=== PATIENT | female | born 1945 | race Caucasian/White ===

== ENCOUNTER 2019-04-01 10:59 | Observation (INO) ==
[~2019-04-01 10:59] MED LIST: CEFAZOLIN 1000MG 1,000 MG/7.5 ML SYR IV SCH; CEFAZOLIN 2000MG 2,000 MG/15 ML SYR IV SCH; LR 15ML/HR IV SCH
[2019-04-01 12:15] LABS: INR 1.7 (0.9-1.1); Prothrombin Time 16.4 Seconds (9.0-12.0)
--- NOTE | 2019-04-01 12:38 | Pre Anesthesia Assessment ---
Date of Service April 01, 2019 Pre Sedation Assessment Vital Signs Temp Pulse Resp BP Pulse Ox 04/01/19 11:45 36.5 C 91 H 20 94/60 L 94 Cardiovascular + irregularly irregular Respiratory normal respiratory effort, lungs clear to auscultation Pre-Sedation Airway Assessment Smoking Status: Former smoker Hx Sleep Apnea: No Hx Difficult Intubation: No Short, Thick Neck: No Thyromental Distance: < 3.5 Finger Breadths Oral Cavity: + Dentures Mallampati Class: III ASA: ASA3 NPO Status Date of Last Intake of Fluids: 03/31/19 Date of Last Intake of Solid Food: 03/31/19 Procedure Planning Contraindications for Sedation: none Current Medications Reviewed: Yes Notes The planned sedation has been discussed with the patient. Informed Consent was obtained. I have identified the patient, determined the appropriateness of sedation and have assessed the patient immediately prior to the procedure. All medicine(s) and interventions are by my order.
[2019-04-01] MEDS ORDERED: BUPIVACAINE 0.25% 30 ML VIAL ONE (12:48)
[2019-04-01] MEDS ORDERED: LIDOCAINE HCL 1% 20 ML VIAL ONE (12:48)
--- NOTE | 2019-04-01 12:48 | History & Physical Report ---
Date of Service April 01, 2019 History of Present Illness Chief Complaint: +lightheadeness dizziness, fatigue and SOB Pt with persistent AF with RVR and hypotension unable to tolerate much diaslysis due to the hypotension Primary Care Provider: Jose Elias Ascencio MD +lightheadeness dizziness, fatigue and SOB Pt with persistent AF with RVR and hypotension unable to tolerate much diaslysis due to the hypotension Allergies Allergy/AdvReac Type Severity Reaction Status Date / Time No Known Allergies Allergy Unverified 12/16/18 13:55 Home Medications Home Medications Medication Instructions Recorded Confirmed Type Flovent HFA 2 puff INHALATION BID 12/16/18 04/01/19 History Renal Caps 1 mg PO DAILY 12/16/18 04/01/19 History calcitriol 0.25 mg PO DAILY 12/16/18 04/01/19 History cholecalciferol (vitamin D3) 5,000 unit PO DAILY 12/16/18 04/01/19 History cilostazol 100 mg PO BID 12/16/18 04/01/19 History clopidogrel 75 mg PO DAILY 12/16/18 04/01/19 History desvenlafaxine succinate 100 mg PO DAILY 12/16/18 04/01/19 History ferrous sulfate [Iron (ferrous 325 mg PO DAILY 12/16/18 04/01/19 History sulfate)] glipizide 5 mg PO DAILY 12/16/18 04/01/19 History metoprolol tartrate 100 mg PO BID 12/16/18 04/01/19 History nitroglycerin 0.4 mg SUBLINGUAL Q5M PRN 12/16/18 04/01/19 History nystatin [Nyamyc] 1 applic TOPICAL TID 12/16/18 04/01/19 History oxycodone-acetaminophen 1 tab PO Q6H PRN 12/16/18 04/01/19 History calcium acetate 667 mg PO TIDM 30 Days #90 cap 01/07/19 04/01/19 Rx albuterol sulfate 3 puff INHALATION BID 04/01/19 04/01/19 History warfarin [Coumadin] 5 mg PO UD 04/01/19 04/01/19 History Past Med/Surg History Social History Preferred Language: Albanian Communication Ability: Effective Gun Number Required: No Beliefs That Will Affect Care: None marital status: / Current Living Situation: Family Current Living Situation Comment: Grandson lives with patient; he is 26 Other Information That Helps Us Care for You: No Feels Safe at Home: No Is there a partner from a previous relationship who is making you feel unsafe now?: No Any Concerns about Your Family Situation: No Would You Like to Speak to Someone About Your Situation: No Safety Concerns: Feels Safe At This Time Smoking Status: Former smoker Smoking End Date: quit 5 yrs ago Second Hand Exposure: Yes Tobacco Cessation Education Requested by Patient: No Hx Alcohol Use: No Hx Substance Use: No Review of Systems All systems reviewed & are unremarkable except as noted in HPI & below Physical Exam Physical Exam: aaox3, NAD NC/AT, EOMI Supple No JVD irregular irregular S1/S2, + murmur CTA b/l no w/r/r soft nt/nd no LE edema b/l skin intact, left AVF and left sided ppm no focal deficits Results & Data Vital Signs (Past 12 Hours) Vital Signs right sided peripheral venogram from 03/17 shows right sided subclavian is patent Temp Pulse Resp BP Pulse Ox 04/01/19 11:45 36.5 C 91 H 20 94/60 L 94
[2019-04-01] MEDS ORDERED: BACITRACIN INJ 50,000 UNIT VIAL ONE (12:49)
[2019-04-01] MEDS ORDERED: MIDAZOLAM HCL 5 MG/ML 1 ML VIAL ONE ×3 (12:51→14:55)
[2019-04-01] MEDS ORDERED: fentaNYL citrate 100 MCG/2 ML VIAL ONE ×3 (12:51→14:55)
[2019-04-01] MEDS ORDERED: OXYCODONE/ACETAMINOPHEN 5mg/325mg TAB PO PRN (16:39)
[2019-04-01] MEDS ORDERED: NITROGLYCERIN SL 0.4 MG/TAB TAB SL PRN (16:39)
--- NOTE | 2019-04-01 16:49 | Discharge Summary ---
Date of Service April 01, 2019 Admission HPI Per Admitting Provider +lightheadeness dizziness, fatigue and SOB Pt with persistent AF with RVR and hypotension unable to tolerate much diaslysis due to the hypotension Admission Exam Per Admitting Provider aaox3, NAD NC/AT, EOMI Supple No JVD irregular irregular S1/S2, + murmur CTA b/l no w/r/r soft nt/nd no LE edema b/l skin intact no focal deficits Principal Diagnosis Persistent AF with RVR s/p biv ppm and AVN ablation Discharge Exam aaox3, NAD NC/AT, EOMI Supple No JVD Nrl S1/S2, + murmur CTA b/l no w/r/r soft nt/nd no LE edema b/l skin intact no focal deficits right pectoral incision intact, no hematoma mild ecchymosis ENMT Mallampati Class: III Respiratory normal respiratory effort, lungs clear to auscultation Cardiovascular Rate/Rhythm: + irregularly irregular Discharge Data Allergies Allergy/AdvReac Type Severity Reaction Status Date / Time No Known Allergies Allergy Unverified 12/16/18 13:55 Procedures Performed Operation Date: 04/01/19 13:00 Actual Procedures p Pacer with Ventricular Lead - Poly Goldstein DO s Lead LV (No Priopr Implant) - Poly Goldstein DO s AV Node Ablation - Poly Goldstein DO Ordered Studies CXR: No PTX leads in position ECG: BiV Paced 80bpm with underlying AF BiV PPM interrogation: Normal function and stable lead testing 04/01/19 12:15 EP Lab Images for PACS ONCE Total Time Total Time Spent Total Time Spent (In Minutes): 30 Total Time Includes: Examination of the Patient, Discharge Planning, Medication Reconciliation and Other Discharge Plan Discharge Items Patient Disposition: Home - Home Health Services Reason For Visit: Permanent Afib RVR Discharge Diagnosis: Permanent AF with RVR s/p BiV ppm and AVN ablation Discharge Goals: Increase independence Activity: As commented below Activity Comment: do not raise the right elbow over the right shoulder for 1 month Lifting: No more than 10 pounds Lifting Comment: do not lift more than 10 pounds with the right arm for 2 weeks Bathing: Keep incision dry Bathing Comment: can shower tuesday 04/03 just let water run over the incision do not scrub it Non-emergency contact: Control Officer Call non-emergency contact if: you have any medication questions Follow-up/Referrals: Jose Elias Ascecnio MD [Primary Care Provider] - Diet: Dialysis Renal and Heart Healthy Addtl Provider Instructions: device and wound check Tuesday 04/10 at [facility] cardiology F/u with Dr. Goldstein in 1 month Prescriptions: Continued cilostazol 100 mg tablet 100 mg PO BID RF: 0 glipizide 5 mg Tablet Extended Release 24hr 5 mg PO DAILY RF: 0 clopidogrel 75 mg tablet 75 mg PO DAILY RF: 0 oxycodone-acetaminophen 5-325 mg tablet 1 tab PO Q6H PRN (Reason: Pain (Scale Score 7-10)) RF: 0 ferrous sulfate [Iron (ferrous sulfate)] 325 mg (65 mg iron) Tablet 325 mg PO DAILY RF: 0 nitroglycerin 0.4 mg tablet, sublingual 0.4 mg Sublingual Q5M PRN (Reason: Chest Pain) RF: 0 nystatin [Nyamyc] 100,000 unit/gram powder 1 applic topical TID RF: 0 Renal Caps 1 mg capsule 1 mg PO DAILY RF: 0 calcitriol 0.25 mcg capsule 0.25 mg PO DAILY RF: 0 Flovent HFA 110 mcg/actuation HFA aerosol inhaler 2 puff Inhalation BID RF: 0 desvenlafaxine succinate 100 mg tablet extended release 24 hr 100 mg PO DAILY RF: 0 cholecalciferol (vitamin D3) 5,000 unit Capsule 5,000 unit PO DAILY RF: 0 warfarin [Coumadin] 2.5 mg tablet 5 mg PO UD RF: 0 albuterol sulfate inhaler 3 puff inhalation BID RF: 0 Discontinued metoprolol tartrate 100 mg tablet 100 mg PO BID RF: 0 Stand-Alone Forms: [facility] Discharge Orders: Discharge Order (Routine); Ordered 04/02/19 Ordered By: Poly Goldstein Admission Data Admit Date/Time: 04/01/19 14:36 Attending Provider: Poly Goldstein Admit Provider: Poly Goldstein Primary Care Provider: Jose Elias Ascencio Service: Telemetry Other Interventions: Discharge Summary Assessment (RN) Last Done: 04/02/19 11:17 DC Date/Time DO NOT enter until pt leaves facility: 04/02/19 14:15
[2019-04-01] MEDS: CALCIUM ACETATE 667 MG CAP PO SCH ×2 (18:27→19:40)
[2019-04-01] MEDS ORDERED: WARFARIN SOD 5 MG TAB PO SCH (19:30)
[2019-04-01 19:31] LABS: Hematocrit (blood only) 34.7 % (37-47); Hemoglobin 10.4 g/dL (12.0-16.0); Mean Corpuscular Volume 108.1 fL (80-100); Mean Platelet Volume 9.5 fL (7.4-10.4); Platelet Count 162 K/uL (130-400); RDW Coefficient of Variation 18.3 % (11.5-14.5); RDW Standard Deviation 72.6 fL (36.4-46.3); Red Blood Count 3.21 M/uL (4.2-5.4); White Blood Count 7.31 K/uL (4.8-10.8)
[2019-04-01] MEDS: CILOSTAZOL 100 MG TAB PO SCH (19:42)
[2019-04-01] MEDS: NYSTATIN POWDER 15GM BTL EXT SCH (19:42)
[2019-04-01] MEDS: FLUTICASONE HFA 110MCG INHALER INH SCH (19:43)
[2019-04-01] MEDS: ALBUTEROL HFA 8 GM INHALER INH SCH (19:43)
[2019-04-02] MEDS: FLUTICASONE HFA 110MCG INHALER INH SCH (07:43)
[2019-04-02] MEDS: ALBUTEROL HFA 8 GM INHALER INH SCH (07:43)
[2019-04-02] MEDS: CALCIUM ACETATE 667 MG CAP PO SCH (07:44)
[2019-04-02] MEDS: CILOSTAZOL 100 MG TAB PO SCH (07:44)
[2019-04-02] MEDS: NYSTATIN POWDER 15GM BTL EXT SCH (07:45)
[2019-04-02 08:11] LABS: INR 1.3 (0.9-1.1); Prothrombin Time 12.7 Seconds (9.0-12.0)
[2019-04-02] MEDS ORDERED: glipiZIDE 5 MG TAB PO SCH (09:00)
[2019-04-02] MEDS ORDERED: NEPHROCAPS PO SCH (09:00)
[2019-04-02] MEDS ORDERED: CHOLECALCIFEROL 1,000 UNITS TAB PO SCH (09:00)
[2019-04-02] MEDS ORDERED: FERROUS SULFATE 325 MG TAB PO SCH (09:00)
[2019-04-02] MEDS ORDERED: CALCITRIOL 0.25 MCG CAPSULE PO SCH (09:00)
[2019-04-02] MEDS ORDERED: CLOPIDOGREL BISULFATE 75 MG TAB PO SCH (09:00)
--- NOTE | 2019-04-02 09:25 | XRay Report ---
XR chest 2V routine CLINICAL HISTORY: s/p pacer placement line position COMPARISON STUDY: No previous studies for comparison. FINDINGS: Permanent bipolar cardiac pacemaker with leads in good position. No evidence for pneumothor ax. Minimal bibasilar atelectasis. Mild stable cardiomegaly. IMPRESSION: Permanent bipolar cardiac pacemaker in good position. No evidence for pneumothorax. The above report was generated using voice recognition software. It may contain grammatical, syntax or spelling errors. Electronically signed by: Davi Osuna M.D. 04/02/2019 9:24 AM
[2019-04-02] MEDS ORDERED: CALCIUM ACETATE 667 MG CAP PO SCH (12:00)
--- NOTE | 2019-04-09 01:22 | Operative Report ---
DATE OF OPERATION: 04/01/2019 PREOPERATIVE DIAGNOSES: Permanent atrial fibrillation with rapid ventricular response refractory to high-dose AV linda blockers plus tachybrady syndrome/sick sinus syndrome. POSTOPERATIVE DIAGNOSES: Permanent atrial fibrillation with rapid ventricular response refractory to high-dose AV linda blockers plus tachybrady syndrome/sick sinus syndrome in addition to complete heart block. PROCEDURE: Biventricular rate responsive permanent pacemaker under fluoroscopic guidance along with a coronary sinus venogram followed then by an AV linda ablation. SURGEON: Poly Goldstein DO. INDEPENDENT BEAUTY CONSULTANT: None. ANESTHESIA: Monitored conscious sedation administered under my supervision by Paresh العلي. Start time 1319, end time 1633. A total of 12 mg of Versed, 225 mcg of fentanyl. INTRAVENOUS FLUIDS: 60 mL. URINE OUTPUT: Not applicable. SPECIMENS: None. FINDINGS: See below. DRAINS: None. INTRAVENOUS CONTRAST: 10 mL. INDICATIONS: This is a 73-year-old female with a past medical history for tachybrady/sick sinus syndrome, where she underwent a pacemaker in August of 2007 on the left side, a [employer] Romel, and a generator change in 2014. At some point, it is known that the right ventricular lead has failed and no longer works. Other past medical history is coronary artery disease, history of PCI to the RCA and circumflex in [place] by a catheterization in October 2014, there was some in-stent restenosis. Hypertension, hyperlipidemia, carotid artery stenosis, renal artery stenosis, hyperlipidemia, diabetes. She was recently started on dialysis, has a left-sided AV fistula as well as she most recently has been found to be in persistent probably permanent atrial fibrillation in January of 2019 with rapid ventricular response refractory to high-dose AV linda blockers and she is on Coumadin with a CHADS2-VASc score of 6. Due to the inability to control her atrial fibrillation with AV linda blockers and this becoming a problem with effective dialysis, she was recommended a right-sided biventricular pacemaker followed then by an AV linda ablation. CONSENT: Consent was obtained prior to the patient going into the electrophysiology lab. The patient was informed of the risks, benefits, and alternatives to the procedure. Risks include, but not limited to, sudden cardiac , cardiac arrhythmias, cerebrovascular accident, myocardial infarction, injury to the blood vessels, chamber of the heart, lungs, bleeding, and infection. The patient understood these risks and agreed to go ahead with the procedure as planned. Informed consent was obtained. DESCRIPTION OF THE PROCEDURE: The patient was brought into the electrophysiology lab in a fasting state. She was connected to continuous cardiac monitoring. A timeout was performed to ensure patient's identity and procedure correctly. The patient was prepped and draped over the right infraclavicular space in a normal surgical standard fashion. Monitored conscious sedation was given throughout the procedure for patient's comfort level. Tyner precautions were maintained throughout the procedure. A 10 mL of 1% lidocaine and bupivacaine mixture were given in the right deltopectoral groove. Blunt dissection was performed down to the cephalic vein. Cephalic vein was isolated using 0 silk ties and the vein was nicked with an 11-blade. A guidewire was inserted without any resistance. An 8-Serbian sheath was inserted over the guidewire without any resistance. Dilator was removed and a second guidewire was inserted through the 8-Serbian sheath to allow for retained venous access. The 8-Serbian sheath was flushed, dilator reinserted over it, and then it was reinserted along the guidewire. The guidewire and dilator were removed. The right ventricular pacing lead was then advanced into right ventricle and positioned into right ventricular apex under fluoroscopic guidance. There was adequate pacing and sensing thresholds and no diaphragmatic stimulation with high output pacing. The 8-Serbian sheath was peeled away and the lead was fixated to pectoralis muscle using 0 silk suture. A 9.5-Serbian sheath was inserted over the retained guidewire without any resistance. The guidewire and dilator were removed. Then the right-sided MPX Medtronic outer sheath catheter was advanced over a Glidewire into the right atrium under fluoroscopic guidance. The guidewire and dilator were removed. Then a diagnostic coronary sinus catheter was advanced through the sheath and the coronary sinus was cannulated. The MPX right-sided sheath was then advanced over the EP diagnostic catheter out into the coronary sinus. Then the EP diagnostic catheter was removed and a balloon was inserted through the MPX sheath and a venogram of the coronary sinus was performed. There was a nice branch in the posterolateral region, so I was able to wire this with a Whisper wire and then run the lead directly over it without any problems. There was adequate pacing and sensing thresholds and no diaphragmatic stimulation with high output pacing. The Whisper wire was then replaced with a stylet through the lead for more support and then the right-sided MPX coronary sinus outer sheath was slid under fluoroscopic guidance followed then by the 9.5-Serbian short sheath. The LV lead was then fixated to pectoralis muscle using 0 silk suture. A pacemaker pocket was created using the blunt dissection over the pectoralis muscle within the pectoral fascia. The pacemaker was then attached to the leads, making sure that the pins were in appropriate position, passed set screws, and set screws were tightened. The right atrial port was plugged. Then the pacemaker was placed in antibiotic pouch followed then by being placed in the pocket, making sure that the leads were lying flat beneath the device and a stay stitch using 0 silk suture was used to secure the device to the pectoralis muscle. The incision was then closed in a 3-layer fashion with 2-0 Vicryl interrupted suture followed by 3-0 Vicryl suture followed by a 4-0 Monocryl running stitch and Dermabond was applied. We then reprepped the patient for the AV linda ablation by surgically prepping the bilateral groins. Then I gave 10 mL of 1% lidocaine in the right groin area. Then using the modified Seldinger technique, the right femoral vein was accessed and a guidewire was inserted without any resistance. An 8-Serbian sheath was inserted over the guidewire without any resistance. Then the Biosense 8-mm DF curved ablation catheter was advanced up into the heart under fluoroscopic guidance and positioned into the His bundle region. Then with 70 argueta we gave adequate radiofrequency burn where then we developed complete heart block. I gave a series of total of 3 robertson a minute each in this area. Then we watched for 30 minutes and after 30 minutes we rechecked and we still had complete heart block. The ablation catheter was removed from the body under fluoroscopic guidance and then the sheath was pulled and manual compression was used to establish hemostasis. EQUIPMENT: 1. The chronic generator pacemaker on the left which was a St. Romel, we opted to keep in since there was a higher risk of infection if we removed it. It is a [employer] Romel Assurity [id number], serial #[id number] implanted 09/23/2015. 2. The new pacemaker on the right is a Medtronic Ciara QUAD CRTP MRI SureScan [id number], serial #[id number]. 3. The Tyrx pouch is reference number [id number], lot #[id number] and the expiration date is 05/13/2019. 4. [place] [id number], lot #[id number]. 5. The new right ventricular lead is a Medtronic 5076-58 cm, serial #[id number]. 6. The new left ventricular lead is a Medtronic 4398-78 cm, serial #[id number]. 7. The old [employer] Romel leads connected to the left-sided pacemaker are as follows: The right atrial lead is [employer]. Romel IsoFlex 1642T-46, serial #[id number], implanted 08/27/2007. The right ventricular lead is a [employer] Romel IsoFlex 1646T-52 cm, serial #[id number] implanted 08/27/2007. INTRAOPERATIVE TESTIN. Right ventricular lead: R-waves 13.1 millivolts, impedance 833 ohms, threshold 0.3 volts at 0.3 milliamps. 2. Left ventricular lead programmed LV2 to LV3, impedance 441 ohms, threshold 3.6 volts at 9.1 milliamps. FINAL MEASUREMENTS THROUGH THE DEVICE: 1. Right ventricular lead: No R-waves as the patient has a complete heart block, impedance 800 ohms, threshold 0.3 volts at 0.4 milliseconds. 2. The LV lead programmed LV2 to can, impedance 399 ohms, threshold 2 volts at 1 millisecond. FINAL PARAMETERS: VVIR 80/130. Right ventricle amplitude is 3.5 volts, pulse width 0.4 milliseconds, sensitivity 1.2 millivolts. Left ventricular amplitude, 4 volts, pulse width 1 millisecond. IMPRESSION: Successful implantation of a right-sided biventricular rate responsive permanent pacemaker under fluoroscopic guidance along with a venogram of the coronary sinus, followed then by an AV linda ablation secondary to refractory permanent atrial fibrillation. PLAN: Monitor patient overnight, 12-lead ECG, chest x-ray. She is not allowed to lift the right elbow over the right shoulder for 1 month. She cannot lift more than 10 pounds with the right arm for 2 weeks. She can shower in 2 days, let water run over the incision, do not scrub it. We can stop her AV linda blockers and we can restart her anticoagulation. I attest to the content of the Intraoperative Record and any orders documented therein. Any exceptions are noted below. ALEXANDERD
== END 2019-04-02 14:15 | disposition home health service (06) ==
LOC: ASU 10:59 → 2S 10:59

== ENCOUNTER 2019-04-29 12:06 | Observation (INO) ==
[2019-04-29 14:41] LABS: Alanine Aminotransferase 32 U/L (12-78); Albumin Globulin Ratio 0.7 (0.9-2); Alkaline Phosphatase 119 U/L (45-117); Aspartate Aminotransferase 31 U/L (15-37); BUN Creatinine Ratio 5.9 (10-20); Bilirubin,Total 0.4 mg/dl (0.2-1); Blood Urea Nitrogen 15 mg/dl (7-18); Calcium 9.6 mg/dl (8.5-10.1); Carbon Dioxide 34 mmol/L (21-32); Chloride 99 mmol/L (98-107); Est GFR (African American) 20.9; Est GFR (Non-African American) 18.1; Glucose 133 mg/dl (70-99); Potassium 4.9 mmol/L (3.5-5.1); Sodium 139 mmol/L (136-145)
--- NOTE | 2019-04-29 15:44 | XRay Report ---
XR chest 2V routine CLINICAL HISTORY: 73 years-old Female presenting with pacer placement, infection, drainage from incis ion, recent pacer placement. TECHNIQUE: PA and lateral views of the chest were obtained. COMPARISON: 04/02/2019. FINDINGS: Right subclavian pacer with lead to the coronary sinus and right ventricular apex. The left subclavia n pacer with leads to the right atrium and right ventricular apex. Appropriately positioned leads. No retained surgical material is evident. Atherosclerosis of the aortic arch. Cardiac silhouette mildly enlarged. No focal lung opacity. No large effusion or pneumothorax. Degenerative changes of the thor acic spine. Upper abdomen normal. IMPRESSION: 1. Bilateral subclavian pacer is in place. No retained surgical material. No abnormal lead positioni ng. 2. Mild cardiomegaly. No evidence of volume overload or congestive change. Electronically signed by: Javier Kwok M.D. 04/29/2019 3:42 PM
[2019-04-29 16:21] LABS: Hematocrit (blood only) 36.6 % (37-47); Hemoglobin 10.7 g/dL (12.0-16.0); Mean Corpuscular Hgb Conc 29.2 g/dL (32-36); Mean Corpuscular Volume 107.6 fL (80-100); Platelet Count 138 K/uL (130-400); White Blood Count 6.15 K/uL (4.8-10.8)
[2019-04-29 16:22] LABS: Anisocytosis Present; Eosinophils # (auto) 0.08 K/uL (0-0.5); Eosinophils % (auto) 1.3 %; Lymphocytes # (auto) 0.82 K/uL (1.2-3.4); Lymphocytes % (auto) 13.3 %; Monocytes # (auto) 0.61 K/uL (0.11-0.59); Monocytes % (auto) 9.9 %; Neutrophils # (auto) 4.64 K/uL (1.4-6.5); Neutrophils % (auto) 75.5 %
[2019-04-29] MEDS ORDERED: CONSULT PHARMACY STA (16:28)
[2019-04-29] MEDS ORDERED: PATIENT'S HEIGHT AND/OR WEIGHT NEEDED SCH (16:45)
[2019-04-29] MEDS ORDERED: PIPERACILL/TAZOBAC CONSULT ACTIVE PRN (16:59)
[2019-04-29] MEDS ORDERED: PIPERACILLIN/TAZOBACTAM 3.375 GM in DEXTROSE 5% 100 ML IV ONE (17:00)
[2019-04-29] MEDS ORDERED: VANCOMYCIN CONSULT ACTIVE PRN ×2 (17:00→21:55)
--- NOTE | 2019-04-29 17:07 | Cardiology Consultation ---
Date of Consultation April 29, 2019 Assessment & Plan (1) Infection of pacemaker pocket: (2) Chronic ischemic heart disease: (3) ESRD on hemodialysis: Patient seen and examined in the emergency department along with Dr. Goldstein of EP who examined the incision with use of sterile gloves. Additional yellow- tinged serosanguineous fluid was expressed. The hope was that this is a superficial infection and does not reach the deep fascial layer into the pocket. Blood cultures have been ordered to be obtained prior to the initiation of antibiotics. We will initially start IV antibiotics. Need to treat for hospital-acquired organisms because of her history of hemodialysis. I have asked for a pharmacy consultation to help with dosing of vancomycin and Zosyn for now. Hopefully her cultures remain negative, and she will respond to treatment for superficial infection. If her blood cultures reveal evidence of bacteremia, she will likely need to be transferred to tertiary care center for complex device extraction with need for bridging temporary pacemaker due to her history of AV j unction ablation. Patient is to be admitted to the [facility] service. Nephrology will need to be consulted for dialysis management. An INR has been ordered, and coumadin will be dosed accordingly. History of Present Illness History of Present Illness Romina Strong is a 73 year old female seen in cardiology consultation in the ED per the request of Dr Brewer for the evaluation of drainage from her pacemaker incision. The patient was attending her typical Saturday dialysis session in [place] today and nursing there noted significant serosanguineous yellow drainage from her right infraclavicular pacemaker pocket incision. After discussing things with our office, she was referred to the emergency room for further assessment. Upon my assessment, the patient was noted to have expressible yellow-tinged serosanguineous drainage without jayce blood. The incision had with scabbing and mild erythema with a central area of 0.5 cm that was open when palpated with the use of sterile gloves. The patient denies any subjective fevers or chills. She states the drainage has began within the last 24 hours. She had been seen by home health on Saturday, and scabbing over the incision was noted without drainage and without an open component. The patient has a complex heart history including underlying ischemic heart disease and atrial fibrillation with tachycardia-bradycardia syndrome. She had a remote left-sided [employer] pacemaker placed. She had been admitted earlier this year in December with atrial fibrillation with rapid ventricular response. She was symptomatic with this and it was refractory to treatment with AV linda blockers with ongoing elevated ventricular rates. She therefore returned as an outpatient on 04/01/2019. Device interrogation revealed that the left infraclavicular pacemaker device lead was not functioning suitable to allow ongoing use. This device was therefore abandoned, and she underwent implantation of a new right infraclavicular biventricular pacemaker receiving a new right ventricular lead as well as a coronary sinus lead. The prior left-sided device was left in place however deactivated. She then underwent an AV junction ablation in the same setting. The patient has felt remarkably improved since the procedure. Past Medical and Surgical History: 1. Multivessel coronary artery disease status post PCI and stenting of the LAD, circumflex, and right coronary artery in 2003 and 2006 2. History of paroxysmal, now permanent atrial fibrillation 3. History of tachycardia-bradycardia syndrome status post remote dual-chamber [employer] pacemaker, with recent addition of right infraclavicular [employer] biventricular pacemaker in March, as outlined above 4. AV junction ablation, performed 04/01/2019 5. End-stage renal disease on hemodialysis, followed by Dr. Guajardo, receives hemodialysis every Saturday, [facility], through a left upper extremity AV fistula 6. History of repair of left AV fistula performed by vascular surgery in December, 7. Peripheral arterial disease status post bilateral lower extremity revascularization March, after which time she suffered acute on chronic renal insufficiency and has been on hemodialysis since 8. Type 2 diabetes mellitus 9. Hypertension 10. Dyslipidemia Allergies Allergy/AdvReac Type Severity Reaction Status Date / Time No Known Allergies Allergy Unverified 04/29/19 14:14 Home Medications Home Medications Medication Instructions Recorded Confirmed Type Flovent HFA 2 puff INHALATION BID 12/16/18 04/29/19 History Renal Caps 1 mg PO QAM 12/16/18 04/29/19 History cholecalciferol (vitamin D3) 5,000 unit PO QAM 12/16/18 04/29/19 History cilostazol 100 mg PO BID 12/16/18 04/29/19 History clopidogrel 75 mg PO QAM 12/16/18 04/29/19 History glipizide 5 mg PO QAM 12/16/18 04/29/19 History nitroglycerin 0.4 mg SUBLINGUAL Q5M PRN 12/16/18 04/29/19 History nystatin [Nyamyc] 1 applic TOPICAL TID 12/16/18 04/29/19 History oxycodone-acetaminophen 1 tab PO Q6H PRN 12/16/18 04/29/19 History warfarin [Coumadin] 2.5 mg PO 5XWK 04/01/19 04/29/19 History albuterol sulfate 2 puff INHALATION Q6H PRN 04/29/19 04/29/19 History atorvastatin 40 mg PO HS 04/29/19 04/29/19 History desvenlafaxine succinate [Pristiq] 25 mg PO QAM 04/29/19 04/29/19 History warfarin 5 mg PO 2XWK 04/29/19 04/29/19 History Patient History Medical History T2DM (type 2 diabetes mellitus) (Chronic) AV fistula Left upper ext. History of cardiac pacemaker HTN (hypertension) (Chronic) HLD (hyperlipidemia) (Chronic) PAF (paroxysmal atrial fibrillation) (Chronic) CAD (coronary artery disease) (Chronic) hx of PCI to LAD, Circumflex, RCA in PAD (peripheral artery disease) (Chronic) Renal artery stenosis (Chronic) s/p stent Tachy-mary syndrome (Resolved) s/p PPM Dr. Goldstein CKD (chronic kidney disease) stage 4, GFR 15-29 ml/min (Chronic) Anemia of chronic disease (Chronic) Depression (Chronic) Vitamin D deficiency (Chronic) Surgical History History of angioplasty of peripheral vessel fem/pop bypass 10/21 history of Renal stent History of percutaneous coronary intervention History of x 3 History of lumbar laminectomy History of total right hip arthroplasty Family History Father , age 61 Stroke Hypertension Mother , age 51 Myocardial infarction Sister , age 50 Cervical ca Sister Breast cancer Social History Preferred Language: Citizen Of [place] Communication Ability: Effective Beliefs That Will Affect Care: None marital status: / Current Living Situation: Family Current Living Situation Comment: Grandson lives with patient; he is 26 Feels Safe at Home: Yes Smoking Status: Current every day smoker Second Hand Exposure: Yes Hx Alcohol Use: No Hx Substance Use: No Review of Systems Review of Systems: All systems reviewed & are unremarkable except as noted in HPI & below Physical Exam Physical Exam: Temp Pulse Resp BP Pulse Ox 36.6 C 81 20 154/63 H 100 04/29/19 12:09 04/29/19 15:26 04/29/19 15:26 04/29/19 15:26 04/29/19 15:26 Constitutional: no acute distress Respiratory: normal respiratory effort, lungs clear to auscultation Cardiovascular: RRR, no murmur, no edema Vessels: no JVD Extremities: no edema Chest (Breasts): Chest: + pacemaker (Right infraclavicular pacemaker incision reveals areas of cephalad and caudal granulation tissue, with a central area where the incision has opened draining expressible yellow serosanguineous drainage) Gastrointestinal (Abdomen): normal bowel sounds, soft, nontender, no hepatosplenomegaly Neurologic: PERRL, EOMI, accommodation nl, no face palsy, no dysarthria Results & Data Laboratory Results Cardiac Enzymes 04/29/19 Range/Units 13:56 AST 31 (15-37) U/L CBC 04/29/19 04/29/19 Range/Units 13:56 15:10 WBC Cancelled 6.15 RBC Cancelled 3.40 L Hgb Cancelled 10.7 L Hct Cancelled 36.6 L Plt Count Cancelled 138 Neut # (Auto) Cancelled 4.64 Lymph # (Auto) Cancelled 0.82 L Crook # (Auto) Cancelled 0.61 H Eos # (Auto) Cancelled 0.08 Baso # (Auto) Cancelled 0.00 Comprehensive Metabolic Panel 04/29/19 Range/Units 13:56 Sodium 139 (136-145) mmol/L Potassium 4.9 (3.5-5.1) mmol/L Chloride 99 (98-107) mmol/L Carbon Dioxide 34 H (21-32) mmol/L BUN 15 (7-18) mg/dl Creatinine 2.53 H (0.6-1.2) mg/dl Glucose 133 H (70-99) mg/dl Calcium 9.6 (8.5-10.1) mg/dl AST 31 (15-37) U/L ALT 32 (12-78) U/L Alkaline Phosphatase 119 H (45-117) U/L Total Protein 7.0 (6.4-8.2) gm/dl Albumin 3.0 L (3.4-5.0) gm/dl Diagnostic Findings Chest x-ray reviewed. The left infraclavicular pacemaker is noted with leads to terminate in the right atrium and the right ventricle. The right infraclavicular pacemaker includes a leads that terminates in the right ventricle, and a coronary sinus left lateral lead is noted. (1) Infection of pacemaker pocket Encounter type: initial encounter Qualified Code(s): T82.7XXA - Infection and inflammatory reaction due to other cardiac and vascular devices, implants and grafts, initial encounter
[2019-04-29] MEDS ORDERED: VANCOMYCIN HCL 2,000 MG in SODIUM CHLORIDE 0.9% 500 ML IV STA (17:27)
--- NOTE | 2019-04-29 17:30 | History & Physical Report ---
Date of Service April 29, 2019 Assessment & Plan (1) Infection of pacemaker pocket: Superficial pacemaker insertion site infection versus deep pocket infection Spoke with cardiology in regards to above They recommend broad-spectrum IV antibiotics given patient on HD The hope is that is a superficial infection patient will respond to IV antibiotics. Blood cultures returned positive indicative of bacteremia patient will likely need transfer to tertiary center for complex device extraction with need for bridging temporary pacemaker due to her history of AV junction ablation. She is afebrile and WBC WNL Admit to Telemetry Consult cardiology - appreciate their input Blood cultures pending follow cbc, bmp (2) ESRD on hemodialysis: HD MWF Follows Dr. Guajardo Nephro consulted Renal Diet, 1200ml FR Pt takes Auryxia for phos binder - pt will bring in home supply will use phos lo for now (3) Tachycardia-bradycardia syndrome: s/p AV linda ablation and PPM RACW insertion 04/01/19 - Dr. Goldstein (4) Chronic ischemic heart disease: No CP/SOB continue Statin, plavix, warfarin HD for volume control (5) Atrial fibrillation: rate and rhythm controlled pacemaker in place warfarin for anticoagulation s/p AV linda ablation and PPM RACW insertion 04/01/19 - Dr. Goldstein (6) T2DM (type 2 diabetes mellitus): Last A1C 7.1 hold outpt glipizide novolog sliding scale per protocol obtain A1C in a.m. (7) PAD (peripheral artery disease): continue warfarin, plavix, statin (8) HTN (hypertension): Blood pressure elevated in ED previously had been on amlodipine and metoprolol - currently off monitor (9) HLD (hyperlipidemia): continue statin (10) Anemia of chronic disease: H/H stable at 10.7 and 36.6 follow cbc (11) Depression: continue pristiq (12) Vitamin D deficiency: replete with Vit D supplementation (13) DVT prophylaxis: continue warfarin, INR pending Disposition: to be determined Follow up: PCP Dr. Ascencio upon discharge Patient was seen and examined in collaboration with Dr. Vásquez, please see addendum Starting 04/30/19 patient will be followed by Dr. Baumann History of Present Illness Chief Complaint: Drainage from from RACW pacemaker incision site x 24 hours. Primary Care Provider: Jose Elias Ascencio MD This is a 73 year old F who has a significant PMH of CAD hx of PCI to LAD, circumflex, rca in 2003, ; PAD hx of angioplasty renal artery and fem/pop bypass, ESRD on HD Saturday since 12/2018, permanent atrial fib status post AV junction ablation on 04/01/2019, TBS S/P PPM with recent addition of right infraclavicular biventricular pacemaker March 2019, T2DM, HTN, HLD, anemia of chronic disease , vit d def, depression who presents to [facility] secondary to purulent drainage from pacemaker incision site x24 hours. Patient was at hemodialysis when she had noticed yellow-tinged serosanguineous drainage without jayce blood. Per family patient had been seen by home health on Saturday and there was scabbing over the incision but no blood o r drainage. She has been overall feeling well. She denies any fever, chills, sweats, lightheadedness, dizziness, chest pain, shortness breath at rest, nausea, vomiting, diarrhea, constipation. She still urinates but minimally secondary to dialysis and denies dysuria, hematuria. She is been compliant with her medications. She follows a strict renal diet and 1200 cc fluid restriction. Patient has a significant and complex cardiac history with underlying ischemic heart disease, atrial fibrillation and tachybradycardia syndrome. She was hospitalized 12/16 to 01/07/2019 secondary to increasing shortness of breath, atrial fibrillation with RVR and volume overload. Patient was found to have progression of her CKD to end-stage renal disease requiring initiation of hemodialysis. In regards to her atrial fibrillation she was refractory to treatment with AV linda blockers with continued elevated ventricular rates. On 04/01/2019 she presented as outpatient and underwent device interrogation which revealed left sided pacemaker lead was not functioning and therefore this device was abandoned. She underwent implantation of new right infraclavicular biventricular pacemaker and the prior left-sided device remained in place but deactivated. She further underwent AV junctional ablation for her rapid atrial fib. In ED patient was assessed by cardiology Dr. Barroso and EP Dr. Goldstein. C oncern is for superficial infection versus deep pocket infection. It was recommended she be initiated on broad-spectrum IV antibiotics with vancomycin and Zosyn. Blood cultures have been obtained. Per cardiology if evidence of bacteremia she will likely need to be transferred to tertiary care center for complex device extraction with need for bridging temporary pacemaker due to her history of AV junction ablation. Allergies Allergy/AdvReac Type Severity Reaction Status Date / Time No Known Allergies Allergy Unverified 04/29/19 14:14 Home Medications Home Medications Medication Instructions Recorded Confirmed Type Flovent HFA 2 puff INHALATION BID 12/16/18 04/29/19 History Renal Caps 1 mg PO QAM 12/16/18 04/29/19 History cholecalciferol (vitamin D3) 5,000 unit PO QAM 12/16/18 04/29/19 History cilostazol 100 mg PO BID 12/16/18 04/29/19 History clopidogrel 75 mg PO QAM 12/16/18 04/29/19 History glipizide 5 mg PO QAM 12/16/18 04/29/19 History nitroglycerin 0.4 mg SUBLINGUAL Q5M PRN 12/16/18 04/29/19 History nystatin [Nyamyc] 1 applic TOPICAL TID 12/16/18 04/29/19 History oxycodone-acetaminophen 1 tab PO Q6H PRN 12/16/18 04/29/19 History warfarin [Coumadin] 2.5 mg PO 5XWK 04/01/19 04/29/19 History albuterol sulfate 2 puff INHALATION Q6H PRN 04/29/19 04/29/19 History atorvastatin 40 mg PO HS 04/29/19 04/29/19 History desvenlafaxine succinate [Pristiq] 25 mg PO QAM 04/29/19 04/29/19 History ferric citrate [Auryxia] 210 mg PO TIDM 04/29/19 04/29/19 History warfarin 5 mg PO 2XWK 04/29/19 04/29/19 History Past Med/Surg History Medical History ESRD (end stage renal disease) on dialysis (Chronic) Follows Dr. Hinton with hemodialysis Saturday T2DM (type 2 diabetes mellitus) (Chronic) AV fistula (Chronic) Left upper ext. 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 pacemaker, with recent addition of right infraclavicular [employer]tr[employer] biventricular pacemaker in March, as outlined above HTN (hypertension) (Chronic) HLD (hyperlipidemia) (Chronic) PAF (paroxysmal atrial fibrillation) (Chronic) CAD (coronary artery disease) (Chronic) hx of PCI to LAD, Circumflex, RCA in PAD (peripheral artery disease) (Chronic) Renal artery stenosis (Chronic) s/p stent Tachy-mary syndrome (Resolved) s/p PPM Dr. Goldstein CKD (chronic kidney disease) stage 4, GFR 15-29 ml/min (Chronic) Depression (Chronic) Vitamin D deficiency (Chronic) Surgical History History of atrioventricular linda ablation (Chronic) 04/01/[address] Goldstein History of angioplasty of peripheral vessel (Chronic) fem/pop bypass 10/21 history of Renal stent History of percutaneous coronary intervention (Chronic) History of (Chronic) x 3 History of lumbar laminectomy (Chronic) History of total right hip arthroplasty (Chronic) Family History Father , age 61 Stroke Hypertension Mother , age 51 Myocardial infarction Sister , age 50 Cervical ca Sister Breast cancer Social History Preferred Language: [place] Communication Ability: Effective Beliefs That Will Affect Care: None marital status: / Current Living Situation: Family Current Living Situation Comment: Grandson lives with patient; he is 26 Feels Safe at Home: Yes Smoking Status: Current every day smoker Second Hand Exposure: Yes Hx Alcohol Use: No Hx Substance Use: No Review of Systems Review of Systems: As noted per HPI, 10 systems reviewed and negative unless noted above. Physical Exam Physical Exam: Gen: WD/WN, F, NAD, sitting up in bed, pleasant, conversing easily Head: Normocephalic, Atraumatic Eyes: Sclera normal, no conjunctival injection, PERRLA, EOMI ENT: Gross hearing intact, normal pharynx, mucous membranes moist Neck: supple, no adenopathy, No JVD, no bruit, Resp: Clear to auscultation b/l, no wheeze, rales, rhonchi. Normal insp/exp effort, no accessory muscle use CV: +RACW Pacer with dressing CDI, Regular rate, regular rhythm, no murmur, rub, gallop, or ectopy Abd: +BS x 4, soft, nontender, nondistended Musculoskeletal: moves extremities active rom x 4, strength intact, good mosaic layer strength Extremities: LUE AV Fistula B/L LE lympedema with venous stasis erythematous changes, pedal pulse +1, Skin: warm, moist, no rash, negative turgor, cap refill < 2sec Neuro: Alert and oriented x 3, speech normal, good mood/affect, cran nerve 2-12 intact grossly : deferred Results & Data Vital Signs (Past 12 Hours) Vital Signs Temp Pulse Pulse Resp BP BP Pulse Ox 04/29/19 17:00 80 20 155/75 H 100 04/29/19 15:26 81 20 154/63 H 100 04/29/19 14:07 80 20 142/52 H 100 04/29/19 12:09 36.6 C 80 20 141/66 H 97 Laboratory Results Short CBC 04/29/19 04/29/19 Range/Units 13:56 15:10 WBC Cancelled 6.15 Hgb Cancelled 10.7 L Hct Cancelled 36.6 L Plt Count Cancelled 138 BMP 04/29/19 13:56 Sodium 139 Potassium 4.9 Chloride 99 Carbon Dioxide 34 H BUN 15 Creatinine 2.53 H Glucose 133 H Calcium 9.6 Liver Function 04/29/19 Range/Units 13:56 Total Bilirubin 0.4 (0.2-1) mg/dl AST 31 (15-37) U/L ALT 32 (12-78) U/L Alkaline Phosphatase 119 H (45-117) U/L Albumin 3.0 L (3.4-5.0) gm/dl Diagnostic Findings CXR IMPRESSION: 1. Bilateral subclavian pacer is in place. No retained surgical material. No a bnormal lead positioning. 2. Mild cardiomegaly. No evidence of volume overload or congestive change. Medications Administered Discontinued Medications Piperacillin Sod/Tazobactam (Sod 3.375 gm/ Dextrose) 115 mls @ 230 mls/hr IV NOW ONE; Protocol Stop: 04/29/19 17:29 Last Admin: 04/29/19 17:40 Dose: 230 mls/hr Documented by: [id number] Code Status & VTE Plan Code Status Full Code VTE Prophylaxis Plan VTE Prophylaxis will be ordered: Yes Supervising Physician Co-Signing Physician Notes I, Dr. Tyrel Vásquez, have seen and examined the patient with physician asset protection assistant and agree with the assessment and plan as above and would like to comment that this is a 73 year old female with ESRD on dialysis and recently with pacemaker insertion and on day of presentation she was at dialysis when dialysis staff noted that her clothes were wet and fluid presumed to be leaked from pacemaker site. The concern at this point is whether or not this is a benign fluid versus a superficial infection if deep infection. When seen in the ED, patient's pacemaker site already assessed by cardiology service and pacemaker site in dressing. Patient is on exam comfortable and on exam the the heart rate is controlled and in atrial fibrillation which is chronic. Patient is anticoagulated on coumadin therapy.. a As per cardiology service, coumadin should be continued for now. Of course, a concern should patient need to have pacemaker removal would mean that patient may need INR reversal. As we are waiting for culture results while on broad spectrum antibiotics we will continue system anticoagulation for now. Lung exam is clear as patient completed full dialysis session prior to hospital presentation Patient's daughter ([phone]) at bedside and present for these discussions My colleague Dr. Baumann will be following the patient as hospitalist starting on 04/30/19 (1) Infection of pacemaker pocket Encounter type: initial encounter Qualified Code(s): T82.7XXA - Infection and inflammatory reaction due to other cardiac and vascular devices, implants and grafts, initial encounter (2) T2DM (type 2 diabetes mellitus) Chronic kidney disease stage: stage 4 (severe) Diabetes mellitus complication detail: with chronic kidney disease Diabetes mellitus complication status: with kidney complications Diabetes mellitus chcf insulin use: without chcf use Qualified Code(s): E11.22 - Type 2 diabetes mellitus with diabetic chronic kidney disease; N18.4 - Chronic kidney disease, stage 4 (severe) (3) Depression Depression Type: unspecified Qualified Code(s): F32.9 - Major depressive disorder, single episode, unspecified (4) HLD (hyperlipidemia) Hyperlipidemia type: unspecified Qualified Code(s): E78.5 - Hyperlipidemia, unspecified (5) HTN (hypertension) Hypertension type: essential hypertension Qualified Code(s): I10 - Essential (primary) hypertension
--- NOTE | 2019-04-29 17:32 | Emergency Department Note ---
Entered by Kamilla Gallo acting as a scribe for Sheila Brewer MD History of Present Illness General Chief complaint: Infection Stated complaint: PACEMAKER PUT IN, POSSIBLE INFECTION REF BY Source: patient History of Present Illness Provider complaint: infection to pacemaker site Onset (ago): hour(s) (today) Location: chest Quality: + other (drainage) Associated symptoms: + denies other symptoms (pain to the infected site); no fever/chills The patient is a 73 year old female who presents to the Emergency Department with complaints of an infection to her pacemaker site today. The patient states that she had her pacemaker placed on 04/01 and states that she was referred from dialysis for a possible infection to her pacemaker site due to drainage. She denies having a hematoma to the area after her pacemaker was placed. The patient states that she had the pacemaker placed by Dr. Goldstein. She denies having pain in the area and denies being febrile. Home Medications Home Medications Medication Instructions Recorded Confirmed Type Flovent HFA 2 puff INHALATION BID 12/16/18 04/29/19 History Renal Caps 1 mg PO QAM 12/16/18 04/29/19 History cholecalciferol (vitamin D3) 5,000 unit PO QAM 12/16/18 04/29/19 History cilostazol 100 mg PO BID 12/16/18 04/29/19 History clopidogrel 75 mg PO QAM 12/16/18 04/29/19 History glipizide 5 mg PO QAM 12/16/18 04/29/19 History nitroglycerin 0.4 mg SUBLINGUAL Q5M PRN 12/16/18 04/29/19 History nystatin [Nyamyc] 1 applic TOPICAL TID 12/16/18 04/29/19 History oxycodone-acetaminophen 1 tab PO Q6H PRN 12/16/18 04/29/19 History warfarin [Coumadin] 2.5 mg PO [id number] 04/01/19 04/29/19 History albuterol sulfate 2 puff INHALATION Q6H PRN 04/29/19 04/29/19 History atorvastatin 40 mg PO HS 04/29/19 04/29/19 History desvenlafaxine succinate [Pristiq] 25 mg PO QAM 04/29/19 04/29/19 History ferric citrate [Auryxia] 210 mg PO TIDM 04/29/19 04/29/19 History warfarin 5 mg PO 2XWK 04/29/19 04/29/19 History Allergies Allergy/AdvReac Type Severity Reaction Status Date / Time No Known Allergies Allergy Unverified 04/29/19 14:14 Past Med/Surg History Medical History ESRD (end stage renal disease) on dialysis (Chronic) Follows Dr. Guajardo with hemodialysis Saturday T2DM (type 2 diabetes mellitus) (Chronic) AV fistula (Chronic) Left upper ext. 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 pacemaker, with recent addition of right infraclavicular [employer] biventricular pacemaker in March, as outlined above HTN (hypertension) (Chronic) HLD (hyperlipidemia) (Chronic) PAF (paroxysmal atrial fibrillation) (Chronic) CAD (coronary artery disease) (Chronic) hx of PCI to LAD, Circumflex, RCA in PAD (peripheral artery disease) (Chronic) Renal artery stenosis (Chronic) s/p stent Tachy-mary syndrome (Resolved) s/p PPM Dr. Goldstein CKD (chronic kidney disease) stage 4, GFR 15-29 ml/min (Chronic) Depression (Chronic) Vitamin D deficiency (Chronic) Surgical History History of atrioventricular linda ablation (Chronic) 04/01/[address] Goldstein History of angioplasty of peripheral vessel (Chronic) fem/pop bypass 10/21 history of Renal stent History of percutaneous coronary intervention (Chronic) History of (Chronic) x 3 History of lumbar laminectomy (Chronic) History of total right hip arthroplasty (Chronic) Family History Father , age 61 Stroke Hypertension Mother , age 51 Myocardial infarction Sister , age 50 Cervical ca Sister Breast cancer Social History Preferred Language: Turkish Communication Ability: Effective Beliefs That Will Affect Care: None marital status: / Current Living Situation: Family Current Living Situation Comment: Grandson lives with patient; he is 26 Other Information That Helps Us Care for You: No Feels Safe at Home: Yes Safety Concerns: Feels Safe At This Time Smoking Status: Never smoker Second Hand Exposure: Yes Hx Alcohol Use: No Hx Substance Use: No Review of Systems See HPI for pertinent positives & negatives. and A total of 10 systems reviewed and were otherwise negative Physical Exam Vital Signs Vital Signs - 24 hr 04/29/19 12:09 04/29/19 14:07 04/29/19 15:26 Temperature 36.6 C Temperature Source Oral Sepsis Recent Fever Within 48 Hours No Sepsis Action Taken by Nursing No Action Required Pulse Rate 80 Pulse Rate [Left Finger] 80 81 Pulse Rhythm Regular Pulse Rhythm [Left Finger] Regular Regular Pulse Strength Normal Pulse Strength [Left Finger] Normal Normal Respiratory Rate 20 20 20 Respiratory Effort / Characteristics Non-Labored Non-Labored Spontaneous Non-Labored Spontaneous Respiratory Depth Normal Normal Normal Respiratory Pattern Regular Regular Blood Pressure 141/66 H Blood Pressure [Right Arm] 142/52 H 154/63 H Blood Pressure Mean 91 Blood Pressure Mean [Right Arm] 82 93 Blood Pressure Position Sitting Blood Pressure Position [Right Arm] Sitting Sitting Pulse Oximetry 97 100 100 Oxygen Delivery Method Room Air Room Air Vital signs reviewed. General: Chronically ill-appearing female, in no significant distress. HEENT: No scleral icterus, PERRLA, neck supple. Atraumatic. Cardiovascular: Regular rate and rhythm, no extra sounds. Pulmonary: Clear to auscultation bilaterally, normal work of breathing. Abdomen: Obese. Soft, nontender, nondistended, positive bowel sounds. Chest: 4 cm surgical site in the right axilla that appears to be healing with some serous drainage from the most distal aspect. No pain, redness, or swelling. Musculoskeletal: Tense bilateral lower extremity edema. Neurologic: Patient awake alert and oriented x 3. Skin: Warm, dry, no rash Course 1241: The patient was evaluated in room B6. A history and physical were performed. 1546: I discussed the patient's case with Dr. Barroso-Cardiology who will come see the patient. 1611: I spoke with Dr. Barroso. 1633: I spoke with Dr. Barroso who said that he would like the patient admitted for IV antibiotics. He stated that he will page the hospitalist. 1646: I discussed the patient's case with Salma Odell who will evaluate the patient for further management. Consultations Consultation #1: Dr. Barroso-Cardiology Time: 15:46 Consultation #2: Salma Odell Time: 16:46 Administered Medications Albuterol (Ventolin Hfa) 2 puffs INH Q6H PRN PRN Reason: Shortness Of Breath Or Wheezing Stop: 05/29/19 19:50 Last Admin: 04/30/19 10:15 Dose: 2 puffs Documented by: [id number] Admin: 04/29/19 20:28 Dose: 2 puffs Documented by: [id number] Atorvastatin Calcium (Lipitor) 40 mg PO HS [facility] Stop: 05/29/19 20:59 Last Admin: 04/29/19 20:26 Dose: 40 mg Documented by: [id number] Cilostazol (Pletal) 100 mg PO BID [facility] Stop: 05/29/19 20:59 Last Admin: 04/30/19 10:04 Dose: 100 mg Documented by: [id number] Admin: 04/29/19 20:26 Dose: 100 mg Documented by: [id number] Clopidogrel Bisulfate (Plavix) 75 mg PO QAM [facility] Stop: 05/30/19 08:59 Last Admin: 04/30/19 10:06 Dose: 75 mg Documented by: [id number] Fluticasone Propionate (Flovent Hfa 110mch) 2 puffs INH BID [facility] Stop: 05/29/19 20:59 Last Admin: 04/30/19 10:05 Dose: 2 puffs Documented by: [id number] Admin: 04/29/19 20:26 Dose: 2 puffs Documented by: [id number] Piperacillin Sod/Tazobactam (Sod 4.5 gm/ Dextrose) 120 mls @ 30 mls/hr IV Q12H [facility]; Protocol Stop: 05/10/19 00:00 Last Infusion: 04/30/19 05:07 Dose: 0 mls/hr Documented by: [id number] Admin: 04/30/19 00:42 Dose: 30 mls/hr Documented by: [id number] Insulin Aspart (Novolog Flexpen) 0 units SC ACHS [facility] Stop: 05/29/19 20:59 Last Admin: 04/30/19 10:07 Dose: 2 units Documented by: [id number] Cosigned by: [id number] Admin: 04/29/19 20:16 Dose: Not Given Documented by: [id number] Cosigned by: [id number] Nystatin (Mycostatin) 1 appln EXT TID [facility] Stop: 05/29/19 20:59 Last Admin: 04/30/19 10:25 Dose: Not Given Documented by: [id number] Admin: 04/29/19 20:26 Dose: Not Given Documented by: [id number] Oxycodone/Acetaminophen (Percocet 5mg/325mg) 1 tab PO Q6H PRN PRN Reason: Pain (Scale Score 7-10) Stop: 05/13/19 19:50 Last Admin: 04/30/19 02:31 Dose: 1 tab Documented by: [id number] Vitamin B Complex/Folic Acid (Nephrocaps) 1 cap PO QAM [facility] Stop: 05/30/19 08:59 Last Admin: 04/30/19 10:04 Dose: 1 cap Documented by: [id number] Vitamin D (Vitamin D3) 5,000 units PO QAM [facility] Stop: 05/30/19 08:59 Last Admin: 04/30/19 10:06 Dose: 5,000 units Documented by: [id number] Discontinued Medications Calcium Acetate (Phoslo) 667 mg PO TIDM [facility] Stop: 05/30/19 07:59 Last Admin: 04/29/19 18:50 Dose: 667 mg Documented by: [id number] Admin: 04/29/19 18:49 Dose: 667 mg Documented by: [id number] Piperacillin Sod/Tazobactam (Sod 3.375 gm/ Dextrose) 115 mls @ 230 mls/hr IV NOW ONE; Protocol Stop: 04/29/19 17:29 Last Infusion: 04/29/19 18:50 Dose: 0 mls/hr Documented by: [id number] Admin: 04/29/19 17:40 Dose: 230 mls/hr Documented by: [id number] Vancomycin HCl 2,000 mg/ (Sodium Chloride) 540 mls @ 200 mls/hr IV NOW STA Stop: 04/29/19 20:08 Last Infusion: 04/29/19 21:11 Dose: 0 mls/hr Documented by: [id number] Admin: 04/29/19 18:49 Dose: 200 mls/hr Documented by: [id number] Miscellaneous (Order Awaiting Action) 1 ea N/A QS [facility] Stop: 05/30/19 00:00 Last Admin: 04/30/19 10:20 Dose: Not Given Documented by: [id number] Admin: 04/30/19 00:53 Dose: Not Given Documented by: [id number] Medical Decision Making Differential Diagnosis Differentials include infected pacemaker pocket, serous drainage, post-operation hematoma, traumatic injury, and cellulitis. Medical Records Attestation: I reviewed the patient's medical records. Home Medications Current Medication List: was personally reviewed by me Laboratory Data Attestation: I reviewed the patient's lab results. Result diagrams: 04/30/19 04:48 04/30/19 04:48 Lab Results 04/29/19 04/29/19 04/29/19 Range/Units 13:56 13:56 15:10 WBC Cancelled 6.15 RBC Cancelled 3.40 L Hgb Cancelled 10.7 L Hct Cancelled 36.6 L MCV Cancelled 107.6 H MCH Cancelled 31.5 MCHC Cancelled 29.2 L RDW Std Deviation Cancelled RDW Coeff of Oleksandr Cancelled Plt Count Cancelled 138 MPV Cancelled Immature Gran % (Auto) Cancelled 0.0 Neut % (Auto) Cancelled 75.5 Lymph % (Auto) Cancelled 13.3 [place] % (Auto) Cancelled 9.9 Eos % (Auto) Cancelled 1.3 Baso % (Auto) Cancelled 0.0 Immature Gran # (Auto) Cancelled 0.00 Neut # (Auto) Cancelled 4.64 Lymph # (Auto) Cancelled 0.82 L [place] # (Auto) Cancelled 0.61 H Eos # (Auto) Cancelled 0.08 Baso # (Auto) Cancelled 0.00 Absolute Nucleated RBC Cancelled Nucleated RBC % (auto) Cancelled Neutrophils % (Manual) Cancelled Band Neutrophils % Cancelled Lymphocytes % (Manual) Cancelled Prolymphocyte % Cancelled Reactive Lymphs % (Man) Cancelled Monocytes % (Manual) Cancelled Eosinophils % (Manual) Cancelled Basophils % (Manual) Cancelled Metamyelocytes % (Man) Cancelled Myelocytes % (Man) Cancelled Promyelocytes % (Man) Cancelled Blast Cells % (Manual) Cancelled Plasma Cell % (Manual) Cancelled Other Cells % Cancelled Nucleated RBC % Cancelled Neutrophils # (Manual) Cancelled Band Neutrophils # Cancelled Total Absolute Neuts Cancelled Lymphocytes # (Manual) Cancelled Prolymphocyte # Cancelled Reactive Lymphs # Cancelled Total Abs Lymphocytes Cancelled Monocytes # (Manual) Cancelled Eosinophils # (Manual) Cancelled Basophils # (Manual) Cancelled Metamyelocytes # (Man) Cancelled Myelocytes # (Manual) Cancelled Promyelocytes # (Man) Cancelled Blast Cells # (Man) Cancelled Plasma Cell # (Manual) Cancelled Other Cells # Cancelled Nucleated RBCs # (Man) Cancelled Hypersegmented Neuts Cancelled Hyposegmented Neuts Cancelled Hypogranular Neuts Cancelled Large Granular Lymphs Cancelled # Lrg Granular Lymphs Cancelled Hairy Cells Cancelled Smudge Cells Cancelled Toxic Granulation Cancelled Toxic Vacuolation Cancelled Dohle Bodies Cancelled Carmen Rods Cancelled Platelet Estimate Cancelled Hypogranular Platelets Cancelled Clumped Platelets Cancelled Giant Platelets Cancelled Platelet Satelliting Cancelled RBC Morphology Cancelled Polychromasia Cancelled Hypochromasia Cancelled Poikilocytosis Cancelled Basophilic Stippling Cancelled Anisocytosis Cancelled Present Microcytosis Cancelled Macrocytosis Cancelled Spherocytes Cancelled Pappenheimer Bodies Cancelled Sickle Cells Cancelled Target Cells Cancelled Tear Drop Cells Cancelled Ovalocytes Cancelled Stomatocytes Cancelled Vera-Beckley Bodies Cancelled Echinocytes Cancelled Acanthocytes (Spur) Cancelled Rouleaux Cancelled RBC Agglutinates Cancelled Schistocytes Cancelled RBC Morph Comment Cancelled Sezary Cell Cancelled Sodium 139 (136-145) mmol/L Potassium 4.9 (3.5-5.1) mmol/L Chloride 99 (98-107) mmol/L Carbon Dioxide 34 H (21-32) mmol/L Anion Gap 5.0 (3-11) BUN 15 (7-18) mg/dl Creatinine 2.53 H (0.6-1.2) mg/dl Est Cr Clr Drug Dosing Not Reportable Est GFR ( Amer) 20.9 Est GFR (Non-Af Amer) 18.1 BUN/Creatinine Ratio 5.9 L (10-20) Glucose 133 H (70-99) mg/dl Calcium 9.6 (8.5-10.1) mg/dl Phosphorus (2.5-4.9) mg/dl Magnesium (1.8-2.4) mg/dl Total Bilirubin 0.4 (0.2-1) mg/dl AST 31 (15-37) U/L ALT 32 (12-78) U/L Alkaline Phosphatase 119 H (45-117) U/L Total Protein 7.0 (6.4-8.2) gm/dl Albumin 3.0 L (3.4-5.0) gm/dl Globulin 4.0 (2.5-4.0) gm/dl Albumin/Globulin Ratio 0.7 L (0.9-2) Specimen Hemolysis 04/29/19 Range/Units 15:12 WBC RBC Hgb Hct MCV MCH MCHC RDW Std Deviation RDW Coeff of Oleksandr Plt Count MPV Immature Gran % (Auto) Neut % (Auto) Lymph % (Auto) [place] % (Auto) Eos % (Auto) Baso % (Auto) Immature Gran # (Auto) Neut # (Auto) Lymph # (Auto) [place] # (Auto) Eos # (Auto) Baso # (Auto) Absolute Nucleated RBC Nucleated RBC % (auto) Neutrophils % (Manual) Band Neutrophils % Lymphocytes % (Manual) Prolymphocyte % Reactive Lymphs % (Man) Monocytes % (Manual) Eosinophils % (Manual) Basophils % (Manual) Metamyelocytes % (Man) Myelocytes % (Man) Promyelocytes % (Man) Blast Cells % (Manual) Plasma Cell % (Manual) Other Cells % Nucleated RBC % Neutrophils # (Manual) Band Neutrophils # Total Absolute Neuts Lymphocytes # (Manual) Prolymphocyte # Reactive Lymphs # Total Abs Lymphocytes Monocytes # (Manual) Eosinophils # (Manual) Basophils # (Manual) Metamyelocytes # (Man) Myelocytes # (Manual) Promyelocytes # (Man) Blast Cells # (Man) Plasma Cell # (Manual) Other Cells # Nucleated RBCs # (Man) Hypersegmented Neuts Hyposegmented Neuts Hypogranular Neuts Large Granular Lymphs # Lrg Granular Lymphs Hairy Cells Smudge Cells Toxic Granulation Toxic Vacuolation Dohle Bodies Carmen Rods Platelet Estimate Hypogranular Platelets Clumped Platelets Giant Platelets Platelet Satelliting RBC Morphology Polychromasia Hypochromasia Poikilocytosis Basophilic Stippling Anisocytosis Microcytosis Macrocytosis Spherocytes Pappenheimer Bodies Sickle Cells Target Cells Tear Drop Cells Ovalocytes Stomatocytes Vera-Beckley Bodies Echinocytes Acanthocytes (Spur) Rouleaux RBC Agglutinates Schistocytes RBC Morph Comment Sezary Cell Sodium (136-145) mmol/L Potassium (3.5-5.1) mmol/L Chloride (98-107) mmol/L Carbon Dioxide (21-32) mmol/L Anion Gap (3-11) BUN (7-18) mg/dl Creatinine (0.6-1.2) mg/dl Est Cr Clr Drug Dosing Est GFR ( Amer) Est GFR (Non-Af Amer) BUN/Creatinine Ratio (10-20) Glucose (70-99) mg/dl Calcium (8.5-10.1) mg/dl Phosphorus 1.7 L (2.5-4.9) mg/dl Magnesium 2.2 (1.8-2.4) mg/dl Total Bilirubin (0.2-1) mg/dl AST (15-37) U/L ALT (12-78) U/L Alkaline Phosphatase (45-117) U/L Total Protein (6.4-8.2) gm/dl Albumin (3.4-5.0) gm/dl Globulin (2.5-4.0) gm/dl Albumin/Globulin Ratio (0.9-2) Specimen Hemolysis Imaging Data Radiologist's Impression: Radiology results as stated below per my review and the radiologist's interpretation: XR chest 2V routine CLINICAL HISTORY: 73 years-old Female presenting with pacer placement, infection, drainage from incision, recent pacer placement. TECHNIQUE: PA and lateral views of the chest were obtained. COMPARISON: 04/02/2019. FINDINGS: Right subclavian pacer with lead to the coronary sinus and right ventricular ape x. The left subclavian pacer with leads to the right atrium and right ventricular apex. Appropriately positioned leads. No retained surgical material is evident. Atherosclerosis of the aortic arch. Cardiac silhouette mildly enlarged. No focal lung opacity. No large effusion or pneumothorax. Degenerative changes of the thoracic spine. Upper abdomen normal. IMPRESSION: 1. Bilateral subclavian pacer is in place. No retained surgical material. No abnormal lead positioning. 2. Mild cardiomegaly. No evidence of volume overload or congestive change. Electronically signed by: Javier Kwok M.D. 04/29/2019 3:42 PM Blood Pressure Blood Pressure Findings: Elevated blood pressure Blood Pressure Disposition: further management by hospitalist MDM Narrative Sinus tachycardia.This patient was evaluated and appeared to be in no significant distress. IV access was obtained and laboratory work was drawn. Patient was placed on the cardiac exercise specialist. Wound culture was obtained of the serous drainage from the pacer pocket site. Patient's WBC is within normal limits. Chest x-ray reveals pacer in good position as well as the leads. Cardiology was consulted, Dr. Barroso. He evaluated the patient in the emergency department and spoke with Dr. Goldstein as well. He has placed orders for antibiotic coverage and further management in-house. Patient is aware of the plan and agrees. Impression & Plan Infection of pacemaker pocket, ESRD on hemodialysis Discharge Plan Visit Data *Final* Discharge Date/Time: 04/29/19 19:35 Chief Complaint: Infection Stated Complaint: PACEMAKER PUT IN, POSSIBLE INFECTION REF BY ED Provider: Sheila Brewer Discharge Problem: Infection of pacemaker pocket, ESRD on hemodialysis Patient Disposition: Admitted As Inpatient Discharge Instructions Interventions: ED Discharge Assessment Last Done: 04/29/19 19:35 The scribe's documentation has been prepared under my direction and personally reviewed by me in its entirety. I confirm that the note above accurately reflects all work, treatment, procedures, and medical decision making performed by me.
[2019-04-29 17:34] LABS: Magnesium 2.2 mg/dl (1.8-2.4); Phosphorus 1.7 mg/dl (2.5-4.9)
[2019-04-29 18:09] LABS: Prothrombin Time 48.7 Seconds (9.0-12.0)
[2019-04-29] MEDS: CALCIUM ACETATE 667 MG CAP PO SCH ×2 (18:49→18:50)
--- NOTE | 2019-04-29 19:01 | Pharmacy Report ---
Pharmacy Abx Dose Short Note - Date of Service April 29, 2019 - Assessment & Plan A/p Pt p/w infected pacemaker incision. Will provide Vanco 2000mg IV x1 and check a random lvl in the AM. Goal lvl: 15-20mcg/mL until c/s result. Zosyn 4.5g IV q12 appropriate Pharmacy will continue to follow and will adjust dose/frequency as necessary. Thank you.
[2019-04-29 19:02] LABS: INR 5.4 (0.9-1.1)
[2019-04-29] MEDS ORDERED: GLUCOSE 40% GEL 15 GM TUBE PO PRN (19:51)
[2019-04-29] MEDS ORDERED: ONDANSETRON INJ 2 MG/ML 2 ML VIAL IV PRN (19:51)
[2019-04-29] MEDS ORDERED: ACETAMINOPHEN 325 MG TAB PO PRN (19:51)
[2019-04-29] MEDS ORDERED: GLUCAGON FOR INJ 1 MG VIAL SQ PRN (19:51)
[2019-04-29] MEDS ORDERED: CARBOHYDRATES FOR HYPOGLYCEMIA PO PRN (19:51)
[2019-04-29] MEDS ORDERED: GLUCOSE 10 TABS/TUBE PO PRN (19:51)
[2019-04-29] MEDS ORDERED: DEXTROSE 50% 50 ML SYRINGE IV PRN (19:51)
[2019-04-29] MEDS: INSULIN ASPART 100 UNITS/ML 3 ML PEN SC SCH (20:16)
[2019-04-29] MEDS: ATORVASTATIN 40 MG TAB PO SCH (20:26)
[2019-04-29] MEDS: FLUTICASONE HFA 110MCG INHALER INH SCH (20:26)
[2019-04-29] MEDS: NYSTATIN POWDER 15GM BTL EXT SCH (20:26)
[2019-04-29] MEDS: CILOSTAZOL 100 MG TAB PO SCH (20:26)
[2019-04-29] MEDS: ALBUTEROL HFA 8 GM INHALER INH PRN (20:28)
[2019-04-29] MEDS ORDERED: VANCOMYCIN HCL 1,000 MG in SODIUM CHLORIDE 0.9% 250 ML IV SCH (22:00)
[2019-04-30] MEDS: PIPERACILLIN/TAZOBACTAM 4.5 GM in DEXTROSE 5% 100 ML IV SCH ×2 (00:42→13:03)
[2019-04-30] MEDS: OXYCODONE/ACETAMINOPHEN 5mg/325mg TAB PO PRN ×3 (02:31→23:43)
[2019-04-30 05:24] LABS: Prothrombin Time 48.7 Seconds (9.0-12.0)
[2019-04-30 05:28] LABS: INR 5.4 (0.9-1.1)
[2019-04-30 05:33] LABS: BUN Creatinine Ratio 7.3 (10-20); Calcium 8.7 mg/dl (8.5-10.1); Creatinine Clr Calc Pharmacy 13.3 ml/min; Est GFR (African American) 14.3; Est GFR (Non-African American) 12.3
[2019-04-30 05:49] LABS: Hematocrit (blood only) 37.2 % (37-47); Mean Corpuscular Hgb Conc 29.6 g/dL (32-36); Mean Corpuscular Volume 106.6 fL (80-100); Mean Platelet Volume 10.3 fL (7.4-10.4); Platelet Count 142 K/uL (130-400); RDW Coefficient of Variation 18.1 % (11.5-14.5); Red Blood Count 3.49 M/uL (4.2-5.4); White Blood Count 7.09 K/uL (4.8-10.8)
[2019-04-30 06:08] LABS: Estimated Average Glucose 143 mg/dl; Hemoglobin A1C 6.6 % (4.5-5.6)
[2019-04-30] MEDS ORDERED: NON-FORMULARY MEDICATION (Ferric Citrate [Auryxia] 210 MG) PO SCH (08:00)
--- NOTE | 2019-04-30 08:34 | Nephrology Consultation ---
Date of Consultation April 30, 2019 Assessment & Plan (1) ESRD (end stage renal disease) on dialysis: -no indication for urgent HD today - she has mild volume overload but it is stable/acceptable; chemistries at goal though K on high end of normal -plan routine HD tomorrow bedside using AVF -cont 1.2L FR, <2 gm daily Na diet, dialysis diet -cont binders Present on Admission?: Yes (2) Anemia of chronic disease: continue anemia meds w/ hd as indicated; above threshold for epo today -daily hgb; no indication for transfusion Present on Admission?: Yes (3) Infection of pacemaker pocket: on vanco, zosyn; follow up cultures and cardiology recs >> w/ positive blood cxs [place] [facility] [place] Present on Admission?: Yes History of Present Illness Reason for Consultation: ESRD on HD Requesting Physician: Dr Vásquez Attending Physician: Emil Baumann MD History of Present Illness 73 y/o F w/ ESRD on HD MWF who was noted yesterday at end of HD treatment to have exudate draining from pacer insertion site and admitted for superficial versus deep pocket infection; I'm asked to see her for dialysis care. She had a full and uneventful tx yesterday. Other PMH includes CAD s/p 2003 and 2006 stents, PAD s/p fem pop bipap and renal artery ballooning, permanent a fib and tachybrady syndrome s/p AV junction ablation 04/01/19 w/ pacer placed same time, DM2, HTN, HL, anemia of ESRD. Pt has had no f/c, no pain; first noted serosa nguinous drainage yesterday at dialysis. She is admitted for IV abtx: on zosyn; has had vanco dose as well. Blood cultures are pending as is wound culture. She was seen and evaluated on rounds this am at 0900. As of 1699 today, her blood cultures were + for GPC clusters and wound cx + for staph Allergies Allergy/AdvReac Type Severity Reaction Status Date / Time No Known Allergies Allergy Unverified 04/29/19 14:14 Home Medications Home Medications Medication Instructions Recorded Confirmed Type Flovent HFA 2 puff INHALATION BID 12/16/18 04/29/19 History Renal Caps 1 mg PO QAM 12/16/18 04/29/19 History cholecalciferol (vitamin D3) 5,000 unit PO QAM 12/16/18 04/29/19 History cilostazol 100 mg PO BID 12/16/18 04/29/19 History clopidogrel 75 mg PO QAM 12/16/18 04/29/19 History glipizide 5 mg PO QAM 12/16/18 04/29/19 History nitroglycerin 0.4 mg SUBLINGUAL Q5M PRN 12/16/18 04/29/19 History nystatin [Nyamyc] 1 applic TOPICAL TID 12/16/18 04/29/19 History oxycodone-acetaminophen 1 tab PO Q6H PRN 12/16/18 04/29/19 History warfarin [Coumadin] 2.5 mg PO 5XWK 04/01/19 04/29/19 History albuterol sulfate 2 puff INHALATION Q6H PRN 04/29/19 04/29/19 History atorvastatin 40 mg PO HS 04/29/19 04/29/19 History desvenlafaxine succinate [Pristiq] 25 mg PO QAM 04/29/19 04/29/19 History ferric citrate [Auryxia] 210 mg PO TIDM 04/29/19 04/29/19 History warfarin 5 mg PO 2XWK 04/29/19 04/29/19 History Patient History Medical History ESRD (end stage renal disease) on dialysis (Chronic) Follows Dr. Guajardo with hemodialysis Saturday T2DM (type 2 diabetes mellitus) (Chronic) AV fistula (Chronic) Left upper ext. 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 pacemaker, with recent addition of right infraclavicular [employer] biventricular pacemaker in March, as outlined above HTN (hypertension) (Chronic) HLD (hyperlipidemia) (Chronic) PAF (paroxysmal atrial fibrillation) (Chronic) CAD (coronary artery disease) (Chronic) hx of PCI to LAD, Circumflex, RCA in PAD (peripheral artery disease) (Chronic) Renal artery stenosis (Chronic) s/p stent Tachy-mary syndrome (Resolved) s/p PPM Dr. Goldstein CKD (chronic kidney disease) stage 4, GFR 15-29 ml/min (Chronic) Depression (Chronic) Vitamin D deficiency (Chronic) Surgical History History of atrioventricular linda ablation (Chronic) 04/01/[address] Goldstein History of angioplasty of peripheral vessel (Chronic) fem/pop bypass 10/21 history of Renal stent History of percutaneous coronary intervention (Chronic) History of (Chronic) x 3 History of lumbar laminectomy (Chronic) History of total right hip arthroplasty (Chronic) Family History Father , age 61 Stroke Hypertension Mother , age 51 Myocardial infarction Sister , age 50 Cervical ca Sister Breast cancer Social History Preferred Language: Azerbaijani Communication Ability: Effective Beliefs That Will Affect Care: None marital status: / Current Living Situation: Family Current Living Situation Comment: Grandson lives with patient; he is 26 Other Information That Helps Us Care for You: No Feels Safe at Home: Yes Safety Concerns: Feels Safe At This Time Smoking Status: Never smoker Second Hand Exposure: Yes Hx Alcohol Use: No Hx Substance Use: No Review of Systems Review of Systems: All systems reviewed & are unremarkable except as noted in HPI & below Constitutional: + fatigue; no fever, no body aches and no weakness Eyes: no worsening vision Ear, Nose, Mouth, Throat: no dry mouth Respiratory: + dyspnea on exertion (stable chronic w/ some improvement since ablation); no cough and no dyspnea Cardiovascular: + edema; no chest pain, no radiating jaw, neck or arm pain and no palpitations Gastrointestinal: no abdominal pain, no nausea and no vomiting Genitourinary: no change to chronic voiding habits Musculoskeletal: + swelling; no back pain and no myalgia Integumentary: as per Subjective / HPI Neurologic: no localized weakness, no generalized weakness and no confusion Psychiatric: no behavioral changes Endocrine: + fatigue Hematologic / Lymphatic: no easy bleeding Physical Exam Constitutional: well developed and well nourished on RA Eyes: EOM intact bilaterally ENMT: Ears: no external ear abnormality Nose: no external nose abnormality Mouth: + dry oral mucous membranes Neck: no nuchal rigidity Respiratory: normal respiratory effort Auscultation: lungs clear to auscultation bilaterally and + diminished lung sounds Cardiovascular: Rate/Rhythm: regular rate and regular rhythm Extremities: + edema (trace- 1+ BLE indurated) and + AV fistula (LUE + t/b) Gastrointestinal (Abdomen): Inspection/Auscultation: normal bowel sounds Percussion/Palpation: abdomen soft; abdomen nontender Musculoskeletal: Extremities: strength 5/5 throughout moody, maneuvers independently for exam Skin: no rashes, warm and dry pacer site covered w/ dry pad which I did d not remove Neurologic: moody, fluent speech, no tremor Psychiatric: A+Ox3, euthymic affect Speech: normal rate/rhythm/volume of speech Results & Data Vital Signs (Past 12 Hours) Vital Signs Temp Pulse Pulse Resp BP BP Pulse Ox 04/30/19 07:50 37.2 C 80 20 125/72 100 04/30/19 00:00 37.2 C 80 122/53 L 99 04/29/19 23:01 80 137/68 89 L Laboratory Results Abnormal lab results 04/29/19 04/29/19 04/29/19 Range/Units 17:18 20:01 Unknown RBC (4.2-5.4) M/uL Hgb (12.0-16.0) g/dL MCV (80-100) fL MCHC (32-36) g/dL RDW Std Deviation (36.4-46.3) fL RDW Coeff of Oleksandr (11.5-14.5) % PT (9.0-12.0) Seconds INR (0.9-1.1) Carbon Dioxide (21-32) mmol/L BUN (7-18) mg/dl Creatinine (0.6-1.2) mg/dl BUN/Creatinine Ratio (10-20) Glucose (70-99) mg/dl POC Glucose 112 H (70-99) Hemoglobin A1c (4.5-5.6) % Nasal Screen MRSA (PCR) Positive A (Negative) Bld Cult Staph aureus PCR Positive A (Negative) Blood Culture MRSA PCR Positive A (Negative) 04/30/19 04/30/19 04/30/19 Range/Units 04:48 04:48 04:48 RBC 3.49 L (4.2-5.4) M/uL Hgb 11.0 L (12.0-16.0) g/dL MCV 106.6 H (80-100) fL MCHC 29.6 L (32-36) g/dL RDW Std Deviation 72.0 H (36.4-46.3) fL RDW Coeff of Oleksandr 18.1 H (11.5-14.5) % PT 48.7 H (9.0-12.0) Seconds INR 5.4 H (0.9-1.1) Carbon Dioxide 33 H (21-32) mmol/L BUN 25 H D (7-18) mg/dl Creatinine 3.47 H D (0.6-1.2) mg/dl BUN/Creatinine Ratio 7.3 L (10-20) Glucose 165 H (70-99) mg/dl POC Glucose (70-99) Hemoglobin A1c (4.5-5.6) % Nasal Screen MRSA (PCR) (Negative) Bld Cult Staph aureus PCR (Negative) Blood Culture MRSA PCR (Negative) 04/30/19 04/30/19 04/30/19 Range/Units 04:48 07:26 11:20 RBC (4.2-5.4) M/uL Hgb (12.0-16.0) g/dL MCV (80-100) fL MCHC (32-36) g/dL RDW Std Deviation (36.4-46.3) fL RDW Coeff of Oleksandr (11.5-14.5) % PT (9.0-12.0) Seconds INR (0.9-1.1) Carbon Dioxide (21-32) mmol/L BUN (7-18) mg/dl Creatinine (0.6-1.2) mg/dl BUN/Creatinine Ratio (10-20) Glucose (70-99) mg/dl POC Glucose 116 H 115 H (70-99) Hemoglobin A1c 6.6 H (4.5-5.6) % Nasal Screen MRSA (PCR) (Negative) Bld Cult Staph aureus PCR (Negative) Blood Culture MRSA PCR (Negative) 04/30/19 Range/Units 16:32 RBC (4.2-5.4) M/uL Hgb (12.0-16.0) g/dL MCV (80-100) fL MCHC (32-36) g/dL RDW Std Deviation (36.4-46.3) fL RDW Coeff of Oleksandr (11.5-14.5) % PT (9.0-12.0) Seconds INR (0.9-1.1) Carbon Dioxide (21-32) mmol/L BUN (7-18) mg/dl Creatinine (0.6-1.2) mg/dl BUN/Creatinine Ratio (10-20) Glucose (70-99) mg/dl POC Glucose 133 H (70-99) Hemoglobin A1c (4.5-5.6) % Nasal Screen MRSA (PCR) (Negative) Bld Cult Staph aureus PCR (Negative) Blood Culture MRSA PCR (Negative) Diagnostic Findings cxr 1. Bilateral subclavian pacer is in place. No retained surgical material. No abnormal lead positioning. 2. Mild cardiomegaly. No evidence of volume overload or congestive change. (1) Infection of pacemaker pocket Encounter type: initial encounter Qualified Code(s): T82.7XXA - Infection and inflammatory reaction due to other cardiac and vascular devices, implants and grafts, initial encounter
[2019-04-30] MEDS ORDERED: CONSULT PHARMACY STA (08:41)
[2019-04-30] MEDS ORDERED: CLOPIDOGREL BISULFATE 75 MG TAB PO SCH (09:00)
[2019-04-30] MEDS ORDERED: CHOLECALCIFEROL 1,000 UNITS TAB PO SCH (09:00)
[2019-04-30] MEDS ORDERED: NEPHROCAPS PO SCH (09:00)
[2019-04-30] MEDS: CILOSTAZOL 100 MG TAB PO SCH ×2 (10:04→21:02)
[2019-04-30] MEDS: FLUTICASONE HFA 110MCG INHALER INH SCH ×2 (10:05→21:02)
[2019-04-30] MEDS: NYSTATIN POWDER 15GM BTL EXT SCH ×4 (10:05→21:02)
[2019-04-30] MEDS: INSULIN ASPART 100 UNITS/ML 3 ML PEN SC SCH ×4 (10:07→21:08)
[2019-04-30] MEDS: ALBUTEROL HFA 8 GM INHALER INH PRN ×2 (10:15→21:05)
[2019-04-30] MEDS: AURYXIA 210 MG PO SCH ×2 (11:58→16:36)
--- NOTE | 2019-04-30 12:24 | Pharmacy Report ---
Pharmacy Abx Dose Short Note - Date of Service April 30, 2019 - Assessment & Plan Assessment * 73 year old F with superficial pacemaker insertion site infection vs deep pocket infection * Antibiotics * Zosyn day 2 * Vancomycin day 2 * Cultures * 04/29 Blood culture x1 - NGTD * 04/29 Chest culture - Staph aureus * Renal * Chronic HD MWF * No HD planned today per nephrology note. Anticipate likely tomorrow Vancomycin * Goal vancomycin pre-HD level: 15-20 mcg/mL * Sequence of doses/levels/HD * 04/29 1849: vancomycin 2000 mg IV x1 * 04/30 0448: vancomycin random level 25.5 mcg/mL * No additional vancomycin needed today as patient is not being dialyzed * Will order repeat random level tomorrow AM to better assess patient-specific non-HD clearance Plan * No additional vancomycin today * Random level with AM labs tomorrow Pharmacy will continue to follow and will adjust dose/frequency as necessary. Thank you.
--- NOTE | 2019-04-30 12:37 | Cardiology Progress Note ---
Date of Service April 30, 2019 Assessment & Plan (1) Infection of pacemaker pocket: Ms Strong has an extremely complex past and recent cardiac history. She had previously been followed by cardiology in [place] for CAD, PAF, and tachycardia-bradycardia syndrome prompting an initial implantation of a dual chamber pacemaker in [place] in August,, with generator change in 2014. She established with [facility] cardiology in 2016. Stable cardiac signs and symptoms were noted at the time of her initial outpatient consultation and she was merely wishing to transition care. On routine follow-up device interrogation in 2017 she was found to have malfunction of her right ventricular pacemaker lead initially placed in 2006. The outpatient EP consultation note performed by Dr. Goldstein in January 2018 describes that the right ventricular lead was noted to not be functioning at that time however one-to-one AV conduction up to 130 bpm was noted utilizing the right atrial lead, she was not requiring right ventricular heart rate support, and therefore ongoing observation was initially recommended with plans to consider revision of the right ventricular pacemaker lead at the time of next generator change. In December,, she reverted from paroxysmal atrial fibrillation to persistent atrial fibrillation with rapid ventricular response requiring high-dose beta- germain and calcium channel germain therapy which was later noted to be poorly tolerated as she had symptomatic hypotension preventing hemodialysis treatments. Echocardiogram performed during that admission on 12/17/2018 revealed preserved LVEF in the range of 55 to 60% with mild concentric left ventricular hypertrophy severe left atrial dilatation. The outpatient EP note in Feb, 2019 describes concern of obstruction of the left-sided venous system where her initial device was located, and was felt that this site would not accommodate another intravascular pacemaker lead. Ongoing conservative therapy was recommended however the patient continued to have symptomatic hypotensive episodes during dialysis. A right-sided venogram was performed on 03/17/2019 confirming patency of the right sided venous system having injected contrast via a peripheral IV in the right upper extremity. The patient then returned on 04/01/2019, underwent implantation of a new pulsed wave generator in the right infraclavicular position along with a right ventricular intravascularly, and a coronary sinus lead. AV junction ablation was then performed. On 04/29/2019 she presented to dialysis with drainage from her pacemaker site. At present patient is on IV vancomycin and Zosyn. She is not acutely ill in terms of sepsis, but there are concerns of whether or not the drainage from her pacemaker pocket incision is merely superficial, or beyond the initial deep fascial layer and affecting the pocket. At this point the patient of course is pacemaker dependent having had an AV junction ablation, and device extraction becomes a very complicated proposition for a patient who is chronically ill in my opinion immunosuppressed as a hemodialysis patient. Will continue IV antibiotics for now and will review updated with EP. (2) Atrial fibrillation: (3) ESRD on hemodialysis: (4) Chronic ischemic heart disease: Subjective Chief complaint: Follow-up drainage from pacemaker incision Subjective: Patient feeling well. She denies any subjective symptoms of fevers or chills. She is in ICU room 105 is a telemetry overflow. No objective fever noted overnight. Review of Systems Review of Systems: All systems reviewed & are unremarkable except as noted in HPI & below Physical Exam Physical Exam: Temp Pulse Resp BP Pulse Ox 36.7 C 80 20 165/55 H 100 04/30/19 11:05 04/30/19 11:05 04/30/19 11:05 04/30/19 11:05 04/30/19 11:05 Constitutional: WD/WN, vitals as above Respiratory: normal respiratory effort, lungs clear to auscultation Cardiovascular: RRR, no murmur, no edema Chest (Breasts): Chest: + pacemaker (Right infraclavicular pacemaker incision with area of draining at the midportion of the incision, ongoing yellow serosanguineous nonbloody drainage, device is soft around the periphery in terms of palpation.) Gastrointestinal (Abdomen): normal bowel sounds, soft, nontender, no hepatosplenomegaly Neurologic: PERRL, EOMI, accommodation nl, no face palsy, no dysarthria Results & Data Laboratory Results INR yesterday 04/29/2019 at 17: 18 it was 5.4 Repeat INR today remains elevated at 5.4. Chest wound culture performed yesterday 04/29/2019 is preliminarily growing Staph ylococcus aureus. Although 2 blood cultures were ordered yesterday, I only see that a single blood culture was drawn, anticipate that this was because of the patient's poor IV access. I will order new blood cultures. (1) Infection of pacemaker pocket Encounter type: initial encounter Qualified Code(s): T82.7XXA - Infection and inflammatory reaction due to other cardiac and vascular devices, implants and grafts, initial encounter
[2019-04-30] MEDS ORDERED: PHYTONADIONE 2.5 MG in SODIUM CHLORIDE 0.9% 50 ML IV ONE (13:00)
--- NOTE | 2019-04-30 16:33 | Cardiology Progress Note ---
Date of Service April 30, 2019 Subjective Initial blood culture now yielding gram-positive cocci in clusters. Discussed this development with Dr. Goldstein of EP. [place] [facility] [place]. May need leadless RV pacemaker in future. Discussed with Dr Baumann and pt. Results & Data Vital Signs (Past 12 Hours) Vital Signs Temp Pulse Pulse Resp BP BP Pulse Ox 04/30/19 11:05 36.7 C 80 20 165/55 H 100 04/30/19 11:00 82 04/30/19 10:00 80 16 99/58 L 98 04/30/19 08:00 80 151/63 H 99 04/30/19 07:50 37.2 C 80 20 125/72 100
--- NOTE | 2019-04-30 17:15 | Hospitalist Progress Note ---
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 Cabrera, recommended transfer to [facility] for surgery level of care of complicated pacemaker site infection *Please refer to Dr. Barroso's note for detailed cardiac history the patient (2) ESRD on hemodialysis: HD MWF Follows Dr. Guajardo Nephro consulted Renal Diet, 1200ml FR Pt takes Auryxia for phos binder No signs of overt overload Scheduled for hemodialysis tomorrow Saturday, May 01, 2019 (3) Tachycardia-bradycardia syndrome: s/p AV linda ablation and PPM RACW insertion 04/01/19 - Dr. Goldstein (4) Chronic ischemic heart disease: No CP/SOB continue Statin, plavix, warfarin HD for volume control (5) Atrial fibrillation: rate and rhythm controlled pacemaker in place warfarin for anticoagulation s/p AV linda ablation and PPM RACW insertion 04/01/19 - Dr. Goldstein INR 5.4 Coumadin on hold No signs of active bleeding Check INR daily, adjust Coumadin accordingly (6) T2DM (type 2 diabetes mellitus): Last A1C 7.1 hold outpt glipizide novolog sliding scale per protocol A1c 6.6 (7) PAD (peripheral artery disease): continue warfarin, plavix, statin (8) HTN (hypertension): previously had been on amlodipine and metoprolol - currently off monitor (9) HLD (hyperlipidemia): continue statin (10) Anemia of chronic disease: H/H stable (11) Depression: continue pristiq (12) Vitamin D deficiency: replete with Vit D supplementation (13) DVT prophylaxis: INR 5.4 Disposition: Transfer to [facility] for Saturday level of care Discussed case with hospitalist service , she can accept the patient, Dr. Ledezma from EP service will be following Follow up: PCP Dr. Ascencio upon discharge Subjective Follow-up for pacemaker site infection Seen resting in bed, comfortable, not in distress, in good spirits States she feels improved compared to yesterday Has mild discomfort on the right sided pacemaker site Denies fevers or chills today, no nausea vomiting Denies shortness of breath, cough, abdominal pain Denies other symptoms Review of Systems Review of Systems: All systems reviewed & are unremarkable except as noted in HPI & below Physical Exam Physical Exam: General- oriented x 3, not in distress, speaks in sentences with no effort or accessory muscle use Head- atraumatic Eyes- PERRL, EOMI, anicteric ENT- oropharynx clear Neck- supple, no JVD, no adenopathy, no thyromegaly; carotids +2/2, no bruits appreciated Lungs-mild rales at the bases, no wheezing Heart- normal rate, regular rhythm; no murmur, no gallop, no rub appreciated Pacemaker site-right side-dressing in place, no active bleeding or discharge noted Abdomen- normal bowel sounds, nondistended, soft, nontender, no masses or hepatosplenomegaly Extremities- no pretibial edema, no calf tenderness; peripheral pulses intact Neuro- alert, oriented x 3; CN 2-12 grossly intact; motor 5/5 bilaterally;sensation 100% on all extremities; no other gross focal neurologic deficits Skin- warm & dry Results & Data Vital Signs (Past 12 Hours) Vital Signs Temp Pulse Pulse Resp BP BP Pulse Ox 04/30/19 11:05 36.7 C 80 20 165/55 H 100 04/30/19 11:00 82 04/30/19 10:00 80 16 99/58 L 98 04/30/19 08:00 80 151/63 H 99 04/30/19 07:50 37.2 C 80 20 125/72 100 Laboratory Results Laboratory Results - last 24 hr 04/29/19 04/29/19 04/29/19 15:12 17:18 17:18 WBC RBC Hgb Hct MCV MCH MCHC RDW Std Deviation RDW Coeff of Oleksandr Plt Count MPV PT 48.7 H INR 5.4 H Sodium Potassium Chloride Carbon Dioxide Anion Gap BUN Creatinine Est Cr Clr Drug Dosing Est GFR ( Amer) Est GFR (Non-Af Amer) BUN/Creatinine Ratio Glucose POC Glucose Estimat Average Glucose Hemoglobin A1c Calcium Phosphorus 1.7 L Magnesium 2.2 Nasal Screen MRSA (PCR) Random Vancomycin Bld Cult Staph aureus PCR Positive A Blood Culture MRSA PCR Positive A 04/29/19 04/29/19 04/30/19 20:01 Unknown 04:48 WBC 7.09 RBC 3.49 L Hgb 11.0 L Hct 37.2 MCV 106.6 H MCH 31.5 MCHC 29.6 L RDW Std Deviation 72.0 H RDW Coeff of Oleksandr 18.1 H Plt Count 142 MPV 10.3 PT INR Sodium Potassium Chloride Carbon Dioxide Anion Gap BUN Creatinine Est Cr Clr Drug Dosing Est GFR ( Amer) Est GFR (Non-Af Amer) BUN/Creatinine Ratio Glucose POC Glucose 112 H Estimat Average Glucose Hemoglobin A1c Calcium Phosphorus Magnesium Nasal Screen MRSA (PCR) Positive A Random Vancomycin Bld Cult Staph aureus PCR Blood Culture MRSA PCR 04/30/19 04/30/19 04/30/19 04:48 04:48 04:48 WBC RBC Hgb Hct MCV MCH MCHC RDW Std Deviation RDW Coeff of Oleksandr Plt Count MPV PT 48.7 H INR 5.4 H Sodium 137 Potassium 5.0 Chloride 100 Carbon Dioxide 33 H Anion Gap 4.0 BUN 25 H D Creatinine 3.47 H D Est Cr Clr Drug Dosing 13.3 Est GFR ( Amer) 14.3 Est GFR (Non-Af Amer) 12.3 BUN/Creatinine Ratio 7.3 L Glucose 165 H POC Glucose Estimat Average Glucose 143 Hemoglobin A1c 6.6 H Calcium 8.7 Phosphorus Magnesium Nasal Screen MRSA (PCR) Random Vancomycin Bld Cult Staph aureus PCR Blood Culture MRSA PCR 04/30/19 04/30/19 04/30/19 04:48 07:26 11:20 WBC RBC Hgb Hct MCV MCH MCHC RDW Std Deviation RDW Coeff of Oleksandr Plt Count MPV PT INR Sodium Potassium Chloride Carbon Dioxide Anion Gap BUN Creatinine Est Cr Clr Drug Dosing Est GFR ( Amer) Est GFR (Non-Af Amer) BUN/Creatinine Ratio Glucose POC Glucose 116 H 115 H Estimat Average Glucose Hemoglobin A1c Calcium Phosphorus Magnesium Nasal Screen MRSA (PCR) Random Vancomycin 25.5 Bld Cult Staph aureus PCR Blood Culture MRSA PCR 04/30/19 16:32 WBC RBC Hgb Hct MCV MCH MCHC RDW Std Deviation RDW Coeff of Oleksandr Plt Count MPV PT INR Sodium Potassium Chloride Carbon Dioxide Anion Gap BUN Creatinine Est Cr Clr Drug Dosing Est GFR ( Amer) Est GFR (Non-Af Amer) BUN/Creatinine Ratio Glucose POC Glucose 133 H Estimat Average Glucose Hemoglobin A1c Calcium Phosphorus Magnesium Nasal Screen MRSA (PCR) Random Vancomycin Bld Cult Staph aureus PCR Blood Culture MRSA PCR (1) Infection of pacemaker pocket Encounter type: initial encounter Qualified Code(s): T82.7XXA - Infection and inflammatory reaction due to other cardiac and vascular devices, implants and grafts, initial encounter (2) T2DM (type 2 diabetes mellitus) 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: without correction use Diabetes mellitus complication status: with kidney complications Diabetes mellitus complication detail: with chronic kidney disease Chronic kidney disease stage: stage 4 (severe) Qualified Code(s): E11.22 - Type 2 diabetes mellitus with diabetic chronic kidney disease; N18.4 - Chronic kidney disease, stage 4 (severe) (3) HTN (hypertension) Hypertension type: essential hypertension Qualified Code(s): I10 - Essential (primary) hypertension (4) HLD (hyperlipidemia) Hyperlipidemia type: unspecified Qualified Code(s): E78.5 - Hyperlipidemia, unspecified (5) Depression Depression Type: unspecified Qualified Code(s): F32.9 - Major depressive disorder, single episode, unspecified
--- NOTE | 2019-04-30 17:16 | Discharge Summary ---
Date of Service April 30, 2019 Admission HPI Per Admitting Provider This is a 73 year old F who has a significant PMH of CAD hx of PCI to LAD, circumflex, rca in 2003, ; PAD hx of angioplasty renal artery and fem/pop bypass, ESRD on HD Saturday since 12/2018, permanent atrial fib status post AV junction ablation on 04/01/2019, TBS S/P PPM with recent addition of right infraclavicular biventricular pacemaker March 2019, T2DM, HTN, HLD, anemia of chronic disease , vit d def, depression who presents to [facility] [address] secondary to purulent drainage from pacemaker incision site x24 hours. Patient was at hemodialysis when she had noticed yellow-tinged seros anguineous drainage without jayce blood. Per family patient had been seen by home health on Saturday and there was scabbing over the incision but no blood or drainage. She has been overall feeling well. She denies any fever, chills, sweats, lightheadedness, dizziness, chest pain, shortness breath at rest, nausea, vomiting, diarrhea, constipation. She still urinates but minimally secondary to dialysis and denies dysuria, hematuria. She is been compliant with her medications. She follows a strict renal diet and 1200 cc fluid restriction. Patient has a significant and complex cardiac history with underlying ischemic heart disease, atrial fibrillation and tachybradycardia syndrome. She was hospitalized 12/16 to 01/07/2019 secondary to increasing shortness of breath, atrial fibrillation with RVR and volume overload. Patient was found to have progression of her CKD to end-stage renal disease requiring initiation of hemodialysis. In regards to her atrial fibrillation she was refractory to treatment with AV linda blockers with continued elevated ventricular rates. On 04/01/2019 she presented as outpatient and underwent device interrogation which revealed left sided pacemaker lead was not functioning and therefore this device was abandoned. She underwent implantation of new right infraclavicular biventricular pacemaker and the prior left-sided device remained in place but deactivated. She further underwent AV junctional ablation for her rapid atrial fib. In ED patient was assessed by cardiology Dr. Barroso and EP Dr. Goldstein. Concern is for superficial infection versus deep pocket infection. It was recommended she be initiated on broad-spectrum IV antibiotics with vancomycin and Zosyn. Blood cultures have been obtained. Per cardiology if evidence of bacteremia she will likely need to be transferred to tertiary care center for complex device extraction with need for bridging temporary pacemaker due to her history of AV junction ablation. Admission Exam Per Admitting Provider Gen: WD/WN, F, NAD, sitting up in bed, pleasant, conversing easily Head: Normocephalic, Atraumatic Eyes: Sclera normal, no conjunctival injection, PERRLA, EOMI ENT: Gross hearing intact, normal pharynx, mucous membranes moist Neck: supple, no adenopathy, No JVD, no bruit, Resp: Clear to auscultation b/l, no wheeze, rales, rhonchi. Normal insp/exp effort, no accessory muscle use CV: +RACW Pacer with dressing CDI, Regular rate, regular rhythm, no murmur, rub, gallop, or ectopy Abd: +BS x 4, soft, nontender, nondistended Musculoskeletal: moves extremities active rom x 4, strength intact, good head housekeeper strength Extremities: LUE AV Fistula B/L LE lympedema with venous stasis erythematous changes, pedal pulse +1, Skin: warm, moist, no rash, negative turgor, cap refill < 2sec Neuro: Alert and oriented x 3, speech normal, good mood/affect, cran nerve 2-12 intact grossly : deferred Principal Diagnosis PACEMAKER SITE INFECTION, BACTEREMIA, STAPH AUREUS Discharge Exam General- oriented x 3, not in distress, speaks in sentences with no effort or accessory muscle use Head- atraumatic Eyes- PERRL, EOMI, anicteric ENT- oropharynx clear Neck- supple, no JVD, no adenopathy, no thyromegaly; carotids +2/2, no bruits appreciated Lungs-mild rales at the bases, no wheezing Heart- normal rate, regular rhythm; no murmur, no gallop, no rub appreciated Pacemaker site-right side-dressing in place, no active bleeding or discharge noted Abdomen- normal bowel sounds, nondistended, soft, nontender, no masses or hepatosplenomegaly Extremities- no pretibial edema, no calf tenderness; peripheral pulses intact Neuro- alert, oriented x 3; CN 2-12 grossly intact; motor 5/5 bilaterally;sensation 100% on all extremities; no other gross focal neurologic deficits Skin- warm & dry Discharge Data Allergies Allergy/AdvReac Type Severity Reaction Status Date / Time No Known Allergies Allergy Unverified 04/29/19 14:14 Consultations 04/29/19 16:09 Consult Cardiology Stat 04/29/19 16:42 ED Decision to Admit Stat 04/29/19 19:51 Consult Cardiology Routine Consult Nephrology Routine 04/30/19 16:57 Burn CD for patient Stat Hospital Course (1) Infection of pacemaker pocket: Superficial pacemaker insertion site infection versus deep pocket infection Wound culture: Staph aureus, sensitivities pending Blood culture dated 04/29/2019: Gram-positive cocci in clusters, final cultures and sensitivities pending Blood cultures dated 04/30/2019: Pending Currently on vancomycin and Zosyn IV ID consulted Afebrile, hemodynamically stable Study Abroad Advisor Dr. Barroso consulted Discussed case with EP Dr. Cabrera, recommended transfer to [facility] for surgery level of care of complicated pacemaker site infection with bacteremia *Please refer to Dr. Barroso's note for detailed cardiac history the patient (2) Bacteremia: Management noted above (3) ESRD on hemodialysis: HD MWF Follows Dr. Guajardo Nephro consulted Renal Diet, 1200ml FR Pt takes Auryxia for phos binder No signs of overt overload Scheduled for hemodialysis tomorrow Saturday, May 01, 2019 (4) Tachycardia-bradycardia syndrome: s/p AV linda ablation and PPM RACW insertion 04/01/19 - Dr. Goldstein (5) Chronic ischemic heart disease: No CP/SOB continue Statin, plavix, warfarin HD for volume control (6) Atrial fibrillation: rate and rhythm controlled pacemaker in place warfarin for anticoagulation s/p AV linda ablation and PPM RACW insertion 04/01/19 - Dr. Goldstein INR 5.4 Coumadin on hold No signs of active bleeding Check INR daily, adjust Coumadin accordingly (7) T2DM (type 2 diabetes mellitus): Last A1C 7.1 hold outpt glipizide novolog sliding scale per protocol A1c 6.6 (8) PAD (peripheral artery disease): continue warfarin, plavix, statin (9) HTN (hypertension): previously had been on amlodipine and metoprolol - currently off monitor (10) HLD (hyperlipidemia): continue statin (11) Anemia of chronic disease: H/H stable (12) Depression: continue pristiq (13) Vitamin D deficiency: replete with Vit D supplementation (14) DVT prophylaxis: INR 5.4 Disposition: Transfer to [facility] for Saturday level of care Discussed case with hospitalist service , she can accept the patient, Dr. Ledezma from EP service will be following Follow up: PCP Dr. Ascencio upon discharge Total Time Total Time Spent Total Time Spent (In Minutes): 60 minutes Discharge Plan Discharge Items Patient Disposition: Transfer Acute Care Hospital Reason For Visit: SUPERFICIAL VS DEEP INFECTION PACEMAKER POCKET Discharge Diagnosis: Pacemaker site infection, bacteremia Discharge Goals: Diagnostic testing, Improve nutritional status and Therapeutic intervention Activity: As commented below Activity Comment: As tolerated Non-emergency contact: Primary Care Provider Call non-emergency contact if: you have any medication questions, your symptoms worsen, your pain is not controlled, you have a fever, your wound has increased redness, your wound has increased drainage and your wound pain has increased Follow-up/Referrals: Jose Elias Ascencio MD [Primary Care Provider] - Diet: Dialysis Renal and Heart Healthy Addtl Provider Instructions: Please refer to accompanying hospital discharge summary for further details Prescriptions: Continued cilostazol 100 mg tablet 100 mg PO BID RF: 0 glipizide 5 mg Tablet Extended Release 24hr 5 mg PO QAM RF: 0 clopidogrel 75 mg tablet 75 mg PO QAM RF: 0 oxycodone-acetaminophen 5-325 mg tablet 1 tab PO Q6H PRN (Reason: Pain (Scale Score 7-10)) RF: 0 nitroglycerin 0.4 mg tablet, sublingual 0.4 mg Sublingual Q5M PRN (Reason: Chest Pain) RF: 0 nystatin [Nyamyc] 100,000 unit/gram powder 1 applic topical TID RF: 0 Renal Caps 1 mg capsule 1 mg PO QAM RF: 0 Flovent HFA 110 mcg/actuation HFA aerosol inhaler 2 puff Inhalation BID RF: 0 cholecalciferol (vitamin D3) 5,000 unit Capsule 5,000 unit PO QAM RF: 0 atorvastatin 40 mg tablet 40 mg PO HS RF: 0 albuterol sulfate 90 mcg/actuation HFA aerosol inhaler 2 puff inhalation Q6H PRN (Reason: Shortness Of Breath Or Wheezing) RF: 0 desvenlafaxine succinate [Pristiq] 25 mg Tablet Extended Release 24 Hr 25 mg PO QAM RF: 0 Auryxia 210 mg iron Tablet 210 mg PO TIDM RF: 0 Discontinued warfarin 2.5 mg tablet 5 mg PO 2XWK RF: 0 warfarin [Coumadin] 2.5 mg tablet 2.5 mg PO 5XWK RF: 0 Stand-Alone Forms: Replaced By [facility] Discharge Orders: Discharge Order (Routine); Ordered 04/30/19 Ordered By: Emil Baumann Admission Data Admit Date/Time: 04/29/19 16:53 Attending Provider: Emil Baumann Admit Provider: Tyrel Vásquez Primary Care Provider: Jose Elias Ascencio Other Providers: Aron Barroso ; Tyrel Vásquez ; Moon Guajardo Service: Telemetry
[2019-04-30] MEDS: ATORVASTATIN 40 MG TAB PO SCH (21:02)
== END 2019-04-30 23:59 | disposition short-term general hospital (02) ==
LOC: 1E 12:06 → ED 12:06 → 1E 19:35

== ENCOUNTER 2019-12-01 13:26 | Inpatient (IN) ==
--- NOTE | 2019-12-01 14:04 | Emergency Department Note ---
Entered by Cristi Thomas acting as a scribe for History of Present Illness General Chief complaint: Hip Pain Source: patient and EMS History of Present Illness Onset (ago): week(s) 1 Location: pelvis (right hip) Pain Consistency: + constant Quality: + other ("pinch") Associated symptoms: + other (Positive for weakness and right leg pain. Negative for fever, abdominal pain, and back pain.) The patient is a 74 year old female who presents to the emergency department with complaints of constant right hip pain beginning a week ago. Per EMS, the patient receives dialysis. She states that the patient has a wound on her right leg, and she notes that the patient is on day four of an antibiotic. The patient states that she became increasingly weak. She notes that she slid off the seat of her walker onto the floor this morning. She reports that she has been having right leg pain and right hip pain that feels like a pinch for the last week. The patient states that she has a lot of fluid. She denies any fever, abdominal pain, and back pain. Home Medications Home Medications Medication Instructions Recorded Confirmed Type Flovent HFA 2 puff INHALATION BID 12/16/18 12/01/19 History Renal Caps 1 mg PO QAM 12/16/18 12/01/19 History cilostazol 100 mg PO BID 12/16/18 12/01/19 History clopidogrel 75 mg PO QAM 12/16/18 12/01/19 History glipizide 5 mg PO QAM 12/16/18 12/01/19 History nitroglycerin 0.4 mg SUBLINGUAL Q5M PRN 12/16/18 12/01/19 History oxycodone-acetaminophen 1 tab PO Q6H PRN 12/16/18 12/01/19 History Auryxia 210 mg PO TIDM 04/29/19 12/01/19 History albuterol sulfate 2 puff INHALATION Q6H PRN 04/29/19 12/01/19 History atorvastatin 40 mg PO HS 04/29/19 12/01/19 History desvenlafaxine succinate [Pristiq] 25 mg PO QAM 04/29/19 12/01/19 History warfarin 2.5 mg PO UD 05/22/19 12/01/19 History Allergies Allergy/AdvReac Type Severity Reaction Status Date / Time No Known Allergies Allergy Unverified 12/01/19 15:49 Past Med/Surg History Social History Preferred Language: Guinean Communication Ability: Effective 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 and A total of 10 systems reviewed and were otherwise negative Physical Exam Vital Signs Vital Signs - 24 hr 12/01/19 13:33 12/01/19 13:56 12/01/19 14:46 Temperature 36.8 C Temperature Source Oral Pulse Rate 75 Pulse Rate [Finger] 70 Respiratory Rate 24 24 Blood Pressure 103/49 L Blood Pressure [Right Arm] 92/47 L Blood Pressure Mean 67 Blood Pressure Mean [Right Arm] 62 Pulse Oximetry 93 92 Oxygen Delivery Method Room Air Room Air Room Air Sepsis Recent Fever Within 48 Hours No Sepsis New/Unexplained Change in Mental Status No Sepsis Action Taken by Nursing No Action Required 12/01/19 16:05 12/01/19 17:20 12/01/19 18:08 Temperature Temperature Source Pulse Rate Pulse Rate [Finger] 70 70 Respiratory Rate 16 18 Blood Pressure Blood Pressure [Right Arm] 94/39 L 103/56 L Blood Pressure Mean Blood Pressure Mean [Right Arm] 57 71 Pulse Oximetry 92 91 100 Oxygen Delivery Method Room Air Room Air Room Air Sepsis Recent Fever Within 48 Hours Sepsis New/Unexplained Change in Mental Status Sepsis Action Taken by Nursing 12/01/19 19:04 Temperature Temperature Source Pulse Rate 74 Pulse Rate [Finger] Respiratory Rate 20 Blood Pressure 114/48 L Blood Pressure [Right Arm] Blood Pressure Mean Blood Pressure Mean [Right Arm] Pulse Oximetry 96 Oxygen Delivery Method Room Air Sepsis Recent Fever Within 48 Hours Sepsis New/Unexplained Change in Mental Status Sepsis Action Taken by Nursing GENERAL: Patient is awake and alert. She is somewhat anxious appearing. EYES: The conjunctivae are clear. The pupils are round and reactive. EARS, NOSE, MOUTH AND THROAT: The nose is without any evidence of any deformity. Mucous membranes are moist. Tongue is midline. NECK: The neck is nontender and supple. RESPIRATORY: Diminished breath sounds are noted at both bases. There were scattered rales at both bases. There is no tachypnea or conversational dyspnea. CARDIOVASCULAR: Irregular rhythm was noted to auscultation. There was a systolic murmur suggested. GASTROINTESTINAL: The abdomen is soft. Abdomen is nontender. RECTAL: Black stool that is strongly heme positive. BACK: No midline tenderness was noted. There was diffuse ecchymosis noted over the entire back at different levels. There was ecchymosis on the right flank. MUSCULOSKELETAL/EXTREMITIES: No gross deformity was noted. There was pain with range of motion of the right hip. There is no deformity. SKIN: Chronic venous stasis changes were noted. There is pedal edema bilaterally. Skin was cool. There was a dialysis fistula in the left upper extremity. There is a healing wound in the right medial salazar. NEUROLOGIC: Patient is awake alert and oriented x3. Course Course 1332: The patient was evaluated in room B12. A complete history and physical exam was performed. 1728: Upon reevaluation, the patient is stable. I discussed the findings and the treatment plan with the patient. She expresses agreement and understanding. I spoke with Salma Roland PA-C, [facility]. I also spoke to Dr. Pat Darling [facility]. The patient will be evaluated for further management. Consultations Consultation #1: [id number]: I spoke with Salma Roland PA-C, [facility]. [facility] They will evaluate the patient for further management. Administered Medications Discontinued Medications Famotidine (Pepcid 20mg Iv Push) 20 mg in 5 mls @ 2.5 mls/min IV NOW STA Stop: 12/01/19 17:24 Last Admin: 12/01/19 17:49 Dose: 2.5 mls/min Documented by: [id number] Sodium Chloride (Nss 1000ml) 500 mls @ 999 mls/hr IV .Q31M ONE Stop: 12/01/19 17:57 Last Infusion: 12/01/19 18:20 Dose: 0 mls/hr Documented by: [id number] Admin: 12/01/19 17:49 Dose: 999 mls/hr Documented by: [id number] Phytonadione 2.5 mg/ Sodium (Chloride) 50.25 mls @ 100.5 mls/hr IV ONE ONE Stop: 12/01/19 17:56 Last Infusion: 12/01/19 18:19 Dose: 0 mls/hr Documented by: [id number] Admin: 12/01/19 17:49 Dose: 100.5 mls/hr Documented by: [id number] Medical Decision Making Differential Diagnosis Differential Diagnosis includes but is not limited to dehydration, stroke, anemia, hypoglycemia, hyponatremia, hypernatremia, urinary tract infection, pneumonia, bronchitis, sepsis, gastroenteritis, additional abdominal pathology, metabolic abnormalities and infections. Medical Records Attestation: I reviewed the patient's medical records. Home Medications Current Medication List: was personally reviewed by me Laboratory Data Attestation: I reviewed the patient's lab results. Result diagrams: 12/01/19 16:12 12/01/19 16:12 Lab Results 12/01/19 12/01/19 12/01/19 Range/Units 16:12 16:12 16:12 WBC 9.53 (4.8-10.8) K/uL RBC 2.47 L (4.2-5.4) M/uL Hgb 8.4 L (12.0-16.0) g/dL Hct 26.4 L (37-47) % MCV 106.9 H (80-100) fL MCH 34.0 (25-34) pg MCHC 31.8 L (32-36) g/dL RDW Std Deviation 71.8 H (36.4-46.3) fL RDW Coeff of Oleksandr 20.7 H (11.5-14.5) % Plt Count 174 (130-400) K/uL MPV 10.7 H (7.4-10.4) fL Immature Gran % (Auto) 0.2 % Neut % (Auto) 84.2 % Lymph % (Auto) 6.7 % Love % (Auto) 8.8 % Eos % (Auto) 0.0 % Baso % (Auto) 0.1 % Immature Gran # (Auto) 0.02 (0.00-0.02) K/uL Neut # (Auto) 8.02 H (1.4-6.5) K/uL Lymph # (Auto) 0.64 L (1.2-3.4) K/uL Love # (Auto) 0.84 H (0.11-0.59) K/uL Eos # (Auto) 0.00 (0-0.5) K/uL Baso # (Auto) 0.01 (0-0.2) K/uL Absolute Nucleated RBC 0.36 H (0-0) K/uL Nucleated RBC % (auto) 3.8 % Polychromasia 1+ Basophilic Stippling Occasional Anisocytosis Present Vera-North Hodge Bodies Occasional PT 40.8 H (9.0-12.0) Seconds INR 4.4 H (0.9-1.1) APTT 43.5 H (21.0-31.0) Seconds PTT Ratio 1.6 Sodium 137 (136-145) mmol/L Potassium 4.3 (3.5-5.1) mmol/L Chloride 100 (98-107) mmol/L Carbon Dioxide 30 (21-32) mmol/L Anion Gap 7.0 (3-11) BUN 46 H (7-18) mg/dl Creatinine 2.70 H (0.6-1.2) mg/dl Est Cr Clr Drug Dosing 17.4 ml/min Est GFR ( Amer) 19.2 Est GFR (Non-Af Amer) 16.6 BUN/Creatinine Ratio 17.1 (10-20) Glucose 152 H (70-99) mg/dl Lactate (0.4-2.0) mmol/L Calcium 9.8 (8.5-10.1) mg/dl Magnesium 2.6 H (1.8-2.4) mg/dl Total Bilirubin 0.8 (0.2-1) mg/dl AST 44 H (15-37) U/L ALT 52 (12-78) U/L Alkaline Phosphatase 243 H (45-117) U/L Troponin I 0.057 H* (0-0.045) ng/ml Total Protein 5.7 L (6.4-8.2) gm/dl Albumin 2.6 L (3.4-5.0) gm/dl Globulin 3.1 (2.5-4.0) gm/dl Albumin/Globulin Ratio 0.8 L (0.9-2) Procalcitonin (0-0.5) ng/ml 12/01/19 12/01/19 12/01/19 Range/Units 16:12 16:12 18:19 WBC (4.8-10.8) K/uL RBC (4.2-5.4) M/uL Hgb (12.0-16.0) g/dL Hct (37-47) % MCV (80-100) fL MCH (25-34) pg MCHC (32-36) g/dL RDW Std Deviation (36.4-46.3) fL RDW Coeff of Oleksandr (11.5-14.5) % Plt Count (130-400) K/uL MPV (7.4-10.4) fL Immature Gran % (Auto) % Neut % (Auto) % Lymph % (Auto) % Love % (Auto) % Eos % (Auto) % Baso % (Auto) % Immature Gran # (Auto) (0.00-0.02) K/uL Neut # (Auto) (1.4-6.5) K/uL Lymph # (Auto) (1.2-3.4) K/uL Love # (Auto) (0.11-0.59) K/uL Eos # (Auto) (0-0.5) K/uL Baso # (Auto) (0-0.2) K/uL Absolute Nucleated RBC (0-0) K/uL Nucleated RBC % (auto) % Polychromasia Basophilic Stippling Anisocytosis Vera-[place] Hodge Bodies PT (9.0-12.0) Seconds INR (0.9-1.1) APTT (21.0-31.0) Seconds PTT Ratio Sodium (136-145) mmol/L Potassium (3.5-5.1) mmol/L Chloride (98-107) mmol/L Carbon Dioxide (21-32) mmol/L Anion Gap (3-11) BUN (7-18) mg/dl Creatinine (0.6-1.2) mg/dl Est Cr Clr Drug Dosing ml/min Est GFR ( Amer) Est GFR (Non-Af Amer) BUN/Creatinine Ratio (10-20) Glucose (70-99) mg/dl Lactate 2.1 H* 2.0 (0.4-2.0) mmol/L Calcium (8.5-10.1) mg/dl Magnesium (1.8-2.4) mg/dl Total Bilirubin (0.2-1) mg/dl AST (15-37) U/L ALT (12-78) U/L Alkaline Phosphatase (45-117) U/L Troponin I (0-0.045) ng/ml Total Protein (6.4-8.2) gm/dl Albumin (3.4-5.0) gm/dl Globulin (2.5-4.0) gm/dl Albumin/Globulin Ratio (0.9-2) Procalcitonin 1.30 H (0-0.5) ng/ml Imaging Data Radiologist's Impression: Radiology results as stated below per my review and the radiologist's interpretation: SINGLE VIEW CHEST FINDINGS: An AP, portable, upright chest radiograph is compared to study dated 04/29/2019. The heart is enlarged noting atherosclerotic calcification of the thoracic aorta. There is mild pulmonary vascular congestion. A cardiac pacemaker has been removed as compared to previous. Trace pleural effusions are suspected with dependent atelectasis. No pneumothorax is seen. The skeletal structures are osteopenic. The bony thorax is grossly intact. IMPRESSION: Cardiomegaly with evidence of congestive failure. ACT 112: Negative or not required by law. Electronically signed by: Paoc Edwards M.D. 12/01/2019 2:18 PM XR hip 1V RT w pelvis CLINICAL HISTORY: pain COMPARISON: None. DISCUSSION: Total right hip arthroplasty is noted. The acetabular prosthetic is somewhat superior in location. One of the to retain acetabular screws is seen lateral to the right iliac wing. This presumably is within the soft tissues. Bowel pattern is nonobstructive. No evidence for acetabular protrusion. There is no evidence for soft tissue swelling. IMPRESSION: 1. Total right hip prosthetic. 2. One of the 2 retaining screws of the right acetabulum is located within the soft tissues lateral to the right iliac bone. 3. No acute bony abnormality. ACT 112: Negative or not required by law. The above report was generated using voice recognition software. It may contain grammatical, syntax or spelling errors. Electronically signed by: Davi Osuna M.D. 12/01/2019 2:11 PM US venous doppler LE BI FINDINGS: RIGHT: Common femoral vein: Patent. Greater saphenous vein (superficial): Patent. Deep femoral vein: Patent. Femoral vein: Patent. Popliteal vein: Patent. Calf veins: Patent. LEFT: Common femoral vein: Patent. Greater saphenous vein (superficial): Patent. Deep femoral vein: Patent. Femoral vein: Patent. Popliteal vein: Patent. Calf veins: Patent. Other: Extensive subcutaneous edema in the left lower extremity greater than the right. IMPRESSION: 1. No evidence of deep venous thrombosis. 2. Left greater than right lower extremity edema. ACT 112: Negative or not required by law. Electronically signed by: Javier Kwok M.D. 12/01/2019 5:03 PM ECG Data Attestation: I personally reviewed and interpreted this ECG as follows: Indication: + weakness Rate (beats per minute): 70 Rhythm: + other (V paced) ECG Intervals/blocks: + Left bundle branch block Comparison ECG Date: from (04/30/2019) Change: no significant change Additional Comments: No [place] beats noted. Blood Pressure Blood Pressure Findings: Normal blood pressure Blood Pressure Disposition: did not require urgent referral MDM Narrative The patient is a 74-year-old female who presented to the emergency department for multiple complaints. The patient has generalized weakness and a history of renal failure. She has multiple bruises over her entire body including her back and flank. The patient was found to have anemia which is significantly worse than her baseline. She did have heme positive dark stool. I discussed the jade ent's laboratory and radiographic studies with her. At this time I do not feel the patient would be safe to discharge to home. I discussed her case with the on-call [facility] hospitalist group. The patient was treated with a small dose of vitamin K given her anticoagulation use and this significant anemia. The patient was reevaluated multiple times. Impression & Plan Upper gastrointestinal bleed, Generalized weakness, Hip pain, right, Falls, Multiple bruises, Anemia Discharge Plan Visit Data Chief Complaint: Hip Pain ED Provider: Kalia Garcse Discharge Problem: Upper gastrointestinal bleed, Generalized weakness, Hip pain, right, Falls, Multiple bruises, Anemia Patient Disposition: Being Evaluated by Hospitalist Discharge Instructions Interventions: ED Discharge Assessment Last Done: 12/01/19 19:04 Forms Stand Alone Forms: My [facility] Prescriptions Prescriptions: No Action cilostazol 100 mg tablet 100 mg PO BID RF: 0 glipizide 5 mg Tablet Extended Release 24hr 5 mg PO QAM RF: 0 clopidogrel 75 mg tablet 75 mg PO QAM RF: 0 oxycodone-acetaminophen 5-325 mg tablet 1 tab PO Q6H PRN (Reason: Pain (Scale Score 7-10)) RF: 0 nitroglycerin 0.4 mg tablet, sublingual 0.4 mg Sublingual Q5M PRN (Reason: Chest Pain) RF: 0 Renal Caps 1 mg capsule 1 mg PO QAM RF: 0 Flovent HFA 110 mcg/actuation HFA aerosol inhaler 2 puff Inhalation BID RF: 0 atorvastatin 40 mg tablet 40 mg PO HS RF: 0 albuterol sulfate 90 mcg/actuation HFA aerosol inhaler 2 puff inhalation Q6H PRN (Reason: Shortness Of Breath Or Wheezing) RF: 0 desvenlafaxine succinate [Pristiq] 25 mg Tablet Extended Release 24 Hr 25 mg PO QAM RF: 0 Auryxia 210 mg iron Tablet 210 mg PO TIDM RF: 0 warfarin 2.5 mg Tablet 2.5 mg PO UD RF: 0 Referrals Referrals: Jose Elias Ascencio MD [Primary Care Provider] - Discharge Problem: Falls Qualifiers: Encounter type: initial encounter Qualified Code(s): W19.XXXA - Unspecified fall, initial encounter Anemia Qualifiers: Anemia type: unspecified type Qualified Code(s): D64.9 - Anemia, unspecified The scribe's documentation has been prepared under my direction and personally reviewed by me in its entirety. I confirm that the note above accurately reflects all work, treatment, procedures, and medical decision making performed by me.
--- NOTE | 2019-12-01 14:13 | XRay Report ---
XR hip 1V RT w pelvis CLINICAL HISTORY: pain COMPARISON: None. DISCUSSION: Total right hip arthroplasty is noted. The acetabular prosthetic is somewhat superior in location. One of the to retain acetabular screws is seen lateral to the right iliac wing. This presum ably is within the soft tissues. Bowel pattern is nonobstructive. No evidence for acetabular protrusion. There is no evidence for soft tissue swelling. IMPRESSION: 1. Total right hip prosthetic. 2. One of the 2 retaining screws of the right acetabulum is located within the soft tissues lateral t o the right iliac bone. 3. No acute bony abnormality. ACT 112: Negative or not required by law. The above report was generated using voice recognition software. It may contain grammatical, syntax or spelling errors. Electronically signed by: Davi Osuna M.D. 12/01/2019 2:11 PM
--- NOTE | 2019-12-01 14:20 | XRay Report ---
SINGLE VIEW CHEST CLINICAL HISTORY: Sepsis. FINDINGS: An AP, portable, upright chest radiograph is compared to study dated 04/29/2019. The heart i s enlarged noting atherosclerotic calcification of the thoracic aorta. There is mild pulmonary vascul ar congestion. A cardiac pacemaker has been removed as compared to previous. Trace pleural effusions are suspected with dependent atelectasis. No pneumothorax is seen. The skeletal structures are osteop enic. The bony thorax is grossly intact. IMPRESSION: Cardiomegaly with evidence of congestive failure. ACT 112: Negative or not required by law. Electronically signed by: Paco Edwards M.D. 12/01/2019 2:18 PM
[2019-12-01 16:30] LABS: Basophils # (auto) 0.01 K/uL (0-0.2); Basophils % (auto) 0.1 %; Hematocrit (blood only) 26.4 % (37-47); Hemoglobin 8.4 g/dL (12.0-16.0); Immature Granulocytes # (auto) 0.02 K/uL (0.00-0.02); Immature Granulocytes % (auto) 0.2 %; Lymphocytes # (auto) 0.64 K/uL (1.2-3.4); Lymphocytes % (auto) 6.7 %; Mean Corpuscular Hgb Conc 31.8 g/dL (32-36); Mean Corpuscular Volume 106.9 fL (80-100); Mean Platelet Volume 10.7 fL (7.4-10.4); Monocytes # (auto) 0.84 K/uL (0.11-0.59); Monocytes % (auto) 8.8 %; Neutrophils # (auto) 8.02 K/uL (1.4-6.5); Neutrophils % (auto) 84.2 %; Nucleated RBC # (auto) 0.36 K/uL (0-0); Nucleated RBC % (auto) 3.8 %; Platelet Count 174 K/uL (130-400); RDW Coefficient of Variation 20.7 % (11.5-14.5); RDW Standard Deviation 71.8 fL (36.4-46.3); Red Blood Count 2.47 M/uL (4.2-5.4); White Blood Count 9.53 K/uL (4.8-10.8)
[2019-12-01 16:49] LABS: Partial Thromboplastin Ratio 1.6; Partial Thromboplastin Time 43.5 Seconds (21.0-31.0); Prothrombin Time 40.8 Seconds (9.0-12.0)
[2019-12-01 16:52] LABS: Albumin Level 2.6 gm/dl (3.4-5.0); BUN Creatinine Ratio 17.1 (10-20); Calcium 9.8 mg/dl (8.5-10.1); Creatinine Clr Calc Pharmacy 17.4 ml/min; Est GFR (African American) 19.2; Est GFR (Non-African American) 16.6; Magnesium 2.6 mg/dl (1.8-2.4); Potassium 4.3 mmol/L (3.5-5.1)
[2019-12-01 17:01] LABS: Anisocytosis Present; Basophilic Stippling Occasional; Howell-Jolly Bodies Occasional; Polychromasia 1+
--- NOTE | 2019-12-01 17:05 | Ultrasound Report ---
US venous doppler LE CLINICAL HISTORY: 74 years-old Female presenting with lower extremity pain and swelling. TECHNIQUE: Real-time grayscale and color and spectral Doppler ultrasound imaging of the veins of the bilateral lower extremities was performed. Compression and augmentation were also utilized. COMPARISON: None. FINDINGS: RIGHT: Common femoral vein: Patent. Greater saphenous vein (superficial): Patent. Deep femoral vein: Patent. Femoral vein: Patent. Popliteal vein: Patent. Calf veins: Patent. LEFT: Common femoral vein: Patent. Greater saphenous vein (superficial): Patent. Deep femoral vein: Patent. Femoral vein: Patent. Popliteal vein: Patent. Calf veins: Patent. Other: Extensive subcutaneous edema in the left lower extremity greater than the right. IMPRESSION: 1. No evidence of deep venous thrombosis. 2. Left greater than right lower extremity edema. ACT 112: Negative or not required by law. Electronically signed by: Javier Kwok M.D. 12/01/2019 5:03 PM
[2019-12-01 17:06] LABS: Albumin Globulin Ratio 0.8 (0.9-2); Bilirubin,Total 0.8 mg/dl (0.2-1); Globulin 3.1 gm/dl (2.5-4.0); Total Protein 5.7 gm/dl (6.4-8.2); Troponin I 0.057 ng/ml (0-0.045)
[2019-12-01 17:18] LABS: INR 4.4 (0.9-1.1)
[2019-12-01] MEDS ORDERED: FAMOTIDINE 20MG IV PUSH 20 MG/5 ML SYR IV STA (17:23)
[2019-12-01] MEDS ORDERED: PHYTONADIONE 2.5 MG in SODIUM CHLORIDE 0.9% 50 ML IV ONE (17:27)
[2019-12-01] MEDS ORDERED: SODIUM CHLORIDE 0.9% 1000ML 500 ML IV ONE (17:27)
--- NOTE | 2019-12-01 18:37 | History & Physical Report ---
Date of Service December 01, 2019 Assessment & Plan (1) Anemia: Admitted with generalized weakness and noted to have a hemoglobin of 8.4 Hemoglobin as an outpatient was 8.9 on 13th of this month GI bleed suspected and that can happen secondary to chronic renal disease on hemodialysis Doubt any significant blood loss of recent origin We will check CBC and transfuse if hemoglobin falls below 7 (2) GI bleed: Can have chronic GI bleeding secondary to his and his renal disease Doubt any acute GI bleed We will monitor CBC and if there is any significant drop of hemoglobin we will get GI evaluation Received vitamin K for INR of 4.4 We will continue Coumadin Protonix 40 mg once a daily added (3) Multiple bruises: History of ambulatory dysfunction with frequent falls Has generalized bruising which could be from minor trauma or spontaneous Has been on Plavix and Coumadin which are complicating the bruising Will not stop any medications for now (4) Falls: Duration of ambulation for the last 2 weeks We will get PT and OT evaluation Complaint to have multiple joints pain but mostly right hip (5) Generalized weakness: (6) ESRD on hemodialysis: We will continue hemodialysis as inpatient (7) Atrial fibrillation: Heart rate is controlled EKG showing paced rhythm Has been on Coumadin and INR is 4.4 today Received vitamin K for guaiac positive stool and GI bleed We will continue Coumadin if CBC does not show any significant drop of hemoglobin (8) PVD (peripheral vascular disease): Has been on Plavix for PVD Will continue Plavix until unless hemoglobin drops below 7 (9) Diastolic CHF: Chest x-ray showed mild congestive changes We will continue dialysis (10) Cardiac pacemaker in situ: No acute issue (11) T2DM (type 2 diabetes mellitus): Has been on glyburide Diabetic diet SSI (12) HTN (hypertension): The lower side of normal (13) HLD (hyperlipidemia): Continue statin GI prophylaxis with Protonix DVT prophylaxis Has been on Coumadin Discussed with the son in detail (14) Hip pain, right: Complains pain in multiple joints Mild to moderate pain noted on movement of knees, shoulders and hips X-ray of the right hip did show questionable dislocation of the screw from prior prosthesis We will continue physical therapy and if pain is worse we need to get orthopedic opinion We will continue oxycodone for pain control History of Present Illness Chief Complaint: Ambulatory dysfunction with frequent falls, black tarry stool and generalized weakness Primary Care Provider: JoseE lias Ascencio MD She is a 74-year-old obese female with significant past medical history including end-stage renal disease on hemodialysis, atrial fibrillation on anticoagulation, peripheral vascular disease on Plavix, tachybradycardia syndrome status post pacemaker, congestive heart failure, hypertension, hyperlipidemia and type 2 diabetes apparently has been complaining of deteriorating general condition for the last 2 weeks. She has been complaining of more weakness, difficulty in ambulating with a walker with frequent falls, joint pain involving multiple joints especially right hip and black stool for the same.. Denies any chest pain and/or palpitation or any increasing shortness of breath. No abdominal pain nausea or vomiting. No headache and blurred vision. No increasing numbness or tingling involving any extremities and no weakness involving any side of the body. She was guaiac positive in the emergency room with a hemoglobin of 8.4 and her hemoglobin as an outpatient note was 8.9 on 13th of this month. Her INR was 4.4 and she received 2.5 mg of IV vitamin K for that.She was admitted to medical telemetry unit for continuation of care. Allergies Allergy/AdvReac Type Severity Reaction Status Date / Time No Known Allergies Allergy Unverified 12/01/19 15:49 Home Medications Home Medications Medication Instructions Recorded Confirmed Type Flovent HFA 2 puff INHALATION BID 12/16/18 12/01/19 History Renal Caps 1 mg PO QAM 12/16/18 12/01/19 History cilostazol 100 mg PO BID 12/16/18 12/01/19 History clopidogrel 75 mg PO QAM 12/16/18 12/01/19 History glipizide 5 mg PO QAM 12/16/18 12/01/19 History nitroglycerin 0.4 mg SUBLINGUAL Q5M PRN 12/16/18 12/01/19 History oxycodone-acetaminophen 1 tab PO Q6H PRN 12/16/18 12/01/19 History Auryxia 210 mg PO TIDM 04/29/19 12/01/19 History albuterol sulfate 2 puff INHALATION Q6H PRN 04/29/19 12/01/19 History atorvastatin 40 mg PO HS 04/29/19 12/01/19 History desvenlafaxine succinate [Pristiq] 25 mg PO QAM 04/29/19 12/01/19 History warfarin 2.5 mg PO UD 05/22/19 12/01/19 History Past Med/Surg History Social History Preferred Language: Japanese Communication Ability: Effective Quick Technician Required: No Beliefs That Will Affect Care: None marital status: / Current Living Situation: Family Current Living Situation Comment: Grandson lives with patient; he is 26 Feels Safe at Home: Yes Smoking Status: Former smoker Second Hand Exposure: Yes ; Hx Alcohol Use: No Hx Substance Use: No Review of Systems Review of Systems: All systems reviewed & are unremarkable except as noted in HPI & below Physical Exam Physical Exam: Lying in bed comfortably with extreme lethargy Constitutional: well developed, well nourished, + ill appearing and + obese; no acute distress Eyes: PERRL, conjunctivae normal, anicteric sclerae ENMT: external ear and nose normal, oropharynx normal Neck: trachea midline, no thyromegaly Respiratory: normal respiratory effort; no respiratory distress Auscultation: + diminished lung sounds and + crackles (Minimal crackles at the bases) Cardiovascular: Rate/Rhythm: regular rate and regular rhythm Heart Sounds: no murmur Extremities: + edema (Bilateral leg edema about 1+ with chronic skin changes. A small laceration the mid medial aspect of right leg) Gastrointestinal (Abdomen): Inspection/Auscultation: abdomen normal to inspection and normal bowel sounds Percussion/Palpation: abdomen soft; abdomen nontender Musculoskeletal: Has mild to moderate pain on movement of the joints especially both the shoulders, both the hip more on the right than the left, both knees No joint swelling noted to be acutely inflamed Skin: Has generalized bruising all over the body Neurologic: moves all extremities (But very weak and lethargic); no focal motor deficits Lymphatic: no cervical or axillary lymphadenopathy Results & Data Vital Signs (Past 12 Hours) Vital Signs Temp Pulse Pulse Resp BP BP Pulse Ox 12/01/19 18:08 100 12/01/19 17:20 70 18 103/56 L 91 12/01/19 16:05 70 16 94/39 L 92 12/01/19 14:46 70 24 92/47 L 92 12/01/19 13:56 93 12/01/19 13:33 36.8 C 75 24 103/49 L Laboratory Results Short CBC 12/01/19 Range/Units 16:12 WBC 9.53 (4.8-10.8) K/uL Hgb 8.4 L (12.0-16.0) g/dL Hct 26.4 L (37-47) % Plt Count 174 (130-400) K/uL BMP 12/01/19 16:12 Sodium 137 Potassium 4.3 Chloride 100 Carbon Dioxide 30 BUN 46 H Creatinine 2.70 H Glucose 152 H Calcium 9.8 Cardiac Enzymes 12/01/19 Range/Units 16:12 Troponin I 0.057 H* (0-0.045) ng/ml Liver Function 12/01/19 Range/Units 16:12 Total Bilirubin 0.8 (0.2-1) mg/dl AST 44 H (15-37) U/L ALT 52 (12-78) U/L Alkaline Phosphatase 243 H (45-117) U/L Albumin 2.6 L (3.4-5.0) gm/dl Code Status & VTE Plan VTE Prophylaxis Plan VTE Prophylaxis will be ordered: Yes (1) Anemia Anemia type: unspecified type Qualified Code(s): D64.9 - Anemia, unspecified (2) Falls Encounter type: initial encounter Qualified Code(s): W19.XXXA - Unspecified fall, initial encounter (3) T2DM (type 2 diabetes mellitus) 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
[2019-12-01] MEDS ORDERED: ALBUTEROL HFA 8 GM INHALER INH PRN (20:01)
[2019-12-01] MEDS ORDERED: NITROGLYCERIN SL 0.4 MG/TAB TAB SL PRN (20:01)
[2019-12-01 20:44] LABS: Hematocrit (blood only) 25.5 % (37-47)
[2019-12-01] MEDS: OXYCODONE/ACETAMINOPHEN 5mg/325mg TAB PO PRN (21:14)
[2019-12-01] MEDS: PANTOprazole 40 MG TAB PO SCH (21:15)
[2019-12-01] MEDS: cilostazoL 100 MG TAB PO SCH (21:16)
[2019-12-01] MEDS: ATORVASTATIN 40 MG TAB PO SCH (21:16)
--- NOTE | 2019-12-01 22:13 | Electrocardiogram Report ---
Test Reason : Blood Pressure : / mmHG Vent. Rate : 070 BPM Atrial Rate : 070 BPM P-R Int : 000 ms QRS Dur : 150 ms QT Int : 456 ms P-R-T Axes : 000 -60 128 degrees QTc Int : 492 ms Poor data quality, interpretation may be adversely affected Ventricular-paced rhythm Abnormal ECG When compared with ECG of 30-APR-2019 07:24, Vent. rate has decreased BY 10 BPM Confirmed by Juan J Adams ([id number]) on 12/01/2019 10:13:15 PM Referred By: ED Confirmed By:Juan J Adams
[2019-12-01] MEDS ORDERED: ALBUMIN 25% 50 ML IV ONE (23:48)
[2019-12-02 00:19] LABS: Eosinophils # (auto) 0.01 K/uL (0-0.5); Eosinophils % (auto) 0.1 %; Hematocrit (blood only) 25.1 % (37-47); Immature Granulocytes # (auto) 0.03 K/uL (0.00-0.02); Immature Granulocytes % (auto) 0.3 %; Lymphocytes # (auto) 0.66 K/uL (1.2-3.4); Lymphocytes % (auto) 7.4 %; Mean Corpuscular Hemoglobin 33.9 pg (25-34); Mean Corpuscular Hgb Conc 31.9 g/dL (32-36); Mean Corpuscular Volume 106.4 fL (80-100); Monocytes # (auto) 0.82 K/uL (0.11-0.59); Monocytes % (auto) 9.2 %; Neutrophils # (auto) 7.41 K/uL (1.4-6.5); Nucleated RBC # (auto) 0.44 K/uL (0-0); Nucleated RBC % (auto) 4.9 %; Platelet Count 148 K/uL (130-400); RDW Coefficient of Variation 20.9 % (11.5-14.5); RDW Standard Deviation 70.5 fL (36.4-46.3); Red Blood Count 2.36 M/uL (4.2-5.4); White Blood Count 8.93 K/uL (4.8-10.8)
[2019-12-02 00:33] LABS: INR 2.3 (0.9-1.1)
[2019-12-02 00:36] LABS: Calcium 9.3 mg/dl (8.5-10.1); Creatinine Clr Calc Pharmacy 16.6 ml/min; Est GFR (African American) 18.1; Est GFR (Non-African American) 15.7; Magnesium 2.6 mg/dl (1.8-2.4); Potassium 4.3 mmol/L (3.5-5.1)
[2019-12-02 01:26] LABS: Anisocytosis Present; Basophilic Stippling Occasional; Giant Platelets 1+; Macrocytosis Present; Polychromasia 1+
[2019-12-02] MEDS: glipiZIDE 5 MG TAB PO SCH (06:33)
[2019-12-02] MEDS ORDERED: SODIUM CHLORIDE 0.9% 1000ML 1,000 ML IV PRN (07:40)
[2019-12-02] MEDS ORDERED: EPOETIN ALFA 20,000 UNITS/ML VIAL IV ONE (07:40)
[2019-12-02] MEDS ORDERED: ALBUMIN 25% 50 ML IV SCH ×2 (08:30→09:30)
[2019-12-02] MEDS: CLOPIDOGREL BISULFATE 75 MG TAB PO SCH (08:38)
[2019-12-02] MEDS: NEPHROCAPS PO SCH (08:38)
[2019-12-02] MEDS: FLUTICASONE FUROATE 200MCG 14 PUFFS/INHALER INH SCH (08:39)
[2019-12-02] MEDS: cilostazoL 100 MG TAB PO SCH ×2 (08:39→20:47)
[2019-12-02] MEDS: PANTOprazole 40 MG TAB PO SCH (08:39)
[2019-12-02 09:24] LABS: Ferritin 1175.8 ng/ml (8-388)
[2019-12-02] MEDS ORDERED: EPOETIN ALFA 24,000 UNITS in SYRINGE 0 ML SQ ONE (10:00)
--- NOTE | 2019-12-02 15:11 | Nephrology Consultation ---
Date of Consultation December 02, 2019 Assessment & Plan (1) Generalized weakness: per primary service; w/ falls at home -complicated by lately chronic hypotension and worsening volume overload; anuric dialysis pt who takes no anti hypertensives. -low threshold to consider repeat TTE /other cardiac eval given worsening fluid and functional status Present on Admission?: Yes (2) ESRD on hemodialysis: daily HD for now via avf; she had HD today using albumin to optimize UF Present on Admission?: Yes (3) Volume overload: complicates/worsens her weakness -plan for now daily dialysis at least through 12/04 as bp tolerates -no FR for now on clears but when off of liquid diet, needs 32 oz fluid limit pls and < 2 gm daily Na diet Present on Admission?: Yes (4) Anemia: on a/c and w/ recurrent falls. gets epo equivalent at dialysis -note that auryxia is iron rich and can blacken stools -gave 22063 units epo today w/HD -daily hgb -will check T STn in am Present on Admission?: Yes History of Present Illness Reason for Consultation: esrd on dialysis Requesting Physician: Dr Stewart Attending Physician: Tyrel Vásquez MD History of Present Illness 74 y/o F whom I'm asked to see for dialysis needs after she was admitted overnight d/t progressive generalized weakness, fall at home. She dialyzes under my care MWF and Thurs at [facility] via AVF. She has chronic challenges w/ hypotension and volume overload and has been dialyzing 4 days weekly d/t this. Her pcp had just ordered a lift for help w/ transfers at HD from w/c to dialysis chair. Pt is generally adherent w/ attending dialysis though she struggles to follow fluid limits. She fell at home in bathroom yesterday. Has been having worsening ambulatory dysfunction past 2 wks especially; no obvious injury during fall but worsening R hip and generalized joint pain on presentation here. PMH includes CAD s/p 2004 and 2007 stents, PAD s/p fem pop bipap and renal artery ballooning, permanent a fib and tachybrady syndrome s/p AV junction ablation and pacer March 2019 on AC, chronic lymphedema, DM2, HTN, HL, anemia of ESRD. Also had extended stay at [facility] summer 2018 for pacer pocket infection w/ bacteremia. 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 Has also been following w/ derm and PCP for R medial calf wound; on abtx for this. Allergies Allergy/AdvReac Type Severity Reaction Status Date / Time No Known Allergies Allergy Unverified 12/01/19 15:49 Home Medications Home Medications Medication Instructions Recorded Confirmed Type Flovent HFA 2 puff INHALATION BID 12/16/18 12/01/19 History Renal Caps 1 mg PO QAM 12/16/18 12/01/19 History cilostazol 100 mg PO BID 12/16/18 12/01/19 History clopidogrel 75 mg PO QAM 12/16/18 12/01/19 History glipizide 5 mg PO QAM 12/16/18 12/01/19 History nitroglycerin 0.4 mg SUBLINGUAL Q5M PRN 12/16/18 12/01/19 History oxycodone-acetaminophen 1 tab PO Q6H PRN 12/16/18 12/01/19 History Auryxia 210 mg PO TIDM 04/29/19 12/01/19 History albuterol sulfate 2 puff INHALATION Q6H PRN 04/29/19 12/01/19 History atorvastatin 40 mg PO HS 04/29/19 12/01/19 History desvenlafaxine succinate [Pristiq] 25 mg PO QAM 04/29/19 12/01/19 History warfarin 2.5 mg PO UD 05/22/19 12/01/19 History Patient History Medical History (Updated 12/02/19 @ 15:21 by Moon Guajardo MD, PhD) Aftercare following removal/replacement pacemaker (Chronic) Asthma (Acute) AV fistula (Chronic) Left upper ext. CAD (coronary artery disease) (Chronic) hx of PCI to LAD, Circumflex, RCA in CKD (chronic kidney disease) stage 4, GFR 15-29 ml/min (Chronic) Depression (Chronic) ESRD (end stage renal disease) on dialysis (Chronic) Follows Dr. 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 pacemaker, with recent addition of right infraclavicular [employer] biventricular pacemaker in March, as outlined above HLD (hyperlipidemia) (Chronic) HTN (hypertension) (Chronic) PAD (peripheral artery disease) (Chronic) PAF (paroxysmal atrial fibrillation) (Chronic) Renal artery stenosis (Chronic) s/p stent T2DM (type 2 diabetes mellitus) (Chronic) Tachy-mary syndrome (Resolved) s/p PPM Dr. Goldstein Vitamin D deficiency (Chronic) Volume overload Surgical History History of angioplasty of peripheral vessel (Chronic) fem/pop bypass 10/21 history of Renal stent History of atrioventricular linda ablation (Chronic) 04/01/[address] Goldstein History of (Chronic) x 3 History of lumbar laminectomy (Chronic) History of percutaneous coronary intervention (Chronic) History of total right hip arthroplasty (Chronic) Social History Preferred Language: Peruvian Communication Ability: Effective Vascular Manager Required: No Beliefs That Will Affect Care: None marital status: / Current Living Situation: Family Current Living Situation Comment: Lives with grandson, but moving out soon. Other Information That Helps Us Care for You: No Feels Safe at Home: Yes Smoking Status: Never smoker Second Hand Exposure: Yes ; Hx Alcohol Use: No Hx Substance Use: No Review of Systems Review of Systems: All systems reviewed & are unremarkable except as noted in HPI & below Constitutional: + body aches, + fatigue and + weakness; no fever, no chills a nd no sweats Respiratory: + dyspnea on exertion; no dyspnea Cardiovascular: + edema; no chest pain and no palpitations Gastrointestinal: no abdominal pain +dark stools Genitourinary: pt anuric Integumentary: + non-healing lesions, + wounds and + unusual bruising Neurologic: + generalized weakness Endocrine: + fatigue Hematologic / Lymphatic: + easy bleeding Physical Exam Constitutional: well developed, well nourished, + obese, + frail appearing (looks exhausted, on RA) and + edematous (marked BLUE/BLLE) Eyes: EOM intact bilaterally ENMT: Ears: no external ear abnormality Nose: no external nose abnormality Mouth: + dry oral mucous membranes Neck: no nuchal rigidity Respiratory: normal respiratory effort Auscultation: + diminished lung sounds Cardiovascular: Rate/Rhythm: regular rate and regular rhythm Extremities: + edema (generalyzed) and + AV fistula (+ b/t) Gastrointestinal (Abdomen): Inspection/Auscultation: normal bowel sounds Percussion/Palpation: abdomen soft; abdomen nontender Musculoskeletal: Extremities: strength 5/5 throughout Skin: no rashes, warm and dry + skin tightening, + wound and + ecchymosis Neurologic: moody, fluent and appropriate speech though exhausted, no tremor Psychiatric: Orientation: alert and oriented x 3 Speech: normal rate/rhythm/volume of speech Results & Data Vital Signs (Past 12 Hours) Vital Signs Temp Pulse Pulse Pulse Resp BP BP 12/02/19 14:54 36.4 C L 69 20 97/59 L 12/02/19 13:37 36.4 C L 75 75 97/52 L 97/52 L 12/02/19 13:20 70 98/47 L 12/02/19 13:00 72 104/48 L 12/02/19 12:40 72 87/41 L 12/02/19 12:20 73 99/53 L 12/02/19 12:00 73 102/50 L 12/02/19 11:40 70 102/48 L 12/02/19 11:02 69 93/41 L 12/02/19 11:00 70 101/47 L 12/02/19 10:40 69 90/47 L 12/02/19 10:20 70 95/51 L 12/02/19 10:00 70 95/49 L 12/02/19 09:50 36.7 C 70 70 99/53 L 12/02/19 07:23 36.4 C L 70 20 103/57 L 12/02/19 07:10 70 Pulse Ox 12/02/19 14:54 95 12/02/19 13:37 12/02/19 13:20 12/02/19 13:00 12/02/19 12:40 12/02/19 12:20 12/02/19 12:00 12/02/19 11:40 12/02/19 11:02 12/02/19 11:00 12/02/19 10:40 12/02/19 10:20 12/02/19 10:00 12/02/19 09:50 12/02/19 07:23 100 12/02/19 07:10 Laboratory Results 12/02/19 00:06 12/02/19 00:06 Diagnostic Findings R hip XR > one screw in soft tissues cxr> cardiomegaly and congestive failure BLE dopplers > no DVT (1) Anemia Anemia type: unspecified type Qualified Code(s): D64.9 - Anemia, unspecified (2) Volume overload Hypervolemia type: other Qualified Code(s): E87.79 - Other fluid overload
--- NOTE | 2019-12-02 15:31 | Dialysis Progress Note ---
Date of Service December 02, 2019 Assessment & Plan (1) Generalized weakness: per primary service; w/ falls at home -complicated by lately chronic hypotension and worsening volume overload; anuric dialysis pt who takes no anti hypertensives. -low threshold to consider repeat TTE /other cardiac eval given worsening fluid and functional status (2) ESRD on hemodialysis: daily HD for now via avf; she had HD today using albumin to optimize UF >>plan repeat tx tomorrow (3) Volume overload: complicates/worsens her weakness -plan for now daily dialysis at least through 12/04 as bp tolerates -no FR for now on clears but when off of liquid diet, needs 32 oz fluid limit pls and < 2 gm daily Na diet (4) Anemia: on a/c and w/ recurrent falls. gets epo equivalent at dialysis -note that auryxia is iron rich and can blacken stools -gave 73212 units epo today w/HD -daily hgb -will check T STn in am Subjective seen on HD at about 1330; pt son at bedside; pt exhausted but no pain or cramp; no n/v; on clears Review of Systems Review of Systems: All systems reviewed & are unremarkable except as noted in HPI & below Physical Exam Constitutional: well developed, well nourished, + obese, + frail appearing (looks exhausted, on RA) and + edematous (marked BLUE/BLLE) Eyes: EOM intact bilaterally ENMT: Ears: no external ear abnormality Nose: no external nose abnormality Mouth: + dry oral mucous membranes Neck: no nuchal rigidity Respiratory: normal respiratory effort Auscultation: + diminished lung sounds Cardiovascular: Rate/Rhythm: regular rate and regular rhythm Extremities: + edema (generalyzed) and + AV fistula (+ b/t) Gastrointestinal (Abdomen): Inspection/Auscultation: normal bowel sounds Percussion/Palpation: abdomen soft; abdomen nontender Musculoskeletal: Extremities: strength 5/5 throughout Skin: no rashes, warm and dry + skin tightening, + wound and + ecchymosis Psychiatric: Orientation: alert and oriented x 3 Speech: normal rate/rhythm/volume of speech Results & Data Vital Signs (Past 12 Hours) Vital Signs Temp Pulse Pulse Pulse Resp BP BP 12/02/19 15:02 72 12/02/19 14:54 36.4 C L 69 20 97/59 L 12/02/19 13:37 36.4 C L 75 75 97/52 L 97/52 L 12/02/19 13:20 70 98/47 L 12/02/19 13:00 72 104/48 L 12/02/19 12:40 72 87/41 L 12/02/19 12:20 73 99/53 L 12/02/19 12:00 73 102/50 L 12/02/19 11:40 70 102/48 L 12/02/19 11:02 69 93/41 L 12/02/19 11:00 70 101/47 L 12/02/19 10:40 69 90/47 L 12/02/19 10:20 70 95/51 L 12/02/19 10:00 70 95/49 L 12/02/19 09:50 36.7 C 70 70 99/53 L 12/02/19 07:23 36.4 C L 70 20 103/57 L 12/02/19 07:10 70 Pulse Ox 12/02/19 15:02 12/02/19 14:54 95 12/02/19 13:37 12/02/19 13:20 12/02/19 13:00 12/02/19 12:40 12/02/19 12:20 12/02/19 12:00 12/02/19 11:40 12/02/19 11:02 12/02/19 11:00 12/02/19 10:40 12/02/19 10:20 12/02/19 10:00 12/02/19 09:50 12/02/19 07:23 100 12/02/19 07:10 Laboratory Results reviewed (1) Volume overload Hypervolemia type: other Qualified Code(s): E87.79 - Other fluid overload (2) Anemia Anemia type: unspecified type Qualified Code(s): D64.9 - Anemia, unspecified
[2019-12-02] MEDS: WARFARIN SOD 2.5 MG TAB PO SCH (15:33)
--- NOTE | 2019-12-02 15:35 | Hospitalist Progress Note ---
Date of Service December 02, 2019 Assessment & Plan (1) Anemia: This is a 74 year old woman who fell at home and was found on the floor and admitted with generalized weakness and noted to have a hemoglobin of 8.4 -Hemoglobin as an outpatient was 8.9 on 13th of this month -since being in hospital to date as of 12/02/2019, Hgb generally stable as 8 -no iron deficiency on labs -Patient had dialysis on 12/02/2019 and patient received epogen -mostly likely that patient has anemia secondary to ESRD (2) GI bleed: Supratherapeutic INR -acute gastrointestinal hemorrhage GI bleed is unlikely with recent hemoglobin stability; continue pantoprazole for now -patient did have supratherapeutic INR of 4.4 on admission on 12/01/2019 and given Vitamin K in the ED -INR is 2.3 on 12/02/2019, continue home dose coumadin for now, trend INR -patient did report she saw blood in stool recently, send FOBT with next available bowel movement (3) Multiple bruises: -bruising from History of ambulatory dysfunction with frequent falls Has generalized bruising which could be from minor trauma or spontaneous Has been on Plavix and Coumadin which are complicating the bruising (4) Falls: -PT/OT assessments; have asked cased warranty manager to inquire into physical rehabilitation facilities after hospital stay (5) Generalized weakness: -management with PT/OT evaluations (6) Hip pain, right: -X-ray of the right hip 1. Total right hip prosthetic. 2. One of the 2 retaining screws of the right acetabulum is located within the soft tissues lateral to the right iliac bone. 3. No acute bony abnormality. -discomforts are nota acutely focal to right hip -patient complains pain in multiple joints; Mild to moderate pain noted on movement of knees, shoulders and hips (7) Diastolic CHF: -admission Chest x-ray showed mild congestive changes -possibly from diastolic congestive heart failure versus fluid retention from ESRD condition -repeat CXR on 12/02/2019 after the dialysis session (8) ESRD on hemodialysis: -patient has dialysis as inpatient on 12/02/2019 -dialysis sessions as per nephrology (9) HTN (hypertension): -blood pressure is low normotensive currently (10) Atrial fibrillation: -Heart rate is controlled -on coumadin anticoagulation (11) PVD (peripheral vascular disease): -on clopidogrel for PVD (12) T2DM (type 2 diabetes mellitus): -sliding scale insulin for now (13) HLD (hyperlipidemia): Continue statin DVT prophylaxis -on Coumadin -GI prophylaxis with Protonix Patient's son [phone] Admission and Anticipated Discharge Date Admission Date: December 01, 2019 discharge date undetermined Subjective Patient had dialysis on 12/02/2019. breathing on room air. no chest pain. no shortness of breath. no abdomen pain. no headache. no dizziness. patient reports generalized weakness. patient reports of seeing blood in her stool yesterday but hemoglobin is stable. Review of Systems Review of Systems: All systems reviewed & are unremarkable except as noted in HPI & below Physical Exam Constitutional: comfortable Eyes: PERRL, conjunctivae normal, anicteric sclerae EOM intact bilaterally ENMT: external ear and nose normal, oropharynx normal Neck: normal visual inspection Respiratory: normal respiratory effort Cardiovascular: Rate/Rhythm: regular rate Gastrointestinal (Abdomen): normal bowel sounds, soft, nontender, no hepatosplenomegaly Musculoskeletal: Head/Neck/Chest: normocephalic and head atraumatic Neurologic: PERRL, EOMI, accommodation nl, no face palsy, no dysarthria Psychiatric: Orientation: alert, oriented x 3 and cooperative Results & Data ([facility]) Vital Signs (Past 12 Hours) Vital Signs Temp Pulse Pulse Pulse Resp BP BP 12/02/19 15:02 72 12/02/19 14:54 36.4 C L 69 20 97/59 L 12/02/19 13:37 36.4 C L 75 75 97/52 L 97/52 L 12/02/19 13:20 70 98/47 L 12/02/19 13:00 72 104/48 L 12/02/19 12:40 72 87/41 L 12/02/19 12:20 73 99/53 L 12/02/19 12:00 73 102/50 L 12/02/19 11:40 70 102/48 L 12/02/19 11:02 69 93/41 L 12/02/19 11:00 70 101/47 L 12/02/19 10:40 69 90/47 L 12/02/19 10:20 70 95/51 L 12/02/19 10:00 70 95/49 L 12/02/19 09:50 36.7 C 70 70 99/53 L 12/02/19 07:23 36.4 C L 70 20 103/57 L 12/02/19 07:10 70 Pulse Ox 12/02/19 15:02 12/02/19 14:54 95 12/02/19 13:37 12/02/19 13:20 12/02/19 13:00 12/02/19 12:40 12/02/19 12:20 12/02/19 12:00 12/02/19 11:40 12/02/19 11:02 12/02/19 11:00 12/02/19 10:40 12/02/19 10:20 12/02/19 10:00 12/02/19 09:50 12/02/19 07:23 100 12/02/19 07:10 (1) T2DM (type 2 diabetes mellitus) Chronic kidney disease stage: stage 4 (severe) Diabetes mellitus complication detail: with chronic kidney disease Diabetes mellitus complication status: with kidney complications Diabetes mellitus jail insulin use: without jail use Qualified Code(s): E11.22 - Type 2 diabetes mellitus with diabetic chronic kidney disease; N18.4 - Chronic kidney disease, stage 4 (severe) (2) Anemia Anemia type: unspecified type Qualified Code(s): D64.9 - Anemia, unspecified (3) HLD (hyperlipidemia) Hyperlipidemia type: unspecified Qualified Code(s): E78.5 - Hyperlipidemia, unspecified (4) HTN (hypertension) Hypertension type: essential hypertension Qualified Code(s): I10 - Essential (primary) hypertension (5) Falls Encounter type: initial encounter Qualified Code(s): W19.XXXA - Unspecified fall, initial encounter
--- NOTE | 2019-12-02 16:09 | XRay Report ---
SINGLE VIEW CHEST CLINICAL HISTORY: Dyspnea. FINDINGS: An AP, portable, upright chest radiograph is compared to study dated 12/01/2019. The examina tion is degraded by portable technique and patient rotation. The heart is enlarged noting atheroscl erotic calcification of the thoracic aorta. Pulmonary vascular congestion has improved from yesterday . Trace pleural effusions are suspected with dependent atelectasis. No pneumothorax is seen. The skel etal structures are osteopenic. The bony thorax is grossly intact. IMPRESSION: 1. Cardiomegaly. Pulmonary vascular congestion has improved. 2. Suspect trace pleural effusions. ACT 112: Negative or not required by law. Electronically signed by: Paco Edwards M.D. 12/02/2019 4:08 PM
[2019-12-02] MEDS ORDERED: NYSTATIN POWDER 15GM BTL EXT PRN (17:37)
[2019-12-02] MEDS: OXYCODONE/ACETAMINOPHEN 5mg/325mg TAB PO PRN (17:50)
[2019-12-02] MEDS: ATORVASTATIN 40 MG TAB PO SCH (20:47)
[2019-12-03] MEDS ORDERED: SODIUM CHLORIDE 0.9% 1000ML 1,000 ML IV PRN (07:51)
[2019-12-03] MEDS ORDERED: HEPARIN SOD (PORCINE) 1000 UNIT/ML 10 ML VIAL IV ONE (07:51)
[2019-12-03] MEDS ORDERED: EPOETIN ALFA 10,000 UNITS/ML VIAL IV SCH (08:00)
[2019-12-03] MEDS ORDERED: ALBUMIN 25% 50 ML IV SCH ×2 (08:00→09:30)
[2019-12-03] MEDS: NEPHROCAPS PO SCH (08:51)
[2019-12-03] MEDS: CLOPIDOGREL BISULFATE 75 MG TAB PO SCH (08:51)
[2019-12-03] MEDS: glipiZIDE 5 MG TAB PO SCH (08:51)
[2019-12-03] MEDS: cilostazoL 100 MG TAB PO SCH ×2 (08:51→21:08)
[2019-12-03 08:52] LABS: Basophils # (auto) 0.01 K/uL (0-0.2); Basophils % (auto) 0.1 %; Eosinophils # (auto) 0.01 K/uL (0-0.5); Eosinophils % (auto) 0.1 %; Hematocrit (blood only) 28.6 % (37-47); Immature Granulocytes # (auto) 0.03 K/uL (0.00-0.02); Immature Granulocytes % (auto) 0.4 %; Lymphocytes # (auto) 0.52 K/uL (1.2-3.4); Lymphocytes % (auto) 6.6 %; Mean Corpuscular Hemoglobin 34.1 pg (25-34); Mean Corpuscular Hgb Conc 31.5 g/dL (32-36); Mean Corpuscular Volume 108.3 fL (80-100); Mean Platelet Volume 10.8 fL (7.4-10.4); Monocytes # (auto) 0.73 K/uL (0.11-0.59); Monocytes % (auto) 9.3 %; Neutrophils # (auto) 6.55 K/uL (1.4-6.5); Neutrophils % (auto) 83.5 %; Nucleated RBC # (auto) 0.41 K/uL (0-0); Nucleated RBC % (auto) 5.2 %; Platelet Count 122 K/uL (130-400); RDW Coefficient of Variation 22.4 % (11.5-14.5); RDW Standard Deviation 69.3 fL (36.4-46.3); Red Blood Count 2.64 M/uL (4.2-5.4); White Blood Count 7.85 K/uL (4.8-10.8)
[2019-12-03] MEDS: FLUTICASONE FUROATE 200MCG 14 PUFFS/INHALER INH SCH (08:52)
[2019-12-03] MEDS: PANTOprazole 40 MG TAB PO SCH (08:52)
[2019-12-03] MEDS ORDERED: CARBOHYDRATES FOR HYPOGLYCEMIA PO PRN (08:53)
[2019-12-03] MEDS ORDERED: GLUCOSE 40% GEL 15 GM TUBE PO PRN (08:53)
[2019-12-03] MEDS ORDERED: GLUCAGON FOR INJ 1 MG VIAL SQ PRN (08:53)
[2019-12-03] MEDS ORDERED: GLUCOSE 10 TABS/TUBE PO PRN (08:53)
[2019-12-03] MEDS ORDERED: DEXTROSE 50% 50 ML SYRINGE IV PRN (08:53)
[2019-12-03 09:02] LABS: INR 1.4 (0.9-1.1)
[2019-12-03] MEDS ORDERED: DIPHTHERIA/TETANUS/PERTUSSIS 0.5 ML SYR/VIAL IM ONE (09:10)
[2019-12-03] MEDS: OXYCODONE/ACETAMINOPHEN 5mg/325mg TAB PO PRN ×2 (09:20→21:06)
--- NOTE | 2019-12-03 09:21 | Hospitalist Progress Note ---
Date of Service December 03, 2019 Assessment & Plan (1) Anemia: This is a 74 year old woman who fell at home and was found on the floor and admitted with generalized weakness and noted to have a hemoglobin of 8.4 -Hemoglobin as an outpatient was 8.9 on 13th of this month -since being in hospital to date as of 12/02/2019, Hgb generally stable as 8 -no iron deficiency on labs -Patient had dialysis on 12/02/2019 and patient received epogen -mostly likely that patient has anemia secondary to ESRD -Hgb is 9 on 12/03/2019 (2) GI bleed: Supratherapeutic INR -acute gastrointestinal hemorrhage GI bleed is unlikely with recent hemoglobin stability; continue pantoprazole for now -patient did have supratherapeutic INR of 4.4 on admission on 12/01/2019 and given Vitamin K in the ED -INR is 2.3 on 12/02/2019, continue home dose coumadin for now, INR 1.4 on 12/03/2019 -patient did report she saw blood in stool recently as outpatient versus beginning of hospital stay, plan to send FOBT with next available bowel movement (3) Multiple bruises: -bruising from History of ambulatory dysfunction with frequent falls Has generalized bruising which could be from minor trauma or spontaneous Has been on Plavix and Coumadin which are complicating the bruising Left salazar ulcer (traumatic ulcer) -1 cm deep left salazar ulcer as assessed by wound care nurse on 12/03/2019 which is likely a traumatic ulcer as per wound care nurse previous to hospitalization -patient already on 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 admission blood cultures are negative and patient is not septic. -send wound culture from left salazar and consult wound care physician -starting on 12/03/2019 Keflex 250 mg q8 hours and Doxycycline 100 mg q12 hours. Tetanus shot ordered on 12/03/2019 (4) Falls: -PT/OT assessments; have asked cased telemarketing manager to inquire into physical rehabilitation facilities after hospital stay (5) Generalized weakness: -management with PT/OT evaluations (6) Hip pain, right: -X-ray of the right hip 1. Total right hip prosthetic. 2. One of the 2 retaining screws of the right acetabulum is located within the soft tissues lateral to the right iliac bone. 3. No acute bony abnormality. -discomforts are not acutely focal to right hip on this admission as patient complained of pain in multiple joints; Mild to moderate pain noted on movement of knees, shoulders and hips -continue PT/OT (7) Diastolic CHF: -admission Chest x-ray showed mild congestive changes -possibly from diastolic congestive heart failure versus fluid retention from ESRD condition -repeat CXR on 12/02/2019 after the dialysis session: Pulmonary vascular congestion has improved (8) ESRD on hemodialysis: -patient has dialysis as inpatient on 12/02/2019 -dialysis sessions as per nephrology, patient to get another dialysis session for 12/03/2019? (9) HTN (hypertension): -blood pressure is low normotensive currently (10) Atrial fibrillation: -Heart rate is controlled -on coumadin anticoagulation (11) PVD (peripheral vascular disease): -on clopidogrel for PVD (12) T2DM (type 2 diabetes mellitus): -stop further glipizide -sliding scale insulin for now with fingerstick checks with meals of blood sugars (13) HLD (hyperlipidemia): Continue statin DVT prophylaxis -on Coumadin -GI prophylaxis with Protonix Patient's son [phone] Admission and Anticipated Discharge Date Admission Date: December 01, 2019 Subjective Hgb is 9 on 12/03/2019. There is a 1 cm deep left salazar ulcer as assessed by wound care nurse on 12/03/2019 which is likely a traumatic ulcer as per wound care nurse previous to hospitalization patient already on 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 admission blood cultures are negative and patient is not septic. starting on 12/03/2019 Keflex 250 mg q8 hours and Doxycycline 100 mg q12 hours patient to get another dialysis session for 12/03/2019 breathing on room air. no distress. no complaints on acute pain today. no dizziness. no headache. no lightheadedness Review of Systems Review of Systems: All systems reviewed & are unremarkable except as noted in HPI & below Physical Exam Constitutional: comfortable Eyes: PERRL, conjunctivae normal, anicteric sclerae EOM intact bilaterally ENMT: external ear and nose normal, oropharynx normal Neck: normal visual inspection Respiratory: normal respiratory effort Cardiovascular: Rate/Rhythm: regular rate Gastrointestinal (Abdomen): normal bowel sounds, soft, nontender, no hepatosplenomegaly Musculoskeletal: Head/Neck/Chest: normocephalic and head atraumatic Skin: left salazar ulcer that is 1 cm deep Neurologic: PERRL, EOMI, accommodation nl, no face palsy, no dysarthria Psychiatric: Orientation: alert, oriented x 3 and cooperative Results & Data ([facility]) Vital Signs (Past 12 Hours) Vital Signs Temp Pulse Pulse Resp BP Pulse Ox 12/03/19 08:19 36.8 C 71 20 108/53 L 92 12/03/19 07:09 73 12/03/19 04:06 36.4 C L 71 20 115/62 90 12/03/19 00:23 70 12/02/19 22:33 36.5 C 72 20 91/51 L 96 (1) Anemia Anemia type: unspecified type Qualified Code(s): D64.9 - Anemia, unspecified (2) Falls Encounter type: initial encounter Qualified Code(s): W19.XXXA - Unspecified fall, initial encounter (3) HTN (hypertension) Hypertension type: essential hypertension Qualified Code(s): I10 - Essential (primary) hypertension (4) T2DM (type 2 diabetes mellitus) Diabetes mellitus [facility] insulin use: without [facility] use Diabetes mellitus complication status: with kidney complications Diabetes mellitus complication detail: with chronic kidney disease Chronic kidney disease stage: stage 4 (severe) Qualified Code(s): E11.22 - Type 2 diabetes mellitus with diabetic chronic kidney disease; N18.4 - Chronic kidney disease, stage 4 (severe) (5) HLD (hyperlipidemia) Hyperlipidemia type: unspecified Qualified Code(s): E78.5 - Hyperlipidemia, unspecified
[2019-12-03 09:24] LABS: Anisocytosis Present; Hypochromasia Present; Macrocytosis Present; Polychromasia 1+
[2019-12-03 09:40] LABS: Albumin Level 3.1 gm/dl (3.4-5.0); BUN Creatinine Ratio 12.7 (10-20); Calcium 9.5 mg/dl (8.5-10.1); Creatinine Clr Calc Pharmacy 19.1 ml/min; Est GFR (African American) 21.7; Est GFR (Non-African American) 18.7; Potassium 4.2 mmol/L (3.5-5.1)
[2019-12-03 09:42] LABS: Bilirubin,Total 1.1 mg/dl (0.2-1); Globulin 3.1 gm/dl (2.5-4.0); Total Protein 6.2 gm/dl (6.4-8.2)
[2019-12-03] MEDS: HEPARIN SOD (PORCINE) 1000 UNIT/ML 10 ML VIAL IV SCH ×2 (09:51→09:52)
[2019-12-03] MEDS: cephALEXin 250 MG CAP PO SCH ×3 (15:10→21:07)
[2019-12-03] MEDS: DOXYCYCLINE HYCLATE 100 MG CAP PO SCH ×2 (15:10→21:06)
[2019-12-03] MEDS: INSULIN ASPART 100 UNITS/ML 3 ML PEN SC SCH ×3 (15:12→21:09)
[2019-12-03] MEDS: WARFARIN SOD 2.5 MG TAB PO SCH (17:36)
--- NOTE | 2019-12-03 18:36 | Nephrology Progress Note ---
Date of Service December 03, 2019 Assessment & Plan (1) Generalized weakness: per primary service; w/ falls at home; some improvement w/ better fluid status -complicated by lately chronic hypotension and worsening volume overload; anuric dialysis pt who takes no anti hypertensives. -low threshold to consider repeat TTE /other cardiac eval given worsening fluid and functional status (2) ESRD on hemodialysis: daily HD for now via avf; she had HD today using albumin to optimize UF >>plan repeat tx tomorrow (3) Volume overload: complicates/worsens her weakness -plan for now daily dialysis at least through 12/04 as bp tolerates -ordered 32 oz fluid limit and < 2 gm daily Na diet (4) Anemia: on a/c and w/ recurrent falls. gets epo equivalent at dialysis -note that auryxia is iron rich and can blacken stools -gave more epo today w/HD -daily hgb Admission and Anticipated Discharge Date Admission Date: December 01, 2019 Subjective tolerated hd today w/o inicdent; leg swelling improving; states she s haveing trouble mouving her arms though and UE edema unchanged; ate full supper; still quite weak but a bit better Review of Systems Review of Systems: All systems reviewed & are unremarkable except as noted in HPI & below Physical Exam Constitutional: well developed, well nourished, + obese, + frail appearing (looks less exhausted, on RA) and + edematous (marked BLUE) Eyes: EOM intact bilaterally ENMT: Ears: no external ear abnormality Nose: no external nose abnormality Mouth: + dry oral mucous membranes Neck: no nuchal rigidity Respiratory: normal respiratory effort Auscultation: + diminished lung sounds Cardiovascular: Rate/Rhythm: regular rate and regular rhythm Extremities: + edema (generalized) and + AV fistula (+ b/t) Gastrointestinal (Abdomen): Inspection/Auscultation: normal bowel sounds Percussion/Palpation: abdomen soft; abdomen nontender Musculoskeletal: Extremities: strength 5/5 throughout Skin: no rashes, warm and dry + skin tightening, + wound and + ecchymosis Neurologic: moody, fluent speech no tremor Psychiatric: Orientation: alert and oriented x 3 Speech: normal rate/rhythm/volume of speech Results & Data ([facility]) Vital Signs (Past 12 Hours) Vital Signs Temp Pulse Pulse Pulse Resp BP Pulse Ox 12/03/19 15:35 37 C 68 20 106/60 90 12/03/19 14:06 37.0 C 70 110/60 12/03/19 08:19 36.8 C 71 20 108/53 L 92 12/03/19 07:09 73 Laboratory Results 12/03/19 08:26 12/03/19 08:26 (1) Anemia Anemia type: unspecified type Qualified Code(s): D64.9 - Anemia, unspecified (2) Volume overload Hypervolemia type: other Qualified Code(s): E87.79 - Other fluid overload
--- NOTE | 2019-12-03 20:58 | Wound Consultation ---
Date of Consultation December 03, 2019 Assessment & Plan (1) Open wound of right lower leg: Open wound of right leg. Using silver nitrate the granulation was chemically cauterized. Will check xray. Wound will be dressed with Aquacel Ag. Tomorrow will change to melly. Thank you for allowing me to participate in the care of this patient. Please do not hesitate to call with any questions. History of Present Illness Reason for Consultation: rle wound Attending Physician: Tyrel Vásquez MD History of Present Illness This is a 74 year old female with end stage renal disease on HD, anemia, PVD, diastolic chf, type 2 diabetes, atrial fibrilation, HTN, HLD, CAD and peripheral arterial disease admitted with anemia and questionable GI bleed. Patient found to have wound on right salazar. Does not know how she got it or how long it has been there. Allergies Allergy/AdvReac Type Severity Reaction Status Date / Time No Known Allergies Allergy Unverified 12/01/19 15:49 Home Medications Home Medications Medication Instructions Recorded Confirmed Type Flovent HFA 2 puff INHALATION BID 12/16/18 12/01/19 History Renal Caps 1 mg PO QAM 12/16/18 12/01/19 History cilostazol 100 mg PO BID 12/16/18 12/01/19 History clopidogrel 75 mg PO QAM 12/16/18 12/01/19 History glipizide 5 mg PO QAM 12/16/18 12/01/19 History nitroglycerin 0.4 mg SUBLINGUAL Q5M PRN 12/16/18 12/01/19 History oxycodone-acetaminophen 1 tab PO Q6H PRN 12/16/18 12/01/19 History Auryxia 210 mg PO TIDM 04/29/19 12/01/19 History albuterol sulfate 2 puff INHALATION Q6H PRN 04/29/19 12/01/19 History atorvastatin 40 mg PO HS 04/29/19 12/01/19 History desvenlafaxine succinate [Pristiq] 25 mg PO QAM 04/29/19 12/01/19 History warfarin 2.5 mg PO UD 05/22/19 12/01/19 History Patient History Medical History (Updated 12/03/19 @ 20:56 by Toby Faust DO) Aftercare following removal/replacement pacemaker (Chronic) Asthma (Acute) AV fistula (Chronic) Left upper ext. CAD (coronary artery disease) (Chronic) hx of PCI to LAD, Circumflex, RCA in CKD (chronic kidney disease) stage 4, GFR 15-29 ml/min (Chronic) Depression (Chronic) ESRD (end stage renal disease) on dialysis (Chronic) Follows Dr. 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 pacemaker, with recent addition of right infraclavicular [employer] biventricular pacemaker in March, as outlined above HLD (hyperlipidemia) (Chronic) HTN (hypertension) (Chronic) Open wound of right lower leg PAD (peripheral artery disease) (Chronic) PAF (paroxysmal atrial fibrillation) (Chronic) Renal artery stenosis (Chronic) s/p stent T2DM (type 2 diabetes mellitus) (Chronic) Tachy-mary syndrome (Resolved) s/p PPM Dr. Goldstein Vitamin D deficiency (Chronic) Volume overload Surgical History History of angioplasty of peripheral vessel (Chronic) fem/pop bypass 10/21 history of Renal stent History of atrioventricular linda ablation (Chronic) 04/01/[address] Goldstein History of (Chronic) x 3 History of lumbar laminectomy (Chronic) History of percutaneous coronary intervention (Chronic) History of total right hip arthroplasty (Chronic) Social History Preferred Language: Macedonian Communication Ability: Effective Rock Breaker Required: No Beliefs That Will Affect Care: None marital status: / Current Living Situation: Family Current Living Situation Comment: Lives with grandson, but moving out soon. Other Information That Helps Us Care for You: No Feels Safe at Home: Yes Smoking Status: Never smoker Second Hand Exposure: Yes ; Hx Alcohol Use: No Hx Substance Use: No Review of Systems Review of Systems: All systems reviewed & are unremarkable except as noted in HPI & below Physical Exam Constitutional: WD/WN, vitals as above Eyes: PERRL, conjunctivae normal, anicteric sclerae ENMT: external ear and nose normal, oropharynx normal Ears: no hearing impairment Skin: Wound measuring as recorded in nursing documentation. Wound is covered with fibrin and slough. There is circumferential undermining. There is bloody drainage. Neurologic: awake; not confused Psychiatric: A+Ox3, euthymic affect Results & Data Vital Signs (Past 12 Hours) Vital Signs Temp Pulse Pulse Resp BP Pulse Ox 12/03/19 15:35 37 C 68 20 106/60 90 12/03/19 14:06 37.0 C 70 110/60 PG Care Time/CCT Total # of Minutes Spent Total Time Spent with Patient: Total time spent is greater than 50% in coordination of care (as documented) at patient's floor/unit and/or counseling patient: Coding Level of Care Code 65791 Inpt Consult Level 3 Diagnoses Open wound of right lower leg S81.801A
[2019-12-03] MEDS: ATORVASTATIN 40 MG TAB PO SCH (21:07)
[2019-12-04] MEDS: OXYCODONE/ACETAMINOPHEN 5mg/325mg TAB PO PRN ×3 (02:50→18:24)
[2019-12-04] MEDS: cephALEXin 250 MG CAP PO SCH ×3 (05:36→23:28)
[2019-12-04] MEDS ORDERED: HEPARIN SOD (PORCINE) 1000 UNIT/ML 10 ML VIAL IV ONE (07:22)
[2019-12-04] MEDS ORDERED: EPOETIN ALFA 10,000 UNITS/ML VIAL IV ONE (07:22)
[2019-12-04] MEDS ORDERED: SODIUM CHLORIDE 0.9% 1000ML 1,000 ML IV PRN (07:22)
[2019-12-04] MEDS ORDERED: ALBUMIN 25% 50 ML IV SCH ×2 (08:00→10:00)
--- NOTE | 2019-12-04 08:30 | Hospitalist Progress Note ---
Date of Service December 04, 2019 Assessment & Plan (1) Anemia: This is a 74 year old woman who fell at home and was found on the floor and admitted with generalized weakness and noted to have a hemoglobin of 8.4 -Hemoglobin as an outpatient was 8.9 on 13th of this month -since being in hospital to date as of 12/02/2019, Hgb generally stable as 8 -no apparent iron deficiency on labs -Patient had dialysis on 12/02/2019 and patient received epogen -mostly likely that patient has anemia secondary to ESRD -Hgb is 9 on 12/03/2019 -further epogen or procit with dialysis as per nephrology service (2) GI bleed: Supratherapeutic INR -acute gastrointestinal hemorrhage GI bleed is unlikely with recent hemoglobin stability; continue pantoprazole for now -patient did have supratherapeutic INR of 4.4 on admission on 12/01/2019 and given Vitamin K in the ED -INR is 2.3 on 12/02/2019, continue home dose coumadin for now, INR 1.4 on 12/03/2019 -patient did report she saw blood in stool recently as outpatient versus beginning of hospital stay, FOBT ordered on 12/02/2019 but no collected specimen (3) Multiple bruises: -bruising from History of ambulatory dysfunction with frequent falls Has generalized bruising which could be from minor trauma or spontaneous Has been on Plavix and Coumadin which are complicating the bruising Left salazar ulcer (traumatic ulcer) -1 cm deep left salazar ulcer as assessed by wound care nurse on 12/03/2019 which is likely a traumatic ulcer as per wound care nurse previous to hospitalization -patient already on 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 admission blood cultures are negative and patient is not septic. -send wound culture from left salazar and consult wound care physician -starting on 12/03/2019 Keflex 250 mg q8 hours and Doxycycline 100 mg q12 hours. Tetanus shot ordered on 12/03/2019 -continue antibiotics (4) Falls: -PT/OT assessments; have asked cased hotel assistant general manager to inquire into physical rehabilitation facilities after hospital stay (5) Generalized weakness: -management with PT/OT evaluations (6) Hip pain, right: -X-ray of the right hip 1. Total right hip prosthetic. 2. One of the 2 retaining screws of the right acetabulum is located within the soft tissues lateral to the right iliac bone. 3. No acute bony abnormality. -discomforts are not acutely focal to right hip on this admission as patient complained of pain in multiple joints; Mild to moderate pain noted on movement of knees, shoulders and hips -continue PT/OT (7) Diastolic CHF: -admission Chest x-ray showed mild congestive changes -possibly from diastolic congestive heart failure versus fluid retention from ESRD condition -repeat CXR on 12/02/2019 after the dialysis session: Pulmonary vascular congestion has improved (8) ESRD on hemodialysis: -usually dialysis Saturday/Saturday/Saturday but in past 1 month patient been getting dialysis 4 times a week as Saturday/Saturday//Saturday -patient has dialysis as inpatient on Saturday12/02/2019, 12/03/2019. -next dialysis session on Saturday12/04/2019 (9) HTN (hypertension): -blood pressure is normal (10) Atrial fibrillation: -Heart rate is controlled -on coumadin anticoagulation (11) PVD (peripheral vascular disease): -on clopidogrel for PVD (12) T2DM (type 2 diabetes mellitus): -stop further glipizide -sliding scale insulin for now with fingerstick checks with meals of blood sugars (13) HLD (hyperlipidemia): Continue statin DVT prophylaxis -on Coumadin -GI prophylaxis with Protonix Patient's son [phone] Admission and Anticipated Discharge Date Admission Date: December 01, 2019, discharge date depends on acceptance to physical therapy center Subjective Patient seen and examined at bedside after waking from sleep. On room air. no chest pain. no shortness of breath. no headache. no dizziness. no vomiting. as per nurse next dialysis session on Saturday12/04/2019 at 2:30 PM patient also awaiting wound care physician to evaluate the left salazar ulcer which is in dressing Review of Systems Review of Systems: All systems reviewed & are unremarkable except as noted in HPI & below Physical Exam Constitutional: comfortable Eyes: PERRL, conjunctivae normal, anicteric sclerae EOM intact bilaterally ENMT: external ear and nose normal, oropharynx normal Neck: normal visual inspection Respiratory: normal respiratory effort Cardiovascular: Rate/Rhythm: regular rate Gastrointestinal (Abdomen): normal bowel sounds, soft, nontender, no hepatosplenomegaly Musculoskeletal: Head/Neck/Chest: normocephalic and head atraumatic Neurologic: PERRL, EOMI, accommodation nl, no face palsy, no dysarthria Psychiatric: Orientation: alert, oriented x 3 and cooperative Results & Data ([facility]) Vital Signs (Past 12 Hours) Vital Signs Temp Pulse Resp BP Pulse Ox 12/04/19 07:07 36.9 C 73 18 136/62 98 12/04/19 02:42 36.8 C 70 18 128/72 97 12/03/19 22:56 36.8 C 74 20 120/69 98 (1) T2DM (type 2 diabetes mellitus) Chronic kidney disease stage: stage 4 (severe) Diabetes mellitus complication detail: with chronic kidney disease Diabetes mellitus complication status: with kidney complications Diabetes mellitus skilled nursing insulin use: without terminal operations supervisor use Qualified Code(s): E11.22 - Type 2 diabetes mellitus with diabetic chronic kidney disease; N18.4 - Chronic kidney disease, stage 4 (severe) (2) Anemia Anemia type: unspecified type Qualified Code(s): D64.9 - Anemia, unspecified (3) HLD (hyperlipidemia) Hyperlipidemia type: unspecified Qualified Code(s): E78.5 - Hyperlipidemia, unspecified (4) HTN (hypertension) Hypertension type: essential hypertension Qualified Code(s): I10 - Essential (primary) hypertension (5) Falls Encounter type: initial encounter Qualified Code(s): W19.XXXA - Unspecified fall, initial encounter
[2019-12-04] MEDS ORDERED: POLYETHYLENE (MIRALAX) 17 GM PACK PO PRN (08:45)
[2019-12-04] MEDS ORDERED: EPOETIN ALFA 14,000 UNITS in SYRINGE 0 ML IV SCH (09:00)
[2019-12-04] MEDS: FLUTICASONE FUROATE 200MCG 14 PUFFS/INHALER INH SCH (09:05)
[2019-12-04] MEDS: DOXYCYCLINE HYCLATE 100 MG CAP PO SCH ×2 (09:06→21:40)
[2019-12-04] MEDS: PANTOprazole 40 MG TAB PO SCH (09:06)
[2019-12-04] MEDS: CLOPIDOGREL BISULFATE 75 MG TAB PO SCH (09:06)
[2019-12-04] MEDS: NEPHROCAPS PO SCH (09:06)
[2019-12-04] MEDS: cilostazoL 100 MG TAB PO SCH ×2 (09:06→21:40)
[2019-12-04] MEDS: INSULIN ASPART 100 UNITS/ML 3 ML PEN SC SCH ×4 (09:10→21:46)
--- NOTE | 2019-12-04 17:05 | Dialysis Progress Note ---
Date of Service December 04, 2019 Assessment & Plan (1) Generalized weakness: per primary service; w/ falls at home; some improvement w/ better fluid status -complicated by lately chronic hypotension and worsening volume overload; anuric dialysis pt who takes no anti hypertensives. -low threshold to consider repeat TTE /other cardiac eval given worsening fluid and functional status (2) ESRD on hemodialysis: daily HD for now via avf; she had HD today w/o albumin in preparatino for OP care. next HD on 12/07 (3) Volume overload: complicates/worsens her weakness -plan for now daily dialysis at least through 12/04 as bp tolerates -ordered 32 oz fluid limit and < 2 gm daily Na diet these should continue at d/c (4) Anemia: on a/c and w/ recurrent falls. gets epo equivalent at dialysis -note that auryxia is iron rich and can blacken stools -gave more epo today w/HD -daily hgb Subjective seen on hd; tired but a bit more energy today; eating, moving bowels; on po abtx; no sob Review of Systems Review of Systems: All systems reviewed & are unremarkable except as noted in HPI & below Physical Exam Constitutional: well developed, well nourished, + obese, + frail appearing (looks less exhausted, on RA) and + edematous (marked but less BLUE) Eyes: EOM intact bilaterally ENMT: Ears: no external ear abnormality Nose: no external nose abnormality Mouth: + dry oral mucous membranes Neck: no nuchal rigidity Respiratory: normal respiratory effort Auscultation: + diminished lung sounds Cardiovascular: Rate/Rhythm: regular rate and regular rhythm Extremities: + edema (much less on her legs but still 2-3+ BLE; also 3-4+ bl upper extremities) and + AV fistula (+ b/t) Gastrointestinal (Abdomen): Inspection/Auscultation: normal bowel sounds Percussion/Palpation: abdomen soft; abdomen nontender Musculoskeletal: Extremities: strength 5/5 throughout Skin: no rashes, warm and dry + skin tightening, + wound and + ecchymosis Psychiatric: Orientation: alert and oriented x 3 Speech: normal rate/rhythm/volume of speech Results & Data Vital Signs (Past 12 Hours) Vital Signs Temp Pulse Pulse Pulse Resp BP BP 12/04/19 17:00 72 111/49 L 12/04/19 16:40 71 121/51 L 12/04/19 16:20 74 109/39 L 12/04/19 16:00 72 119/42 L 12/04/19 15:40 73 130/46 L 12/04/19 15:20 72 104/50 L 12/04/19 15:00 73 110/48 L 12/04/19 14:40 72 110/44 L 12/04/19 14:20 73 101/32 L 12/04/19 14:10 36.6 C 73 73 110/51 L 12/04/19 07:07 36.9 C 73 18 136/62 Pulse Ox 12/04/19 17:00 12/04/19 16:40 12/04/19 16:20 12/04/19 16:00 12/04/19 15:40 12/04/19 15:20 12/04/19 15:00 12/04/19 14:40 12/04/19 14:20 12/04/19 14:10 12/04/19 07:07 98 Laboratory Results no labs today (1) Anemia Anemia type: unspecified type Qualified Code(s): D64.9 - Anemia, unspecified (2) Volume overload Hypervolemia type: other Qualified Code(s): E87.79 - Other fluid overload
[2019-12-04] MEDS: HEPARIN SOD (PORCINE) 1000 UNIT/ML 10 ML VIAL IV SCH (17:18)
[2019-12-04 18:30] LABS: INR 1.3 (0.9-1.1)
[2019-12-04] MEDS: WARFARIN SOD 2.5 MG TAB PO SCH (18:43)
[2019-12-04] MEDS: ATORVASTATIN 40 MG TAB PO SCH (21:40)
[2019-12-04] MEDS: ACETAMINOPHEN 500 MG TAB PO PRN (23:27)
[2019-12-05] MEDS: OXYCODONE/ACETAMINOPHEN 5mg/325mg TAB PO PRN ×3 (01:48→15:35)
[2019-12-05] MEDS: ACETAMINOPHEN 500 MG TAB PO PRN (05:35)
[2019-12-05 08:30] LABS: Hematocrit (blood only) 26.5 % (37-47); Hemoglobin 8.6 g/dL (12.0-16.0); Mean Corpuscular Hemoglobin 35.1 pg (25-34); Mean Corpuscular Hgb Conc 32.5 g/dL (32-36); Mean Corpuscular Volume 108.2 fL (80-100); Nucleated RBC # (auto) 0.22 K/uL (0-0); Nucleated RBC % (auto) 2.5 %; RDW Coefficient of Variation 23.3 % (11.5-14.5); RDW Standard Deviation 71.3 fL (36.4-46.3); Red Blood Count 2.45 M/uL (4.2-5.4)
[2019-12-05] MEDS: INSULIN ASPART 100 UNITS/ML 3 ML PEN SC SCH ×2 (08:35→13:02)
[2019-12-05 08:41] LABS: INR 1.4 (0.9-1.1); Prothrombin Time 14.2 Seconds (9.0-12.0)
[2019-12-05 08:59] LABS: Mean Platelet Volume 11.2 fL (7.4-10.4); Platelet Count 86 K/uL (130-400)
[2019-12-05 09:00] LABS: Anisocytosis Present; Eosinophils # (auto) 0.04 K/uL (0-0.5); Eosinophils % (auto) 0.5 %; Immature Granulocytes # (auto) 0.02 K/uL (0.00-0.02); Immature Granulocytes % (auto) 0.2 %; Lymphocytes # (auto) 0.64 K/uL (1.2-3.4); Lymphocytes % (auto) 7.4 %; Monocytes # (auto) 0.79 K/uL (0.11-0.59); Monocytes % (auto) 9.1 %; Neutrophils # (auto) 7.21 K/uL (1.4-6.5); Neutrophils % (auto) 82.8 %; Platelet Estimate Decreased (Normal); Polychromasia 1+; Toxic Vacuolation 1+
[2019-12-05] MEDS: CLOPIDOGREL BISULFATE 75 MG TAB PO SCH (09:11)
[2019-12-05] MEDS: cephALEXin 250 MG CAP PO SCH (09:11)
[2019-12-05] MEDS: NEPHROCAPS PO SCH (09:12)
[2019-12-05] MEDS: cilostazoL 100 MG TAB PO SCH (09:12)
[2019-12-05] MEDS: PANTOprazole 40 MG TAB PO SCH (09:12)
[2019-12-05 09:13] LABS: BUN Creatinine Ratio 11.6 (10-20); Bilirubin,Total 1.2 mg/dl (0.2-1); Creatinine Clr Calc Pharmacy 20.6 ml/min; Est GFR (African American) 24.5; Est GFR (Non-African American) 21.1; Globulin 3.1 gm/dl (2.5-4.0); Total Protein 6.1 gm/dl (6.4-8.2)
[2019-12-05] MEDS: FLUTICASONE FUROATE 200MCG 14 PUFFS/INHALER INH SCH (09:13)
[2019-12-05] MEDS: DOXYCYCLINE HYCLATE 100 MG CAP PO SCH (09:13)
--- NOTE | 2019-12-05 09:53 | Consultation Report ---
DATE OF CONSULTATION: 12/05/2019 Orthopedic surgery consultation Special attention to right hip pain. HISTORY OF PRESENT ILLNESS: This is a 74-year-old female who is admitted with frequent falls, diffuse left-sided pain, GI bleed, multiple bruising, generalized weakness. She states she has had several falls recently, most recent one being a controlled fall off of the toilet. She complains of pain diffusely in the left extremity. She states she is status post total hip replacement by Dr. Mendoza in 2010. She states this did quite well without any problems. PAST MEDICAL HISTORY: 1. Anemia, GI bleed, end-stage renal disease on dialysis. 2. Atrial fibrillation. 3. Peripheral vascular disease. 4. Diastolic CHF. 5. Cardiac pacemaker in situ. 6. Type 2 diabetes. 7. Hypertension. 8. Hyperlipidemia. MEDICATIONS: Multiple and include Plavix at home, oxycodone, nitroglycerin, warfarin, Pristiq. PHYSICAL EXAMINATION: Right lower extremity examination does show diffuse ecchymosis on the right extremity. Her calves are soft. She can flex and extend her ankle, but musculoskeletal exam is limited secondary to discomfort. Her toes are warm and well perfused. Right hip: The patient has no overt pain with log roll of the hip. She has some mild diffuse tenderness around the hip and the right flank and the entire right side. Radiographs of the hip do show well fitted prosthesis of the hip. There was no evidence of asymmetric polyethylene wear. I do not detect evidence of loosening of the stem. There is a screw which does show protrusion on the lateral aspect of the iliac wing. We reviewed radiographs immediately after surgery in 2010 and it showed the same findings. This finding does appear to be stable and has likely been like that since 2010 without change. ASSESSMENT: 1. Status post total hip replacement on the right. 2. Generalized weakness with multiple falls and left-sided pain. PLAN: I discussed findings and treatment with the patient. I feel it is unlikely the radiographic findings are the cause of her symptoms. The screw has been stable in the current alignment for 11 years and I feel is unlikely related to any recurrent symptoms. At this point in time, no further orthopedic treatment is needed and I would not recommend any surgical intervention. She may be weightbearing as tolerated as she feels comfortable and I would agree with continuing physical therapy and rehabilitation. From my standpoint, she may be discharged. She may follow up with Dr. Steve Mendoza within 2 weeks of discharge to further evaluate right hip.
[2019-12-05] MEDS: ACETAMINOPHEN 325 MG TAB PO PRN ×2 (10:15→14:28)
--- NOTE | 2019-12-05 10:56 | Hospitalist Progress Note ---
Date of Service December 05, 2019 Assessment & Plan (1) Anemia: This is a 74 year old woman who fell at home and was found on the floor and admitted with generalized weakness and noted to have a hemoglobin of 8.4 -Hemoglobin as an outpatient was 8.9 on 13th of this month -since being in hospital to date as of 12/02/2019, Hgb generally stable as 8 -no apparent iron deficiency on labs -Patient had dialysis on 12/02/2019 and patient received epogen -mostly likely that patient has anemia secondary to ESRD - she has gotten epogen and procit with dialysis sessions -Hgb is 9 on 12/03/2019, Hemoglobin 8.6 on 12/05/2019 (2) GI bleed: Supratherapeutic INR -acute gastrointestinal hemorrhage GI bleed is unlikely with recent hemoglobin stability; continue pantoprazole for now -patient did have supratherapeutic INR of 4.4 on admission on 12/01/2019 and giv en Vitamin K in the ED -INR is 2.3 on 12/02/2019, continue home dose coumadin for now, INR 1.4 on 12/05/2019 -patient did report she saw blood in stool recently as outpatient versus beginning of hospital stay, but hemoglobin stable above 8 (3) Multiple bruises: -bruising from History of ambulatory dysfunction with frequent falls -Has generalized bruising which could be from minor trauma or spontaneous -Has been on Plavix and Coumadin, continue Left salazar ulcer (traumatic ulcer) -1 cm deep left salazar ulcer as assessed by wound care nurse on 12/03/2019 which is likely a traumatic ulcer as per wound care nurse previous to hospitalization -patient already on 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 admission blood cultures are negative and patient is not septic. -wound care physician evaluated the right salazar ulcer (Using silver nitrate the granulation was chemically cauterized on 12/03/2019 -starting on 12/03/2019 Keflex 250 mg q8 hours and Doxycycline 100 mg q12 hours. Tetanus shot ordered on 12/03/2019 -continue antibiotics with last dose on 12/10/2019 (4) Falls: -PT/OT assessments; discharge to [facility] on 12/05/2019 (5) Generalized weakness: -PT/OT assessments; discharge to [facility] on 12/05/2019 (6) Hip pain, right: -X-ray of the right hip 1. Total right hip prosthetic. 2. One of the 2 retaining screws of the right acetabulum is located within the soft tissues lateral to the right iliac bone. 3. No acute bony abnormality. -discomforts are not acutely focal to right hip on this admission as patient complained of pain in multiple joints; Mild to moderate pain noted on movement of knees, shoulders and hips Steve Pérez MD Orthopedic 12/05/2019 recommendations "PHYSICAL EXAMINATION: Right lower extremity examination does show diffuse ecchymosis on the right extremity. Her calves are soft. She can flex and extend her ankle, but musculoskeletal exam is limited secondary to discomfort. Her toes are warm and well perfused. Right hip: The patient has no overt pain with log roll of the hip. She has some mild diffuse tenderness around the hip and the right flank and the entire right side. Radiographs of the hip do show well fitted prosthesis of the hip. There was no evidence of asymmetric polyethylene wear. I do not detect evidence of loosening of the stem. There is a screw which does show protrusion on the lateral aspect of the iliac wing. We reviewed radiographs immediately after surgery in 2010 and it showed the same findings. This finding does appear to be stable and has likely been like that since 2010 without change. ASSESSMENT: 1. Status post total hip replacement on the right. 2. Generalized weakness with multiple falls and left-sided pain. PLAN: I discussed findings and treatment with the patient. I feel it is unlikely the radiographic findings are the cause of her symptoms. The screw has been stable in the current alignment for 11 years and I feel is unlikely related to any recurrent symptoms. At this point in time, no further orthopedic treatment is needed and I would not recommend any surgical intervention. She may be weightbearing as tolerated as she feels comfortable and I would agree with continuing physical therapy and rehabilitation. From my standpoint, she may be discharged. She may follow up with Dr. Steve Mendoza within 2 weeks of discharge to further evaluate right hip." (7) Diastolic CHF: -admission Chest x-ray showed mild congestive changes -possibly from diastolic congestive heart failure versus fluid retention from ESRD condition -repeat CXR on 12/02/2019 after the dialysis session: Pulmonary vascular congestion has improved (8) ESRD on hemodialysis: -usually dialysis Saturday/Saturday/Saturday but in past 1 month patient been getting dialysis 4 times a week as Saturday/Saturday//Saturday -patient has dialysis as inpatient on Saturday12/02/2019, 12/03/2019. -completed dialysis session on Saturday12/04/2019 (needs 32 oz fluid limit and dialysis diet with less than 2 gm daily sodium -no need to f/u w/ Dr Guajardo at CKD clinic since she sees Dr Guajardo at dialysis, next dialysis session is 12/07/2019 -pt on 4 days weekly dialysis currently x 1 month for volume overload on Sat, Sat, Sat and ) primary care doctor appointment 12/08/2019 1:00 PM Provider Jose Elias Ascencio MD Department Internal Medicine [facility] (9) HTN (hypertension): -blood pressure is normal (10) Atrial fibrillation: -Heart rate is controlled -on coumadin anticoagulation (11) PVD (peripheral vascular disease): -on clopidogrel for PVD (12) T2DM (type 2 diabetes mellitus): -patient can resume home dose diabetes medications on discharge (13) HLD (hyperlipidemia): Continue statin DVT prophylaxis -on Coumadin -GI prophylaxis with Protonix Patient's son [phone] Admission and Anticipated Discharge Date Admission Date: December 01, 2019 Subjective Patient seen and examined. No chest pain. no shortness of breath. breathing on room air. no nausea. no vomiting. no dizziness. no headache Review of Systems Review of Systems: All systems reviewed & are unremarkable except as noted in HPI & below Physical Exam Constitutional: comfortable Eyes: PERRL, conjunctivae normal, anicteric sclerae EOM intact bilaterally ENMT: external ear and nose normal, oropharynx normal Neck: normal visual inspection Respiratory: normal respiratory effort Cardiovascular: Rate/Rhythm: regular rate Gastrointestinal (Abdomen): normal bowel sounds, soft, nontender, no hepatosplenomegaly Musculoskeletal: Head/Neck/Chest: normocephalic and head atraumatic Skin: + ecchymosis Neurologic: PERRL, EOMI, accommodation nl, no face palsy, no dysarthria Psychiatric: Orientation: alert, oriented x 3 and cooperative Results & Data ([facility]) Vital Signs (Past 12 Hours) Vital Signs Temp Pulse Pulse Resp BP Pulse Ox 12/05/19 07:46 36.8 C 74 18 102/64 99 12/04/19 23:07 36.6 C 78 20 92/55 L 96 (1) T2DM (type 2 diabetes mellitus) Chronic kidney disease stage: stage 4 (severe) Diabetes mellitus complication detail: with chronic kidney disease Diabetes mellitus complication status: with kidney complications Diabetes mellitus 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 insulin use: without 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 use Qualified Code(s): E11.22 - Type 2 diabetes mellitus with diabetic chronic kidney disease; N18.4 - Chronic kidney disease, stage 4 (severe) (2) Anemia Anemia type: unspecified type Qualified Code(s): D64.9 - Anemia, unspecified (3) HLD (hyperlipidemia) Hyperlipidemia type: unspecified Qualified Code(s): E78.5 - Hyperlipidemia, unspecified (4) HTN (hypertension) Hypertension type: essential hypertension Qualified Code(s): I10 - Essential (primary) hypertension (5) Falls Encounter type: initial encounter Qualified Code(s): W19.XXXA - Unspecified fall, initial encounter
--- NOTE | 2019-12-05 11:13 | Discharge Summary ---
Date of Service December 05, 2019 Admission HPI Per Admitting Provider She is a 74-year-old obese female with significant past medical history including end-stage renal disease on hemodialysis, atrial fibrillation on anticoagulation, peripheral vascular disease on Plavix, tachybradycardia syndrome status post pacemaker, congestive heart failure, hypertension, hyperlipidemia and type 2 diabetes apparently has been complaining of deteriorating general condition for the last 2 weeks. She has been complaining of more weakness, difficulty in ambulating with a walker with frequent falls, joint pain involving multiple joints especially right hip and black stool for the same.. Denies any chest pain and/or palpitation or any increasing shortness of breath. No abdominal pain nausea or vomiting. No headache and blurred vision. No increasing numbness or tingling involving any extremities and no weakness involving any side of the body. She was guaiac positive in the emergency room with a hemoglobin of 8.4 and her hemoglobin as an outpatient note was 8.9 on 13th of this month. Her INR was 4.4 and she received 2.5 mg of IV vitamin K for that.She was admitted to medical telemetry unit for continuation of care. Admission Exam Per Admitting Provider Lying in bed comfortably with extreme lethargy Constitutional: well developed, well nourished, + ill appearing and + obese; no acute distress Eyes: PERRL, conjunctivae normal, anicteric sclerae ENMT: external ear and nose normal, oropharynx normal Neck: trachea midline, no thyromegaly Respiratory: normal respiratory effort; no respiratory distress Auscultation: + diminished lung sounds and + crackles (Minimal crackles at the bases) Cardiovascular: Rate/Rhythm: regular rate and regular rhythm Heart Sounds: no murmur Extremities: + edema (Bilateral leg edema about 1+ with chronic skin changes. A small laceration the mid medial aspect of right leg) Gastrointestinal (Abdomen): Inspection/Auscultation: abdomen normal to inspection and normal bowel sounds Percussion/Palpation: abdomen soft; abdomen nontender Musculoskeletal: Has mild to moderate pain on movement of the joints especially both the shoulders, both the hip more on the right than the left, both knees No joint swelling noted to be acutely inflamed Skin: Has generalized bruising all over the body Neurologic: moves all extremities (But very weak and lethargic); no focal motor deficits Lymphatic: no cervical or axillary lymphadenopathy Principal Diagnosis Fall, Generalized weakness, ESRD on hemodialysis, Anemia (GI bleed is ruled out), Supratherapeutic INR (resolved), Multiple bruises, Left salazar ulcer (traumatic ulcer), type 2 diabetes mellitus Discharge Exam Constitutional comfortable Eyes PERRL, conjunctivae normal, anicteric sclerae EOM intact bilaterally ENMT external ear and nose normal, oropharynx normal Neck normal visual inspection Respiratory normal respiratory effort Cardiovascular Rate/Rhythm: regular rate Gastrointestinal (Abdomen) normal bowel sounds, soft, nontender, no hepatosplenomegaly Musculoskeletal Head/Neck/Chest: normocephalic and head atraumatic Skin + ecchymosis Neurologic PERRL, EOMI, accommodation nl, no face palsy, no dysarthria Psychiatric Orientation: alert, oriented x 3 and cooperative Discharge Data Allergies Allergy/AdvReac Type Severity Reaction Status Date / Time No Known Allergies Allergy Unverified 12/01/19 15:49 Consultations 12/01/19 17:24 ED Decision to Admit Stat 12/01/19 18:37 Consult Nephrology Routine 12/02/19 10:19 Consult Case Management - Discharge Planning Routine 12/03/19 09:09 Consult Wound Care Provider Routine 12/04/19 17:54 Consult Orthopedic Surgery Routine Ordered Studies 12/01/19 13:37 US venous doppler [facility] Stat Hospital Course (1) Anemia: This is a 74 year old woman who fell at home and was found on the floor and admitted with generalized weakness and noted to have a hemoglobin of 8.4 -Hemoglobin as an outpatient was 8.9 on 13th of this month -since being in hospital to date as of 12/02/2019, Hgb generally stable as 8 -no apparent iron deficiency on labs -Patient had dialysis on 12/02/2019 and patient received epogen -mostly likely that patient has anemia secondary to ESRD - she has gotten epogen and procit with dialysis sessions -Hgb is 9 on 12/03/2019, Hemoglobin 8.6 on 12/05/2019 (2) GI bleed: Supratherapeutic INR -acute gastrointestinal hemorrhage GI bleed is unlikely with recent hemoglobin stability; continue pantoprazole for now -patient did have supratherapeutic INR of 4.4 on admission on 12/01/2019 and given Vitamin K in the ED -INR is 2.3 on 12/02/2019, continue home dose coumadin for now, INR 1.4 on 12/05/2019 -patient did report she saw blood in stool recently as outpatient versus beginning of hospital stay, but hemoglobin stable above 8 (3) Multiple bruises: -bruising from History of ambulatory dysfunction with frequent falls -Has generalized bruising which could be from minor trauma or spontaneous -Has been on Plavix and Coumadin, continue Left salazar ulcer (traumatic ulcer) -1 cm deep left salazar ulcer as assessed by wound care nurse on 12/03/2019 which is likely a traumatic ulcer as per wound care nurse previous to hospitalization -patient already on 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 admission blood cultures are negative and patient is not septic. -wound care physician evaluated the right salazar ulcer (Using silver nitrate the granulation was chemically cauterized on 12/03/2019 -starting on 12/03/2019 Keflex 250 mg q8 hours and Doxycycline 100 mg q12 hours. Tetanus shot ordered on 12/03/2019 -continue antibiotics with last dose on 12/10/2019 (4) Falls: -PT/OT assessments; discharge to [facility] on 12/05/2019 (5) Generalized weakness: -PT/OT assessments; discharge to [facility] on 12/05/2019 (6) Hip pain, right: -X-ray of the right hip 1. Total right hip prosthetic. 2. One of the 2 retaining screws of the right acetabulum is located within the soft tissues lateral to the right iliac bone. 3. No acute bony abnormality. -discomforts are not acutely focal to right hip on this admission as patient complained of pain in multiple joints; Mild to moderate pain noted on movement of knees, shoulders and hips Steve Pérez MD Orthopedic 12/05/2019 recommendations "PHYSICAL EXAMINATION: Right lower extremity examination does show diffuse ecchymosis on the right extremity. Her calves are soft. She can flex and extend her ankle, but musculoskeletal exam is limited secondary to discomfort. Her toes are warm and well perfused. Right hip: The patient has no overt pain with log roll of the hip. She has some mild diffuse tenderness around the hip and the right flank and the entire right side. Radiographs of the hip do show well fitted prosthesis of the hip. There was no evidence of asymmetric polyethylene wear. I do not detect evidence of loosening of the stem. There is a screw which does show protrusion on the lateral aspect of the iliac wing. We reviewed radiographs immediately after surgery in 2010 and it showed the same findings. This finding does appear to be stable and has likely been like that since 2010 without change. ASSESSMENT: 1. Status post total hip replacement on the right. 2. Generalized weakness with multiple falls and left-sided pain. PLAN: I discussed findings and treatment with the patient. I feel it is unlikely the radiographic findings are the cause of her symptoms. The screw has been stable in the current alignment for 11 years and I feel is unlikely related to any recurrent symptoms. At this point in time, no further orthopedic treatment is needed and I would not recommend any surgical intervention. She may be weightbearing as tolerated as she feels comfortable and I would agree with continuing physical therapy and rehabilitation. From my standpoint, she may be discharged. She may follow up with Dr. Steve Mendoza within 2 weeks of discharge to further evaluate right hip." (7) Diastolic CHF: -admission Chest x-ray showed mild congestive changes -possibly from diastolic congestive heart failure versus fluid retention from ESRD condition -repeat CXR on 12/02/2019 after the dialysis session: Pulmonary vascular congestion has improved (8) ESRD on hemodialysis: -usually dialysis Saturday/Saturday/Saturday but in past 1 month patient been getting dialysis 4 times a week as Saturday/Saturday//Saturday -patient has dialysis as inpatient on Saturday12/02/2019, 12/03/2019. -completed dialysis session on Saturday12/04/2019 (needs 32 oz fluid limit and dialysis diet with less than 2 gm daily sodium -no need to f/u w/ Dr Guajardo at CKD clinic since she sees Dr Guajardo at dialysis, next dialysis session is 12/07/2019 -pt on 4 days weekly dialysis currently x 1 month for volume overload on Sat, Sat, Sat and ) primary care doctor appointment 12/08/2019 1:00 PM Provider Jose Elias Ascencio MD Department Internal Medicine [facility] (9) HTN (hypertension): -blood pressure is normal (10) Atrial fibrillation: -Heart rate is controlled -on coumadin anticoagulation (11) PVD (peripheral vascular disease): -on clopidogrel for PVD (12) T2DM (type 2 diabetes mellitus): -patient can resume home dose diabetes medications on discharge (13) HLD (hyperlipidemia): Continue statin DVT prophylaxis -on Coumadin -GI prophylaxis with Protonix Patient's son [phone] Total Time Total Time Spent Total Time Spent (In Minutes): 40 minutes Total Time Includes: Examination of the Patient, Discharge Planning, Medication Reconciliation and Communication With Other Providers Discharge Plan Discharge Items Patient Disposition: Transfer Inpatient Rehab Fac Reason For Visit: GI BLEED,ABULATORY DYSFUNCTION,ESRD ON HD Discharge Diagnosis: Fall, Generalized weakness, ESRD on hemodialysis, Anemia (GI bleed is ruled out), Supratherapeutic INR (resolved), Multiple bruises, Left salazar ulcer (traumatic ulcer), type 2 diabetes mellitus Condition on Discharge: Good Activity: Per Instructions section Non-emergency contact: Primary Care Provider and Marketing Project Manager Call non-emergency contact if: you have any medication questions Follow-up/Referrals: Jose Elias Ascencio MD [Primary Care Provider] - Diet: Dialysis Renal and Low Sodium (2gm) Diet Comment: fluid restriction to 32 ounce Add Attending Provider Instructions: -needs 32 oz fluid limit and dialysis diet with less than 2 gm daily sodium -no need to f/u w/ Dr Guajardo at CKD clinic since she sees Dr Guajardo at dialysis, next dialysis session is 12/07/2019 -pt on 4 days weekly dialysis currently x 1 month for volume overload on Sat, Sat, Sat and primary care doctor appointment 12/08/2019 1:00 PM Provider Jose Elias Ascencio MD Department Internal Medicine [facility] Anesthesiology Technologist Provider Instructions: Steve Pérez MD Orthopedic 12/05/2019 recommendations "PHYSICAL EXAMINATION: Right lower extremity examination does show diffuse ecchymosis on the right extremity. Her calves are soft. She can flex and extend her ankle, but musculoskeletal exam is limited secondary to discomfort. Her toes are warm and well perfused. Right hip: The patient has no overt pain with log roll of the hip. She has some mild diffuse tenderness around the hip and the right flank and the entire right side. Radiographs of the hip do show well fitted prosthesis of the hip. There was no evidence of asymmetric polyethylene wear. I do not detect evidence of loosening of the stem. There is a screw which does show protrusion on the lateral aspect of the iliac wing. We reviewed radiographs immediately after surgery in 2011 and it showed the same findings. This finding does appear to be stable and has likely been like that since 2011 without change. ASSESSMENT: 1. Status post total hip replacement on the right. 2. Generalized weakness with multiple falls and left-sided pain. PLAN: I discussed findings and treatment with the patient. I feel it is unlikely the radiographic findings are the cause of her symptoms. The screw has been stable in the current alignment for 11 years and I feel is unlikely related to any recurrent symptoms. At this point in time, no further orthopedic treatment is needed and I would not recommend any surgical intervention. She may be weightbearing as tolerated as she feels comfortable and I would agree with continuing physical therapy and rehabilitation. From my standpoint, she may be discharged. She may follow up with Dr. Steve Mendoza within 2 weeks of discharge to further evaluate right hip." Pending Studies at Discharge: No Stand-Alone Forms: My [facility] Skilled Items Patient informed of condition?: Yes DNR: No Discharge Level of Care: Acute rehab Communicable Disease: No Discharge Prognosis: Stable Lines: None Urinary Catheter: No Medications and DC Order Prescriptions: New doxycycline hyclate 100 mg Capsule 100 mg PO Q12 5 Days Qty: 10 RF: 0 cephalexin 250 mg Capsule 250 mg PO Q8H 5 Days Qty: 15 RF: 0 pantoprazole 40 mg Tablet,Delayed Release (Dr/Ec) 40 mg PO DAILY 30 Days Qty: 30 RF: 0 Continued cilostazol 100 mg tablet 100 mg PO BID RF: 0 glipizide 5 mg Tablet Extended Release 24hr 5 mg PO QAM RF: 0 clopidogrel 75 mg tablet 75 mg PO QAM RF: 0 oxycodone-acetaminophen 5-325 mg tablet 1 tab PO Q6H PRN (Reason: Pain (Scale Score 7-10)) RF: 0 nitroglycerin 0.4 mg tablet, sublingual 0.4 mg Sublingual Q5M PRN (Reason: Chest Pain) RF: 0 Renal Caps 1 mg capsule 1 mg PO QAM RF: 0 Flovent HFA 110 mcg/actuation HFA aerosol inhaler 2 puff Inhalation BID RF: 0 atorvastatin 40 mg tablet 40 mg PO HS RF: 0 albuterol sulfate 90 mcg/actuation HFA aerosol inhaler 2 puff inhalation Q6H PRN (Reason: Shortness Of Breath Or Wheezing) RF: 0 desvenlafaxine succinate [Pristiq] 25 mg Tablet Extended Release 24 Hr 25 mg PO QAM RF: 0 Auryxia 210 mg iron Tablet 210 mg PO TIDM RF: 0 warfarin 2.5 mg Tablet 2.5 mg PO UD RF: 0 Discharge Orders: Discharge Order (Routine); Ordered 12/05/19 Ordered By: Tyrel Vásquez Admission Data Admit Date/Time: 12/01/19 18:12 Attending Provider: Tyrel Vásquez Admit Provider: Scotty Stewart Primary Care Provider: Jose Elias Ascencio Other Providers: Scotty Stewart ; Moon Guajardo ; Toby Faust ; Sigifredo Moya ; Manuel Pérez
--- NOTE | 2019-12-09 07:58 | Coding Query ---
CONGESTIVE HEART FAILURE To Promote full compliance with coding requirements relating to patient care, physician participation is requested in all cases of hospital coder uncertainty. Please assist us with the following questions. A diagnosis of Congestive Heart Failure is documented in the patient's medical record. To accurately code this diagnosis and to compare patient severity, we ask that you specify the type of heart failure by placing an X within the parenthesis (x). Thank you . Kal Hayden, [facility] SYSTOLIC HEART FAILURE ( ) Acute ( ) Chronic ( ) Acute on Chronic ( ) Rheumatic ( ) Unknown DIASTOLIC HEART FAILURE ( ) Acute (x ) Chronic ( ) Acute on Chronic ( ) Rheumatic ( ) Unknown COMBINED SYSTOLIC AND DIASTOLIC HEART FAILURE ( ) Acute ( ) Chronic ( ) Acute on Chronic ( ) Rheumatic ( ) Unknown Was the CHF Present On Admission? Please check the appropriate box: ( ) Present on Admission ( ) Not Present On Admission (x ) Clinically undetermined MTDD
--- NOTE | 2019-12-17 15:45 | Coding Query ---
CODING QUERY To promote full compliance with coding requirements relating to patient care, provider participation is requested in all cases of paper inspector uncertainty. Please assist us with the question(s) below: Coding Question(s): Patient with ESRD on hemodialysis . CXR on admission shows mild congestive changes. Nephrology C/S 12/02 states "general weakness per primary service with falls at home complicated by chronic hypotension and worsening volume overload". Please document, if known or suspected, the etiology of the patient's weakness present on admission. . Thanks for your help! Kal Hayden [facility] Physician's Response(s): I do not know what paramount diagnosis that you are looking for. I cannot describe more diagnosis beyond what I wrote extensively in her chart about patient's multiple co-morbidities Principal Diagnosis: "that condition established after study, to be chiefly responsible for occasioning the admission of the patient to the hospital for care." Co-Existing Principal Diagnosis: "when two or more diagnoses equally meet the criteria for principal diagnosis as determined by the circumstances of admission, diagnostic work up, and/or therapy provided, and the Alphabetic Index, Tabular List, or another coding guideline does not provide sequencing direction, any one of the diagnoses may be sequenced first." "When the physician has documented what appears to be a current diagnosis in the body of the record, but has not included the diagnosis in the final diagnostic statement, the physician should be asked whether the diagnosis should be added." (Source Coding [facility] 2 QTR90. p3-4) FABRICE
== END 2019-12-05 15:58 | DRG 291 ==
LOC: ED 13:26 → 2N 18:12 → SUATTDRO 18:12 → 2N 19:04 → 3W 12-04 02:38

== ENCOUNTER 2020-01-06 14:40 | Inpatient (IN) ==
--- NOTE | 2020-01-06 15:12 | Emergency Department Note ---
History of Present Illness General Chief complaint: Illness Stated complaint: wound eval Source: patient Mode of arrival: EMS Limitations: physical limitation History of Present Illness Provider complaint: Generalized weakness, nausea, diarrhea Maximum Pain Intensity: 6 This is a 74-year-old female who presents to the ED with a chief complaint of nausea, diarrhea, weakness. The patient states that she was due for dialysis at 5 AM this morning. She states that she slipped out of her chair this morning and could not get up. When the van came to take her to dialysis, he was unable to help her off the floor. The patient states that she had 4 episodes of diarrhea since this morning. She missed dialysis because of this and that she was not feeling well. She was seen at wound care yesterday for a chronic left leg wound. The patient is currently taking antibiotics for her leg wound. She denies any chest pain or shortness of breath. She states that she feels like her left foot was injured when they picked her up off the floor as her toes were flexed underneath her foot. EMS helped her off the floor back into her walker. She presents to the ED today with the above complaints. She has not had any vomiting. No abdominal pains. Home Medications Home Medications Medication Instructions Recorded Confirmed Type Flovent HFA 2 puff INHALATION BID 12/16/18 01/06/20 History Renal Caps 1 mg PO QAM 12/16/18 01/06/20 History cilostazol 100 mg PO BID 12/16/18 01/06/20 History clopidogrel 75 mg PO QAM 12/16/18 01/06/20 History glipizide 5 mg PO QAM 12/16/18 01/06/20 History nitroglycerin 0.4 mg SUBLINGUAL Q5M PRN 12/16/18 01/06/20 History Auryxia 210 mg PO TIDM 04/29/19 01/06/20 History albuterol sulfate 2 puff INHALATION Q6H PRN 04/29/19 01/06/20 History atorvastatin 40 mg PO HS 04/29/19 01/06/20 History desvenlafaxine succinate [Pristiq] 25 mg PO QAM 04/29/19 01/06/20 History sevelamer carbonate 800 mg tablet 800 mg PO TIDM 12/18/19 01/06/20 History cefdinir 300 mg capsule 300 mg PO Q48H #7 cap 12/21/19 01/06/20 Rx albuterol sulfate 2.5 mg INHALATION QID PRN 01/06/20 01/06/20 History hydrocortisone 1 applic TOPICAL DAILY PRN 01/06/20 01/06/20 History lidocaine-prilocaine 1 applic TOPICAL .PRE DIALYSIS 01/06/20 01/06/20 History oxycodone-acetaminophen 1 tab PO Q6H PRN 01/06/20 01/06/20 History pantoprazole 40 mg PO DAILY 01/06/20 01/06/20 History warfarin 3 mg PO DAILY 01/06/20 01/06/20 History Allergies Allergy/AdvReac Type Severity Reaction Status Date / Time No Known Allergies Allergy Unverified 01/06/20 17:24 Past Med/Surg History Medical History Aftercare following removal/replacement pacemaker (Chronic) Asthma (Acute) AV fistula (Chronic) Left upper ext. CAD (coronary artery disease) (Chronic) hx of PCI to LAD, Circumflex, RCA in CKD (chronic kidney disease) stage 4, GFR 15-29 ml/min (Chronic) Depression (Chronic) ESRD (end stage renal disease) on dialysis (Chronic) Follows Dr. 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 pacemaker, with recent addition of right infraclavicular [employer] biventricular pacemaker in March, as outlined above HLD (hyperlipidemia) (Chronic) HTN (hypertension) (Chronic) Open wound of right lower leg Open wound of right upper arm (Resolved) PAD (peripheral artery disease) (Chronic) PAF (paroxysmal atrial fibrillation) (Chronic) Renal artery stenosis (Chronic) s/p stent T2DM (type 2 diabetes mellitus) (Chronic) Tachy-mary syndrome (Resolved) s/p PPM Dr. Goldstein Traumatic open wound of right lower leg with delayed healing (Acute) Unstageable pressure ulcer of right heel (Acute) Vitamin D deficiency (Chronic) Volume overload Surgical History History of angioplasty of peripheral vessel (Chronic) fem/pop bypass 10/21 history of Renal stent History of atrioventricular linda ablation (Chronic) 04/01/[address] Goldstein History of (Chronic) x 3 History of lumbar laminectomy (Chronic) History of percutaneous coronary intervention (Chronic) History of total right hip arthroplasty (Chronic) Family History Father , age 61 Stroke Hypertension Mother , age 51 Myocardial infarction Sister , age 50 Cervical ca Sister Breast cancer Social History Preferred Language: [place] Communication Ability: Effective Joint Finisher Required: No Beliefs That Will Affect Care: None marital status: / Current Living Situation: Family Current Living Situation Comment: Lives with grandson, but moving out soon. Feels Safe at Home: Yes Smoking Status: Never smoker Second Hand Exposure: Yes ; Hx Alcohol Use: No Hx Substance Use: No Review of Systems A total of 10 systems reviewed and were otherwise negative Physical Exam Vital Signs Vital Signs - 24 hr 01/06/20 14:29 01/06/20 16:33 Temperature 36.9 C Temperature Source Oral Pulse Rate 73 Pulse Rate [Finger] 70 Respiratory Rate 18 20 Blood Pressure 105/61 Blood Pressure [Right Arm] 89/39 L Blood Pressure Mean 75 Blood Pressure Mean [Right Arm] 55 Pulse Oximetry 97 91 Oxygen Delivery Method Room Air Room Air Sepsis Recent Fever Within 48 Hours No Sepsis New/Unexplained Change in Mental Status No Sepsis Action Taken by Nursing No Action Required CONSTITUTIONAL/VITAL SIGNS: Reviewed / noted above. GENERAL: Non-toxic in appearance. Chronically ill-appearing. Generalized weakness. INTEGUMENTARY: Warm, dry, and [place]. HEAD: Normocephalic. EYES: without scleral icterus or trauma. ENT/OROPHARYNX: clear and moist. LYMPHADENOPATHY/NECK: Is supple without lymphadenopathy or meningismus. RESPIRATORY: Lungs clear and equal. CARDIOVASCULAR: Regular rate and rhythm. GI/ABDOMEN: Soft and nontender. No organomegaly or pulsatile mass. No rebound or guarding. Normal bowel sounds. EXTREMITIES: Warm and well perfused. Dialysis fistula in left arm. Left lower extremity and left foot are dressed in a bandage. The left foot appears erythematous. The toes of the left foot have bruising dorsally. This is new, according to the patient related to her injury this morning as described above. BACK: No CVA tenderness. NEUROLOGICAL: Intact without focal deficits. PSYCHIATRIC: normal affect. MUSCULOSKELETAL: Normally developed with good muscle tone. TRIAGE NURSING DOCUMENTATION REVIEWED. Medical Decision Making Differential Diagnosis Differential includes acute coronary syndrome, myocardial infarction, CVA, TIA, anemia, infection, pneumonia, UTI, pyelonephritis, poor nutrition, dehydration, electrolyte disturbance,hypoglycemia. Medical Records Attestation: I reviewed the patient's medical records. Home Medications Current Medication List: was personally reviewed by me Laboratory Data Attestation: I reviewed the patient's lab results. Result diagrams: 01/06/20 16:02 01/06/20 16:02 Lab Results 01/06/20 01/06/20 01/06/20 Range/Units 16:02 16:02 16:02 WBC 13.54 H (4.8-10.8) K/uL RBC 2.90 L (4.2-5.4) M/uL Hgb 9.7 L (12.0-16.0) g/dL Hct 31.8 L (37-47) % MCV 109.7 H (80-100) fL MCH 33.4 (25-34) pg MCHC 30.5 L (32-36) g/dL RDW Std Deviation 76.0 H (36.4-46.3) fL RDW Coeff of Oleksandr 19.0 H (11.5-14.5) % Plt Count 149 (130-400) K/uL MPV 10.2 (7.4-10.4) fL Immature Gran % (Auto) 0.4 % Neut % (Auto) 92.2 % Lymph % (Auto) 3.5 % [place] % (Auto) 3.8 % Eos % (Auto) 0.0 % Baso % (Auto) 0.1 % Immature Gran # (Auto) 0.06 H (0.00-0.02) K/uL Neut # (Auto) 12.46 H (1.4-6.5) K/uL Lymph # (Auto) 0.48 L (1.2-3.4) K/uL [place] # (Auto) 0.52 (0.11-0.59) K/uL Eos # (Auto) 0.00 (0-0.5) K/uL Baso # (Auto) 0.02 (0-0.2) K/uL PT 16.6 H (9.0-12.0) Seconds INR 1.6 H (0.9-1.1) Sodium 135 L (136-145) mmol/L Potassium 4.8 (3.5-5.1) mmol/L Chloride 98 (98-107) mmol/L Carbon Dioxide 29 (21-32) mmol/L Anion Gap 8.0 (3-11) BUN 31 H (7-18) mg/dl Creatinine 3.99 H (0.6-1.2) mg/dl Est Cr Clr Drug Dosing 12.1 ml/min Est GFR ( Amer) 12.0 Est GFR (Non-Af Amer) 10.3 BUN/Creatinine Ratio 7.7 L (10-20) Glucose 123 H (70-99) mg/dl Calcium 10.2 H (8.5-10.1) mg/dl Magnesium 2.4 (1.8-2.4) mg/dl Total Bilirubin 0.9 (0.2-1) mg/dl AST 18 (15-37) U/L ALT 27 (12-78) U/L Alkaline Phosphatase 204 H (45-117) U/L Total Creatine Kinase 52 (26-192) U/L Total Protein 6.7 (6.4-8.2) gm/dl Albumin 2.9 L (3.4-5.0) gm/dl Globulin 3.8 (2.5-4.0) gm/dl Albumin/Globulin Ratio 0.8 L (0.9-2) TSH 0.662 (0.300-4.500) uIu/ml Imaging Data Radiologist's Impression: SINGLE VIEW CHEST CLINICAL HISTORY: Generalized weakness. FINDINGS: An AP, portable, upright chest radiograph is compared to study dated 12/02/2019. The examination is degraded by portable technique and patient rotation. An electronic device projects over the lower chest. The heart is enlarged noting atherosclerotic calcification of the thoracic aorta. There is mild pulmonary vascular congestion. Atelectasis is noted at the lung bases. No focal airspace consolidation or large pleural effusion is identified. No pneumothorax is seen. The skeletal structures are osteopenic. The bony thorax is grossly intact. IMPRESSION: Cardiomegaly with mild pulmonary vascular congestion. CLINICAL HISTORY: Left foot pain. Swelling and erythema. FINDINGS: 3 views of the left foot are obtained. No prior studies are available for comparison at the time of dictation. The skeletal structures are osteopenic. No fracture is seen. There is no bony erosion or periostitis. Mild osteoarthri tic change is noted in the midfoot. There are large dorsal and plantar calcaneal enthesophytes. Degenerative spurring is seen along the dorsal aspect of the tarsal bones. Marked soft tissue edema is present along the dorsal aspect of the foot. There is atherosclerotic calcification of the regional arteries. IMPRESSION: Marked soft tissue edema with no acute bony abnormality identified. ECG Data Attestation: I personally reviewed and interpreted this ECG as follows: Indication: + weakness Rate (beats per minute): 77 Rhythm: + other (Paced ventricular rhythm) ECG ST segments: no ST elevation ECG Findings: no PVCs Blood Pressure Blood Pressure Findings: Normal blood pressure MDM Narrative This is a 74-year-old female who presents to the ED with a chief complaint of nausea, diarrhea, weakness. The patient states that she was due for dialysis at 5 AM this morning. She states that she slipped out of her chair this morning an d could not get up. When the van came to take her to dialysis, he was unable to help her off the floor. The patient states that she had 4 episodes of diarrhea since this morning. She missed dialysis because of this and that she was not feeling well. She was seen at wound care yesterday for a chronic left leg wound. The patient is currently taking antibiotics for her leg wound. She denies any chest pain or shortness of breath. She states that she feels like her left foot was injured when they picked her up off the floor as her toes were flexed underneath her foot. EMS helped her off the floor back into her walker. She presents to the ED today with the above complaints. She has not had any vomiting. No abdominal pains. The patient's vital signs today are normal. Her physical exam as described above. Primary positive findings are the left foot is erythematous with some bruising over the dorsal aspect of the left toes related to her injury this morning. Her abdomen is soft and nontender. She is in no distress. No focal weakness. The patient's laboratory studies revealed a white blood cell count of 13.5. Hemoglobin is 9.7. INR is 1.6. Chemistry panel revealed a BUN of 31 and a creatinine of 4. A chest x-ray shows some cardiomegaly and mild pulmonary vascular congestion. Clinically she does not have pulmonary edema or acute heart failure. The patient's blood pressure was somewhat low here although the patient states that her blood pressure does run low. The patient does feel weak. I did speak with Dr. Philippe from nephrology. He states that she can get dialysis tomorrow. The patient will be evaluated by the hospitalist for inpatient for her weakness and diarrhea. Impression & Plan Weakness, Contusion of foot, left, Diarrhea, Nausea Discharge Plan Visit Data Chief Complaint: Illness Stated Complaint: wound eval ED Provider: Vivek Smith Discharge Problem: Weakness, Contusion of foot, left, Diarrhea, Nausea Patient Disposition: Being Evaluated by Hospitalist Forms Stand Alone Forms: My [facility] Prescriptions Prescriptions: No Action sevelamer carbonate [Renvela] 800 mg tablet 800 mg PO TIDM RF: 0 cefdinir 300 mg capsule 300 mg PO Q48H Qty: 7 RF: 0 cilostazol 100 mg tablet 100 mg PO BID RF: 0 glipizide 5 mg Tablet Extended Release 24hr 5 mg PO QAM RF: 0 clopidogrel 75 mg tablet 75 mg PO QAM RF: 0 nitroglycerin 0.4 mg tablet, sublingual 0.4 mg Sublingual Q5M PRN (Reason: Chest Pain) RF: 0 Renal Caps 1 mg capsule 1 mg PO QAM RF: 0 Flovent HFA 110 mcg/actuation HFA aerosol inhaler 2 puff Inhalation BID RF: 0 atorvastatin 40 mg tablet 40 mg PO HS RF: 0 albuterol sulfate 90 mcg/actuation HFA aerosol inhaler 2 puff inhalation Q6H PRN (Reason: Shortness Of Breath Or Wheezing) RF: 0 desvenlafaxine succinate [Pristiq] 25 mg Tablet Extended Release 24 Hr 25 mg PO QAM RF: 0 Auryxia 210 mg iron Tablet 210 mg PO TIDM RF: 0 albuterol sulfate 2.5 mg /3 mL (0.083 %) Solution For Nebulization 2.5 mg INHALATION QID PRN (Reason: Shortness Of Breath Or Wheezing) RF: 0 warfarin 3 mg tablet 3 mg PO DAILY RF: 0 oxycodone-acetaminophen 5-325 mg tablet 1 tab PO Q6H PRN (Reason: Pain) RF: 0 pantoprazole 40 mg tablet,delayed release (/EC) 40 mg PO DAILY RF: 0 hydrocortisone 2.5 % cream 1 applic TOPICAL DAILY PRN (Reason: Skin Irritation) RF: 0 lidocaine-prilocaine 2.5-2.5 % cream 1 applic topical .PRE DIALYSIS RF: 0 Referrals Referrals: Jose Elias Ascencio MD [Primary Care Provider] - Discharge Problem: Contusion of foot, left Qualifiers: Encounter type: initial encounter Qualified Code(s): S90.32XA - Contusion of left foot, initial encounter Diarrhea Qualifiers: Diarrhea type: unspecified type Qualified Code(s): R19.7 - Diarrhea, unspecified
--- NOTE | 2020-01-06 15:18 | XRay Report ---
SINGLE VIEW CHEST CLINICAL HISTORY: Generalized weakness. FINDINGS: An AP, portable, upright chest radiograph is compared to study dated 12/02/2019. The examina tion is degraded by portable technique and patient rotation. An electronic device projects over the l ower chest. The heart is enlarged noting atherosclerotic calcification of the thoracic aorta. There i s mild pulmonary vascular congestion. Atelectasis is noted at the lung bases. No focal airspace conso lidation or large pleural effusion is identified. No pneumothorax is seen. The skeletal structures ar e osteopenic. The bony thorax is grossly intact. IMPRESSION: Cardiomegaly with mild pulmonary vascular congestion. ACT 112: Negative or not required by law. Electronically signed by: Paco Edwards M.D. 01/06/2020 3:17 PM
--- NOTE | 2020-01-06 15:20 | XRay Report ---
LEFT FOOT 3 VIEWS CLINICAL HISTORY: Left foot pain. Swelling and erythema. FINDINGS: 3 views of the left foot are obtained. No prior studies are available for comparison at the time of dictation. The skeletal structures are osteopenic. No fracture is seen. There is no bony ero mathieu or periostitis. Mild osteoarthritic change is noted in the midfoot. There are large dorsal and p lantar calcaneal enthesophytes. Degenerative spurring is seen along the dorsal aspect of the tarsal b ones. Marked soft tissue edema is present along the dorsal aspect of the foot. There is atherosclerot ic calcification of the regional arteries. IMPRESSION: Marked soft tissue edema with no acute bony abnormality identified. Electronically signed by: Paco Edwards M.D. 01/06/2020 3:19 PM
[2020-01-06 16:17] LABS: Basophils # (auto) 0.02 K/uL (0-0.2); Basophils % (auto) 0.1 %; Hematocrit (blood only) 31.8 % (37-47); Hemoglobin 9.7 g/dL (12.0-16.0); Immature Granulocytes # (auto) 0.06 K/uL (0.00-0.02); Immature Granulocytes % (auto) 0.4 %; Lymphocytes # (auto) 0.48 K/uL (1.2-3.4); Lymphocytes % (auto) 3.5 %; Mean Corpuscular Hemoglobin 33.4 pg (25-34); Mean Corpuscular Hgb Conc 30.5 g/dL (32-36); Mean Corpuscular Volume 109.7 fL (80-100); Mean Platelet Volume 10.2 fL (7.4-10.4); Monocytes # (auto) 0.52 K/uL (0.11-0.59); Monocytes % (auto) 3.8 %; Neutrophils # (auto) 12.46 K/uL (1.4-6.5); Neutrophils % (auto) 92.2 %; Platelet Count 149 K/uL (130-400); White Blood Count 13.54 K/uL (4.8-10.8)
[2020-01-06 16:27] LABS: INR 1.6 (0.9-1.1); Prothrombin Time 16.6 Seconds (9.0-12.0)
[2020-01-06 16:38] LABS: Albumin Level 2.9 gm/dl (3.4-5.0); BUN Creatinine Ratio 7.7 (10-20); Calcium 10.2 mg/dl (8.5-10.1); Creatinine Clr Calc Pharmacy 12.1 ml/min; Est GFR (Non-African American) 10.3; Magnesium 2.4 mg/dl (1.8-2.4); Potassium 4.8 mmol/L (3.5-5.1)
[2020-01-06 16:48] LABS: Albumin Globulin Ratio 0.8 (0.9-2); Bilirubin,Total 0.9 mg/dl (0.2-1); Globulin 3.8 gm/dl (2.5-4.0); Thyroid Stimulating Hormone 0.662 uIu/ml (0.300-4.500); Total Protein 6.7 gm/dl (6.4-8.2)
--- NOTE | 2020-01-06 18:36 | History & Physical Report ---
Date of Service January 06, 2020 Assessment & Plan (1) Weakness: (2) AMS (altered mental status): Pt is 74 y/o F with PMH ESRD on HD on MWF, atrial fibrillation on Coumadin, PVD, HTN, HLD, DM II, tachybradycardia syndrome s/p pacemaker, chronic diastolic CHF, wounds to bilateral lower extremities presented to ER with complaint of weakness. Patient states tried to get out of bed today and felt weak and slid to floor and was unable to get up on floor. Reports been weak and not ambulating well at home DDX: underlying infection, deconditioning DDX: metabolic encephalopathy In ER pt noted to be somnolent. In ER afebrile, P: 73, R: 18, BP: 105/61, 97%. No significant electrolyte abnormalities CT Head: No acute intracranial abnormality -Obtain ammonia, ABG -Monitor -fall precautions -PT/OT eval -Monitor cbc, bmp (3) Cellulitis: (4) Wound of lower extremity: Chronic BLE wounds, following with wound clinic. Reports thinks left foot injured during EMS transport and c/o left foot pain today. WBC: 13.5 LEFT FOOT XRAY: Marked soft tissue edema with no acute bony abnormality identified -Pt will not allow this provider to remove wrap on RLE. LLE possible cellulitis -Zosyn, daptomycin -Monitor CBC -Wound consult -ID consult (5) Diarrhea: Reported 4 episodes of diarrhea. No abdominal pain -If recurrent diarrhea obtain c-diff, stool studies (6) ESRD on hemodialysis: On MWF schedule Last dialysis 01/04/2020 -Nephrology consult to assist in HD -Continue renal caps, sevelamer -Avoid nephrotoxic agents when possible (7) Atrial fibrillation: On Coumadin INR: 1.6 -Continue Coumadin, suspect INR will increase with antibiotics -INR in am (8) T2DM (type 2 diabetes mellitus): A1c: 6.9 on 09/08/2019 -Hold glipizide -Novolog sliding scale per protocol -A1c in am (9) Tachycardia-bradycardia syndrome: S/P Pacemaker (10) PVD (peripheral vascular disease): -Continue Plavix, statin, cilostazol, Coumadin (11) Diastolic CHF: Chronic diastolic CHF No SOB or orthopnea CXR: Cardiomegaly with mild pulmonary vascular congestion -HD tomorrow to assist in volume status (12) Anemia of chronic disease: Hgb: 9.7. Baseline 8-9 -Monitor H&H (13) Depression: -Continue Pristiq DVT Prophylaxis -On Coumadin Full Code as per discussion with pt Follows with Dr Ascencio for routine care Pt was seen and care coordinated with Dr Baumann. See addendum History of Present Illness Chief Complaint: Weakness Primary Care Provider: Jose Elias Ascencio MD Pt is 74 y/o F with PMH ESRD on HD on MWF, atrial fibrillation on Coumadin, PVD, HTN, HLD, DM II, tachybradycardia syndrome s/p pacemaker, chronic diastolic CHF, wounds to bilateral lower extremities presented to ER with complaint of weakness. Patient states tried to get out of bed today and felt weak and slid to floor and was unable to get up on floor. Patient does not think she hit her head or had LOC. lokie driver arrived to take patient to dialysis and was unable to get patient off floor so EMS was called. Patient states had 4 episodes of diarrhea since last night. Denies any nausea or vomiting. Patient did not go to dialysis today. She reports does not make any urine. Patient has chronic wounds to bilateral lower legs and has been following with wound clinic reports is taking antibiotic and having legs wrapped. Patient reports chronic drainage from wounds and redness of legs, she is unsure if there is any increased worsening. Denies any known fever or chills. Patient complaining of left foot pain she reports she thinks her left foot was injured during transportation by EMS. She reports chronic bilateral shoulder pain which is unchanged and chronic right hip pain which is unchanged. Patient had SCC removed by Mohs surgery on 12/31/[address] Cowart at [facility]. In ER patient somnolent, she reports that she is always tired. Patient reports has been ambulating very little at home has been using a walker or wheelchair. Denies PARDO, dizziness, syncope, vision changes, neck pain, CP, SOB, orthopnea, palpitations, cough, sore throat, choking, otalgia, rhinorrhea, abdominal pain, paresthesias, increased extremity edema, other rashes. Allergies Allergy/AdvReac Type Severity Reaction Status Date / Time No Known Allergies Allergy Unverified 01/06/20 17:24 Home Medications Home Medications Medication Instructions Recorded Confirmed Type Flovent HFA 2 puff INHALATION BID 12/16/18 01/06/20 History Renal Caps 1 mg PO QAM 12/16/18 01/06/20 History cilostazol 100 mg PO BID 12/16/18 01/06/20 History clopidogrel 75 mg PO QAM 12/16/18 01/06/20 History glipizide 5 mg PO QAM 12/16/18 01/06/20 History nitroglycerin 0.4 mg SUBLINGUAL Q5M PRN 12/16/18 01/06/20 History Auryxia 210 mg PO TIDM 04/29/19 01/06/20 History albuterol sulfate 2 puff INHALATION Q6H PRN 04/29/19 01/06/20 History atorvastatin 40 mg PO HS 04/29/19 01/06/20 History desvenlafaxine succinate [Pristiq] 25 mg PO QAM 04/29/19 01/06/20 History sevelamer carbonate 800 mg tablet 800 mg PO TIDM 12/18/19 01/06/20 History cefdinir 300 mg capsule 300 mg PO Q48H #7 cap 12/21/19 01/06/20 Rx albuterol sulfate 2.5 mg INHALATION QID PRN 01/06/20 01/06/20 History hydrocortisone 1 applic TOPICAL DAILY PRN 01/06/20 01/06/20 History lidocaine-prilocaine 1 applic TOPICAL .PRE DIALYSIS 01/06/20 01/06/20 History oxycodone-acetaminophen 1 tab PO Q6H PRN 01/06/20 01/06/20 History pantoprazole 40 mg PO DAILY 01/06/20 01/06/20 History warfarin 3 mg PO DAILY 01/06/20 01/06/20 History Past Med/Surg History Medical History Aftercare following removal/replacement pacemaker (Chronic) Asthma (Acute) AV fistula (Chronic) Left upper ext. CAD (coronary artery disease) (Chronic) hx of PCI to LAD, Circumflex, RCA in CKD (chronic kidney disease) stage 4, GFR 15-29 ml/min (Chronic) Depression (Chronic) ESRD (end stage renal disease) on dialysis (Chronic) Follows Dr. 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 pacemaker, with recent addition of right infraclavicular [employer] biventricular pacemaker in March, as outlined above HLD (hyperlipidemia) (Chronic) HTN (hypertension) (Chronic) Open wound of right lower leg Open wound of right upper arm (Resolved) PAD (peripheral artery disease) (Chronic) PAF (paroxysmal atrial fibrillation) (Chronic) Renal artery stenosis (Chronic) s/p stent T2DM (type 2 diabetes mellitus) (Chronic) Tachy-mary syndrome (Resolved) s/p PPM Dr. Goldstein Traumatic open wound of right lower leg with delayed healing (Acute) Unstageable pressure ulcer of right heel (Acute) Vitamin D deficiency (Chronic) Volume overload Surgical History History of angioplasty of peripheral vessel (Chronic) fem/pop bypass 10/21 history of Renal stent History of atrioventricular linda ablation (Chronic) 04/01/[address] Goldstein History of (Chronic) x 3 History of lumbar laminectomy (Chronic) History of percutaneous coronary intervention (Chronic) History of total right hip arthroplasty (Chronic) Family History Father , age 61 Stroke Hypertension Mother , age 51 Myocardial infarction Sister , age 50 Cervical ca Sister Breast cancer Social History (Updated 01/06/20 @ 18:44 by Taya Rangel PA-C) Preferred Language: Welsh Communication Ability: Effective Material Specialist Required: No Beliefs That Will Affect Care: None marital status: / Current Living Situation: Alone Current Living Situation Comment: Lives with grandson, but moving out soon. Feels Safe at Home: Yes Safety Concerns: Feels Safe At This Time Smoking Status: Never smoker Second Hand Exposure: Yes ; Hx Alcohol Use: No Hx Substance Use: No Review of Systems Review of Systems: All systems reviewed & are unremarkable except as noted in HPI & below Physical Exam Physical Exam: General: no acute distress, chronic ill appearing, obese Head: normocephalic, atraumatic Eyes: PERRL, EOM's intact, conjunctiva non-injected, anicteric ENT: normal inspection external ears, nose, mucous membranes mildly dry Neck: supple, trachea midline, non-tender Lungs: clear, no respiratory distress, no wheezing/rhonchi/rales CV: RRR, no murmur Abd: normal BS, soft, non-tender Ext: no cyanosis, LUE: +fistula with palpable thrill, left forearm with sutures in place without erythema or discharge; LLE: +ulcer anterior lower leg, lower leg with erythema, edema extending to foot with tenderness to palpation, anterior toes 2-5 with ecchymosis; RLE: wrap in place (pt will not allow this provider to remove wrap to evaluate) Neuro: A&O x 3, no focal deficits noted, normal affect Skin: warm, dry, +ecchymosis to arms, legs, chest Results & Data Results & Data ([facility]) Vital Signs (Past 12 Hours) Vital Signs Temp Pulse Pulse Resp BP BP Pulse Ox 01/06/20 18:16 70 19 86/45 L 95 01/06/20 16:33 70 20 89/39 L 91 01/06/20 14:29 36.9 C 73 18 105/61 97 Laboratory Results Short CBC 01/06/20 Range/Units 16:02 WBC 13.54 H (4.8-10.8) K/uL Hgb 9.7 L (12.0-16.0) g/dL Hct 31.8 L (37-47) % Plt Count 149 (130-400) K/uL BMP 01/06/20 16:02 Sodium 135 L Potassium 4.8 Chloride 98 Carbon Dioxide 29 BUN 31 H Creatinine 3.99 H Glucose 123 H Calcium 10.2 H Cardiac Enzymes 01/06/20 Range/Units 16:02 Total Creatine Kinase 52 (26-192) U/L Liver Function 01/06/20 Range/Units 16:02 Total Bilirubin 0.9 (0.2-1) mg/dl AST 18 (15-37) U/L ALT 27 (12-78) U/L Alkaline Phosphatase 204 H (45-117) U/L Albumin 2.9 L (3.4-5.0) gm/dl Diagnostic Findings CXR: IMPRESSION: Cardiomegaly with mild pulmonary vascular congestion. LEFT FOOT XRAY: IMPRESSION: Marked soft tissue edema with no acute bony abnormality identified. ECG Findings: + paced rhythm Code Status & VTE Plan VTE Prophylaxis Plan VTE Prophylaxis will be ordered: Yes Supervising Physician Co-Signing Physician Notes Attending Addendum: care coordinated with EUGENIA Peres please refer to her notes for full details, I agree with her notes patient seen and examined, records reviewed by myself as well on exam, patient seen resting in bed, having dinner reports diarrhea ~4 times at home also reports increase tenderness, pain on her BL lower legs no other symptoms VS noted and reviewed oriented x 3, not in distress, speaks in sentences with no effort nor accessory muscle use normal rate, regular rhythm, no murmurs clear breath sounds bilaterally non distended, soft, nontender left lower leg: grade 2 edema, (+) moderate erythema, and tenderness, warmth right lower leg: heavy dressing in place no focal neuro deficits WBC 13.5 Hg 9.7 Crea 3.99 ASSESSMENT AND PLAN WEAKNESS likely secondary to Diarrhea, possible Metabolic Encephalopathy from BL Lower Extremity Cellulitis - C Diff test Blood cultures - empiric Dapto + Zosyn Wound consult ID consult ESRD - for HD tomorrow other diagnoses and plan of care as per EUGENIA Peres notes Emil Baumann MD (1) T2DM (type 2 diabetes mellitus) Chronic kidney disease stage: stage 4 (severe) Diabetes mellitus complication detail: with chronic kidney disease Diabetes mellitus complication status: with kidney complications Diabetes mellitus half-way insulin use: without half-way use Qualified Code(s): E11.22 - Type 2 diabetes mellitus with diabetic chronic kidney disease; N18.4 - Chronic kidney disease, stage 4 (severe) (2) Depression Depression Type: unspecified Qualified Code(s): F32.9 - Major depressive disorder, single episode, unspecified (3) Diarrhea Diarrhea type: unspecified type Qualified Code(s): R19.7 - Diarrhea, unspecified
[2020-01-06] MEDS ORDERED: ALBUTEROL 0.083% NEBU SOLN 3 ML VIAL INH PRN (19:07)
[2020-01-06] MEDS ORDERED: NITROGLYCERIN SL 0.4 MG/TAB TAB SL PRN (19:07)
[2020-01-06] MEDS ORDERED: ACETAMINOPHEN 325 MG TAB PO PRN (19:07)
[2020-01-06] MEDS ORDERED: CARBOHYDRATES FOR HYPOGLYCEMIA PO PRN (19:07)
[2020-01-06] MEDS ORDERED: GLUCOSE 10 TABS/TUBE PO PRN (19:07)
[2020-01-06] MEDS ORDERED: GLUCOSE 40% GEL 15 GM TUBE PO PRN (19:07)
[2020-01-06] MEDS ORDERED: GLUCAGON FOR INJ 1 MG VIAL SQ PRN (19:07)
--- NOTE | 2020-01-06 19:09 | CT Scan Report ---
CT head/brain wo con CT DOSE: 857.50 mGy.cm HISTORY: Mental status change AMS TECHNIQUE: Multiaxial CT images of the head were performed without the use of intravenous contrast. A dose lowering technique was utilized adhering to the principles of ALARA. Comparison: None. Findings: The paranasal sinuses and mastoid air cells are clear. Age-related atrophy and chronic smal l vessel change. 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 Several small periventricular infarct also consid er old. No evidence for acute intracranial hemorrhage. Impression: 1. No acute intracranial abnormality. 2. Age-related change. ACT 112: Negative or not required by law. The above report was generated using voice recognition software. It may contain grammatical, syntax or spelling errors. Electronically signed by: Davi Osuna M.D. 01/06/2020 7:07 PM
[2020-01-06] MEDS ORDERED: PIPERACILL/TAZOBAC CONSULT ACTIVE PRN (19:23)
[2020-01-06] MEDS ORDERED: DAPTOMYCIN CONSULT ACTIVE PRN (19:27)
[2020-01-06] MEDS ORDERED: PIPERACILLIN/TAZOBACTAM 3.375 GM in DEXTROSE 5% 100 ML IV ONE (19:30)
[2020-01-06] MEDS ORDERED: WARFARIN SOD 5 MG TAB PO ONE (19:30)
[2020-01-06] MEDS: DEXTROSE 50% 50 ML SYRINGE IV PRN (19:32)
[2020-01-06 19:42] LABS: Base Excess ABG 3.5 mEq/L (-9-1.8); HCO3 ABG 27 mmol/L (19-24); Oxygen Saturation ABG 91.9 % (90-95); PCO2 ABG 38 mmHg (35-46); PO2 ABG 65 mmHg (80-95); pH ABG 7.48 (7.35-7.45)
[2020-01-06 19:43] LABS: Allen Test Pos (Pos)
[2020-01-06] MEDS ORDERED: DAPTOmycin 225 MG in SYRINGE 0 ML IV SCH (20:00)
[2020-01-06] MEDS: INSULIN ASPART 100 UNITS/ML 3 ML PEN SC SCH (20:30)
[2020-01-06] MEDS: cilostazoL 100 MG TAB PO SCH (20:33)
[2020-01-06] MEDS: ATORVASTATIN 40 MG TAB PO SCH (20:33)
[2020-01-06] MEDS: TRAMADOL HCL 50 MG TABLET PO PRN (21:03)
[2020-01-07] MEDS ORDERED: PIPERACILLIN/TAZOBACTAM 3.375 GM in DEXTROSE 5% 100 ML IV SCH
[2020-01-07 07:22] LABS: Hematocrit (blood only) 31.5 % (37-47); Hemoglobin 9.8 g/dL (12.0-16.0); Mean Corpuscular Hemoglobin 33.7 pg (25-34); Mean Corpuscular Hgb Conc 31.1 g/dL (32-36); Mean Corpuscular Volume 108.2 fL (80-100); Mean Platelet Volume 10.3 fL (7.4-10.4); Platelet Count 119 K/uL (130-400); Red Blood Count 2.91 M/uL (4.2-5.4); White Blood Count 12.57 K/uL (4.8-10.8)
[2020-01-07 07:31] LABS: INR 2.1 (0.9-1.1); Prothrombin Time 21.4 Seconds (9.0-12.0)
[2020-01-07 07:43] LABS: Estimated Average Glucose 131 mg/dl; Hemoglobin A1C 6.2 % (4.5-5.6)
[2020-01-07] MEDS: DEXTROSE 50% 50 ML SYRINGE IV PRN ×2 (07:45→17:30)
[2020-01-07 07:52] LABS: BUN Creatinine Ratio 9.2 (10-20); Calcium 10.1 mg/dl (8.5-10.1); Creatinine Clr Calc Pharmacy 10.4 ml/min; Est GFR (African American) 10.6; Est GFR (Non-African American) 9.1; Magnesium 2.5 mg/dl (1.8-2.4); Phosphorus 3.3 mg/dl (2.5-4.9); Potassium 4.9 mmol/L (3.5-5.1)
[2020-01-07] MEDS: cilostazoL 100 MG TAB PO SCH ×2 (08:18→20:21)
[2020-01-07] MEDS: PANTOprazole 40 MG TAB PO SCH (08:18)
[2020-01-07] MEDS: NEPHROCAPS PO SCH (08:18)
[2020-01-07] MEDS: INSULIN ASPART 100 UNITS/ML 3 ML PEN SC SCH ×3 (08:18→17:09)
[2020-01-07] MEDS: SEVELAMER HCL 800 MG TABLET PO SCH ×3 (08:18→16:08)
[2020-01-07] MEDS: CLOPIDOGREL BISULFATE 75 MG TAB PO SCH (08:18)
[2020-01-07] MEDS: FLUTICASONE FUROATE 200MCG 14 PUFFS/INHALER INH SCH (08:18)
--- NOTE | 2020-01-07 08:41 | Hospitalist Progress Note ---
Date of Service January 07, 2020 Assessment & Plan (1) Hypoglycemia: Persistent, likely related to glipizide. Three lows in 24 hours despite eating well. Will start some D5 to give 2.5-5 grams/hr to help give support overnight. Cont to check this evening and overnight. If hyperglycemia develops would turn off fluids instead of giving any insulin. (2) Bacteremia: Gram negative organisms in blood cultures. Covering broadly. Awaiting cultures. Pt not septic or ill-appearing at this time. Afebrile. (3) Acute metabolic encephalopathy: Resolved. Was likely related to persistent hypoglycemia, however, adrenal insufficiency also considered in the setting of hypotension and hypoglycemia. Pt also has a cellulitis which may be contributing. Checking random cortisol (on fluticasone nasal spray and topical hydrocortisone at home). Hold stress dose hydrocortisone unless patient becomes unstable. Hypoglycemia was present overnight with glucose given and again was required this morning. This likely speaks to the impaired clearance and long-acting nature of the glipizide she is taking, which should be stopped. Cont to hold glipizide now and only use Novolog for correction factor--avoid carbohydrate coverage. Will need to consider discontinuation of glipizide at discharge vs decreasing this amount to the recommended ESRD dose of 2.5 daily. Cont antibiotics pending culture results. (4) Wound of lower extremity: Possible superficial infection, wound culture pending. Bacteremia present. ID on case-cont broad spectrum abx. (5) ESRD on hemodialysis: Received treatment today. Cont per Nephro. (6) Atrial fibrillation: paced rhythm in the 70s overnight on telemetry. Not requiring rate control. (7) PVD (peripheral vascular disease): -Continue Plavix, statin, cilostazol (8) Anemia of chronic disease: chronic, stable. No need for transfusion at this time. (9) Depression: Pristiq per home regimen. (10) DVT prophylaxis: coumadin Full Code Dispo-cont hospitalization through the weekend at a minimum. DC to V at discharge per DO Jose R Bullock Hospitalist Admission and Anticipated Discharge Date Admission Date: January 06, 2020 Subjective 74 yo F reports a fall and significant weakness without much prodrome yesterday in her home. She was unable to go to HD yesterday, and received that treatment today Overnight at 1900, BSG was 60 and she was given glucose. This morning she was also low and symptomatic, and given D50. Despite eating breakfast and lunch, she again became hypoglycemic this afternoon to 30. Denies fevers, chills, no continued diarrhea, which was present yesterday. Feels generally weaker than her baseline. Reports pain in L hip and bilateral feet from the EMS transfer process. Review of Systems Review of Systems: All systems reviewed & are unremarkable except as noted in Subjective Physical Exam Physical Exam: CONSTITUTIONAL: obese, vitals as above, generally well- appearing EYES: Pupils are equal and round bilaterally. Normal conjunctivae, no scleral icterus ENT: external ear and nose normal, oropharynx clear RESPIRATORY: clear to auscultation bilaterally, no crackles, rales or wheezes CARDIOVASCULAR: regular rate and rhythm, S1 and 2 heard without murmurs, gallops or rubs, no JVD, no peripheral edema GASTROINTESTINAL: soft, nontender, nontender MUSCULOSKELETAL: limited movement of limbs that appears equal, generalized weakness, cannot sit up on her own. SKIN: warm and dry NEUROLOGIC: CN 2-12 grossly intact, no sensory deficit, normal cognition, normal speech PSYCHIATRIC: alert cooperative and oriented to person, place and time. LYMPHATIC: no LA Results & Data Results & [facility] ([facility]) Vital Signs (Past 12 Hours) Vital Signs Temp Pulse Pulse Resp BP Pulse Ox 01/07/20 07:21 71 18 93/57 L 93 01/07/20 03:24 36.4 C L 69 22 96/55 L 94 01/06/20 23:26 36.9 C 68 22 117/62 95 01/06/20 23:07 70 Laboratory Results Short CBC 01/06/20 01/07/20 Range/Units 16:02 06:48 WBC 13.54 H 12.57 H (4.8-10.8) K/uL Hgb 9.7 L 9.8 L (12.0-16.0) g/dL Hct 31.8 L 31.5 L (37-47) % Plt Count 149 119 L (130-400) K/uL BMP 01/06/20 01/07/20 16:02 06:48 Sodium 135 L 135 L Potassium 4.8 4.9 Chloride 98 99 Carbon Dioxide 29 29 BUN 31 H 41 H Creatinine 3.99 H 4.42 H D Glucose 123 H 25 L* Calcium 10.2 H 10.1 Cardiac Enzymes 01/06/20 Range/Units 16:02 Total Creatine Kinase 52 (26-192) U/L Liver Function 01/06/20 Range/Units 16:02 Total Bilirubin 0.9 (0.2-1) mg/dl AST 18 (15-37) U/L ALT 27 (12-78) U/L Alkaline Phosphatase 204 H (45-117) U/L Albumin 2.9 L (3.4-5.0) gm/dl Medications Administered Current Inpatient Medications Acetaminophen (Tylenol) 650 mg PO Q4H PRN PRN Reason: Pain or Fever Stop: 02/05/20 19:06 Albuterol (Ventolin 0.083% 2.5mg/3ml) 2.5 mg INH QID PRN PRN Reason: Shortness Of Breath Or Wheezing Stop: 02/05/20 19:06 Atorvastatin Calcium (Lipitor) 40 mg PO HS GORDO Stop: 02/05/20 20:59 Last Admin: 01/06/20 20:33 Dose: 40 mg Documented by: Cilostazol (Pletal) 100 mg PO BID GORDO Stop: 02/05/20 20:59 Last Admin: 01/07/20 08:18 Dose: 100 mg Documented by: Clopidogrel Bisulfate (Plavix) 75 mg PO QAM GORDO Stop: 02/06/20 08:59 Last Admin: 01/07/20 08:18 Dose: 75 mg Documented by: Dextrose (Dextrose 50%) 25 - 50 ml IV UD PRN; Protocol PRN Reason: Hypoglycemia Protocol Stop: 02/05/20 19:06 Last Admin: 01/07/20 07:45 Dose: 50 ml Documented by: Fluticasone Furoate (Arnuity Ellipta 200mcg) 1 puffs INH DAILY GORDO Stop: 02/06/20 08:59 Last Admin: 01/07/20 08:18 Dose: 1 puffs Documented by: Glucagon (Glucagen) 1 mg SQ UD PRN; Protocol PRN Reason: Hypoglycemia Protocol Stop: 02/05/20 19:06 Glucose (Dex4 Glucose) 4 - 8 tabs PO UD PRN; Protocol PRN Reason: Hypoglycemia Protocol Stop: 02/05/20 19:06 Glucose (Glucose 40%) 15 - 30 gm PO UD PRN; Protocol PRN Reason: Hypoglycemia Protocol Stop: 04/24/20 19:06 Daptomycin 225 mg/ Syringe 4.5 mls @ 2.25 mls/min IV Q48H GORDO; Protocol Stop: 01/13/20 19:59 Last Admin: 01/06/20 20:33 Dose: 2.25 mls/min Documented by: Piperacillin Sod/Tazobactam (Sod 4.5 gm/ Dextrose) 120 mls @ 30 mls/hr IV Q12H GORDO; Protocol Stop: 01/14/20 11:59 Insulin Aspart (Novolog Flexpen) 0 units SC ACHS GORDO Stop: 02/05/20 20:59 Last Admin: 01/07/20 08:18 Dose: Not Given Documented by: Miscellaneous (Carbohydrates For Hypoglycemia) 15 - 30 gm PO UD PRN PRN Reason: Hypoglycemia Protocol Stop: 02/05/20 19:06 Miscellaneous (Order Awaiting Action) 1 ea N/A QS [facility] Stop: 02/06/20 00:00 Last Admin: 01/07/20 08:01 Dose: Not Given Documented by: Miscellaneous (Order Awaiting Action) 1 ea N/A QS [facility] Stop: 02/06/20 00:00 Last Admin: 01/07/20 08:01 Dose: Not Given Documented by: Miscellaneous Information (Consult) 1 ea N/A UD PRN PRN Reason: Consult Stop: 02/05/20 19:26 Miscellaneous Information (Consult) 1 ea N/A UD PRN PRN Reason: Consult Stop: 02/05/20 19:22 Nitroglycerin (Nitrostat) 0.4 mg SL Q5M PRN PRN Reason: Chest Pain Stop: 02/05/20 19:06 Pantoprazole Sodium (Protonix) 40 mg PO DAILY GORDO Stop: 02/06/20 08:59 Last Admin: 01/07/20 08:18 Dose: 40 mg Documented by: Sevelamer HCl (Renagel) 800 mg PO TIDM GORDO Stop: 02/06/20 07:59 Last Admin: 01/07/20 08:18 Dose: 800 mg Documented by: Tramadol HCl (Ultram) 25 mg PO Q12H PRN PRN Reason: pain Stop: 02/05/20 20:44 Last Admin: 01/06/20 21:03 Dose: 25 mg Documented by: Vitamin B Complex/Folic Acid (Nephrocaps) 1 cap PO QAM [facility] Stop: 02/06/20 08:59 Last Admin: 01/07/20 08:18 Dose: 1 cap Documented by: Warfarin Sodium (Coumadin) 3 mg PO DAILY@1600 [facility] Stop: 02/06/20 15:59 (1) Depression Depression Type: unspecified Qualified Code(s): F32.9 - Major depressive disorder, single episode, unspecified
[2020-01-07] MEDS ORDERED: SODIUM CHLORIDE 0.9% 1000ML 1,000 ML IV PRN (08:51)
[2020-01-07] MEDS ORDERED: HEPARIN SOD (PORCINE) 1000 UNIT/ML 10 ML VIAL IV SCH (09:00)
[2020-01-07] MEDS ORDERED: EPOETIN ALFA 4,000 UNIT/ML VIAL IV SCH (09:30)
[2020-01-07] MEDS ORDERED: LIDOCAINE/PRILOCAINE 2.5% EA CRM EXT ONE (10:00)
--- NOTE | 2020-01-07 11:09 | Infectious Disease Consult ---
Date of Consultation January 07, 2020 Assessment & Plan (1) Gram negative sepsis: will continue on abx, and repeat blood cultures x 2. suspect leg as source. wound care eval pending, would obtain wound culture at time of dressing change. (2) Wound of lower extremity: (3) Cellulitis: History of Present Illness Attending Physician: Nevin Lopez DO pt admitted with generalized weakness, she has chronic wounds b/l legs for which she follows at wound center. 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 She also has h/o MRSA in wound. She was afebrile in ER, wbc 13, creat elevated. she is on HD. Blood cultures done in ER, now growing GNR 2/2 sets. She was placed on dapto and zosyn and is tolerating well. ID was consulted for cellulitis. She has dressings in place, no bleeding or drainage. She is on HD in her room during my exam, I did not removed dressings as she is on HD. no f/c. no cough, sob, cp, no abd pain, no n/v/d. She does c/o pain in both legs. Allergies Allergy/AdvReac Type Severity Reaction Status Date / Time No Known Allergies Allergy Unverified 01/06/20 17:24 Home Medications Home Medications Medication Instructions Recorded Confirmed Type Flovent HFA 2 puff INHALATION BID 12/16/18 01/06/20 History Renal Caps 1 mg PO QAM 12/16/18 01/06/20 History cilostazol 100 mg PO BID 12/16/18 01/06/20 History clopidogrel 75 mg PO QAM 12/16/18 01/06/20 History glipizide 5 mg PO QAM 12/16/18 01/06/20 History nitroglycerin 0.4 mg SUBLINGUAL Q5M PRN 12/16/18 01/06/20 History Auryxia 210 mg PO TIDM 04/29/19 01/06/20 History albuterol sulfate 2 puff INHALATION Q6H PRN 04/29/19 01/06/20 History atorvastatin 40 mg PO HS 04/29/19 01/06/20 History desvenlafaxine succinate [Pristiq] 25 mg PO QAM 04/29/19 01/06/20 History sevelamer carbonate 800 mg tablet 800 mg PO TIDM 12/18/19 01/06/20 History cefdinir 300 mg capsule 300 mg PO Q48H #7 cap 12/21/19 01/06/20 Rx albuterol sulfate 2.5 mg INHALATION QID PRN 01/06/20 01/06/20 History hydrocortisone 1 applic TOPICAL DAILY PRN 01/06/20 01/06/20 History lidocaine-prilocaine 1 applic TOPICAL .PRE DIALYSIS 01/06/20 01/06/20 History oxycodone-acetaminophen 1 tab PO Q6H PRN 01/06/20 01/06/20 History pantoprazole 40 mg PO DAILY 01/06/20 01/06/20 History warfarin 3 mg PO DAILY 01/06/20 01/06/20 History Patient History Medical History Aftercare following removal/replacement pacemaker (Chronic) Asthma (Acute) AV fistula (Chronic) Left upper ext. CAD (coronary artery disease) (Chronic) hx of PCI to LAD, Circumflex, RCA in CKD (chronic kidney disease) stage 4, GFR 15-29 ml/min (Chronic) Depression (Chronic) ESRD (end stage renal disease) on dialysis (Chronic) Follows Dr. 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 pacemaker, with recent addition of right infraclavicular [employer] biventricular pacemaker in March, as outlined above HLD (hyperlipidemia) (Chronic) HTN (hypertension) (Chronic) Open wound of right lower leg Open wound of right upper arm (Resolved) PAD (peripheral artery disease) (Chronic) PAF (paroxysmal atrial fibrillation) (Chronic) Renal artery stenosis (Chronic) s/p stent T2DM (type 2 diabetes mellitus) (Chronic) Tachy-mary syndrome (Resolved) s/p PPM Dr. Goldstein Traumatic open wound of right lower leg with delayed healing (Acute) Unstageable pressure ulcer of right heel (Acute) Vitamin D deficiency (Chronic) Volume overload Surgical History History of angioplasty of peripheral vessel (Chronic) fem/pop bypass 10/21 history of Renal stent History of atrioventricular linda ablation (Chronic) 04/01/[address] 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 Feels Safe at Home: Yes Safety Concerns: Feels Safe At This Time Smoking Status: Never smoker Second Hand Exposure: Yes ; Hx Alcohol Use: No Hx Substance Use: No Review of Systems Review of Systems: All systems reviewed & are unremarkable except as noted in HPI & below Physical Exam Constitutional: WD/WN, vitals as above Eyes: PERRL, conjunctivae normal, anicteric sclerae ENMT: external ear and nose normal, oropharynx normal Neck: normal visual inspection Respiratory: normal respiratory effort, lungs clear to auscultation Cardiovascular: RRR, no murmur, no edema Gastrointestinal (Abdomen): normal bowel sounds, soft, nontender, no hepatosplenomegaly Musculoskeletal: no cyanosis or clubbing, extremities motor strength 5/5 Skin: no rashes, warm and dry + wound (dressing c/d/i) Psychiatric: A+Ox3, euthymic affect Results & Data ([facility]) Vital Signs (Past 12 Hours) Vital Signs Temp Pulse Pulse Resp BP Pulse Ox 01/07/20 07:21 71 18 93/57 L 93 01/07/20 03:24 36.4 C L 69 22 96/55 L 94 01/06/20 23:26 36.9 C 68 22 117/62 95 01/06/20 23:07 70 Laboratory Results Microbiology 01/06/20 15:45 Blood Aerobic Blood Culture - Preliminary Gram negative bacilli 01/06/20 16:02 Blood Aerobic Blood Culture - Preliminary Gram negative bacilli PG Care Time/CCT Total # of Minutes Spent Total Time Spent with Patient: Total time spent is greater than 50% in coordination of care (as documented) at patient's floor/unit and/or counseling patient: Coding Level of Care Code 14583 Inpt Consult Level 4 Diagnoses Gram negative sepsis A41.50 Wound of lower extremity S81.809A Cellulitis L03.90
[2020-01-07] MEDS ORDERED: MIDODRINE HCL 10 MG TAB PO ONE (11:15)
[2020-01-07] MEDS: LIDOCAINE 5% 1 PATCH TD SCH (14:00)
[2020-01-07] MEDS: PIPERACILLIN/TAZOBACTAM 4.5 GM in DEXTROSE 5% 100 ML IV SCH ×2 (14:57→23:32)
--- NOTE | 2020-01-07 15:53 | Electrocardiogram Report ---
Test Reason : Blood Pressure : / mmHG Vent. Rate : 077 BPM Atrial Rate : 088 BPM P-R Int : 000 ms QRS Dur : 142 ms QT Int : 438 ms P-R-T Axes : 000 -60 117 degrees QTc Int : 495 ms Ventricular-paced rhythm Abnormal ECG When compared with ECG of 01-DEC-2019 13:51, Vent. rate has increased BY 7 BPM Confirmed by Steve Bhatt ([id number]) on 01/07/2020 3:52:58 PM Referred By: REFERRED SELF Confirmed By:Epifanio Bhatt
[2020-01-07] MEDS: WARFARIN SOD 3 MG TAB PO SCH (16:07)
[2020-01-07] MEDS ORDERED: TRAMADOL HCL 50 MG TABLET PO PRN (18:08)
[2020-01-07] MEDS: ACETAMINOPHEN 325 MG TAB PO SCH (18:20)
[2020-01-07] MEDS: D5W AND NSS 1,000 ML IV SCH (18:25)
--- NOTE | 2020-01-07 19:18 | Nephrology Consultation ---
Date of Consultation January 07, 2020 Assessment & Plan (1) ESRD on hemodialysis: Patient on HD MWF in [place]. Last HD was saturday. Patient tolerated HD today. She had IDH improved with midodrine. She had net UF 1.5 litres. Next HD Saturday and Saturday (2) Anemia of chronic disease: Hb 9.8 today. Will give epogen 8000 units with HD today (3) Bacteremia: Due to G- rods. Likely from the legs. She is on dapto and zosyn. renally dose meds for GFR less than 25ml/min. History of Present Illness Reason for Consultation: ESRD Requesting Physician: Nevin Lopez DO Attending Physician: Nvein Lopez DO History of Present Illness Pt is 74 y/o F with PMH ESRD on HD on MWF, atrial fibrillation on Coumadin, PVD, HTN, HLD, DM II, tachybradycardia syndrome s/p pacemaker, chronic diastolic CHF, wounds to bilateral lower extremities who was admitted on 01/05 with weakness. Her last HD was Saturday. She missed HD yesterday due to weakness. She has been having diarrhoea for 2 days. She has SOB today. She complains of leg pain. She was being treated outpt for cellulitis. She is now growing gram negative rods in the blood. She is on daptomycin and zosyn. Patient was initially seen in consultation. I later returned to see the patient on dialysis. patient was seen and examined while on HD in the morning. BP remained low and required midodrine half way in the treatment Allergies Allergy/AdvReac Type Severity Reaction Status Date / Time No Known Allergies Allergy Unverified 01/06/20 17:24 Home Medications Home Medications Medication Instructions Recorded Confirmed Type Flovent HFA 2 puff INHALATION BID 12/16/18 01/06/20 History Renal Caps 1 mg PO QAM 12/16/18 01/06/20 History cilostazol 100 mg PO BID 12/16/18 01/06/20 History clopidogrel 75 mg PO QAM 12/16/18 01/06/20 History glipizide 5 mg PO QAM 12/16/18 01/06/20 History nitroglycerin 0.4 mg SUBLINGUAL Q5M PRN 12/16/18 01/06/20 History Auryxia 210 mg PO TIDM 04/29/19 01/06/20 History albuterol sulfate 2 puff INHALATION Q6H PRN 04/29/19 01/06/20 History atorvastatin 40 mg PO HS 04/29/19 01/06/20 History desvenlafaxine succinate [Pristiq] 25 mg PO QAM 04/29/19 01/06/20 History sevelamer carbonate 800 mg tablet 800 mg PO TIDM 12/18/19 01/06/20 History cefdinir 300 mg capsule 300 mg PO Q48H #7 cap 12/21/19 01/06/20 Rx albuterol sulfate 2.5 mg INHALATION QID PRN 01/06/20 01/06/20 History hydrocortisone 1 applic TOPICAL DAILY PRN 01/06/20 01/06/20 History lidocaine-prilocaine 1 applic TOPICAL .PRE DIALYSIS 01/06/20 01/06/20 History oxycodone-acetaminophen 1 tab PO Q6H PRN 01/06/20 01/06/20 History pantoprazole 40 mg PO DAILY 01/06/20 01/06/20 History warfarin 3 mg PO DAILY 01/06/20 01/06/20 History Patient History Medical History Aftercare following removal/replacement pacemaker (Chronic) Asthma (Acute) AV fistula (Chronic) Left upper ext. CAD (coronary artery disease) (Chronic) hx of PCI to LAD, Circumflex, RCA in CKD (chronic kidney disease) stage 4, GFR 15-29 ml/min (Chronic) Depression (Chronic) ESRD (end stage renal disease) on dialysis (Chronic) Follows Dr. 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 pacemaker, with recent addition of right infraclavicular [employer] biventricular pacemaker in March, as outlined above HLD (hyperlipidemia) (Chronic) HTN (hypertension) (Chronic) Open wound of right lower leg Open wound of right upper arm (Resolved) PAD (peripheral artery disease) (Chronic) PAF (paroxysmal atrial fibrillation) (Chronic) Renal artery stenosis (Chronic) s/p stent T2DM (type 2 diabetes mellitus) (Chronic) Tachy-mary syndrome (Resolved) s/p PPM Dr. Goldstein Traumatic open wound of right lower leg with delayed healing (Acute) Unstageable pressure ulcer of right heel (Acute) Vitamin D deficiency (Chronic) Volume overload Surgical History History of angioplasty of peripheral vessel (Chronic) fem/pop bypass 10/21 history of Renal stent History of atrioventricular linda ablation (Chronic) 04/01/[address] 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 Feels Safe at Home: Yes Safety Concerns: Feels Safe At This Time Smoking Status: Never smoker Second Hand Exposure: Yes ; Hx Alcohol Use: No Hx Substance Use: No Review of Systems Review of Systems: All systems reviewed & are unremarkable except as noted in HPI & below Physical Exam Physical Exam: General exam: Appears comfortable, no acute distress HEENT: Pupils are equal and reactive to light Neck: No JVD, neck is supple trachea is midline Respiratory system: Crackles bilaterally. Gastrointestinal: Abdomen is soft, non distended, non tender, bowel sounds are present CVS: Regular rate and rhythm. No murmurs, rubs or gallops Musculoskeletal: No joint or muscle tenderness Extremities: Non tender, 1+ edema, left leg is red. Legs are wrapped half way up. Neuro: Oriented, no tremors, no focal neurological deficits Skin: No rashes Access: AVF left arm Results & Data Vital Signs (Past 12 Hours) Vital Signs Temp Pulse Pulse Pulse Resp BP BP 01/07/20 15:19 36.4 C L 71 20 87/50 L 01/07/20 15:15 75 01/07/20 14:50 36.5 C 69 81/35 L 01/07/20 14:12 70 85/38 L 01/07/20 14:00 68 72/37 L 01/07/20 13:40 70 88/45 L 01/07/20 13:20 69 86/46 L 01/07/20 13:00 69 103/44 L 01/07/20 12:40 70 87/42 L 01/07/20 12:20 70 80/41 L 01/07/20 12:00 69 80/37 L 01/07/20 11:40 70 76/40 L 01/07/20 11:20 60 106/33 L 01/07/20 11:00 71 67/41 L 01/07/20 10:48 66 80/34 L 01/07/20 10:40 36.6 C 66 01/07/20 07:21 71 18 93/57 L Pulse Ox 01/07/20 15:19 01/07/20 15:15 01/07/20 14:50 01/07/20 14:12 01/07/20 14:00 01/07/20 13:40 01/07/20 13:20 01/07/20 13:00 01/07/20 12:40 01/07/20 12:20 01/07/20 12:00 01/07/20 11:40 01/07/20 11:20 01/07/20 11:00 01/07/20 10:48 01/07/20 10:40 01/07/20 07:21 93 Laboratory Results 01/07/20 06:48 01/07/20 01/07/20 06:48 06:48 WBC 12.57 H RBC 2.91 L MCV 108.2 H MCH 33.7 MCHC 31.1 L RDW Std Deviation 74.0 H RDW Coeff of Oleksandr 19.0 H Plt Count 119 L MPV 10.3 Phosphorus 3.3
[2020-01-07] MEDS ORDERED: DAPTOmycin 250 MG in SYRINGE 0 ML IV SCH (21:00)
[2020-01-07] MEDS: TRAMADOL HCL 50 MG TABLET PO PRN (23:45)
[2020-01-08] MEDS: ACETAMINOPHEN 325 MG TAB PO SCH ×3 (05:47→20:45)
[2020-01-08 05:48] LABS: Hematocrit (blood only) 28.8 % (37-47); Hemoglobin 8.9 g/dL (12.0-16.0); Mean Corpuscular Hemoglobin 32.8 pg (25-34); Mean Corpuscular Hgb Conc 30.9 g/dL (32-36); Mean Corpuscular Volume 106.3 fL (80-100); Mean Platelet Volume 10.5 fL (7.4-10.4); Platelet Count 130 K/uL (130-400); RDW Coefficient of Variation 18.7 % (11.5-14.5); RDW Standard Deviation 71.7 fL (36.4-46.3); Red Blood Count 2.71 M/uL (4.2-5.4); White Blood Count 13.23 K/uL (4.8-10.8)
[2020-01-08 06:01] LABS: INR 2.6 (0.9-1.1); Prothrombin Time 26.2 Seconds (9.0-12.0)
[2020-01-08 06:29] LABS: Calcium 9.1 mg/dl (8.5-10.1); Creatinine Clr Calc Pharmacy 15.3 ml/min; Est GFR (African American) 17.1; Est GFR (Non-African American) 14.8; Magnesium 2.2 mg/dl (1.8-2.4); Phosphorus 2.3 mg/dl (2.5-4.9); Potassium 4.2 mmol/L (3.5-5.1)
--- NOTE | 2020-01-08 08:14 | Wound Consultation ---
Date of Consultation January 07, 2020 Assessment & Plan (1) Traumatic open wound of left lower leg with delayed healing: Wound needed debridement. After obtaining permission, topical xylocaine was applied. Using a curette, the wound was debrided of fibrin and slough. Minimal bleeding was controlled with pressure. This represents a nonexcisional debridement of less than 20cm2. wound will be dressed with melly, 4x4 and single layer tubigrip change every other day. Wound culture was obtained. Patient states she thinks she had her arterial studies with Dr. Jennings, but is unsure. Results are not available yet. (2) Traumatic open wound of right lower leg with delayed healing: Wound needed debridement. After obtaining permission, topical xylocaine was applied. Using a curette, the wound was debrided of fibrin and slough Minimal bleeding was controlled with pressure. Patient tolerated procedure well with no complications. This represents a nonexcisional debridement of less than 20cm2. Total debridement less than 20cm2. Wound will be dressed with melly, 4x4 and coban lite wrap changed MWF. Wound culture was obtained. (3) Unstageable pressure ulcer of right heel: Wound covered with black eschar that was starting to separate. Using scissors, eschar was removed revealing a healed wound. Thank you fo allowing me to participate in the care of this patient. Will continue to follow. History of Present Illness Reason for Consultation: b/l leg wounds Attending Physician: Nevin Lopez DO History of Present Illness This is a 74 year old female who is known to the wound clinic with history of ESRD on HD, anemia, afib on coumadin, hx of av node ablation, pvd, diastolic heart failure, type 2 diabetes, htn, dyslipidemia, CAD and vit d def who is admitted with altered mental status. Altered mental status is likely multifactorial due to hypoglycemia, metabolic encephalopathy and questionable infection. Patient is currently being treated in wound clinic for unstageable pressure ulcer of her right heal and traumatic wounds of bilateral lower extremities. Allergies Allergy/AdvReac Type Severity Reaction Status Date / Time No Known Allergies Allergy Unverified 01/06/20 17:24 Home Medications Home Medications Medication Instructions Recorded Confirmed Type Flovent HFA 2 puff INHALATION BID 12/16/18 01/06/20 History Renal Caps 1 mg PO QAM 12/16/18 01/06/20 History cilostazol 100 mg PO BID 12/16/18 01/06/20 History clopidogrel 75 mg PO QAM 12/16/18 01/06/20 History glipizide 5 mg PO QAM 12/16/18 01/06/20 History nitroglycerin 0.4 mg SUBLINGUAL Q5M PRN 12/16/18 01/06/20 History Auryxia 210 mg PO TIDM 04/29/19 01/06/20 History albuterol sulfate 2 puff INHALATION Q6H PRN 04/29/19 01/06/20 History atorvastatin 40 mg PO HS 04/29/19 01/06/20 History desvenlafaxine succinate [Pristiq] 25 mg PO QAM 04/29/19 01/06/20 History sevelamer carbonate 800 mg tablet 800 mg PO TIDM 12/18/19 01/06/20 History cefdinir 300 mg capsule 300 mg PO Q48H #7 cap 12/21/19 01/06/20 Rx albuterol sulfate 2.5 mg INHALATION QID PRN 01/06/20 01/06/20 History hydrocortisone 1 applic TOPICAL DAILY PRN 01/06/20 01/06/20 History lidocaine-prilocaine 1 applic TOPICAL .PRE DIALYSIS 01/06/20 01/06/20 History oxycodone-acetaminophen 1 tab PO Q6H PRN 01/06/20 01/06/20 History pantoprazole 40 mg PO DAILY 01/06/20 01/06/20 History warfarin 3 mg PO DAILY 01/06/20 01/06/20 History Patient History Medical History Aftercare following removal/replacement pacemaker (Chronic) Asthma (Acute) AV fistula (Chronic) Left upper ext. CAD (coronary artery disease) (Chronic) hx of PCI to LAD, Circumflex, RCA in CKD (chronic kidney disease) stage 4, GFR 15-29 ml/min (Chronic) Depression (Chronic) ESRD (end stage renal disease) on dialysis (Chronic) Follows Dr. 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 pacemaker, with recent addition of right infraclavicular [employer] biventricular pacemaker in March, as outlined above HLD (hyperlipidemia) (Chronic) HTN (hypertension) (Chronic) Open wound of right lower leg Open wound of right upper arm (Resolved) PAD (peripheral artery disease) (Chronic) PAF (paroxysmal atrial fibrillation) (Chronic) Renal artery stenosis (Chronic) s/p stent T2DM (type 2 diabetes mellitus) (Chronic) Tachy-mary syndrome (Resolved) s/p PPM Dr. Goldstein Traumatic open wound of right lower leg with delayed healing (Acute) Unstageable pressure ulcer of right heel (Acute) Vitamin D deficiency (Chronic) Volume overload Surgical History History of angioplasty of peripheral vessel (Chronic) fem/pop bypass 10/21 history of Renal stent History of atrioventricular linda ablation (Chronic) 04/01/[address] 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 Feels Safe at Home: Yes Safety Concerns: Feels Safe At This Time Smoking Status: Never smoker Second Hand Exposure: Yes ; Hx Alcohol Use: No Hx Substance Use: No Review of Systems Review of Systems: All systems reviewed & are unremarkable except as noted in HPI & below Physical Exam Constitutional: WD/WN, vitals as above Eyes: PERRL, conjunctivae normal, anicteric sclerae Skin: left lower leg wound measuring 2 x 2 x 0.5 cm. Wound is covered with fibrin and slough. Periwound is intact. There is large drainage and no odors. right lower leg wound measuring 1x 0.6 x 0.3 cm. Wound is covered with fibrin and slough Periwound is intact without inflammation. There is large drainage and no odors. Neurologic: awake; not confused Results & Data Vital Signs (Past 12 Hours) Vital Signs Temp Pulse Resp BP Pulse Ox 01/07/20 22:51 36.5 C 102 H 18 89/58 L 94 PG Care Time/CCT Total # of Minutes Spent Total Time Spent with Patient: Total time spent is greater than 50% in coordination of care (as documented) at patient's floor/unit and/or counseling patient: Coding Level of Care Code 27686 Inpt Consult Level 3 Diagnoses Traumatic open wound of left lower leg with delayed healing S81.802D Traumatic open wound of right lower leg with delayed healing S81.801D Unstageable pressure ulcer of right heel L89.610
[2020-01-08] MEDS: SEVELAMER HCL 800 MG TABLET PO SCH ×3 (08:35→16:45)
[2020-01-08] MEDS: LIDOCAINE 5% 1 PATCH TD SCH (08:36)
[2020-01-08] MEDS: FLUTICASONE FUROATE 200MCG 14 PUFFS/INHALER INH SCH (08:37)
[2020-01-08] MEDS: CLOPIDOGREL BISULFATE 75 MG TAB PO SCH (08:38)
[2020-01-08] MEDS: NEPHROCAPS PO SCH (08:38)
[2020-01-08] MEDS: cilostazoL 100 MG TAB PO SCH ×2 (08:38→20:46)
[2020-01-08] MEDS: PANTOprazole 40 MG TAB PO SCH (08:39)
[2020-01-08] MEDS: D5W AND NSS 1,000 ML IV SCH (09:45)
--- NOTE | 2020-01-08 10:25 | Nephrology Progress Note ---
Date of Service January 08, 2020 Assessment & Plan (1) ESRD on hemodialysis: Patient on HD MWF in [place]. Last outpatient HD was saturday. Patient tolerated HD yesterday with net UF of 1.5 L. She had IDH improved with midodrine. Next HD Saturday and Saturday (2) Anemia of chronic disease: Hb 8.9 today. Will give epogen 8000 units with HD tomorrow (3) Bacteremia: Due to due to gram-negative bacilli likely from the legs. She is on dapto and zosyn. renally dose meds for GFR less than 25ml/min. Admission and Anticipated Discharge Date Admission Date: January 06, 2020 Subjective Patient complaining of weakness and back pain. She had dialysis yesterday with UF of 1.5 L. No shortness of breath today. Legs remain swollen and painful. She had hypoglycemia last night and required D5 infusion overnight Review of Systems Review of Systems: All systems reviewed & are unremarkable except as noted in HPI & below Physical Exam Physical Exam: General exam: Appears comfortable, no acute distress HEENT: Pupils are equal and reactive to light Neck: No JVD, neck is supple trachea is midline Respiratory system: Crackles bilaterally. Gastrointestinal: Abdomen is soft, non distended, non tender, bowel sounds are present CVS: Regular rate and rhythm. No murmurs, rubs or gallops Musculoskeletal: No joint or muscle tenderness Extremities: 2+ edema, tender. Black toes on the left foot Neuro: Oriented, no tremors, no focal neurological deficits Skin: No rashes Access: Left upper arm AV fistula with good bruit Results & Data ([facility]) Vital Signs (Past 12 Hours) Vital Signs Temp Pulse Resp BP Pulse Ox 01/08/20 09:30 72 91/50 L 01/08/20 07:00 37.0 C 71 20 72/41 L 94 01/07/20 22:51 36.5 C 102 H 18 89/58 L 94 Laboratory Results 01/08/20 05:38 01/08/20 01/08/20 05:38 05:38 WBC 13.23 H RBC 2.71 L MCV 106.3 H MCH 32.8 MCHC 30.9 L RDW Std Deviation 71.7 H RDW Coeff of Oleksandr 18.7 H Plt Count 130 MPV 10.5 H Phosphorus 2.3 L D
[2020-01-08] MEDS: MIDODRINE HCL 10 MG TAB PO SCH (10:36)
--- NOTE | 2020-01-08 11:23 | Infectious Disease Progress Nt ---
Date of Service January 08, 2020 Assessment & Plan (1) Gram negative sepsis: will continue on abx, and repeat blood cultures x 2. suspect leg as source. wound culture pending, will stop dapto. (2) Wound of lower extremity: (3) Cellulitis: Admission and Anticipated Discharge Date Admission Date: January 06, 2020 Subjective pt remains on zosyn and dapto, tolerating well. wbc 13, creat 2.9 HD yesterday, blood cultures growing GNR 2/ sets, final pending, repeat pending. 01/06 wound culutre pending. afebrile Results & Data ([facility]) Vital Signs (Past 12 Hours) Vital Signs Temp Pulse Resp BP Pulse Ox 01/08/20 09:30 72 91/50 L 01/08/20 07:00 37.0 C 71 20 72/41 L 94 Laboratory Results Microbiology 01/06/20 16:02 Blood Aerobic Blood Culture - Preliminary Gram negative bacilli 01/06/20 16:02 Blood Anaerobic Blood Culture - Preliminary No growth in Anaerobic bottle after 24 hours. 01/06/20 15:45 Blood Aerobic Blood Culture - Preliminary Gram negative bacilli 01/06/20 15:45 Blood Anaerobic Blood Culture - Final 01/07/20 15:25 Leg,Right Gram Stain - Final 01/07/20 15:25 Leg,Left Gram Stain - Final PG Care Time/CCT Total # of Minutes Spent Total Time Spent with Patient: Total time spent is greater than 50% in coordination of care (as documented) at patient's floor/unit and/or counseling patient: Coding Level of Care Code 42276 Subseq Hosp Care Lvl 1 Diagnoses Gram negative sepsis A41.50 Wound of lower extremity S81.809A Cellulitis L03.90
[2020-01-08] MEDS ORDERED: MIDODRINE HCL 10 MG TAB PO SCH (12:00)
[2020-01-08] MEDS: PIPERACILLIN/TAZOBACTAM 4.5 GM in DEXTROSE 5% 100 ML IV SCH ×2 (12:29→23:14)
[2020-01-08] MEDS ORDERED: CONSULT PHARMACY STA (13:50)
--- NOTE | 2020-01-08 14:26 | Hospitalist Progress Note ---
Date of Service January 08, 2020 Assessment & Plan (1) Hypoglycemia: Appears to have resolved on the dextrose infusion overnight. Eating well and infusion stopped and euglycemic over past several hours. Likely related to glipizide which should be stopped at discharge. (2) Bacteremia: Gram negative organisms in blood cultures. Covering broadly. Awaiting cultures. Pt not septic or ill-appearing at this time. Afebrile. (3) Wound of lower extremity: Possible superficial infection, wound culture showing strep. Bacteremia present. ID on case-cont broad spectrum abx. Wound care following. (4) ESRD on hemodialysis: Scheduled HD tomorrow and then again on Saturday. Some hypotension present and midodrine was started per Nephro. (5) Atrial fibrillation: chronic, stable. Not requiring rate control. (6) PVD (peripheral vascular disease): -Continue Plavix, statin, cilostazol (7) Anemia of chronic disease: chronic, stable. No need for transfusion at this time. (8) Depression: Pristiq per home regimen. (9) DVT prophylaxis: coumadin Full Code Dispo-cont hospitalization through the weekend at a minimum. DC to [facility] at discharge per Nevin Lopez DO [facility] Hospitalist Admission and Anticipated Discharge Date Admission Date: January 06, 2020 Subjective Doing well but appears very fatigued Reports an improvement in pain symptoms in feet and hip on the tylenol Blood sugar has remained normal today so far off the dextrose infusion run overnight Otherwise denies symptoms and feels better than she did yesterday. Review of Systems Review of Systems: All systems reviewed & are unremarkable except as noted in Subjective Physical Exam Physical Exam: CONSTITUTIONAL: obese, vitals as above, generally well- appearing EYES: Normal conjunctivae, no scleral icterus ENT: external ear and nose normal, oropharynx clear RESPIRATORY: clear to auscultation bilaterally, no crackles, rales or wheezes CARDIOVASCULAR: regular rate and rhythm, S1 and 2 heard without murmurs, gallops or rubs, no JVD, no peripheral edema GASTROINTESTINAL: soft, nontender, nontender MUSCULOSKELETAL: limited movement of limbs that appears equal, generalized weakness but appears improved SKIN: warm and dry, palpable thrill of fistula in LUE NEUROLOGIC: CN 2-12 grossly intact, no sensory deficit, normal cognition, normal speech PSYCHIATRIC: alert cooperative and oriented to person, place and time. Results & Data Results & Data ([facility]) Vital Signs (Past 12 Hours) Vital Signs Temp Pulse Resp BP Pulse Ox 01/08/20 11:33 37.0 C 71 20 106/52 L 94 01/08/20 09:30 72 91/50 L 01/08/20 07:00 37.0 C 71 20 72/41 L 94 Laboratory Results Short CBC 01/08/20 Range/Units 05:38 WBC 13.23 H (4.8-10.8) K/uL Hgb 8.9 L (12.0-16.0) g/dL Hct 28.8 L (37-47) % Plt Count 130 (130-400) K/uL BMP 01/08/20 05:38 Sodium 134 L Potassium 4.2 Chloride 100 Carbon Dioxide 27 BUN 27 H Creatinine 2.97 H D Glucose 91 Calcium 9.1 Medications Administered Current Inpatient Medications Acetaminophen (Tylenol) 650 mg PO Q8 [facility] Stop: 02/06/20 18:59 Last Admin: 01/08/20 05:47 Dose: 650 mg Documented by: Albuterol (Ventolin 0.083% 2.5mg/3ml) 2.5 mg INH QID PRN PRN Reason: Shortness Of Breath Or Wheezing Stop: 02/05/20 19:06 Atorvastatin Calcium (Lipitor) 40 mg PO HS [facility] Stop: 02/05/20 20:59 Last Admin: 01/06/20 20:33 Dose: 40 mg Documented by: Cilostazol (Pletal) 100 mg PO BID [facility] Stop: 02/05/20 20:59 Last Admin: 01/08/20 08:38 Dose: 100 mg Documented by: Clopidogrel Bisulfate (Plavix) 75 mg PO QAM [facility] Stop: 02/06/20 08:59 Last Admin: 01/08/20 08:38 Dose: 75 mg Documented by: Dextrose (Dextrose 50%) 25 - 50 ml IV UD PRN; Protocol PRN Reason: Hypoglycemia Protocol Stop: 02/05/20 19:06 Last Admin: 01/07/20 17:30 Dose: 50 ml Documented by: Epoetin Benji (Procrit) 10,000 units IV ONE ONE Stop: 01/09/20 07:01 Fluticasone Furoate (Arnuity Ellipta 200mcg) 1 puffs INH DAILY [facility] Stop: 02/06/20 08:59 Last Admin: 03/27/20 08:37 Dose: 1 puffs Documented by: Glucagon (Glucagen) 1 mg SQ UD PRN; Protocol PRN Reason: Hypoglycemia Protocol Stop: 02/05/20 19:06 Glucose (Dex4 Glucose) 4 - 8 tabs PO UD PRN; Protocol PRN Reason: Hypoglycemia Protocol Stop: 02/05/20 19:06 Glucose (Glucose 40%) 15 - 30 gm PO UD PRN; Protocol PRN Reason: Hypoglycemia Protocol Stop: 02/05/20 19:06 Heparin Sodium (Porcine) (Heparin Iv Bolus) 2,000 units IV ONE ONE Stop: 01/09/20 07:01 Piperacillin Sod/Tazobactam (Sod 4.5 gm/ Dextrose) 120 mls @ 30 mls/hr IV Q12H [facility]; Protocol Stop: 01/14/20 11:59 Last Admin: 01/08/20 12:29 Dose: 30 mls/hr Documented by: Sodium Chloride (Nss 1000ml) 1,000 mls @ 0 mls/hr IV .Q0M PRN PRN Reason: For Hemodialysis Use ONLY Stop: 01/09/20 12:59 Lidocaine (Lidoderm 5%) 1 patch TD QAM [facility] Stop: 02/06/20 13:44 Last Admin: 01/08/20 08:36 Dose: 1 patch Documented by: Midodrine (Proamatine) 10 mg PO DAILY [facility]; Protocol Stop: 02/07/20 10:02 Last Admin: 01/08/20 10:36 Dose: Not Given Documented by: Miscellaneous (Carbohydrates For Hypoglycemia) 15 - 30 gm PO UD PRN PRN Reason: Hypoglycemia Protocol Stop: 02/05/20 19:06 Last Admin: 01/07/20 17:14 Dose: 30 gm Documented by: Miscellaneous (Order Awaiting Action) 1 ea N/A QS [facility] Stop: 02/06/20 00:00 Last Admin: 01/08/20 08:37 Dose: Not Given Documented by: Miscellaneous (Order Awaiting Action) 1 ea N/A QS [facility] Stop: 02/06/20 00:00 Last Admin: 01/08/20 08:37 Dose: Not Given Documented by: Miscellaneous (Remove Lidoderm Patch) 1 ea N/A DAILY@2100 [facility] Stop: 02/06/20 20:59 Last Admin: 01/07/20 20:26 Dose: 1 ea Documented by: Miscellaneous Information (Consult) 1 ea N/A UD PRN PRN Reason: Consult Stop: 02/05/20 19:22 Miscellaneous Information (Pharmacy Consult) 1 ea N/A NOW STA Stop: 01/08/20 13:51 Nitroglycerin (Nitrostat) 0.4 mg SL Q5M PRN PRN Reason: Chest Pain Stop: 02/05/20 19:06 Pantoprazole Sodium (Protonix) 40 mg PO DAILY [facility] Stop: 02/06/20 08:59 Last Admin: 01/08/20 08:39 Dose: 40 mg Documented by: Sevelamer HCl (Renagel) 800 mg PO TIDM [facility] Stop: 02/06/20 07:59 Last Admin: 01/08/20 12:29 Dose: 800 mg Documented by: Tramadol HCl (Ultram) 25 mg PO Q12H PRN PRN Reason: pain Stop: 02/05/20 20:44 Last Admin: 01/07/20 23:45 Dose: 25 mg Documented by: Tramadol HCl (Ultram) 50 mg PO Q4H PRN PRN Reason: Severe Pain Stop: 02/06/20 18:07 Vitamin B Complex/Folic Acid (Nephrocaps) 1 cap PO QAM [facility] Stop: 02/06/20 08:59 Last Admin: 01/08/20 08:38 Dose: 1 cap Documented by: Warfarin Sodium (Coumadin) 3 mg PO DAILY@1600 [facility] Stop: 02/06/20 15:59 Last Admin: 01/07/20 16:07 Dose: 3 mg Documented by: (1) Depression Depression Type: unspecified Qualified Code(s): F32.9 - Major depressive disorder, single episode, unspecified
[2020-01-08] MEDS ORDERED: DAPTOMYCIN CONSULT ACTIVE PRN (14:35)
[2020-01-08] MEDS: TRAMADOL HCL 50 MG TABLET PO PRN (16:44)
[2020-01-08] MEDS: WARFARIN SOD 3 MG TAB PO SCH (16:45)
[2020-01-09] MEDS: ACETAMINOPHEN 325 MG TAB PO SCH (05:40)
[2020-01-09 06:55] LABS: Hematocrit (blood only) 28.8 % (37-47); Hemoglobin 9.2 g/dL (12.0-16.0); Mean Corpuscular Hemoglobin 33.1 pg (25-34); Mean Corpuscular Hgb Conc 31.9 g/dL (32-36); Mean Corpuscular Volume 103.6 fL (80-100); Mean Platelet Volume 11.1 fL (7.4-10.4); Platelet Count 141 K/uL (130-400); RDW Coefficient of Variation 18.9 % (11.5-14.5); RDW Standard Deviation 70.1 fL (36.4-46.3); Red Blood Count 2.78 M/uL (4.2-5.4); White Blood Count 9.71 K/uL (4.8-10.8)
[2020-01-09] MEDS ORDERED: SODIUM CHLORIDE 0.9% 1000ML 1,000 ML IV PRN (07:00)
[2020-01-09] MEDS ORDERED: HEPARIN SOD (PORCINE) 1000 UNIT/ML 10 ML VIAL IV ONE (07:00)
[2020-01-09] MEDS ORDERED: EPOETIN ALFA 10,000 UNITS/ML VIAL IV ONE (07:00)
[2020-01-09 07:07] LABS: INR 2.4 (0.9-1.1)
[2020-01-09] MEDS ORDERED: ACETAMINOPHEN 325 MG TAB PO PRN (07:11)
[2020-01-09 07:24] LABS: BUN Creatinine Ratio 11.2 (10-20); Calcium 9.4 mg/dl (8.5-10.1); Creatinine Clr Calc Pharmacy 12.3 ml/min; Est GFR (Non-African American) 11.2; Potassium 4.8 mmol/L (3.5-5.1)
[2020-01-09] MEDS: SEVELAMER HCL 800 MG TABLET PO SCH ×3 (07:57→16:30)
[2020-01-09] MEDS: cilostazoL 100 MG TAB PO SCH ×2 (07:57→20:34)
[2020-01-09] MEDS: NEPHROCAPS PO SCH (07:58)
[2020-01-09] MEDS: LIDOCAINE 5% 1 PATCH TD SCH (07:58)
[2020-01-09] MEDS: PANTOprazole 40 MG TAB PO SCH (07:59)
[2020-01-09] MEDS: CLOPIDOGREL BISULFATE 75 MG TAB PO SCH (07:59)
[2020-01-09] MEDS: FLUTICASONE FUROATE 200MCG 14 PUFFS/INHALER INH SCH (07:59)
[2020-01-09] MEDS: MIDODRINE HCL 10 MG TAB PO SCH (08:37)
[2020-01-09] MEDS ORDERED: MICONAZOLE NITRATE POWDER 43 GM EXT PRN (08:39)
[2020-01-09] MEDS: PIPERACILLIN/TAZOBACTAM 4.5 GM in DEXTROSE 5% 100 ML IV SCH (14:16)
--- NOTE | 2020-01-09 14:31 | Progress Notes ---
DATE: 01/09/2020 SUBJECTIVE: The patient was seen during dialysis, so far tolerating pretty well. 2.8 liters of fluid was removed. AV fistula worked fine. Blood pressure is reasonable. OBJECTIVE: GENERAL: She is awake, alert, oriented x3. VITAL SIGNS: Most recent blood pressure 110/60, 72 per minute, temperature 36.5 degrees Celsius, 95% on room air. HEENT: Mucous membranes are moist. NECK: Supple. No jugular venous distention. CHEST: Bilaterally clear to auscultation. CARDIOVASCULAR: S1, S2 regular. ABDOMEN: Soft, nontender. EXTREMITIES: Show trace to 1+ edema. LABORATORY TESTS: From this morning reviewed in detail. Sodium 132, potassium 4.8, BUN 42, creatinine 3.7. Hemoglobin 9.2. ASSESSMENT AND PLAN: 1. End-stage renal disease, on hemodialysis. Her next dialysis will be on Saturday to get her back to her regular schedule of Saturday, Saturday, Saturday. She tolerated dialysis pretty well as she is in the last few minutes of dialysis today. We took 2.8 liters of fluid removal, arteriovenous fistula worked fine. 2. Bacteremia secondary to gram-negative rods, most likely from infected ulcer, followed by infectious disease and she is on daptomycin and Zosyn. Renally dose medications for glomerular filtration rate less than 25. 3. She does have anemia of chronic disease. She is getting Epogen with dialysis.
[2020-01-09] MEDS: OXYCODONE/ACETAMINOPHEN 5mg/325mg TAB PO PRN (15:27)
[2020-01-09] MEDS: WARFARIN SOD 3 MG TAB PO SCH (15:31)
--- NOTE | 2020-01-09 18:01 | Hospitalist Progress Note ---
Date of Service January 09, 2020 Assessment & Plan (1) Hypoglycemia: Resolved off glipizide, this should be discontinued at discharge. Continue insulin correction factor at this time as needed. (2) Bacteremia: Gram negative organisms in blood cultures. Covering broadly. Awaiting cultures. Pt not septic or ill-appearing at this time. Afebrile. (3) Wound of lower extremity: Possible superficial infection, wound culture showing strep. Bacteremia present. ID on case-cont broad spectrum abx. Wound care following. (4) ESRD on hemodialysis: Cont HD per Nephro. Midodrine per Nephro started this admission. (5) Atrial fibrillation: chronic, stable. Not requiring rate control. (6) PVD (peripheral vascular disease): -Continue Plavix, statin, cilostazol. Significant bruising present--recommend Cardiology follow up to readdress blood thinner regimen. (7) Anemia of chronic disease: chronic, stable. No need for transfusion at this time. (8) Depression: Pristiq per home regimen. (9) DVT prophylaxis: coumadin Full Code Dispo-cont hospitalization through the weekend at a minimum. DC to [facility] at discharge per Nevin Lopez DO [facility] Hospitalist Admission and Anticipated Discharge Date Admission Date: January 06, 2020 Subjective The patient is more alert today and is reporting pain everywhere. We discussed the use of her home Percocet and she states that she takes it every 4 hours consistently. Her order per PDMP is every 6 hours. This was restarted as it appears she may be having some withdrawal symptoms from opiates. Multiple areas of pain are being reported. She is still tolerating p.o. and blood sugar has remained stable without dextrose. She is due for dialysis today. She reports significant pain in her lower legs and feet. Her leg pain is chronic for her and so is the reddish hue to the skin of her left lower leg. However, her toes are hurting her more than normal secondary to the injury during transport to the hospital. No other symptoms at this time. Review of Systems Review of Systems: All systems reviewed & are unremarkable except as noted in Subjective Physical Exam Physical Exam: CONSTITUTIONAL: obese, vitals as above, generally well- appearing EYES: Normal conjunctivae, no scleral icterus ENT: external ear and nose normal, oropharynx clear RESPIRATORY: clear to auscultation bilaterally, no crackles, rales or wheezes CARDIOVASCULAR: regular rate and rhythm, S1 and 2 heard without murmurs, g allops or rubs, no JVD, no peripheral edema GASTROINTESTINAL: soft, nontender, nontender MUSCULOSKELETAL: limited movement of limbs that appears equal, generalized weakness but appears improved SKIN: warm and dry, palpable thrill of fistula in LUE. Left lower extremity appears bright red in comparison to right lower extremity. There is a quarter size wound on her anterior tibia with no drainage present. There is no clear cellulitis of the leg, this appears to be equivalent to erythroderma. There are chronic changes of the left leg consistent with chronic swelling. Pulses are able to be established with a Doppler. 4+ pitting edema is present in the lower extremities up to the thigh, left greater than right. Right lower extremity is wrapped with a significant bandage that may not be removed. Right lower extremity appears neurovascular intact. NEUROLOGIC: CN 2-12 grossly intact, no sensory deficit, normal cognition, normal speech PSYCHIATRIC: alert cooperative and oriented to person, place and time. Results & Data Results & Data ([facility]) Vital Signs (Past 12 Hours) Vital Signs Temp Pulse Pulse Resp BP BP Pulse Ox 01/09/20 15:34 36.6 C 72 20 94/53 L 96 01/09/20 14:20 37 C 71 119/71 01/09/20 14:13 71 119/71 01/09/20 14:01 72 110/60 01/09/20 13:40 78 102/59 L 01/09/20 13:20 73 101/50 L 01/09/20 13:00 71 112/50 L 01/09/20 12:40 72 109/59 L 01/09/20 12:20 70 108/58 L 01/09/20 12:03 71 109/53 L 01/09/20 11:40 70 120/50 L 01/09/20 11:20 71 96/47 L 01/09/20 11:00 69 95/52 L 01/09/20 10:40 70 112/71 01/09/20 10:36 36.5 C 70 01/09/20 07:25 36.6 C 71 16 99/62 L 95 Laboratory Results Short CBC 01/09/20 Range/Units 06:44 WBC 9.71 (4.8-10.8) K/uL Hgb 9.2 L (12.0-16.0) g/dL Hct 28.8 L (37-47) % Plt Count 141 (130-400) K/uL [facility] 01/09/20 06:44 Sodium 132 L Potassium 4.8 Chloride 97 L Carbon Dioxide 27 BUN 42 H D Creatinine 3.72 H D Glucose 97 Calcium 9.4 Medications Administered Current Inpatient Medications Albuterol (Ventolin 0.083% 2.5mg/3ml) 2.5 mg INH QID PRN PRN Reason: Shortness Of Breath Or Wheezing Stop: 02/05/20 19:06 Atorvastatin Calcium (Lipitor) 40 mg PO HS [facility] Stop: 02/05/20 20:59 Last Admin: 01/06/20 20:33 Dose: 40 mg Documented by: Cilostazol (Pletal) 100 mg PO BID [facility] Stop: 02/05/20 20:59 Last Admin: 01/09/20 07:57 Dose: 100 mg Documented by: Clopidogrel Bisulfate (Plavix) 75 mg PO QAM [facility] Stop: 02/06/20 08:59 Last Admin: 01/09/20 07:59 Dose: 75 mg Documented by: Dextrose (Dextrose 50%) 25 - 50 ml IV UD PRN; Protocol PRN Reason: Hypoglycemia Protocol Stop: 02/05/20 19:06 Last Admin: 01/07/20 17:30 Dose: 50 ml Documented by: Fluticasone Furoate (Arnuity Ellipta 200mcg) 1 puffs INH DAILY [facility] Stop: 02/06/20 08:59 Last Admin: 01/09/20 07:59 Dose: 1 puffs Documented by: Glucagon (Glucagen) 1 mg SQ UD PRN; Protocol PRN Reason: Hypoglycemia Protocol Stop: 02/05/20 19:06 Glucose (Dex4 Glucose) 4 - 8 tabs PO UD PRN; Protocol PRN Reason: Hypoglycemia Protocol Stop: 02/05/20 19:06 Glucose (Glucose 40%) 15 - 30 gm PO UD PRN; Protocol PRN Reason: Hypoglycemia Protocol Stop: 02/05/20 19:06 Piperacillin Sod/Tazobactam (Sod 4.5 gm/ Dextrose) 120 mls @ 30 mls/hr IV Q12H [facility]; Protocol Stop: 01/14/20 11:59 Last Infusion: 01/09/20 16:09 Dose: 30 mls/hr Documented by: Daptomycin 375 mg/ Syringe 7.5 mls @ 3.75 mls/min IV Q48H [facility]; Protocol Stop: 01/23/20 19:59 Lidocaine (Lidoderm 5%) 1 patch TD QAM [facility] Stop: 02/06/20 13:44 Last Admin: 01/09/20 07:58 Dose: 1 patch Documented by: Miconazole Nitrate (Desenex) 1 appln EXT PRN PRN PRN Reason: Affected Skin Folds Stop: 02/08/20 08:38 Midodrine (Proamatine) 10 mg PO DAILY [facility]; Protocol Stop: 02/07/20 10:02 Last Admin: 01/09/20 08:37 Dose: 10 mg Documented by: Miscellaneous (Carbohydrates For Hypoglycemia) 15 - 30 gm PO UD PRN PRN Reason: Hypoglycemia Protocol Stop: 02/05/20 19:06 Last Admin: 01/07/20 17:14 Dose: 30 gm Documented by: Karissacellaneous (Order Awaiting Action) 1 ea N/A QS [facility] Stop: 02/06/20 00:00 Last Admin: 01/09/20 15:30 Dose: Not Given Documented by: Karissacellaneous (Order Awaiting Action) 1 ea N/A QS [facility] Stop: 02/06/20 00:00 Last Admin: 01/09/20 15:30 Dose: Not Given Documented by: Karissacellaneous (Remove Lidoderm Patch) 1 ea N/A DAILY@2100 [facility] Stop: 02/06/20 20:59 Last Admin: 01/08/20 20:45 Dose: 1 ea Documented by: Miscellaneous Information (Consult) 1 ea N/A UD PRN PRN Reason: Consult Stop: 02/05/20 19:22 Miscellaneous Information (Consult) 1 ea N/A UD PRN PRN Reason: Consult Stop: 02/07/20 14:34 Nitroglycerin (Nitrostat) 0.4 mg SL Q5M PRN PRN Reason: Chest Pain Stop: 02/05/20 19:06 Oxycodone/Acetaminophen (Percocet 5mg/325mg) 1 tab PO Q6H PRN PRN Reason: Pain Stop: 01/23/20 09:48 Last Admin: 01/09/20 15:27 Dose: 1 tab Documented by: Pantoprazole Sodium (Protonix) 40 mg PO DAILY [facility] Stop: 02/06/20 08:59 Last Admin: 01/09/20 07:59 Dose: 40 mg Documented by: Sevelamer HCl (Renagel) 800 mg PO TIDM [facility] Stop: 02/06/20 07:59 Last Admin: 01/09/20 16:30 Dose: 800 mg Documented by: Vitamin B Complex/Folic Acid (Nephrocaps) 1 cap PO QAM [facility] Stop: 02/06/20 08:59 Last Admin: 01/09/20 07:58 Dose: 1 cap Documented by: Warfarin Sodium (Coumadin) 3 mg PO DAILY@1600 [facility] Stop: 02/06/20 15:59 Last Admin: 01/09/20 15:31 Dose: 3 mg Documented by: (1) Depression Depression Type: unspecified Qualified Code(s): F32.9 - Major depressive disorder, single episode, unspecified
[2020-01-09] MEDS ORDERED: DAPTOmycin 375 MG in SYRINGE 0 ML IV SCH (20:00)
[2020-01-09] MEDS: INSULIN ASPART 100 UNITS/ML 3 ML PEN SC SCH (20:33)
[2020-01-10] MEDS: PIPERACILLIN/TAZOBACTAM 4.5 GM in DEXTROSE 5% 100 ML IV SCH ×2 (00:54→11:58)
[2020-01-10 08:10] LABS: INR 2.9 (0.9-1.1); Prothrombin Time 28.5 Seconds (9.0-12.0)
[2020-01-10] MEDS: SEVELAMER HCL 800 MG TABLET PO SCH ×3 (08:35→18:06)
[2020-01-10] MEDS: NEPHROCAPS PO SCH (08:35)
[2020-01-10] MEDS: FLUTICASONE FUROATE 200MCG 14 PUFFS/INHALER INH SCH (08:35)
[2020-01-10] MEDS: LIDOCAINE 5% 1 PATCH TD SCH (08:35)
[2020-01-10] MEDS: MIDODRINE HCL 10 MG TAB PO SCH (08:36)
[2020-01-10] MEDS: CLOPIDOGREL BISULFATE 75 MG TAB PO SCH (08:36)
[2020-01-10] MEDS: PANTOprazole 40 MG TAB PO SCH (08:36)
[2020-01-10] MEDS: cilostazoL 100 MG TAB PO SCH (08:36)
[2020-01-10] MEDS: INSULIN ASPART 100 UNITS/ML 3 ML PEN SC SCH ×4 (08:38→21:53)
[2020-01-10] MEDS: OXYCODONE/ACETAMINOPHEN 5mg/325mg TAB PO PRN ×2 (12:06→21:39)
--- NOTE | 2020-01-10 16:08 | Progress Notes ---
DATE: 01/10/2020 SUBJECTIVE: The patient had dialysis yesterday without any problem, 2.8 liters of fluid was removed. At this point, she denies having any new symptoms. Denies nausea, vomiting, chest pain, shortness of breath, orthopnea or PND. OBJECTIVE: GENERAL: She was awake, alert, oriented x3. VITAL SIGNS: Blood pressure is 113/67, temperature 36.4 degrees Celsius, 92% on room air, pulse rate 75 per minute. HEENT: Mucous membrane is moist. NECK: Supple. No jugular venous distention. CHEST: Bilateral decreased breath sounds, but clear. CARDIOVASCULAR: S1, S2 regular. ABDOMEN: Soft, nontender. EXTREMITIES: Shows trace to 1+ edema with multiple infected ulcers. LABORATORY TESTS: From this morning was reviewed in detail. ASSESSMENT AND PLAN: 1. End-stage renal disease on hemodialysis. We will do dialysis tomorrow to get her back to her regular schedule of Saturday, Saturday, Saturday. We will aim to take about 1.5 liter of fluid. 2. Bacteremia secondary to Gram-negative rods, most likely from infected lower extremity ulcers. She is followed by Infectious Disease and is on appropriate antibiotics. Renally dose medications for GFR less than 15. She does have anemia of chronic disease. She is getting Epogen with dialysis.
[2020-01-10] MEDS: WARFARIN SOD 3 MG TAB PO SCH (16:24)
--- NOTE | 2020-01-10 19:37 | Hospitalist Progress Note ---
Date of Service January 10, 2020 Assessment & Plan (1) T2DM (type 2 diabetes mellitus): Hypoglycemia-resolved off glipizide which should be discontinued at time of discharge. (2) Bacteremia: Pseudomonas organism in blood-cont Zosyn. Defer to ID to deescalate. Gram positive organism appears to be a contaminant. Dapto was stopped. (3) Wound of lower extremity: Some likely contaminants here. Enterobacter consistently present, covered with Zosyn. Defer to ID for ultimate abx selection and outpatient follow-up. Cont daily wound care. (4) ESRD on hemodialysis: Cont HD per Nephro. Midodrine per Nephro started this admission. (5) Atrial fibrillation: chronic, stable. Not requiring rate control. (6) PVD (peripheral vascular disease): -Continue Plavix and statin. With excessive bruising and patient reports of easy bleeding, this appears to be too much. Will stop Pletal now and have her follow-up with Cardiology to discuss the change as outpatient. (7) Anemia of chronic disease: chronic, stable. No need for transfusion at this time. Stopping Pletal in the presence of this known comorbidity. (8) Depression: Pristiq per home regimen. Hopeful daughter can bring this in today and we can get this going again. May be helpful for her aches and pains. (9) DVT prophylaxis: coumadin Full Code Dispo-will dispo to [facility] when antibiotic selection is figured out. Not moving much but pain is controlled with oral medications. PT/OT, ambulate as tolerated. [facility] and [facility]ticipated Discharge Date Admission Date: January 06, 2020 Anticipated date of discharge: 01/12/20 Subjective doing well still reports some pain in her legs and in her shoulders bilaterally called daughter this morning about her Pristiq and she will bring to the hospital today Pt has been without this for about 4 days and we discussed this should be continued. Still not getting out of bed, and we need to start working on this to get her moving again Review of Systems Review of Systems: All systems reviewed & are unremarkable except as noted in Subjective Physical Exam Physical Exam: CONSTITUTIONAL: obese, vitals as above, generally well- appearing EYES: Normal conjunctivae, no scleral icterus ENT: external ear and nose normal, oropharynx clear RESPIRATORY: clear to auscultation bilaterally, no crackles, rales or wheezes CARDIOVASCULAR: regular rate and rhythm, S1 and 2 heard without murmurs, ga llops or rubs, no JVD, no peripheral edema GASTROINTESTINAL: soft, nontender, nontender MUSCULOSKELETAL: limited movement of limbs that appears equal, generalized weakness but appears improved SKIN: warm and dry, palpable thrill of fistula in LUE. Left lower extremity appears bright red in comparison to right lower extremity-about the same today. Left and right legs with dressings intact that are clean and dry. There are chronic changes of the left leg consistent with chronic swelling. 2+ pitting edema is present in the lower extremities up to the thigh, left greater than right. NEUROLOGIC: CN 2-12 grossly intact, no sensory deficit, normal cognition, normal speech PSYCHIATRIC: alert cooperative and oriented to person, place and time. Results & Data Results & Data ([facility]) Vital Signs (Past 12 Hours) Vital Signs Temp Pulse Resp BP Pulse Ox 01/10/20 14:55 36.4 C L 75 20 113/67 92 Medications Administered Current Inpatient Medications Albuterol (Ventolin 0.083% 2.5mg/3ml) 2.5 mg INH QID PRN PRN Reason: Shortness Of Breath Or Wheezing Stop: 02/05/20 19:06 Atorvastatin Calcium (Lipitor) 40 mg PO HS [facility] Stop: 02/05/20 20:59 Last Admin: 01/06/20 20:33 Dose: 40 mg Documented by: Cilostazol (Pletal) 100 mg PO BID G[facility] Stop: 02/05/20 20:59 Last Admin: 01/10/20 08:36 Dose: 100 mg Documented by: Clopidogrel Bisulfate (Plavix) 75 mg PO QAM [facility] Stop: 02/06/20 08:59 Last Admin: 01/10/20 08:36 Dose: 75 mg Documented by: Dextrose (Dextrose 50%) 25 - 50 ml IV UD PRN; Protocol PRN Reason: Hypoglycemia Protocol Stop: 02/05/20 19:06 Last Admin: 01/07/20 17:30 Dose: 50 ml Documented by: Fluticasone Furoate (Arnuity Ellipta 200mcg) 1 puffs INH DAILY [facility] Stop: 02/06/20 08:59 Last Admin: 01/10/20 08:35 Dose: 1 puffs Documented by: Glucagon (Glucagen) 1 mg SQ UD PRN; Protocol PRN Reason: Hypoglycemia Protocol Stop: 02/05/20 19:06 Glucose (Dex4 Glucose) 4 - 8 tabs PO UD PRN; Protocol PRN Reason: Hypoglycemia Protocol Stop: 02/05/20 19:06 Glucose (Glucose 40%) 15 - 30 gm PO UD PRN; Protocol PRN Reason: Hypoglycemia Protocol Stop: 02/05/20 19:06 Piperacillin Sod/Tazobactam (Sod 4.5 gm/ Dextrose) 120 mls @ 30 mls/hr IV Q12H [facility]; Protocol Stop: 01/14/20 11:59 Last Infusion: 01/10/20 16:20 Dose: Infused Documented by: Daptomycin 375 mg/ Syringe 7.5 mls @ 3.75 mls/min IV Q48H [facility]; Protocol Stop: 01/23/20 19:59 Last Admin: 01/09/20 20:33 Dose: 3.75 mls/min Documented by: Insulin Aspart (Novolog Flexpen) 0 units SC ACHS [facility] Stop: 02/08/20 20:59 Last Admin: 01/10/20 17:55 Dose: 2 units Documented by: Lidocaine (Lidoderm 5%) 1 patch TD QAM [facility] Stop: 02/06/20 13:44 Last Admin: 01/10/20 08:35 Dose: 1 patch Documented by: Miconazole Nitrate (Desenex) 1 appln EXT PRN PRN PRN Reason: Affected Skin Folds Stop: 02/08/20 08:38 Midodrine (Proamatine) 10 mg PO DAILY [facility]; Protocol Stop: 02/07/20 10:02 Last Admin: 01/10/20 08:36 Dose: Not Given Documented by: Miscellaneous (Carbohydrates For Hypoglycemia) 15 - 30 gm PO UD PRN PRN Reason: Hypoglycemia Protocol Stop: 02/05/20 19:06 Last Admin: 01/07/20 17:14 Dose: 30 gm Documented by: Miscellaneous (Order Awaiting Action) 1 ea N/A QS [facility] Stop: 02/06/20 00:00 Last Admin: 01/10/20 18:07 Dose: Not Given Documented by: Miscellaneous (Order Awaiting Action) 1 ea N/A QS [facility] Stop: 02/06/20 00:00 Last Admin: 01/10/20 16:25 Dose: Not Given Documented by: Miscellaneous (Remove Lidoderm Patch) 1 ea N/A DAILY@2100 [facility] Stop: 02/06/20 20:59 Last Admin: 01/09/20 20:35 Dose: 1 ea Documented by: Miscellaneous Information (Consult) 1 ea N/A UD PRN PRN Reason: Consult Stop: 02/05/20 19:22 Miscellaneous Information (Consult) 1 ea N/A UD PRN PRN Reason: Consult Stop: 02/07/20 14:34 Nitroglycerin (Nitrostat) 0.4 mg SL Q5M PRN PRN Reason: Chest Pain Stop: 02/05/20 19:06 Oxycodone/Acetaminophen (Percocet 5mg/325mg) 1 tab PO Q6H PRN PRN Reason: Pain Stop: 01/23/20 09:48 Last Admin: 01/10/20 12:06 Dose: 1 tab Documented by: Pantoprazole Sodium (Protonix) 40 mg PO DAILY [facility] Stop: 02/06/20 08:59 Last Admin: 01/10/20 08:36 Dose: 40 mg Documented by: Sevelamer HCl (Renagel) 800 mg PO TIDM [facility] Stop: 02/06/20 07:59 Last Admin: 01/10/20 18:06 Dose: 800 mg Documented by: Vitamin B Complex/Folic Acid (Nephrocaps) 1 cap PO QAM [facility] Stop: 02/06/20 08:59 Last Admin: 01/10/20 08:35 Dose: 1 cap Documented by: Warfarin Sodium (Coumadin) 3 mg PO DAILY@1600 [facility] Stop: 02/06/20 15:59 Last Admin: 01/10/20 16:24 Dose: 3 mg Documented by: (1) Depression Depression Type: unspecified Qualified Code(s): F32.9 - Major depressive disorder, single episode, unspecified (2) T2DM (type 2 diabetes mellitus) Diabetes mellitus predatory animal exterminator insulin use: without predatory animal exterminator use Diabetes lawrence litus complication status: with kidney complications Diabetes mellitus complication detail: with chronic kidney disease Chronic kidney disease stage: stage 4 (severe) Qualified Code(s): E11.22 - Type 2 diabetes mellitus with d iabetic chronic kidney disease; N18.4 - Chronic kidney disease, stage 4 (severe)
[2020-01-10] MEDS: ATORVASTATIN 40 MG TAB PO SCH (22:18)
[2020-01-11] MEDS: PIPERACILLIN/TAZOBACTAM 4.5 GM in DEXTROSE 5% 100 ML IV SCH ×3 (00:16→23:42)
[2020-01-11 07:03] LABS: Hematocrit (blood only) 31.3 % (37-47); Hemoglobin 9.9 g/dL (12.0-16.0); Mean Corpuscular Hemoglobin 32.9 pg (25-34); Mean Corpuscular Hgb Conc 31.6 g/dL (32-36); Mean Platelet Volume 10.6 fL (7.4-10.4); Platelet Count 164 K/uL (130-400); RDW Coefficient of Variation 18.8 % (11.5-14.5); RDW Standard Deviation 70.4 fL (36.4-46.3); Red Blood Count 3.01 M/uL (4.2-5.4); White Blood Count 8.65 K/uL (4.8-10.8)
[2020-01-11 07:12] LABS: INR 3.1 (0.9-1.1); Prothrombin Time 30.6 Seconds (9.0-12.0)
[2020-01-11 07:34] LABS: BUN Creatinine Ratio 12.1 (10-20); Calcium 9.2 mg/dl (8.5-10.1); Est GFR (African American) 13.9; Magnesium 2.2 mg/dl (1.8-2.4); Phosphorus 2.8 mg/dl (2.5-4.9); Potassium 4.6 mmol/L (3.5-5.1)
[2020-01-11] MEDS: INSULIN ASPART 100 UNITS/ML 3 ML PEN SC SCH ×4 (07:59→21:14)
[2020-01-11] MEDS: FLUTICASONE FUROATE 200MCG 14 PUFFS/INHALER INH SCH (08:00)
[2020-01-11] MEDS: SEVELAMER HCL 800 MG TABLET PO SCH ×3 (08:00→20:24)
[2020-01-11] MEDS: CLOPIDOGREL BISULFATE 75 MG TAB PO SCH (08:01)
[2020-01-11] MEDS: NEPHROCAPS PO SCH (08:02)
[2020-01-11] MEDS: LIDOCAINE 5% 1 PATCH TD SCH (08:02)
[2020-01-11] MEDS: OXYCODONE/ACETAMINOPHEN 5mg/325mg TAB PO PRN ×3 (08:06→21:37)
[2020-01-11] MEDS: PANTOprazole 40 MG TAB PO SCH (08:55)
[2020-01-11] MEDS ORDERED: HEPARIN SOD (PORCINE) 1000 UNIT/ML 10 ML VIAL IV ONE (09:11)
[2020-01-11] MEDS ORDERED: EPOETIN ALFA 4,000 UNIT/ML VIAL IV ONE (09:11)
[2020-01-11] MEDS ORDERED: SODIUM CHLORIDE 0.9% 1000ML 1,000 ML IV PRN (09:11)
--- NOTE | 2020-01-11 09:16 | Nephrology Progress Note ---
Date of Service January 11, 2020 Assessment & Plan (1) ESRD on hemodialysis: Patient on HD MWF in [place]. Last outpatient HD was saturday. Patient tolerated HD and Saturday. Will do HD today for 4 hours, 2-hour UF for net loss of 2.5 L and 2-hour hemodialysis for a net loss of 0.5 L. (2) Anemia of chronic disease: Hb 9.9 today. Will give epogen 4000 units with HD today (3) Bacteremia: Due to due to pseudomonas putida likely from the legs. She is on zosyn. renally dose meds for GFR less than 25ml/min. Admission and Anticipated Discharge Date Admission Date: January 06, 2020 Anticipated date of discharge: 01/12/20 Subjective Patient feels better today. She has occasional shortness of breath. She is complaining of pain in the legs. Review of Systems Review of Systems: All systems reviewed & are unremarkable except as noted in HPI & below Physical Exam Physical Exam: General exam: Appears comfortable, no acute distress HEENT: Pupils are equal and reactive to light Neck: No JVD, neck is supple trachea is midline Respiratory system: Clear breath sounds bilaterally. Gastrointestinal: Abdomen is soft, non distended, non tender, bowel sounds are present CVS: Regular rate and rhythm. No murmurs, rubs or gallops Musculoskeletal: No joint or muscle tenderness Extremities: Non tender, 2+ edema, peripheral pulses are present Neuro: Oriented, no tremors, no focal neurological deficits Skin: No rashes, ulcers on both legs. Legs are wrapped. Access: Left upper arm AV fistula with good bruit Results & Data ([facility]) Vital Signs (Past 12 Hours) Vital Signs Temp Pulse Resp BP Pulse Ox 01/10/20 23:09 36.5 C 75 20 127/73 92 Laboratory Results 01/11/20 06:50 01/11/20 01/11/20 06:50 06:50 WBC 8.65 RBC 3.01 L MCV 104.0 H MCH 32.9 MCHC 31.6 L RDW Std Deviation 70.4 H RDW Coeff of Oleksandr 18.8 H Plt Count 164 MPV 10.6 H Phosphorus 2.8
--- NOTE | 2020-01-11 10:00 | Hospitalist Progress Note ---
Date of Service January 11, 2020 Assessment & Plan (1) Bacteremia: Pseudomonas organism in blood-cont Zosyn while hospitalized with transition to Levaquin per ID (2) Wound of lower extremity: superficial infection-Levaquin at discharge. Cont with wound care follow as outpatient (3) T2DM (type 2 diabetes mellitus): Hypoglycemia-resolved off glipizide which should be discontinued at time of discharge. (4) ESRD on hemodialysis: Cont HD per Nephro. Midodrine per Nephro started this admission. (5) Atrial fibrillation: chronic, stable. Not requiring rate control. Cont coumadin. INR therapeutic. (6) PVD (peripheral vascular disease): -Continue Plavix and statin. With excessive bruising and patient reports of easy bleeding, she appears to be on too many blood thinners. Will stop Pletal now and have her follow-up with Cardiology to discuss the change as outpatient. (7) Anemia of chronic disease: chronic, stable. No need for transfusion at this time. Stopping Pletal in the presence of this known comorbidity. (8) Hyponatremia: Chronic, management per Nephro (9) Depression: Pristiq per home regimen once family brings from home. May improve aches and pains. (10) Deep tissue injury: Four new sites of deep tissue injury per wound care nurse. cont per wound care recs. Pt does not appears self-motivated to move and apparently doesn't move much at home either per son. Have stressed the importance of getting out of bed to the chair and attempting to move. DC to SNF likely tomorrow for more aggressive rehab efforts. (11) Obesity: (12) Physical deconditioning: PT/OT here and at SNF. Cont to motivate to move. (13) DVT prophylaxis: coumadin Full Code Dispo-will dispo to [facility] in next 1-2 days pending insurance authorization. Nevin Lopez DO [facility] Hospitalist Admission and Anticipated Discharge Date Admission Date: January 06, 2020 Anticipated date of discharge: 01/12/20 Subjective still reporting pain in her feet uncertain location of her Pristiq which was to start back today when daughter brought it generalized weakness, and reported she wasn't ambulating because no one prompted her to. Now has 4 new sites of deep tissue injury on her heels and sacrum as well as on her leg where her compression dressing was placed. wound care following closely Otherwise denies any symptoms. Review of Systems Review of Systems: All systems reviewed & are unremarkable except as noted in Subjective Physical Exam Physical Exam: CONSTITUTIONAL: obese, vitals as above, generally well- appearing but looks more swollen in her arms and overall. EYES: Normal conjunctivae, no scleral icterus ENT: external ear and nose normal, oropharynx clear RESPIRATORY: clear to auscultation bilaterally, no crackles, rales or wheezes CARDIOVASCULAR: regular rate and rhythm, S1 and 2 heard without murmurs, gallops or rubs, no JVD, 1+ pitting edema bilaterally but appears improved today. GASTROINTESTINAL: soft, nontender, nondistended MUSCULOSKELETAL: equal movement of extremities, however, she is physically deconditioned and hasn't moved much since arrival. Cannot sit up on her own. SKIN: warm and dry, palpable thrill of fistula in LUE. Left lower extremity appears bright red in comparison to right lower extremity-slightly less red today overall. Left and right legs with dressings intact that are clean and dry. There are chronic changes of the left leg consistent with chronic swelling. 1+ pitting edema is present in the lower extremities up to the thigh, left greater than right. NEUROLOGIC: CN 2-12 grossly intact, no sensory deficit, normal cognition, normal speech PSYCHIATRIC: alert cooperative and oriented to person, place and time. Results & Data Results & Data ([facility]) Vital Signs (Past 12 Hours) Vital Signs Temp Pulse Resp BP Pulse Ox 01/10/20 23:09 36.5 C 75 20 127/73 92 Laboratory Results Short CBC 01/11/20 Range/Units 06:50 WBC 8.65 (4.8-10.8) K/uL Hgb 9.9 L (12.0-16.0) g/dL Hct 31.3 L (37-47) % Plt Count 164 (130-400) K/uL BMP 01/11/20 06:50 Sodium 129 L Potassium 4.6 Chloride 95 L Carbon Dioxide 25 BUN 42 H Creatinine 3.52 H Glucose 129 H Calcium 9.2 Medications Administered Current Inpatient Medications Albuterol (Ventolin 0.083% 2.5mg/3ml) 2.5 mg INH QID PRN PRN Reason: Shortness Of Breath Or Wheezing Stop: 02/05/20 19:06 Atorvastatin Calcium (Lipitor) 40 mg PO HS [facility] Stop: 02/05/20 20:59 Last Admin: 01/10/20 22:18 Dose: 40 mg Documented by: Clopidogrel Bisulfate (Plavix) 75 mg PO QAM [facility] Stop: 02/06/20 08:59 Last Admin: 01/11/20 08:01 Dose: 75 mg Documented by: Dextrose (Dextrose 50%) 25 - 50 ml IV UD PRN; Protocol PRN Reason: Hypoglycemia Protocol Stop: 02/05/20 19:06 Last Admin: 01/07/20 17:30 Dose: 50 ml Documented by: Fluticasone Furoate (Arnuity Ellipta 200mcg) 1 puffs INH DAILY [facility] Stop: 02/06/20 08:59 Last Admin: 01/11/20 08:00 Dose: 1 puffs Documented by: Glucagon (Glucagen) 1 mg SQ UD PRN; Protocol PRN Reason: Hypoglycemia Protocol Stop: 02/05/20 19:06 Glucose (Dex4 Glucose) 4 - 8 tabs PO UD PRN; Protocol PRN Reason: Hypoglycemia Protocol Stop: 02/05/20 19:06 Glucose (Glucose 40%) 15 - 30 gm PO UD PRN; Protocol PRN Reason: Hypoglycemia Protocol Stop: 02/05/20 19:06 Piperacillin Sod/Tazobactam (Sod 4.5 gm/ Dextrose) 120 mls @ 30 mls/hr IV Q12H [facility]; Protocol Stop: 01/14/20 11:59 Last Infusion: 01/11/20 04:18 Dose: Infused Documented by: Sodium Chloride (Nss 1000ml) 1,000 mls @ 0 mls/hr IV .Q0M PRN PRN Reason: For Hemodialysis Use ONLY Stop: 01/11/20 15:10 Insulin Aspart (Novolog Flexpen) 0 units SC ACHS [facility] Stop: 02/08/20 20:59 Last Admin: 01/11/20 07:59 Dose: Not Given Documented by: Lidocaine (Lidoderm 5%) 1 patch TD QAM [facility] Stop: 02/06/20 13:44 Last Admin: 01/11/20 08:02 Dose: 1 patch Documented by: Miconazole Nitrate (Desenex) 1 appln EXT PRN PRN PRN Reason: Affected Skin Folds Stop: 02/08/20 08:38 Midodrine (Proamatine) 10 mg PO DAILY [facility]; Protocol Stop: 02/07/20 10:02 Last Admin: 01/10/20 08:36 Dose: Not Given Documented by: Miscellaneous (Carbohydrates For Hypoglycemia) 15 - 30 gm PO UD PRN PRN Reason: Hypoglycemia Protocol Stop: 02/05/20 19:06 Last Admin: 01/07/20 17:14 Dose: 30 gm Documented by: Miscellaneous (Order Awaiting Action) 1 ea N/A QS [facility] Stop: 02/06/20 00:00 Last Admin: 01/11/20 07:59 Dose: Not Given Documented by: Miscellaneous (Order Awaiting Action) 1 ea N/A QS [facility] Stop: 02/06/20 00:00 Last Admin: 01/11/20 07:59 Dose: Not Given Documented by: Miscellaneous (Remove Lidoderm Patch) 1 ea N/A DAILY@2100 [facility] Stop: 02/06/20 20:59 Last Admin: 01/10/20 21:40 Dose: 1 ea Documented by: Miscellaneous Information (Consult) 1 ea N/A UD PRN PRN Reason: Consult Stop: 02/05/20 19:22 Nitroglycerin (Nitrostat) 0.4 mg SL Q5M PRN PRN Reason: Chest Pain Stop: 02/05/20 19:06 Oxycodone/Acetaminophen (Percocet 5mg/325mg) 1 tab PO Q6H PRN PRN Reason: Pain Stop: 01/23/20 09:48 Last Admin: 01/11/20 08:06 Dose: 1 tab Documented by: Pantoprazole Sodium (Protonix) 40 mg PO DAILY [facility] Stop: 02/06/20 08:59 Last Admin: 01/11/20 08:55 Dose: 40 mg Documented by: Sevelamer HCl (Renagel) 800 mg PO TIDM [facility] Stop: 02/06/20 07:59 Last Admin: 01/11/20 08:00 Dose: 800 mg Documented by: Vitamin B Complex/Folic Acid (Nephrocaps) 1 cap PO QAM [facility] Stop: 02/06/20 08:59 Last Admin: 01/11/20 08:02 Dose: 1 cap Documented by: Warfarin Sodium (Coumadin) 3 mg PO DAILY@1600 [facility] Stop: 02/06/20 15:59 Last Admin: 01/10/20 16:24 Dose: 3 mg Documented by: (1) T2DM (type 2 diabetes mellitus) Chronic kidney disease stage: stage 4 (severe) Diabetes mellitus complication detail: with chronic kidney disease Diabetes mellitus complication status: with kidney complications Diabetes mellitus assisted insulin use: without assisted use Qualified Code(s): E11.22 - Type 2 diabetes mellitus with diabetic chronic kidney disease; N18.4 - Chronic kidney disease, stage 4 (severe) (2) Depression Depression Type: unspecified Qualified Code(s): F32.9 - Major depressive disorder, single episode, unspecified
--- NOTE | 2020-01-11 11:12 | Infectious Disease Progress Nt ---
Date of Service January 11, 2020 Assessment & Plan (1) Gram negative sepsis: pt can continue zosyn while in hospital, would suggest d/c on levaquin 500mg [id number] for min 21 days, will need continued follow up in wound center post d/c. (2) Wound of lower extremity: (3) Cellulitis: Admission and Anticipated Discharge Date Admission Date: January 06, 2020 Anticipated date of discharge: 01/12/20 Subjective pt afebrile. tolerating abx, remains on zosyn. Initial blood cultures growing pseudomonas species, sensitive to zosyn, quinolones. wound culture LLE, again growing pansensitive Enterobacter (was on cefdinir renally dosed seating captain from wound center), RLE growing few E. faecalis and few stenotrophomonas, unclear significance of this. repeat blood cultures grew only DIESEL ELECTRICIAN in 1/2 sets, likely contaminant, dapto stopped, no repeat cultures done. pt is to be d/c tomorrow per chart. wbc 8.6, no fevers. tolerating abx. Results & Data ([facility]) Laboratory Results Microbiology 01/07/20 15:25 Leg,Right Gram Stain - Final 01/07/20 15:25 Leg,Right Wound Culture - Final Enterococcus faecalis Stenotrophomonas maltophilia 01/07/20 15:25 Leg,Left Gram Stain - Final 01/07/20 15:25 Leg,Left Wound Culture - Final Enterobacter cloacae 01/07/20 14:22 Blood Aerobic Blood Culture - Preliminary Coag neg staph not lugdunensis 01/07/20 14:22 Blood Anaerobic Blood Culture - Preliminary No growth in Anaerobic bottle after 48 hours. 01/06/20 16:02 Blood Aerobic Blood Culture - Preliminary Pseudom fluoresc/putida 01/06/20 16:02 Blood Anaerobic Blood Culture - Preliminary No growth in Anaerobic bottle after 48 hours. 01/06/20 15:45 Blood Aerobic Blood Culture - Preliminary Pseudom fluoresc/putida 01/06/20 15:45 Blood Anaerobic Blood Culture - Final 01/07/20 14:19 Blood Aerobic Blood Culture - Preliminary No growth in Aerobic bottle after 48 hours. 01/07/20 14:19 Blood Anaerobic Blood Culture - Preliminary No growth in Anaerobic bottle after 48 hours. PG Care Time/CCT Total # of Minutes Spent Total Time Spent with Patient: Total time spent is greater than 50% in coordination of care (as documented) at patient's floor/unit and/or counseling patient: Coding Level of Care Code 05694 Subseq Hosp Care Lvl 1 Diagnoses Gram negative sepsis A41.50 Wound of lower extremity S81.809A Cellulitis L03.90
[2020-01-11] MEDS: MIDODRINE HCL 10 MG TAB PO SCH (14:44)
[2020-01-11] MEDS: ATORVASTATIN 40 MG TAB PO SCH (20:23)
[2020-01-11] MEDS: WARFARIN SOD 3 MG TAB PO SCH (20:23)
[2020-01-11] MEDS: DESVENLAFAXINE SUCCINATE 25 MG PO SCH (21:15)
[2020-01-12] MEDS: OXYCODONE/ACETAMINOPHEN 5mg/325mg TAB PO PRN ×2 (03:42→09:38)
[2020-01-12] MEDS: DESVENLAFAXINE SUCCINATE 25 MG PO SCH (08:42)
[2020-01-12] MEDS: SEVELAMER HCL 800 MG TABLET PO SCH ×2 (08:42→14:00)
[2020-01-12] MEDS: PANTOprazole 40 MG TAB PO SCH (08:42)
[2020-01-12] MEDS: CLOPIDOGREL BISULFATE 75 MG TAB PO SCH (08:43)
[2020-01-12] MEDS: MIDODRINE HCL 10 MG TAB PO SCH (08:43)
[2020-01-12] MEDS: NEPHROCAPS PO SCH (08:43)
[2020-01-12] MEDS: INSULIN ASPART 100 UNITS/ML 3 ML PEN SC SCH (08:44)
[2020-01-12] MEDS: FLUTICASONE FUROATE 200MCG 14 PUFFS/INHALER INH SCH (08:45)
[2020-01-12] MEDS: LIDOCAINE 5% 1 PATCH TD SCH (08:46)
[2020-01-12] MEDS ORDERED: SODIUM CHLORIDE 0.9% 1000ML 1,000 ML IV PRN (09:18)
[2020-01-12] MEDS ORDERED: HEPARIN SOD (PORCINE) 1000 UNIT/ML 10 ML VIAL IV SCH (09:30)
--- NOTE | 2020-01-12 09:44 | Nephrology Progress Note ---
Date of Service January 12, 2020 Assessment & Plan (1) ESRD on hemodialysis: Patient on HD MWF in [place]. Last outpatient HD was saturday. Patient tolerated HD , Saturday and Saturday with net UF 3 litres yesterday. Will do HD today for 2-hour UF for net loss of 3 L.Patient can be discharged after dialysis. (2) Anemia of chronic disease: Hb 9.9 yesterday. she will continue epogen out pt (3) Bacteremia: Due to due to pseudomonas putida likely from the legs. She is on zosyn. renally dose meds for GFR less than 25ml/min. Admission and Anticipated Discharge Date Admission Date: January 06, 2020 Anticipated date of discharge: 01/12/20 Subjective Patient denies any shortness of breath but complains of pain in the legs and shoulders. She is being planned for discharge to [facility] although patient feels she is not ready for discharge. Review of Systems Review of Systems: All systems reviewed & are unremarkable except as noted in HPI & below Physical Exam Physical Exam: General exam: Appears comfortable, no acute distress HEENT: Pupils are equal and reactive to light Neck: No JVD, neck is supple trachea is midline Respiratory system: Clear breath sounds bilaterally. Gastrointestinal: Abdomen is soft, non distended, non tender, bowel sounds are present CVS: Regular rate and rhythm. No murmurs, rubs or gallops Musculoskeletal: No joint or muscle tenderness Extremities: Non tender, 2+ edema, peripheral pulses are present Neuro: Oriented, no tremors, no focal neurological deficits Skin: No rashes Results & Data ([facility]) Vital Signs (Past 12 Hours) Vital Signs Temp Pulse Pulse Resp BP Pulse Ox 01/12/20 07:02 36.8 C 66 22 119/71 97 01/11/20 22:33 36.4 C L 74 18 98/61 L Laboratory Results 01/11/20 06:50
[2020-01-12] MEDS ORDERED: LIDOCAINE/PRILOCAINE 2.5% EA CRM EXT ONE (10:09)
[2020-01-12] MEDS ORDERED: levoFLOXacin 500 MG TAB PO STA (11:27)
--- NOTE | 2020-01-12 12:04 | Discharge Summary ---
Date of Service January 12, 2020 Admission HPI Per Admitting Provider Pt is 74 y/o F with PMH ESRD on HD on MWF, atrial fibrillation on Coumadin, PVD, HTN, HLD, DM II, tachybradycardia syndrome s/p pacemaker, chronic diastolic CHF, wounds to bilateral lower extremities presented to ER with complaint of weakness. Patient states tried to get out of bed today and felt weak and slid to floor and was unable to get up on floor. Patient does not think she hit her head or had LOC. compactor driver arrived to take patient to dialysis and was unable to get patient off floor so EMS was called. Patient states had 4 episodes of diarrhea since last night. Denies any nausea or vomiting. Patient did not go to dialysis today. She reports does not make any urine. Patient has chronic wounds to bilateral lower legs and has been following with wound clinic reports is taking antibiotic and having legs wrapped. Patient reports chronic drainage from wounds and redness of legs, she is unsure if there is any increased worsening. Denies any known fever or chills. Patient complaining of left foot pain she reports she thinks her left foot was injured during transportation by EMS. She reports chronic bilateral shoulder pain which is unchanged and chronic right hip pain which is unchanged. Patient had SCC removed by Mohs surgery on 12/31/[address] Cowart at [facility]. In ER patient somnolent, she reports that she is always tired. Patient reports has been ambulating very little at home has been using a walker or wheelchair. Denies PARDO, dizziness, syncope, vision changes, neck pain, CP, SOB, orthopnea, palpitations, cough, sore throat, choking, otalgia, rhinorrhea, abdominal pain, paresthesias, increased extremity edema, other rashes. Admission Exam Per Admitting Provider General: no acute distress, chronic ill appearing, obese Head: normocephalic, atraumatic Eyes: PERRL, EOM's intact, conjunctiva non-injected, anicteric ENT: normal inspection external ears, nose, mucous membranes mildly dry Neck: supple, trachea midline, non-tender Lungs: clear, no respiratory distress, no wheezing/rhonchi/rales CV: RRR, no murmur Abd: normal BS, soft, non-tender Ext: no cyanosis, LUE: +fistula with palpable thrill, left forearm with sutures in place without erythema or discharge; LLE: +ulcer anterior lower leg, lower leg with erythema, edema extending to foot with tenderness to palpation, anterior toes 2-5 with ecchymosis; RLE: wrap in place (pt will not allow this provider to remove wrap to evaluate) Neuro: A&O x 3, no focal deficits noted, normal affect Skin: warm, dry, +ecchymosis to arms, legs, chest Principal Diagnosis Acute metabolic encephalopathy-resolved Gram negative bacteremia Wound of lower extremity Deep tissue injury Hypoglycemia in setting of Type II Diabetes Mellitus-resolved ESRD on hemodialysis Obesity Physical Deconditioning Depression Chronic pain Discharge Exam CONSTITUTIONAL: obese, vitals as above, generally well-appearing. Receiving HD. EYES: Normal conjunctivae, no scleral icterus ENT: external ear and nose normal, oropharynx clear RESPIRATORY: clear to auscultation bilaterally, no crackles, rales or wheezes CARDIOVASCULAR: regular rate and rhythm, S1 and 2 heard without murmurs, gallops or rubs, no JVD, no peripheral edema. GASTROINTESTINAL: soft, nontender, nondistended MUSCULOSKELETAL: equal movement of extremities, however, she is physically deconditioned overall and cannot move independently. Cannot sit up on her own. SKIN: warm and dry, LUE fistula is accessed. Lower extremity wounds are bilateral, covered with clean and dry dressings and have no surrounding erythema. NEUROLOGIC: CN 2-12 grossly intact, no sensory deficit, normal cognition, normal speech PSYCHIATRIC: alert cooperative and oriented to person, place and time. Discharge Data Allergies Allergy/AdvReac Type Severity Reaction Status Date / Time No Known Allergies Allergy Unverified 01/06/20 17:24 Consultations 01/06/20 17:26 ED Decision to Admit Stat 01/06/20 19:07 Consult Case Management - Discharge Planning Routine Consult Wound Care Provider Routine 01/07/20 07:00 Consult Nephrology Routine 01/07/20 08:00 Consult Infectious Diseases Routine Ordered Studies 01/06/20 18:04 CT head/brain wo con Stat Hospital Course (1) Bacteremia: Admitted for acute weakness with a mechanical fall at home. Found to be significantly hypoglycemic into the 30-60 range over the first 36 hours of admission, thought secondary to glipizide use. Workup also revealed presence of bacteremia in the setting of multiple skin wounds. 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 Although weakness was not significantly improved at time of discharge, this was thought secondary to significant physical deconditioning and poor motivation to ambulate. Underlying metabolic reasons for weakness including hypoglycemia and infection were addressed. Pseudomonas organism in blood-cont Zosyn while hospitalized with transition to Levaquin per ID for at least three weeks with plan to review wounds at wound care and consider longer antibiotic course if needed. Labwork will need to be reviewed by PCP while on prolonged abx. (2) Wound of lower extremity: superficial infection present-Levaquin at discharge. Cont with wound care follow as outpatient (3) T2DM (type 2 diabetes mellitus): Hypoglycemia-resolved off glipizide which should be discontinued at time of discharge. (4) ESRD on hemodialysis: Cont HD per Nephro. Midodrine per Nephro started this admission and to be continued only on dialysis days. (5) Atrial fibrillation: chronic, stable. Not requiring rate control. Cont coumadin. INR therapeutic. (6) PVD (peripheral vascular disease): -Continue Plavix and statin. With excessive bruising and patient reports of easy bleeding, she appears to be on too many blood thinners. Will stop Pletal now and have her follow-up with Cardiology to discuss the change as outpatient. (7) Anemia of chronic disease: chronic, stable. No need for transfusion at this time. Stopping Pletal i n the presence of this known comorbidity. (8) Hyponatremia: Chronic, management per Nephro (9) Depression: Pristiq per home regimen. This was a nonformulary item and unable to be given until family brought in her home mediatons, which didn't occur for first several days of admission. (10) Deep tissue injury: Four new sites of deep tissue injury per wound care nurse. Cont per wound care recs. Pt does not appears self-motivated to move and apparently doesn't move much at home either per son. Have stressed the importance of getting out of bed to the chair and attempting to move. DC to SNF for more aggressive rehab efforts. (11) Obesity: (12) Physical deconditioning: PT/OT here and at SNF. Cont to motivate to move. Total Time Total Time Spent Total Time Spent (In Minutes): 60 Total Time Includes: Examination of the Patient, Discharge Planning, Medication Reconciliation and Communication With Other Providers Discharge Plan Discharge Items Patient Disposition: Transfer Assisted Fac Reason For Visit: WEAKNESS Discharge Diagnosis: Acute metabolic encephalopathy-resolved Gram negative bacteremia Wound of lower extremity Deep tissue injury Hypoglycemia in setting of Type II Diabetes Mellitus-resolved ESRD on hemodialysis Obesity Physical Deconditioning Depression Chronic pain Condition on Discharge: Good Activity: Resume your previous activity Non-emergency contact: Primary Care Provider Call non-emergency contact if: you have any medication questions, your symptoms worsen, your pain is not controlled, your pain is worsening, your pain is unusual for you, your pain is concerning for you and you have a fever Follow-up/Referrals: Jose Elias Ascencio MD [Primary Care Provider] - Diet: Carb Consistent or DM2 and Dialysis Renal Addtl Attending Provider Instructions: Please take all medications as instructed on discharge list below. You are being placed on LEVOFLOXACIN to take every other day for 21 days, per Infectious Disease recommendations. Your INR will need to be monitored at least twice weekly while on this medication as your coumadin may need to be adjusted. Additionally a weekly CBC and BMP should be performed by staff at [facility] with the primary physician reviewing the results. Please note your CILOSTAZOL has been stopped. You are already taking Plavix and Coumadin, which should give you enough protection from a cardiovascular standpoint. However, please non-urgently follow-up with your Utility Plant Operative to discuss this change further. You are starting MIDODRINE which should only be taken on dialysis days, per Nephrology recommendations. Frequent wound care per wound care nursing instructions should be undertaken with very close followup with the Wound Care clinic. You are being taken off of glipizide and will need to discuss with your primary care provider if new diabetic treatments should be pursued. It is recommended that you follow-up with your primary care provider within 1-2 weeks of discharge from the rehab facility. Topics of importance to discuss include better options for pain management than relying on narcotics which put you at risk for more falls, discussing diabetes management as above, reviewing your clinical response to infection treatment and keeping a close eye on your wounds. It was a pleasure taking care of you! Please call if you have any questions or problems. You can reach a [facility] hospitalist on duty at [facility] 24 hours a day by calling [phone]. Take care of yourself. DO Jonathan [facility] Hospitalist Pending Studies at Discharge: Yes Studies:: Finalized blood culture results Stand-Alone Forms: My [facility] Skilled Items Patient informed of condition?: Yes DNR: No Discharge Level of Care: Skilled Communicable Disease: No Discharge Prognosis: Stable Lines: None Urinary Catheter: No Medications and DC Order Prescriptions: New levofloxacin [Levaquin] 500 mg tablet 500 mg PO Q48H Qty: 14 RF: 0 midodrine 10 mg tablet 10 mg PO UD Qty: 30 RF: 0 Continued sevelamer carbonate [Renvela] 800 mg tablet 800 mg PO TIDM RF: 0 clopidogrel 75 mg tablet 75 mg PO QAM RF: 0 nitroglycerin 0.4 mg tablet, sublingual 0.4 mg Sublingual Q5M PRN (Reason: Chest Pain) RF: 0 Renal Caps 1 mg capsule 1 mg PO QAM RF: 0 Flovent HFA 110 mcg/actuation HFA aerosol inhaler 2 puff Inhalation BID RF: 0 atorvastatin 40 mg tablet 40 mg PO HS RF: 0 albuterol sulfate 90 mcg/actuation HFA aerosol inhaler 2 puff inhalation Q6H PRN (Reason: Shortness Of Breath Or Wheezing) RF: 0 desvenlafaxine succinate [Pristiq] 25 mg Tablet Extended Release 24 Hr 25 mg PO QAM RF: 0 Auryxia 210 mg iron Tablet 210 mg PO TIDM RF: 0 albuterol sulfate 2.5 mg /3 mL (0.083 %) Solution For Nebulization 2.5 mg INHALATION QID PRN (Reason: Shortness Of Breath Or Wheezing) RF: 0 warfarin 3 mg tablet 3 mg PO DAILY RF: 0 oxycodone-acetaminophen 5-325 mg tablet 1 tab PO Q6H PRN (Reason: Pain) RF: 0 pantoprazole 40 mg tablet,delayed release (DR/EC) 40 mg PO DAILY RF: 0 hydrocortisone 2.5 % cream 1 applic TOPICAL DAILY PRN (Reason: Skin Irritation) RF: 0 lidocaine-prilocaine 2.5-2.5 % cream 1 applic topical .PRE DIALYSIS RF: 0 Discontinued cefdinir 300 mg capsule 300 mg PO Q48H Qty: 7 RF: 0 cilostazol 100 mg tablet 100 mg PO BID RF: 0 glipizide 5 mg Tablet Extended Release 24hr 5 mg PO QAM RF: 0 Discharge Orders: Discharge Order (Routine); Ordered 01/12/20 Ordered By: Nevin Lopez Admission Data Admit Date/Time: 01/06/20 17:36 Attending Provider: Nevin Lopez Admit Provider: Emil Baumann Primary Care Provider: Jose Elias Ascencio Other Providers: Sigifredo Moya ; Emil Baumann ; Toby Faust ; Mana Philippe ; Samira Gore Other Interventions: Discharge Summary Assessment (RN) Last Done: 01/12/20 12:07 DC Date/Time DO NOT enter until pt leaves facility: 01/12/20 14:24
[2020-01-12] MEDS: PIPERACILLIN/TAZOBACTAM 4.5 GM in DEXTROSE 5% 100 ML IV SCH (14:00)
== END 2020-01-12 14:24 | DRG 871 ==
LOC: ED 14:40 → 2W 17:36 → SUATTDRO 17:36 → 2W 18:32

== ENCOUNTER 2020-03-06 19:35 | Inpatient (IN) ==
[2020-03-06 20:43] LABS: Basophils # (auto) 0.04 K/uL (0-0.2); Basophils % (auto) 0.5 %; Eosinophils # (auto) 0.26 K/uL (0-0.5); Eosinophils % (auto) 3.3 %; Hematocrit (blood only) 42.2 % (37-47); Hemoglobin 13.4 g/dL (12.0-16.0); Immature Granulocytes # (auto) 0.05 K/uL (0.00-0.02); Immature Granulocytes % (auto) 0.6 %; Lymphocytes % (auto) 10.3 %; Mean Corpuscular Hemoglobin 30.9 pg (25-34); Mean Corpuscular Hgb Conc 31.8 g/dL (32-36); Mean Corpuscular Volume 97.5 fL (80-100); Mean Platelet Volume 11.4 fL (7.4-10.4); Monocytes % (auto) 7.7 %; Neutrophils # (auto) 6.05 K/uL (1.4-6.5); Neutrophils % (auto) 77.6 %; Nucleated RBC # (auto) 0.04 K/uL (0-0); Nucleated RBC % (auto) 0.6 %; Platelet Count 169 K/uL (130-400); RDW Coefficient of Variation 20.7 % (11.5-14.5); RDW Standard Deviation 72.9 fL (36.4-46.3); Red Blood Count 4.33 M/uL (4.2-5.4)
--- NOTE | 2020-03-06 21:27 | XRay Report ---
XR chest 1V portable CLINICAL HISTORY: L shoulder swelling/pain COMPARISON STUDY: Chest radiograph January 06, 2020. FINDINGS: There is no pneumothorax. Linear left lower lung opacities are noted. There is no evidence for pulmonary edema. Moderate cardiomegaly is noted. This is unchanged. IMPRESSION: 1. Linear left basilar opacities which favor atelectasis. 2. Moderate cardiomegaly. No evidence for pulmonary edema. ACT 112: Negative or not required by law. Electronically signed by: Chinedu Arita M.D. 03/06/2020 9:25 PM
--- NOTE | 2020-03-06 21:28 | XRay Report ---
XR shoulder LT min 2V routine CLINICAL HISTORY: swelling COMPARISON: None FINDINGS: Alignment of the left shoulder is anatomic. There is no fracture or suspicious lesion. The re is moderate osteoarthritis of the left acromioclavicular joint with subacromial spurring. IMPRESSION: 1. No acute fracture or dislocation within the left shoulder. 2. Moderate osteoarthritis of the left acromioclavicular joint. ACT 112: Negative or not required by law. Electronically signed by: Chinedu Arita M.D. 03/06/2020 9:27 PM
[2020-03-06 21:29] LABS: INR 4.9 (0.9-1.1); Partial Thromboplastin Ratio 1.6; Partial Thromboplastin Time 44.4 Seconds (21.0-31.0); Prothrombin Time 47.1 Seconds (9.0-12.0)
[2020-03-06 21:33] LABS: Albumin Level 2.1 gm/dl (3.4-5.0); BUN Creatinine Ratio 15.6 (10-20); Calcium 9.5 mg/dl (8.5-10.1); Creatinine Clr Calc Pharmacy 13.8 ml/min; Est GFR (African American) 13.1; Est GFR (Non-African American) 11.3; Potassium 4.8 mmol/L (3.5-5.1)
[2020-03-06 21:38] LABS: Anisocytosis Present; Echinocytes 1+; Giant Platelets 1+; Polychromasia 1+
[2020-03-06 21:41] LABS: Albumin Globulin Ratio 0.5 (0.9-2); Bilirubin,Total 0.9 mg/dl (0.2-1); Globulin 4.2 gm/dl (2.5-4.0); Thyroid Stimulating Hormone 1.68 uIu/ml (0.300-4.500); Total Protein 6.3 gm/dl (6.4-8.2); Troponin I 0.078 ng/ml (0-0.045)
--- NOTE | 2020-03-06 21:57 | Emergency Department Note ---
Impression & Plan Left upper extremity swelling, Arm pain, left ED Provider Note Provider: Keenan Saravia MD DATE OF SERVICE: 03/06/2020 CHIEF COMPLAINT: Left arm swelling and redness worsening HISTORY OF PRESENT ILLNESS: Patient is a 74-year-old female with a history of ESRD on hemodialysis, atrial fibrillation with Coumadin usage, PVD, diabetes, tachybradycardia syndrome with pacemaker, heart failure, chronic lower extremity wounds presenting from [facility] today reporting several days (approximately 3) of worsening swelling of her left arm. Has been elevating but worsening pain as well. Patient has recently had a supratherapeutic INR just over 6 several days ago and Coumadin has been reduced. No trauma reported. Little bit of swelling of the right upper extremity reported but minimal. Patient denies any fever difficulty breathing or chest pain. Patient does relate the majority of the kassi n is in the left upper area of her shoulder and arm. This is just proximal to her fistula. Fistula is accessed for dialysis Saturday without issue per her report. No excessive bleeding reported. Patient denies any numbness or tingling in the arm. REVIEW OF SYSTEMS: A total of 10 review of systems was obtained and negative except as stated above in the HPI. PAST MEDICAL HISTORY: As noted above MEDICATIONS: Reviewed nursing medication list. SOCIAL HISTORY: Resides at [facility]. Non-smoker. . PHYSICAL EXAM: GENERAL: alert and oriented in no acute distress on stretcher Head: normocephalic and atraumatic EYES: No injection, discharge or icterus. NECK: Trachea midline. Supple. ENT: Mucous membranes pink and moist. LUNGS: Airway patent. No retractions. Breath sounds clear anteriorly HEART: Regular rate and rhythm. No chest wall tenderness with left upper chest pacemaker in place ABDOMEN: Soft and non-tender, without guarding or rebound. SKIN: Acyanotic, warm, dry EXTREMITIES: Severe bilateral lower extremity swelling and wounds bandaged. Patient has few scattered bruising of the right upper extremity with trace edema. The left upper extremity is 3+ edema with scattered bruising. Left upper arm fistula is noted with thrill and bandaging in place. Tenderness without crepitus predominantly of the left shoulder and left upper arm is appreciated. NEUROLOGICAL: No focal deficits. No aphasia. No facial droop or slurred speech. Normal strength and tone in the extremities. Sensation to gross touch normal. Ambulatory. EKG: Ventricularly paced rhythm at 71 bpm. No PVCs. No significant ST elevation. Compared to December [id number] similar with less artifact today CONTINUOUS CARDIAC MONITORING: was ordered and showed a heart rate of 74 bpm in paced rhythm Patient's hypertension was referred to the hospitalist HOSPITAL COURSE: 1999 Patient was first seen and H&P performed. 2220 Patient reassessed. Patient was still experiencing pain. Updated on the re sults thus far. 2329 contacted the [facility] hospitalist. Patient still reports significant pain. Patient's laboratory studies and imaging reviewed. Differential includes DVT, cellulitis, hematoma, musculoskeletal, infection, joint effusion, trauma, lymphedema, idiopathic, CHF, as well as other p athologies. IMPRESSION/MEDICAL DECISION MAKING: Patient is a swelling particularly of the left upper extremity. Having said respiratory symptoms. Lower suspicion for CHF. Patient is in place here. Question given the recent supratherapeutic INR if there is a hematoma here. INR still elevated today in the fours. Ultrasound was completed the area. X-ray of the shoulder and chest without evidence of hemothorax or acute bony injury. No history of trauma. No crepitus appreciated here. Patient is afebrile without significant leukocytosis currently maintained on antibiotics at home including amoxicillin and doxycycline. Do not see an abscess here. Nonspecific edema could represent cellulitis. Procalcitonin is pending. Do not see evidence of a large hematoma or collection in the upper extremity on imaging. Patient ultrasound shows no significant abnormality beyond some subcutaneous edema. Given her comorbidities and history of infectious issues cultures have already been sent. Will broaden to Zosyn at this time. Not hypotensive. Insignificant pain given several doses of fentanyl. Given the uncontrolled pain feel she deserves further inpatient evaluation. Discussed with the hospice provider. Discussed with him and will defer additional antibiotic or MRSA coverage to him. DIAGNOSIS: Left arm swelling and pain DISPOSITION: Evaluated by the hospitalist Patient was agreeable with this plan. Past Med/Surg History Social History Preferred Language: Icelandic Communication Ability: Effective Communication Lecturer Required: No Beliefs That Will Affect Care: None marital status: / Current Living Situation: Alone Current Living Situation Comment: Lives with grandson, but moving out soon. Feels Safe at Home: Yes Smoking Status: Former smoker Second Hand Exposure: Yes ; Hx Alcohol Use: No Hx Substance Use: No Allergies Allergies Allergy/AdvReac Type Severity Reaction Status Date / Time No Known Allergies Allergy Verified 03/06/20 20:42 Home Meds Home Medications Medication Instructions Recorded Confirmed Flovent HFA 2 puff INHALATION BID 12/16/18 03/06/20 Renal Caps 1 mg PO QAM 12/16/18 03/06/20 clopidogrel 75 mg PO QAM 12/16/18 03/06/20 nitroglycerin 0.4 mg SUBLINGUAL Q5M PRN 12/16/18 03/06/20 albuterol sulfate 2 puff INHALATION Q6H PRN 04/29/19 03/06/20 atorvastatin 40 mg PO HS 04/29/19 03/06/20 desvenlafaxine succinate [Pristiq] 25 mg PO QAM 04/29/19 03/06/20 lidocaine-prilocaine 1 applic TOPICAL .PRE DIALYSIS 01/06/20 03/06/20 oxycodone-acetaminophen 1 tab PO Q6H PRN MDD APAP MAX 3 01/06/20 03/06/20 GRAMS/24 HOURS pantoprazole 40 mg PO DAILY 01/06/20 03/06/20 Med Pass 120 ml PO TID 03/06/20 03/06/20 acetaminophen [Tylenol] 650 mg PO Q4H PRN MDD 3 GRAMS/24 03/06/20 03/06/20 HOURS amoxicillin 500 mg PO TID 03/06/20 03/06/20 collagenase clostridium histo. 1 applic TOPICAL DAILY PRN 03/06/20 03/06/20 [Santyl] doxycycline hyclate 100 mg PO BID 03/06/20 03/06/20 midodrine 10 mg PO DIRECTED 03/06/20 03/06/20 oxycodone-acetaminophen 1 tab PO TID MDD APAP 3 GRAMS/24 03/06/20 03/06/20 HOURS Results & Data (ED) Vital Signs Vital Signs - 24 hr 03/06/20 19:50 03/06/20 20:07 03/06/20 20:30 Temperature 36.7 C Temperature Source Oral Pulse Rate 72 72 74 Pulse Rate [Right Finger] Pulse Rate from SpO2 Sensor 73 71 Pulse Rhythm Regular Pulse Rhythm [Right Finger] Pulse Strength Normal Pulse Strength [Right Finger] Respiratory Rate 18 14 13 Respiratory Effort / Characteristics Non-Labored Spontaneous Respiratory Depth Normal Respiratory Pattern Regular Blood Pressure 110/67 110/67 113/64 Blood Pressure [Right Arm] Blood Pressure Mean 81 83 83 Blood Pressure Mean [Right Arm] Blood Pressure Position Lying Blood Pressure Position [Right Arm] Pulse Oximetry 97 91 94 Oxygen Delivery Method Room Air Sepsis Recent Fever Within 48 Hours No Sepsis New/Unexplained Change in Mental Status No Sepsis Action Taken by Nursing No Action Required 03/06/20 20:32 03/06/20 22:01 03/06/20 23:09 Temperature Temperature Source Pulse Rate 72 72 Pulse Rate [Right Finger] 80 Pulse Rate from SpO2 Sensor 71 Pulse Rhythm Pulse Rhythm [Right Finger] Regular Pulse Strength Pulse Strength [Right Finger] Normal Respiratory Rate 18 18 20 Respiratory Effort / Characteristics Non-Labored Spontaneous Respiratory Depth Normal Respiratory Pattern Blood Pressure 124/70 Blood Pressure [Right Arm] 146/86 H Blood Pressure Mean 87 Blood Pressure Mean [Right Arm] 106 Blood Pressure Position Blood Pressure Position [Right Arm] Lying Pulse Oximetry 97 99 98 Oxygen Delivery Method Room Air Room Air Sepsis Recent Fever Within 48 Hours Sepsis New/Unexplained Change in Mental Status Sepsis Action Taken by Nursing 03/07/20 00:25 Temperature Temperature Source Pulse Rate Pulse Rate [Right Finger] 74 Pulse Rate from SpO2 Sensor Pulse Rhythm Pulse Rhythm [Right Finger] Pulse Strength Pulse Strength [Right Finger] Respiratory Rate 20 Respiratory Effort / Characteristics Respiratory Depth Respiratory Pattern Blood Pressure Blood Pressure [Right Arm] 134/79 Blood Pressure Mean Blood Pressure Mean [Right Arm] 97 Blood Pressure Position Blood Pressure Position [Right Arm] Pulse Oximetry 97 Oxygen Delivery Method Room Air Sepsis Recent Fever Within 48 Hours Sepsis New/Unexplained Change in Mental Status Sepsis Action Taken by Nursing Laboratory Data Result diagrams: 03/06/20 20:00 03/06/20 20:50 Lab Results 03/06/20 03/06/20 03/06/20 Range/Units 20:00 20:50 20:50 WBC 7.80 (4.8-10.8) K/uL RBC 4.33 (4.2-5.4) M/uL Hgb 13.4 (12.0-16.0) g/dL Hct 42.2 (37-47) % MCV 97.5 (80-100) fL MCH 30.9 (25-34) pg MCHC 31.8 L (32-36) g/dL RDW Std Deviation 72.9 H (36.4-46.3) fL RDW Coeff of Oleksandr 20.7 H (11.5-14.5) % Plt Count 169 (130-400) K/uL MPV 11.4 H (7.4-10.4) fL Immature Gran % (Auto) 0.6 % Neut % (Auto) 77.6 % Lymph % (Auto) 10.3 % Mcduffie % (Auto) 7.7 % Eos % (Auto) 3.3 % Baso % (Auto) 0.5 % Immature Gran # (Auto) 0.05 H (0.00-0.02) K/uL Neut # (Auto) 6.05 (1.4-6.5) K/uL Lymph # (Auto) 0.80 L (1.2-3.4) K/uL Mcduffie # (Auto) 0.60 H (0.11-0.59) K/uL Eos # (Auto) 0.26 (0-0.5) K/uL Baso # (Auto) 0.04 (0-0.2) K/uL Absolute Nucleated RBC 0.04 H (0-0) K/uL Nucleated RBC % (auto) 0.6 % Giant Platelets 1+ Polychromasia 1+ Anisocytosis Present Echinocytes 1+ PT 47.1 H (9.0-12.0) Seconds INR 4.9 H (0.9-1.1) APTT 44.4 H (21.0-31.0) Seconds PTT Ratio 1.6 Sodium 131 L (136-145) mmol/L Potassium 4.8 (3.5-5.1) mmol/L Chloride 95 L (98-107) mmol/L Carbon Dioxide 26 (21-32) mmol/L Anion Gap 10.0 (3-11) BUN 58 H (7-18) mg/dl Creatinine 3.70 H (0.6-1.2) mg/dl Est Cr Clr Drug Dosing 13.8 ml/min Est GFR ( Amer) 13.1 Est GFR (Non-Af Amer) 11.3 BUN/Creatinine Ratio 15.6 (10-20) Glucose 213 H (70-99) mg/dl Calcium 9.5 (8.5-10.1) mg/dl Magnesium 2.0 (1.8-2.4) mg/dl Total Bilirubin 0.9 (0.2-1) mg/dl AST 100 H (15-37) U/L ALT 57 (12-78) U/L Alkaline Phosphatase 447 H (45-117) U/L Troponin I 0.078 H* (0-0.045) ng/ml Total Protein 6.3 L (6.4-8.2) gm/dl Albumin 2.1 L (3.4-5.0) gm/dl Globulin 4.2 H (2.5-4.0) gm/dl Albumin/Globulin Ratio 0.5 L (0.9-2) Procalcitonin TSH 1.680 (0.300-4.500) uIu/ml Specimen Hemolysis 03/06/20 03/06/20 03/07/20 Range/Units 21:30 22:54 00:14 WBC (4.8-10.8) K/uL RBC (4.2-5.4) M/uL Hgb (12.0-16.0) g/dL Hct (37-47) % MCV (80-100) fL MCH (25-34) pg MCHC (32-36) g/dL RDW Std Deviation (36.4-46.3) fL RDW Coeff of Oleksandr (11.5-14.5) % Plt Count (130-400) K/uL MPV (7.4-10.4) fL Immature Gran % (Auto) % Neut % (Auto) % Lymph % (Auto) % Mcduffie % (Auto) % Eos % (Auto) % Baso % (Auto) % Immature Gran # (Auto) (0.00-0.02) K/uL Neut # (Auto) (1.4-6.5) K/uL Lymph # (Auto) (1.2-3.4) K/uL Mcduffie # (Auto) (0.11-0.59) K/uL Eos # (Auto) (0-0.5) K/uL Baso # (Auto) (0-0.2) K/uL Absolute Nucleated RBC (0-0) K/uL Nucleated RBC % (auto) % Giant Platelets Polychromasia Anisocytosis Echinocytes PT (9.0-12.0) Seconds INR (0.9-1.1) APTT (21.0-31.0) Seconds PTT Ratio Sodium (136-145) mmol/L Potassium (3.5-5.1) mmol/L Chloride (98-107) mmol/L Carbon Dioxide (21-32) mmol/L Anion Gap (3-11) BUN (7-18) mg/dl Creatinine (0.6-1.2) mg/dl Est Cr Clr Drug Dosing ml/min Est GFR ( Amer) Est GFR (Non-Af Amer) BUN/Creatinine Ratio (10-20) Glucose (70-99) mg/dl Calcium (8.5-10.1) mg/dl Magnesium (1.8-2.4) mg/dl Total Bilirubin (0.2-1) mg/dl AST (15-37) U/L ALT (12-78) U/L Alkaline Phosphatase (45-117) U/L Troponin I 0.079 H* (0-0.045) ng/ml Total Protein (6.4-8.2) gm/dl Albumin (3.4-5.0) gm/dl Globulin (2.5-4.0) gm/dl Albumin/Globulin Ratio (0.9-2) Procalcitonin Cancelled Cancelled TSH (0.300-4.500) uIu/ml Specimen Hemolysis 03/07/20 Range/Units 00:14 WBC (4.8-10.8) K/uL RBC (4.2-5.4) M/uL Hgb (12.0-16.0) g/dL Hct (37-47) % MCV (80-100) fL MCH (25-34) pg MCHC (32-36) g/dL RDW Std Deviation (36.4-46.3) fL RDW Coeff of Oleksandr (11.5-14.5) % Plt Count (130-400) K/uL MPV (7.4-10.4) fL Immature Gran % (Auto) % Neut % (Auto) % Lymph % (Auto) % Mcduffie % (Auto) % Eos % (Auto) % Baso % (Auto) % Immature Gran # (Auto) (0.00-0.02) K/uL Neut # (Auto) (1.4-6.5) K/uL Lymph # (Auto) (1.2-3.4) K/uL Mcduffie # (Auto) (0.11-0.59) K/uL Eos # (Auto) (0-0.5) K/uL Baso # (Auto) (0-0.2) K/uL Absolute Nucleated RBC (0-0) K/uL Nucleated RBC % (auto) % Giant Platelets Polychromasia Anisocytosis Echinocytes PT (9.0-12.0) Seconds INR (0.9-1.1) APTT (21.0-31.0) Seconds PTT Ratio Sodium (136-145) mmol/L Potassium (3.5-5.1) mmol/L Chloride (98-107) mmol/L Carbon Dioxide (21-32) mmol/L Anion Gap (3-11) BUN (7-18) mg/dl Creatinine (0.6-1.2) mg/dl Est Cr Clr Drug Dosing ml/min Est GFR ( Amer) Est GFR (Non-Af Amer) BUN/Creatinine Ratio (10-20) Glucose (70-99) mg/dl Calcium (8.5-10.1) mg/dl Magnesium (1.8-2.4) mg/dl Total Bilirubin (0.2-1) mg/dl AST (15-37) U/L ALT (12-78) U/L Alkaline Phosphatase (45-117) U/L Troponin I (0-0.045) ng/ml Total Protein (6.4-8.2) gm/dl Albumin (3.4-5.0) gm/dl Globulin (2.5-4.0) gm/dl Albumin/Globulin Ratio (0.9-2) Procalcitonin 2.11 H TSH (0.300-4.500) uIu/ml Specimen Hemolysis Administered Medications Discontinued Medications Fentanyl Citrate (Fentanyl Citrate) 50 mcg IV NOW STA Stop: 03/06/20 22:01 Last Admin: 03/06/20 22:26 Dose: Not Given Documented by: [id number] Fentanyl Citrate (Fentanyl Citrate) 25 mcg IV NOW STA Stop: 03/06/20 22:20 Last Admin: 03/06/20 22:51 Dose: 25 mcg Documented by: [id number] Fentanyl Citrate (Fentanyl Citrate) 25 mcg IV NOW STA Stop: 03/06/20 23:20 Last Admin: 03/06/20 23:29 Dose: 25 mcg Documented by: [id number] Piperacillin Sod/Tazobactam Sod (Zosyn) 4.5 gm in 120 mls @ 240 mls/hr IV NOW ONE Stop: 03/06/20 23:50 Last Infusion: 03/07/20 00:00 Dose: 0 mls/hr Documented by: [id number] Admin: 03/06/20 23:29 Dose: 240 mls/hr Documented by: [id number] Phytonadione (Mephyton) 2.5 mg PO NOW STA Stop: 03/06/20 23:36 Last Admin: 03/07/20 00:25 Dose: 2.5 mg Documented by: [id number] Discharge Plan Visit Data Chief Complaint: Infection ED Provider: Keenan Saravia Discharge Problem: Left upper extremity swelling, Arm pain, left Patient Disposition: Being Evaluated by Hospitalist Forms Stand Alone Forms: [facility] Prescriptions Prescriptions: No Action clopidogrel 75 mg tablet 75 mg PO QAM RF: 0 nitroglycerin 0.4 mg tablet, sublingual 0.4 mg Sublingual Q5M PRN (Reason: Chest Pain) RF: 0 Renal Caps 1 mg capsule 1 mg PO QAM RF: 0 Flovent HFA 110 mcg/actuation HFA aerosol inhaler 2 puff Inhalation BID RF: 0 atorvastatin 40 mg tablet 40 mg PO HS RF: 0 albuterol sulfate 90 mcg/actuation HFA aerosol inhaler 2 puff inhalation Q6H PRN (Reason: Shortness Of Breath Or Wheezing) RF: 0 desvenlafaxine succinate [Pristiq] 25 mg Tablet Extended Release 24 Hr 25 mg PO QAM RF: 0 oxycodone-acetaminophen 5-325 mg tablet 1 tab PO Q6H MDD APAP MAX 3 GRAMS/24 HOURS PRN (Reason: Pain) RF: 0 pantoprazole 40 mg tablet,delayed release (DR/EC) 40 mg PO DAILY RF: 0 lidocaine-prilocaine 2.5-2.5 % cream 1 applic topical .PRE DIALYSIS RF: 0 acetaminophen [Tylenol] 325 mg Tablet 650 mg PO Q4H MDD 3 GRAMS/24 HOURS PRN (Reason: Fever Or Pain) RF: 0 oxycodone-acetaminophen 5-325 mg Tablet 1 tab PO TID MDD APAP 3 GRAMS/24 HOURS RF: 0 Santyl 250 unit/gram Ointment 1 applic TOPICAL DAILY PRN (Reason: SKIN TEAR ON MID BACK) RF: 0 Med Pass 120 ml PO TID RF: 0 amoxicillin 500 mg capsule 500 mg PO TID RF: 0 doxycycline hyclate 100 mg tablet 100 mg PO BID RF: 0 midodrine 10 mg tablet 10 mg PO DIRECTED RF: 0 Referrals Referrals: Sigifredo Moya [Primary Care Provider] -
[2020-03-06] MEDS ORDERED: fentaNYL citrate 100 MCG/2 ML VIAL IV STA ×3 (22:00→23:19)
--- NOTE | 2020-03-06 22:01 | Ultrasound Report ---
US hemodialysis access CLINICAL HISTORY: LUE, swelling COMPARISON STUDY: Ultrasound hemodialysis access January 04, 2019. TECHNIQUE: Grayscale, color and duplex Doppler sonography of the left upper arm AV fistula was perfor med. FINDINGS: The fistula between the left brachial artery and cephalic vein is noted. Fistula is patent. No thrombus is identified on this examination. Velocities range up to 289 cm/s. No pseudoaneurysm or hematoma is identified. Left upper arm subcutaneous edema is noted. No fluid collection is identifie d to suggest an abscess. IMPRESSION: 1. Patent left upper arm AV fistula. No pseudoaneurysm. No hematoma. 2. Subcutaneous edema of the left upper arm. No fluid collection identified. ACT 112: Negative or not required by law. Electronically signed by: Chinedu Arita M.D. 03/06/2020 10:00 PM
--- NOTE | 2020-03-06 22:58 | CT Scan Report ---
CT humerus LT wo con CLINICAL HISTORY: swelling , INR elevated COMPARISON STUDY: Left shoulder radiographs March 06, 2020. TECHNIQUE: Axial images of the left humerus were obtained without IV contrast. Sagittal and coronal r econstructions were viewed. Automated exposure control was utilized for the study. A dose lowering t echnique was utilized adhering to the principles of ALARA. FINDINGS: Evaluation of the left upper arm is suboptimal on this unenhanced examination. There is mil d anterior subluxation of the left humeral head with respect to the glenoid. There is no dislocation. A left glenohumeral joint effusion is suspected. There is left upper extremity edema. There is also left chest and abdominal wall edema. No fluid collection is identified on this unenhanced examination . No hematoma is noted. Left upper arm AV fistula is better depicted on ultrasound performed earlier today. The CT of the left formal be reported separately. IMPRESSION: 1. Anterior subluxation of the left humeral head with respect to the glenoid. No dislocation. In the absence of recent trauma, this finding is of questionable significance. Suspected glenohumeral joint effusion. 2. No left humeral fracture. 3. Extensive edema of the left chest wall, left abdominal wall and left upper extremity. No fluid co llection identified on this unenhanced exam. No soft tissue gas. 4. Left upper arm AV fistula, better depicted on ultrasound performed earlier today. ACT 112: Negative or not required by law. Electronically signed by: Chinedu Arita M.D. 03/06/2020 10:56 PM
--- NOTE | 2020-03-06 23:08 | CT Scan Report ---
CT forearm LT wo con CLINICAL HISTORY: swelling , INR elevated COMPARISON STUDY: No previous studies for comparison. TECHNIQUE: Axial images of the left forearm were obtained without IV contrast. Sagittal and coronal r econstructions were viewed. Automated exposure control was utilized for the study. A dose lowering t echnique was utilized adhering to the principles of ALARA. FINDINGS: Please note that the CT of the left humerus will be reported separately. No acute fracture of the left radius or ulna is identified. No osseous lesion is noted. Extensive subcutaneous edema is noted. No hematoma is noted. No fluid collection is noted. There is no evidence for a myelitis. Exte nsive vascular calcification is present. IMPRESSION: 1. No acute fracture of the left radius or ulna. 2. Extensive edema of the left forearm. This is nonspecific but may reflect cellulitis. 3. No hematoma. ACT 112: Negative or not required by law. Electronically signed by: Chinedu Arita M.D. 03/06/2020 11:07 PM
[2020-03-06] MEDS ORDERED: PIPERACILLIN/TAZOBACTAM 4.5 GM/120 ML BAG IV ONE (23:21)
[2020-03-06] MEDS ORDERED: PIPERACILL/TAZOBAC CONSULT ACTIVE PRN (23:21)
[2020-03-06] MEDS ORDERED: PHYTONADIONE 5 MG TAB PO STA (23:35)
--- NOTE | 2020-03-07 02:40 | History & Physical Report ---
Date of Service March 07, 2020 Assessment & Plan (1) Arm pain, left: Multifactorial : LUE cellulitis rule out elbow effusion, no sepsis (history of MRSA/Pseudomonas as per records) (No response to recent outpatient amoxicillin and doxycycline course for multiple wounds.) Left shoulder joint abnormality contributory (possibly from EMS transport to hospital after fall at home 2 months ago as per patient) ? Neuropathy component given burning description chronic diastolic heart failure (EF 55 to 60%, TTE 2019), euvolemic SSS sp PPM on Coumadin, paced rhythm, INR supratherapeutic CAD/PVD as per records hypertension, stable Troponin elevation in the setting of ESRD, patient without chest pain/S OB complaints DM 2 diet-controlled, well-controlled as of hemoglobin A1c of 6.14 December 2019 chronic ulcers as per records past tobacco abuse Medical telemetry given asymptomatic troponin elevation Follow troponin Add Cefepime to doxycycline for Pseudomonas coverage DC amoxicillin Left elbow x-ray RE pain rule out effusion Orthopedics consult LUE pain RE abnormal imaging Analgesia, Lidoderm patch trial given possible concomitant neuropathy Nephrology consult RE dialysis management Wound care nurse follow-up visit for chronic wounds ISS BG goal [id number] DVT prophylaxis with Coumadin INR goal between 2 and 3 Full code Text document was generated using Bluebox voice recognition software. It may contain grammatical or spelling errors. Kindly contact undersigned for clarification of any documentation item in question. History of Present Illness Chief Complaint: Worsening left arm pain/swelling Primary Care Provider: Colette Mei History obtained from patient, family, and records. Medical history significant for chronic diastolic heart failure (EF 55 to 60%, TTE 2019), SSS sp PPM on Coumadin, CAD status post stent/PVD as per records, hypertension, ESRD on HD, DM 2 diet-controlled, chronic ulcers as per records, past tobacco abuse, history of MRSA/Pseudomonas as per records. Last confinement December 2019 foe acute weakness following mechanical fall at home. Patient found to have Pseudomonas bacteremia attributed to multiple skin wounds. Patient Discharged Colette Santana [facility] for rehab on Levaquin course. Patient noted worsening pain on the left arm/shoulder especially with motion more the last month. Patient attributes discomfort to having been pulled after fall incident at home from 2 months ago. No fever, no chills. No issues with dialysis access. 2 weeks ago, patient noted to have redness on left elbow and incision site. No drainage or redness as per outpatient note. Patient seen at [facility] wound care center around that time for chronic wounds. Some debridement procedures done during visit. A week later patient started on doxycycline and amoxicillin course presumably for wound infections. The last few days, patient complaining of worsening left arm swelling. Left elbow felt to be warm as per note. Patient also complaining of worsening left shoulder pain. Pain described as achy and burning as per patient. Patient denies chest pain and S OB. At the ER, patient received Zosyn for LUE cellulitis. 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 Allergies Allergy/AdvReac Type Severity Reaction Status Date / Time No Known Allergies Allergy Verified 03/06/20 20:42 Home Medications Home Medications Medication Instructions Recorded Confirmed Type Flovent HFA 2 puff INHALATION BID 12/16/18 03/06/20 History Renal Caps 1 mg PO QAM 12/16/18 03/06/20 History clopidogrel 75 mg PO QAM 12/16/18 03/06/20 History nitroglycerin 0.4 mg SUBLINGUAL Q5M PRN 12/16/18 03/06/20 History albuterol sulfate 2 puff INHALATION Q6H PRN 04/29/19 03/06/20 History atorvastatin 40 mg PO HS 04/29/19 03/06/20 History desvenlafaxine succinate [Pristiq] 25 mg PO QAM 04/29/19 03/06/20 History lidocaine-prilocaine 1 applic TOPICAL .PRE DIALYSIS 01/06/20 03/06/20 History oxycodone-acetaminophen 1 tab PO Q6H PRN MDD APAP MAX 3 01/06/20 03/06/20 History GRAMS/24 HOURS pantoprazole 40 mg PO DAILY 01/06/20 03/06/20 History Med Pass 120 ml PO TID 03/06/20 03/06/20 History acetaminophen [Tylenol] 650 mg PO Q4H PRN MDD 3 GRAMS/24 03/06/20 03/06/20 History HOURS amoxicillin 500 mg PO TID 03/06/20 03/06/20 History collagenase clostridium histo. 1 applic TOPICAL DAILY PRN 03/06/20 03/06/20 History [Santyl] doxycycline hyclate 100 mg PO BID 03/06/20 03/06/20 History midodrine 10 mg PO DIRECTED 03/06/20 03/06/20 History oxycodone-acetaminophen 1 tab PO TID MDD APAP 3 GRAMS/24 03/06/20 03/06/20 History HOURS Past Med/Surg History Social History Preferred Language: Azeri Communication Ability: Effective Foreign Languages Department Chair Required: No Beliefs That Will Affect Care: None marital status: / Current Living Situation: [facility] Current Living Situation Comment: Lives with grandson, but moving out soon. Other Information That Helps Us Care for You: No Feels Safe at Home: Yes Safety Concerns: Feels Safe At This Time Smoking Status: Unknown if ever smoked Hx Alcohol Use: No Hx Substance Use: No Review of Systems Review of Systems: As per HPI, all 10 systems reviewed, all other ROS negative Physical Exam Physical Exam: GENERAL: uncomfortable, anxious, obese, no respiratory distress SKIN: Normal color, warm, multiple ecchymoses noted on patient trunk and extremities HEENT: [place] palpebral conjunctivae, no ptosis, dry buccal mucosa NECK : Supple, short neck, no tenderness CHEST : Decreased breath sounds , no tenderness HEART : RRR, no obvious murmurs ABDOMEN: Some distention, nontender EXTREMITIES : Bilateral LE swelling with wraps noted, minimal LE tenderness; tender violaceous LUE swelling without induration noted, anterior left shoulder pain with some limitation in motion NEUROLOGIC : Coherent, no facial asymmetry, no other gross focality Results & Data Results & Data ([facility]) Vital Signs (Past 12 Hours) Vital Signs Temp Pulse Pulse Resp BP BP Pulse Ox 03/07/20 01:34 72 20 146/79 H 98 03/07/20 00:25 74 20 134/79 97 03/06/20 23:09 80 20 146/86 H 98 03/06/20 22:01 72 18 124/70 99 03/06/20 20:32 72 18 97 03/06/20 20:30 74 13 113/64 94 03/06/20 20:07 72 14 110/67 91 03/06/20 19:50 36.7 C 72 18 110/67 97 Laboratory Results Laboratory Results WBC 7.80 K/uL (4.8-10.8) 03/06/20 20:00 RBC 4.33 M/uL (4.2-5.4) 03/06/20 20:00 Hgb 13.4 g/dL (12.0-16.0) 03/06/20 20:00 Hct 42.2 % (37-47) 03/06/20 20:00 MCV 97.5 fL (80-100) 03/06/20 20:00 MCH 30.9 pg (25-34) 03/06/20 20:00 MCHC 31.8 g/dL (32-36) L 03/06/20 20:00 RDW Std Deviation 72.9 fL (36.4-46.3) H 03/06/20 20:00 RDW Coeff of Oleksandr 20.7 % (11.5-14.5) H 03/06/20 20:00 Plt Count 169 K/uL (130-400) 03/06/20 20:00 MPV 11.4 fL (7.4-10.4) H 03/06/20 20:00 Immature Gran % (Auto) 0.6 % 03/06/20 20:00 Neut % (Auto) 77.6 % 03/06/20 20:00 Lymph % (Auto) 10.3 % 03/06/20 20:00 Loving % (Auto) 7.7 % 03/06/20 20:00 Eos % (Auto) 3.3 % 03/06/20 20:00 Baso % (Auto) 0.5 % 03/06/20 20:00 Immature Gran # (Auto) 0.05 K/uL (0.00-0.02) H 03/06/20 20:00 Neut # (Auto) 6.05 K/uL (1.4-6.5) 03/06/20 20:00 Lymph # (Auto) 0.80 K/uL (1.2-3.4) L 03/06/20 20:00 Loving # (Auto) 0.60 K/uL (0.11-0.59) H 03/06/20 20:00 Eos # (Auto) 0.26 K/uL (0-0.5) 03/06/20 20:00 Baso # (Auto) 0.04 K/uL (0-0.2) 03/06/20 20:00 Absolute Nucleated RBC 0.04 K/uL (0-0) H 03/06/20 20:00 Nucleated RBC % (auto) 0.6 % 03/06/20 20:00 Giant Platelets 1+ 03/06/20 20:00 Polychromasia 1+ 03/06/20 20:00 Anisocytosis Present 03/06/20 20:00 Echinocytes 1+ 03/06/20 20:00 PT 47.1 Seconds (9.0-12.0) H 03/06/20 20:50 INR 4.9 (0.9-1.1) H 03/06/20 20:50 APTT 44.4 Seconds (21.0-31.0) H 03/06/20 20:50 PTT Ratio 1.6 03/06/20 20:50 Sodium 131 mmol/L (136-145) L 03/06/20 20:50 Potassium 4.8 mmol/L (3.5-5.1) 03/06/20 20:50 Chloride 95 mmol/L (98-107) L 03/06/20 20:50 Carbon Dioxide 26 mmol/L (21-32) 03/06/20 20:50 Anion Gap 10.0 (3-11) 03/06/20 20:50 BUN 58 mg/dl (7-18) H 03/06/20 20:50 Creatinine 3.70 mg/dl (0.6-1.2) H 03/06/20 20:50 Est Cr Clr Drug Dosing 13.8 ml/min 03/06/20 20:50 Est GFR ( Amer) 13.1 03/06/20 20:50 Est GFR (Non-Af Amer) 11.3 03/06/20 20:50 BUN/Creatinine Ratio 15.6 (10-20) 03/06/20 20:50 Glucose 213 mg/dl (70-99) H 03/06/20 20:50 Calcium 9.5 mg/dl (8.5-10.1) 03/06/20 20:50 Magnesium 2.0 mg/dl (1.8-2.4) 03/06/20 20:50 Total Bilirubin 0.9 mg/dl (0.2-1) 03/06/20 20:50 AST 100 U/L (15-37) H 03/06/20 20:50 ALT 57 U/L (12-78) 03/06/20 20:50 Alkaline Phosphatase 447 U/L (45-117) H 03/06/20 20:50 Troponin I 0.079 ng/ml (0-0.045) H* 03/07/20 00:14 Total Protein 6.3 gm/dl (6.4-8.2) L 03/06/20 20:50 Albumin 2.1 gm/dl (3.4-5.0) L 03/06/20 20:50 Globulin 4.2 gm/dl (2.5-4.0) H 03/06/20 20:50 Albumin/Globulin Ratio 0.5 (0.9-2) L 03/06/20 20:50 Procalcitonin 2.11 ng/ml (0-0.5) H 03/07/20 00:14 TSH 1.680 uIu/ml (0.300-4.500) 03/06/20 20:50 Specimen Hemolysis 03/06/20 20:50 Diagnostic Findings Left humerus CT: 1. Anterior subluxation of the left humeral head with respect to the glenoid. No dislocation. In the absence of recent trauma, this finding is of questionable significance. Suspected glenohumeral joint effusion. 2. No left humeral fracture. 3. Extensive edema of the left chest wall, left abdominal wall and left upper extremity. No fluid collection identified on this unenhanced exam. No soft tissue gas. 4. Left upper arm AV fistula, better depicted on ultrasound performed earlier today. Left forearm CT: 1. No acute fracture of the left radius or ulna. 2. Extensive edema of the left forearm. This is nonspecific but may reflect cellulitis. 3. No hematoma. Left shoulder x-ray: 1. No acute fracture or dislocation within the left shoulder. 2. Moderate osteoarthritis of the left acromioclavicular joint. Ultrasound left upper extremity: 1. Patent left upper arm AV fistula. No pseudoaneurysm. No hematoma. 2. Subcutaneous edema of the left upper arm. No fluid collection identified. Chest x-ray : 1. Linear left basilar opacities which favor atelectasis. 2. Moderate cardiomegaly. No evidence for pulmonary edema. EKG as per my interpretation : Rate 70, paced rhythm
--- NOTE | 2020-03-07 07:06 | XRay Report ---
XR elbow LT min 3V routine CLINICAL HISTORY: 74 years-old Female presenting with swelling. TECHNIQUE: Frontal, oblique, and lateral views of the left elbow were obtained. COMPARISON: None. FINDINGS: Elbow joint congruent. No gross elbow joint effusion. No evidence of significant joint space loss or osteophytosis. Osteopenia may be present. Atherosclerosis. No acute fracture or malalignment. Small e nthesophyte at the insertion of the triceps tendon. Diffuse subcutaneous edema and soft tissue swelli ng. Surgical clip projects over the ventral lateral soft tissues at the level of the elbow joint. IMPRESSION: 1. No acute osseous injury. 2. Nonspecific diffuse edema at the elbow. ACT 112: Negative or not required by law. Electronically signed by: Javier Kwok M.D. 03/07/2020 7:05 AM
[2020-03-07] MEDS ORDERED: DEXTROSE 50% 50 ML SYRINGE IV PRN (07:27)
[2020-03-07] MEDS ORDERED: GLUCAGON FOR INJ 1 MG VIAL SQ PRN (07:27)
[2020-03-07] MEDS ORDERED: GLUCOSE 10 TABS/TUBE PO PRN (07:27)
[2020-03-07] MEDS ORDERED: CARBOHYDRATES FOR HYPOGLYCEMIA PO PRN (07:27)
[2020-03-07] MEDS ORDERED: ACETAMINOPHEN 325 MG TAB PO PRN (07:27)
[2020-03-07] MEDS ORDERED: HYDROmorphone INJ 0.5 MG/0.5 ML SYR IV PRN (07:28)
[2020-03-07] MEDS ORDERED: GLUCOSE 40% GEL 15 GM TUBE PO PRN (07:28)
[2020-03-07] MEDS ORDERED: PROMETHAZINE HCL 12.5 MG in SODIUM CHLORIDE 0.9% 50 ML IV PRN (07:28)
[2020-03-07] MEDS ORDERED: CEFEPIME CONSULT ACTIVE PRN (07:45)
[2020-03-07] MEDS ORDERED: CEFEPIME 1,000 MG in SYRINGE 0 ML IV ONE (08:30)
[2020-03-07] MEDS ORDERED: DESVENLAFAXINE SUCCINATE 25 MG PO SCH (09:00)
[2020-03-07] MEDS: NEPHROCAPS PO SCH (09:22)
[2020-03-07] MEDS: DOXYCYCLINE HYCLATE 100 MG CAP PO SCH ×2 (09:22→20:40)
[2020-03-07] MEDS: FLUTICASONE FUROATE 200MCG 14 PUFFS/INHALER INH SCH (09:22)
[2020-03-07] MEDS: LIDOCAINE 5% 1 PATCH TD SCH (09:23)
[2020-03-07] MEDS: INSULIN ASPART 100 UNITS/ML 3 ML PEN SC SCH ×4 (09:24→22:44)
[2020-03-07] MEDS: OXYCODONE HCL IR 5 MG TAB (IMMEDIATE RELEASE) PO PRN ×2 (09:33→17:19)
[2020-03-07] MEDS: PANTOprazole 40 MG TAB PO SCH (09:33)
[2020-03-07] MEDS: CLOPIDOGREL BISULFATE 75 MG TAB PO SCH (09:33)
--- NOTE | 2020-03-07 09:59 | Nephrology Consultation ---
Date of Consultation March 07, 2020 Assessment & Plan (1) ESRD on hemodialysis: Dialyzes Saturday as an outpatient via left upper extremity AV fistula. Would be due for dialysis today, however due to holiday will defer till tomorrow: Keshia Diaz has no dialysis nursing coverage today. -Hemodynamically stable and chemistries acceptable I added a 1.2 L fluid restriction to dialysis diet Next hemodialysis tomorrow Present on Admission?: Yes (2) Volume overload: A chronic problem for her and worse now based on imaging. Several factors may play a role here. Notable that she chronically has diffuse body edema particularly on lower extremities but in the past few weeks has changed to be more bilateral upper extremities left greater than right. Hypoalbuminemia may play a role. Inability to hit target weight at dialysis may play a role as well: This is a chronic challenge for her. Cellulitis will cause worse inflammation locally and edema. ? Role if any for -1.2 L fluid limit Treat cellulitis; wound consult pending Dialysis as above Present on Admission?: Yes (3) Physical deconditioning: also noted to have wt loss 11 lb past month at her facility-- some may be d/t better dialysis/fluid mgt; some limited appetite as well; pt w/ chronic hip pain and struggles to move very much -PT eval/ activity as tolerated -she has been really weak for a really long time > may be nearing need for p alliative care consult to discuss goals of care Present on Admission?: Yes (4) Cellulitis: on cefepime; per primary service; no evidence that this is affecting dialysis access or relates to it; continue efforts to optimize volume status to help with healing Low threshold for Doppler of left axillary region to evaluate for obstructive component (question DVT (less likely since INR has been therapeutic for most of the past month and is actually supratherapeutic currently), question lymphadenopathy) of upper extremity edema is new Present on Admission?: Yes History of Present Illness Reason for Consultation: ESRD on dialysis Requesting Physician: Dr Flood Attending Physician: Elier Gallagher MD History of Present Illness 74-year-old female on Saturday hemodialysis via upper extremity AV fistula admitted overnight with concern for left upper extremity elbow effusion. I am asked to see her for dialysis needs. She dialyzes at [facility] [place] Saturday under my care. She has chronic volume overload, though lately dialysis nurses report she has had more upper extremity edema bilaterally left greater than right and less on her lower extremities. Past medical history includes chronic diastolic heart failure ejection fraction 55% on 2018 TTE, status post pacemaker placement for sick sinus syndrome, A. fib on Coumadin, coronary artery disease status post stenting, type 2 diabetes, Pseudomonas bacteremia December 2019, status post excision of squamous cell skin cancer bilateral upper extremity spring 2019, chronic extremity wounds, chronic ambulatory dysfunction for which she is currently rehabbing at [facility]. Patient follows at [facility] wound care center for chronic wounds on her arms and legs. Noted 2 weeks ago to have left elbow and incision site and redness for which she underwent in center debridement and was started on doxycycline and amoxicillin after wound cultures grew staph aureus and Enterococcus faecalis. She has been afebrile and otherwise hemodynamically stable since admission and is on room air. She is tearful today about her clinical situation and her buttock pain. Allergies Allergy/AdvReac Type Severity Reaction Status Date / Time No Known Allergies Allergy Verified 03/06/20 20:42 Home Medications Home Medications Medication Instructions Recorded Confirmed Type Flovent HFA 2 puff INHALATION BID 12/16/18 03/06/20 History Renal Caps 1 mg PO QAM 12/16/18 03/06/20 History clopidogrel 75 mg PO QAM 12/16/18 03/06/20 History nitroglycerin 0.4 mg SUBLINGUAL Q5M PRN 12/16/18 03/06/20 History albuterol sulfate 2 puff INHALATION Q6H PRN 04/29/19 03/06/20 History atorvastatin 40 mg PO HS 04/29/19 03/06/20 History desvenlafaxine succinate [Pristiq] 25 mg PO QAM 04/29/19 03/06/20 History lidocaine-prilocaine 1 applic TOPICAL .PRE DIALYSIS 01/06/20 03/06/20 History oxycodone-acetaminophen 1 tab PO Q6H PRN MDD APAP MAX 3 01/06/20 03/06/20 History GRAMS/24 HOURS pantoprazole 40 mg PO DAILY 01/06/20 03/06/20 History Med Pass 120 ml PO TID 03/06/20 03/06/20 History acetaminophen [Tylenol] 650 mg PO Q4H PRN MDD 3 GRAMS/24 03/06/20 03/06/20 History HOURS amoxicillin 500 mg PO TID 03/06/20 03/06/20 History collagenase clostridium histo. 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 Other Information That Helps Us Care for You: No Feels Safe at Home: Yes Safety Concerns: Feels Safe At This Time Smoking Status: Unknown if ever smoked Hx Alcohol Use: No Hx Substance Use: No Review of Systems Review of Systems: All systems reviewed & are unremarkable except as noted in HPI & below Constitutional: + fatigue (significant generalized), + weakness (siginificant generalized) and + weight loss (seen at her facility this week for wt loss 11 lb past wks; may relate to HD) Ear, Nose, Mouth, Throat: + dry mouth Respiratory: + dyspnea and + dyspnea on exertion Cardiovascular: + edema (worse arms past 10 days); no chest pain and no palpitations Gastrointestinal: + early satiety (and poor appetite); no abdominal pain, no bloating, no heartburn, no vomiting, no change in bowel habits and no diarrhea/loose stools Genitourinary: no change to chronic voiding habits Integumentary: + non-healing lesions and + sores Neurologic: + generalized weakness Psychiatric: + depression and + hopelessness Physical Exam Constitutional: well developed, + acute distress (mild w/ tearfulness about her situation clinically; A& 0 x 3), + obese, + physical limitations and cooperative Eyes: EOM intact bilaterally ENMT: Ears: no external ear abnormality Nose: no external nose abnormality Mouth: + dry oral mucous membranes Neck: no nuchal rigidity Respiratory: normal respiratory effort Auscultation: lungs clear to auscultation bilaterally and + diminished lung sounds Cardiovascular: Rate/Rhythm: regular rate and regular rhythm Extremities: + edema (BL legs wrapped) and + AV fistula Gastrointestinal (Abdomen): Inspection/Auscultation: normal bowel sounds Percussion/Palpation: abdomen soft; abdomen nontender Musculoskeletal: Extremities: + limited ROM of extremities (mg LUE) and + abnormal strength (weakness of limbs mg) Skin: no rashes, warm and dry + ulcer (sacral not examined; ) Neurologic: generalized weakness, moody, fluent speech, no tremor Psychiatric: Orientation: alert and oriented x 3 Motor Behavior: + psychomotor retardation (slight) Speech: normal rate/rhythm/volume of speech Affect: + tearful affect Mood: + anxious mood Results & Data Vital Signs (Past 12 Hours) Vital Signs Temp Pulse Pulse Resp BP BP Pulse Ox 03/07/20 07:39 36.9 C 76 17 131/84 94 03/07/20 04:08 37 C 71 18 124/73 94 03/07/20 03:08 88 20 136/81 98 03/07/20 01:34 72 20 146/79 H 98 03/07/20 00:25 74 20 134/79 97 03/06/20 23:09 80 20 146/86 H 98 03/06/20 22:01 72 18 124/70 99 Laboratory Results 03/06/20 20:00 03/06/20 20:50 Blood cultures x2 in process Diagnostic Findings Noncon left CT humerus 1. Anterior subluxation of the left humeral head with respect to the glenoid. No dislocation. In the absence of recent trauma, this finding is of questionable significance. Suspected glenohumeral joint effusion. 2. No left humeral fracture. 3. Extensive edema of the left chest wall, left abdominal wall and left upper extremity. No fluid collection identified on this unenhanced exam. No soft tissue gas. 4. Left upper arm AV fistula, better depicted on ultrasound performed earlier today. Noncon left forearm CT 1. No acute fracture of the left radius or ulna. 2. Extensive edema of the left forearm. This is nonspecific but may reflect cellulitis. 3. No hematoma. Hemodialysis access duplex ultrasound 1. Patent left upper arm AV fistula. No pseudoaneurysm. No hematoma. 2. Subcutaneous edema of the left upper arm. No fluid collection identified. Left shoulder and elbow x-rays: No fracture Chest x-ray 1. Linear left basilar opacities which favor atelectasis. 2. Moderate cardiomegaly. No evidence for pulmonary edema. (1) Cellulitis Laterality: left Site of cellulitis: extremity Site of cellulitis of extremity: upper extremity Qualified Code(s): L03.114 - Cellulitis of left upper limb (2) Volume overload Hypervolemia type: other Qualified Code(s): E87.79 - Other fluid overload
--- NOTE | 2020-03-07 12:57 | Electrocardiogram Report ---
Test Reason : Blood Pressure : / mmHG Vent. Rate : 071 BPM Atrial Rate : 326 BPM P-R Int : 000 ms QRS Dur : 146 ms QT Int : 444 ms P-R-T Axes : 000 -68 116 degrees QTc Int : 482 ms Ventricular-paced rhythm Abnormal ECG When compared with ECG of 06-JAN-2020 14:48, Vent. rate has decreased BY 6 BPM Confirmed by Toby Hooker ([id number]) on 03/07/2020 12:57:28 PM Referred By: Sigifredo Santana Confirmed By:Toby Hooker
--- NOTE | 2020-03-07 18:32 | Consultation Report ---
DATE OF CONSULTATION: 03/07/2020 HISTORY OF PRESENT ILLNESS: This is a 74-year-old right hand dominant female seen at the request of Elier Gallagher regarding left upper extremity pain, swelling and presumed cellulitis. The patient is in her typical state of health and started to have a 2-3 day history of left upper extremity pain and swelling. She is on end-stage renal dialysis 3 times per week and noted to have worsening left upper extremity pain and swelling. She related a story that she had a fall approximately 2 months prior and since that time she has had difficulty with her left upper extremity, particularly around the shoulder region. The patient had no fevers or chills. No difficulty with dialysis. Presented to the Emergency Department, she was evaluated and noted to have cellulitis of the left upper extremity; question regarding any orthopedic issues secondary to chronic degenerative findings on the left shoulder and elbow radiographs and CT scans. The patient is seen in her hospital room, answered all questions appropriately and a history per the patient. Complains of left upper extremity discomfort related to the left upper arm, shoulder and around the elbow region including the forearm. She states the pain and swelling is improved over the last several hours after being on IV antibiotics. No fevers or chills, no shortness of breath. No other malaise that she can recall. PAST MEDICAL HISTORY: Extensive including chronic diastolic heart failure, ejection fraction 55%-60%. SSS, status post PPM, on Coumadin. CAD, status post stent. PVD as per records. Hypertension. ESRD, on hemodialysis 3 times per week. NIDDM. Chronic ulcers. Past tobacco use. History of MRSA, pseudomonas. PAST SURGICAL HISTORY: PPM, vascular procedures, fistula in the left upper extremity, back surgery, hip surgery. ALLERGIES: No known drug allergies. MEDICATIONS: Please note the significant list in the medical record. SOCIAL HISTORY: Past tobacco use. No alcohol. Denied drug use. 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 Lives at [facility] currently. PHYSICAL EXAMINATION: This is a pleasant 74-year-old female who appears alert and oriented x3. Speech is slow; however, clear and fluent. Somewhat hard of hearing. Focused exam of the left upper extremity and shoulder demonstrates, skin, multiple areas of ecchymosis, fistula in the left upper extremity adjacent to the forearm and elbow patent with a palpable thrill. Radial pulse in the left upper extremity is unable to obtain. The fingers are pink and warm. Cap refill is approximately 3 seconds. She has dry skin and nails with thin skin. She has tenderness to palpation over the anterior and superior lateral aspect of the left shoulder, tenderness over the supraspinatus insertion of the rotator cuff and tenderness over the acromioclavicular joint. There is no significant crepitation; however, she has difficulty with any active motion of the left upper extremity, particularly with abduction, forward elevation and external rotation. She has limited mobility of the left shoulder due to some discomfort. She has difficulty performing drop arm and empty can tests. She has tenderness over the biceps tendon. No dislocation; however, she does have anterior superior resting position of the left proximal humerus in relation to the shoulder girdle. This reflects a chronic rotator cuff arthropathy. Laboratories reviewed. Radiographs and CT scans reviewed of the upper extremity. IMPRESSION: 1. Left upper extremity cellulitis, improving on IV antibiotics. 2. 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 3. Rotator cuff arthropathy, left, with underlying left rotator cuff tendonitis, likely partial tear. RECOMMENDATIONS: Nonoperative candidate and would recommend supportive care and management with alternating heat and cold to the left shoulder, possibly a course of physical therapy as she is able to tolerate. No palpable abscesses, nonsurgical. Follow up p.r.n. Thank you for the opportunity to consult in the care of this patient.
[2020-03-07] MEDS: ATORVASTATIN 40 MG TAB PO SCH (20:41)
[2020-03-07] MEDS ORDERED: INSULIN GLARGINE SOLOSTAR 100 UNITS/ML 3 ML PEN SC STA (21:38)
--- NOTE | 2020-03-07 22:06 | Ultrasound Report ---
US venous doppler UE LT CLINICAL HISTORY: 74 years-old Female presenting with Significant edema, axillary region eval for DVT . TECHNIQUE: Real-time grayscale and color and spectral Doppler ultrasound imaging of the veins of the left upper extremity was performed. Compression and augmentation were also utilized. COMPARISON: None. FINDINGS: LEFT: Internal jugular vein: Patent. Subclavian vein: Patent. Axillary vein: Patent. Brachial vein: Patent. Basilic vein (superficial): Patent. Cephalic vein (superficial): Patent. Radial vein: Patent. Ulnar vein: Patent. Other: Subcutaneous edema in the forearm. IMPRESSION: 1. No evidence of deep venous thrombosis. 2. Subcutaneous edema in the forearm. ACT 112: Negative or not required by law. Electronically signed by: Javier Kwok M.D. 03/07/2020 10:05 PM
[2020-03-08] MEDS ORDERED: SODIUM CHLORIDE 0.9% 1000ML 1,000 ML IV PRN (07:00)
[2020-03-08] MEDS ORDERED: HEPARIN SOD (PORCINE) 1000 UNIT/ML 10 ML VIAL IV ONE (07:00)
[2020-03-08 07:41] LABS: Basophils # (auto) 0.05 K/uL (0-0.2); Basophils % (auto) 0.7 %; Eosinophils # (auto) 0.39 K/uL (0-0.5); Eosinophils % (auto) 5.5 %; Hematocrit (blood only) 40.3 % (37-47); Hemoglobin 12.8 g/dL (12.0-16.0); Immature Granulocytes # (auto) 0.05 K/uL (0.00-0.02); Immature Granulocytes % (auto) 0.7 %; Lymphocytes # (auto) 0.72 K/uL (1.2-3.4); Lymphocytes % (auto) 10.2 %; Mean Corpuscular Hemoglobin 30.3 pg (25-34); Mean Corpuscular Hgb Conc 31.8 g/dL (32-36); Mean Corpuscular Volume 95.5 fL (80-100); Mean Platelet Volume 11.9 fL (7.4-10.4); Monocytes # (auto) 0.65 K/uL (0.11-0.59); Monocytes % (auto) 9.2 %; Neutrophils # (auto) 5.23 K/uL (1.4-6.5); Neutrophils % (auto) 73.7 %; Nucleated RBC # (auto) 0.04 K/uL (0-0); Nucleated RBC % (auto) 0.5 %; Platelet Count 131 K/uL (130-400); RDW Coefficient of Variation 20.7 % (11.5-14.5); RDW Standard Deviation 70.4 fL (36.4-46.3); Red Blood Count 4.22 M/uL (4.2-5.4); White Blood Count 7.09 K/uL (4.8-10.8)
[2020-03-08 07:52] LABS: INR 1.4 (0.9-1.1)
[2020-03-08 08:07] LABS: Anisocytosis Present; Echinocytes 1+; Giant Platelets 1+; Macrocytosis Present; Polychromasia 1+
[2020-03-08 08:28] LABS: BUN Creatinine Ratio 14.8 (10-20); Calcium 9.5 mg/dl (8.5-10.1); Creatinine Clr Calc Pharmacy 10.7 ml/min; Est GFR (African American) 9.8; Est GFR (Non-African American) 8.5; Potassium 4.8 mmol/L (3.5-5.1)
[2020-03-08] MEDS: LIDOCAINE/PRILOCAINE 2.5% EA CRM EXT SCH (08:33)
[2020-03-08] MEDS: LIDOCAINE 5% 1 PATCH TD SCH (08:33)
[2020-03-08] MEDS: FLUTICASONE FUROATE 200MCG 14 PUFFS/INHALER INH SCH (08:33)
[2020-03-08] MEDS: DOXYCYCLINE HYCLATE 100 MG CAP PO SCH ×2 (08:34→20:26)
[2020-03-08] MEDS: PANTOprazole 40 MG TAB PO SCH (08:34)
[2020-03-08] MEDS: NEPHROCAPS PO SCH (08:34)
[2020-03-08] MEDS: CLOPIDOGREL BISULFATE 75 MG TAB PO SCH (08:35)
[2020-03-08] MEDS: INSULIN ASPART 100 UNITS/ML 3 ML PEN SC SCH ×4 (08:44→20:24)
[2020-03-08] MEDS: OXYCODONE HCL IR 5 MG TAB (IMMEDIATE RELEASE) PO PRN ×3 (10:06→20:28)
--- NOTE | 2020-03-08 11:58 | Hospitalist Progress Note ---
Date of Service March 08, 2020 Assessment & Plan (1) Arm pain, left: Multifactorial : LUE cellulitis rule out elbow effusion, no sepsis (history of MRSA/Pseudomonas as per records) (No response to recent outpatient amoxicillin and doxycycline course for multiple wounds.) Left shoulder joint abnormality contributory (possibly from EMS transport to hospital after fall at home 2 months ago as per patient) ? Neuropathy component given burning description Add Cefepime to doxycycline for Pseudomonas coverage DC amoxicillin Left elbow x-ray RE pain rule out effusion Orthopedics consult LUE pain RE abnormal imaging - per ortho nonoperative Analgesia, Lidoderm patch trial given possible concomitant neuropathy Doppler obtained - no DVT in LUE Nephrology consult RE dialysis management, plan for HD today and fluid removal (03/08) Will eval after HD if LUE discomfort improved after control of her edema better achieved w/ UF Chronic diastolic heart failure (EF 55 to 60%, TTE 2018), euvolemic SSS sp PPM on Coumadin, paced rhythm, INR supratherapeutic on admission, follow INR CAD/PVD as per records hypertension, stable Troponin elevation in the setting of ESRD, patient without chest pain/S OB complaints Medical telemetry given asymptomatic troponin elevation Follow troponin DM 2 diet-controlled, well-controlled as of hemoglobin A1c of 6.14 December 2019 ISS BG goal [id number] Chronic ulcers as per records, Wound care nurse follow-up visit for chronic wounds Past tobacco abuse DVT prophylaxis with Coumadin INR goal between 2 and 3 Full code Admission and Anticipated Discharge Date Admission Date: March 07, 2020 Subjective Pt is sitting up in bed in NAD, appears weak. Upper extremity edema, pt says somewhat better from having her arms propped with pillows. Plan for HD today and UF. Pt denies any fever, chills, chest pain, shortness of breath, abd. pain, nausea or vomiting. Review of Systems Review of Systems: All systems reviewed & are unremarkable except as noted in HPI & below Constitutional: no fever and no chills Respiratory: no cough and no dyspnea Cardiovascular: + edema; no chest pain and no palpitations Gastrointestinal: no abdominal pain, no nausea and no vomiting Physical Exam Physical Exam: GENERAL: elderly obese female sitting up in bed, + chronically ill appearing, in NAD HEENT: NC/AT, EOMI, PERRL, pink palpebral conjunctivae NECK : Supple, short neck, no tenderness CHEST : Decreased breath sounds, no wheezing, rhonchi noted HEART : RRR, no obvious murmurs ABDOMEN: normal bowel sounds, soft, obese, mild distention, nontender to palpation EXTREMITIES : Bilateral LE swelling with wraps noted, minimal LE tenderness; tender violaceous LUE swelling without induration noted, anterior left shoulder pain with some limitation in motion, significant UE edema b/l SKIN: Normal color, warm, multiple ecchymoses noted on patient trunk and extremities NEUROLOGIC : alert and oriented x3,no facial asymmetry, speech fluent but slow, moves extremities spontaneously Results & Data Results & Data ([facility]) Vital Signs (Past 12 Hours) Vital Signs Temp Pulse Resp BP Pulse Ox 03/08/20 11:38 36.5 C 70 18 123/79 95 03/08/20 07:13 36.6 C 70 18 129/79 98 03/08/20 02:58 36.5 C 71 18 124/80 90 Laboratory Results 03/08/20 03/08/20 03/08/20 Range/Units 11:54 07:32 07:28 WBC (4.8-10.8) K/uL RBC (4.2-5.4) M/uL Hgb (12.0-16.0) g/dL Hct (37-47) % MCV (80-100) fL MCH (25-34) pg MCHC (32-36) g/dL RDW Std Deviation (36.4-46.3) fL RDW Coeff of Oleksandr (11.5-14.5) % Plt Count (130-400) K/uL MPV (7.4-10.4) fL Immature Gran % (Auto) % Neut % (Auto) % Lymph % (Auto) % [place] % (Auto) % Eos % (Auto) % Baso % (Auto) % Immature Gran # (Auto) (0.00-0.02) K/uL Neut # (Auto) (1.4-6.5) K/uL Lymph # (Auto) (1.2-3.4) K/uL [place] # (Auto) (0.11-0.59) K/uL Eos # (Auto) (0-0.5) K/uL Baso # (Auto) (0-0.2) K/uL Absolute Nucleated RBC (0-0) K/uL Nucleated RBC % (auto) % Giant Platelets Polychromasia Anisocytosis Macrocytosis Echinocytes PT (9.0-12.0) Seconds INR (0.9-1.1) Sodium 129 L (136-145) mmol/L Potassium 4.8 (3.5-5.1) mmol/L Chloride 94 L (98-107) mmol/L Carbon Dioxide 25 (21-32) mmol/L Anion Gap 11.0 (3-11) BUN 70 H (7-18) mg/dl Creatinine 4.71 H* D (0.6-1.2) mg/dl Est Cr Clr Drug Dosing 10.7 ml/min Est GFR ( Amer) 9.8 Est GFR (Non-Af Amer) 8.5 BUN/Creatinine Ratio 14.8 (10-20) Glucose 136 H (70-99) mg/dl POC Glucose 178 H 128 H (70-99) mg/dl Calcium 9.5 (8.5-10.1) mg/dl SARS-CoV-2 RNA (RT-PCR) (Negative) 03/08/20 03/08/20 03/07/20 Range/Units 07:28 07:28 22:41 WBC 7.09 (4.8-10.8) K/uL RBC 4.22 (4.2-5.4) M/uL Hgb 12.8 (12.0-16.0) g/dL Hct 40.3 (37-47) % MCV 95.5 (80-100) fL MCH 30.3 (25-34) pg MCHC 31.8 L (32-36) g/dL RDW Std Deviation 70.4 H (36.4-46.3) fL RDW Coeff of Oleksandr 20.7 H (11.5-14.5) % Plt Count 131 (130-400) K/uL MPV 11.9 H (7.4-10.4) fL Immature Gran % (Auto) 0.7 % Neut % (Auto) 73.7 % Lymph % (Auto) 10.2 % [place] % (Auto) 9.2 % Eos % (Auto) 5.5 % Baso % (Auto) 0.7 % Immature Gran # (Auto) 0.05 H (0.00-0.02) K/uL Neut # (Auto) 5.23 (1.4-6.5) K/uL Lymph # (Auto) 0.72 L (1.2-3.4) K/uL [place] # (Auto) 0.65 H (0.11-0.59) K/uL Eos # (Auto) 0.39 (0-0.5) K/uL Baso # (Auto) 0.05 (0-0.2) K/uL Absolute Nucleated RBC 0.04 H (0-0) K/uL Nucleated RBC % (auto) 0.5 % Giant Platelets 1+ Polychromasia 1+ Anisocytosis Present Macrocytosis Present Echinocytes 1+ PT 15.0 H (9.0-12.0) Seconds INR 1.4 H (0.9-1.1) Sodium (136-145) mmol/L Potassium (3.5-5.1) mmol/L Chloride (98-107) mmol/L Carbon Dioxide (21-32) mmol/L Anion Gap (3-11) BUN (7-18) mg/dl Creatinine (0.6-1.2) mg/dl Est Cr Clr Drug Dosing ml/min Est GFR ( Amer) Est GFR (Non-Af Amer) BUN/Creatinine Ratio (10-20) Glucose (70-99) mg/dl POC Glucose 178 H (70-99) mg/dl Calcium (8.5-10.1) mg/dl SARS-CoV-2 RNA (RT-PCR) (Negative) 03/07/20 03/07/20 03/07/20 Range/Units 21:09 17:06 12:12 WBC (4.8-10.8) K/uL RBC (4.2-5.4) M/uL Hgb (12.0-16.0) g/dL Hct (37-47) % MCV (80-100) fL MCH (25-34) pg MCHC (32-36) g/dL RDW Std Deviation (36.4-46.3) fL RDW Coeff of Oleksandr (11.5-14.5) % Plt Count (130-400) K/uL MPV (7.4-10.4) fL Immature Gran % (Auto) % Neut % (Auto) % Lymph % (Auto) % [place] % (Auto) % Eos % (Auto) % Baso % (Auto) % Immature Gran # (Auto) (0.00-0.02) K/uL Neut # (Auto) (1.4-6.5) K/uL Lymph # (Auto) (1.2-3.4) K/uL [place] # (Auto) (0.11-0.59) K/uL Eos # (Auto) (0-0.5) K/uL Baso # (Auto) (0-0.2) K/uL Absolute Nucleated RBC (0-0) K/uL Nucleated RBC % (auto) % Giant Platelets Polychromasia Anisocytosis Macrocytosis Echinocytes PT (9.0-12.0) Seconds INR (0.9-1.1) Sodium (136-145) mmol/L Potassium (3.5-5.1) mmol/L Chloride (98-107) mmol/L Carbon Dioxide (21-32) mmol/L Anion Gap (3-11) BUN (7-18) mg/dl Creatinine (0.6-1.2) mg/dl Est Cr Clr Drug Dosing ml/min Est GFR ( Amer) Est GFR (Non-Af Amer) BUN/Creatinine Ratio (10-20) Glucose (70-99) mg/dl POC Glucose 208 H 175 H 205 H (70-99) mg/dl Calcium (8.5-10.1) mg/dl SARS-CoV-2 RNA (RT-PCR) (Negative) 03/07/20 Range/Units 07:50 WBC (4.8-10.8) K/uL RBC (4.2-5.4) M/uL Hgb (12.0-16.0) g/dL Hct (37-47) % MCV (80-100) fL MCH (25-34) pg MCHC (32-36) g/dL RDW Std Deviation (36.4-46.3) fL RDW Coeff of Oleksandr (11.5-14.5) % Plt Count (130-400) K/uL MPV (7.4-10.4) fL Immature Gran % (Auto) % Neut % (Auto) % Lymph % (Auto) % [place] % (Auto) % Eos % (Auto) % Baso % (Auto) % Immature Gran # (Auto) (0.00-0.02) K/uL Neut # (Auto) (1.4-6.5) K/uL Lymph # (Auto) (1.2-3.4) K/uL [place] # (Auto) (0.11-0.59) K/uL Eos # (Auto) (0-0.5) K/uL Baso # (Auto) (0-0.2) K/uL Absolute Nucleated RBC (0-0) K/uL Nucleated RBC % (auto) % Giant Platelets Polychromasia Anisocytosis Macrocytosis Echinocytes PT (9.0-12.0) Seconds INR (0.9-1.1) Sodium (136-145) mmol/L Potassium (3.5-5.1) mmol/L Chloride (98-107) mmol/L Carbon Dioxide (21-32) mmol/L Anion Gap (3-11) BUN (7-18) mg/dl Creatinine (0.6-1.2) mg/dl Est Cr Clr Drug Dosing ml/min Est GFR ( Amer) Est GFR (Non-Af Amer) BUN/Creatinine Ratio (10-20) Glucose (70-99) mg/dl POC Glucose (70-99) mg/dl Calcium (8.5-10.1) mg/dl SARS-CoV-2 RNA (RT-PCR) NEGATIVE (Negative) Medications Administered Current Inpatient Medications Acetaminophen (Tylenol) 650 mg PO Q4H PRN PRN Reason: Pain or Fever Stop: 04/06/20 07:26 Atorvastatin Calcium (Lipitor) 40 mg PO HS GORDO Stop: 04/06/20 20:59 Last Admin: 03/07/20 20:41 Dose: 40 mg Documented by: Clopidogrel Bisulfate (Plavix) 75 mg PO QAM GORDO Stop: 04/06/20 08:59 Last Admin: 03/08/20 08:35 Dose: 75 mg Documented by: Dextrose (Dextrose 50%) 25 - 50 ml IV UD PRN; Protocol PRN Reason: Hypoglycemia Protocol Stop: 04/06/20 07:26 Doxycycline Hyclate (Vibramycin) 100 mg PO BID GORDO Stop: 03/14/20 08:59 Last Admin: 03/08/20 08:34 Dose: 100 mg Documented by: Fluticasone Furoate (Arnuity Ellipta 200mcg) 1 puffs INH DAILY GORDO Stop: 04/06/20 08:59 Last Admin: 03/08/20 08:33 Dose: 1 puffs Documented by: Glucagon (Glucagen) 1 mg SQ UD PRN; Protocol PRN Reason: Hypoglycemia Protocol Stop: 04/06/20 07:26 Glucose (Glucose 40%) 15 - 30 gm PO UD PRN; Protocol PRN Reason: Hypoglycemia Protocol Stop: 04/06/20 07:27 Glucose (Dex4 Glucose) 4 - 8 tabs PO UD PRN; Protocol PRN Reason: Hypoglycemia Protocol Stop: 04/06/20 07:26 Hydromorphone HCl (Dilaudid) 0.25 mg IV Q3H PRN PRN Reason: Pain Stop: 03/21/20 07:27 Promethazine HCl 12.5 mg/ (Sodium Chloride) 50.5 mls @ 202 mls/hr IV Q6H PRN PRN Reason: Nausea And Vomiting Stop: 04/06/20 07:27 Cefepime HCl 500 mg/ Syringe 5.65 mls @ 5.5 mls/min IV Q24H GORDO; Protocol Stop: 03/13/20 14:02 Sodium Chloride (Nss 1000ml) 1,000 mls @ 0 mls/hr IV .Q0M PRN PRN Reason: For Hemodialysis Use ONLY Stop: 03/08/20 12:59 Insulin Aspart (Novolog Flexpen) 0 units SC ACHS [facility] Stop: 04/06/20 07:29 Last Admin: 03/08/20 08:44 Dose: 1 units Documented by: Insulin Glargine (Lantus Solostar Pen) 5 units SC HS [facility] Stop: 04/07/20 20:59 Lidocaine (Lidoderm 5%) 1 patch TD QAM [facility] Stop: 04/06/20 08:59 Last Admin: 03/08/20 08:33 Dose: 1 patch Documented by: Lidocaine/Prilocaine (Emla 2.5% Crm) 1 ea EXT MoWeFr [facility] Stop: 04/07/20 06:59 Last Admin: 03/08/20 08:33 Dose: 1 ea Documented by: Midodrine (Proamatine) 10 mg PO MoWeFr@1000 [facility] Stop: 04/07/20 09:59 Miscellaneous (Remove Lidoderm Patch) 1 ea N/A DAILY@2100 [facility] Stop: 04/06/20 20:59 Last Admin: 03/07/20 20:40 Dose: 1 ea Documented by: Miscellaneous (Carbohydrates For Hypoglycemia) 15 - 30 gm PO UD PRN PRN Reason: Hypoglycemia Protocol Stop: 04/06/20 07:26 Miscellaneous (Order Awaiting Action) 1 ea N/A QS [facility] Stop: 04/06/20 15:59 Last Admin: 03/08/20 07:59 Dose: Not Given Documented by: Miscellaneous Information (Cefepime Consult Active) 1 ea N/A UD PRN PRN Reason: Consult Stop: 04/06/20 07:44 Oxycodone HCl (Roxicodone Immediate Rel) 5 mg PO Q4H PRN PRN Reason: Pain Stop: 03/21/20 07:27 Last Admin: 03/08/20 10:06 Dose: 5 mg Documented by: Pantoprazole Sodium (Protonix) 40 mg PO DAILY [facility] Stop: 04/06/20 08:59 Last Admin: 03/08/20 08:34 Dose: 40 mg Documented by: Vitamin B Complex/Folic Acid (Nephrocaps) 1 cap PO QAM [facility] Stop: 04/06/20 08:59 Last Admin: 03/08/20 08:34 Dose: 1 cap Documented by:
[2020-03-08] MEDS: CEFEPIME 500 MG in SYRINGE 0 ML IV SCH (13:30)
[2020-03-08] MEDS: MIDODRINE HCL 10 MG TAB PO SCH (14:45)
[2020-03-08 14:57] LABS: Hepatitis B Surface Ab Quant 3.56 mIU/mL (>or=10mIU/mL Immune); Hepatitis B Surface Antibody Non-Immune
[2020-03-08 15:08] LABS: Hepatitis B Surface Antigen Neg (Neg)
--- NOTE | 2020-03-08 16:40 | Progress Notes ---
DATE: 03/08/2020 SUBJECTIVE: The patient was seen during dialysis; so far she is tolerating it well. OBJECTIVE: VITAL SIGNS: Blood pressure 120/68, pulse rate 99 per minute, 95% on room air, temperature 36.6. HEENT: Mucous membrane is moist. NECK: Supple. No jugular venous distention. CHEST: Decreased breath sounds, poor inspiratory effort. CARDIOVASCULAR: S1, S2 regular. ABDOMEN: Soft, nontender. EXTREMITIES: Shows 2+ edema with significant wrapping. AV fistula worked fine. LABORATORY TESTS: From this morning showed sodium 129, potassium 4.8, BUN 70, creatinine 4.71, hemoglobin 12.8, platelet count 131. ASSESSMENT AND PLAN: A 74-year-old female with ESRD, on chronic hemodialysis Saturday, Saturday, Saturday, admitted because of concern about left upper extremity, elbow effusion. 1. ESRD. She is currently getting dialysis without any major problem. We will continue prescription as prescribed and we plan to take 2.5 kilo off. No major electrolyte imbalance. MTDD
[2020-03-08] MEDS: INSULIN GLARGINE SOLOSTAR 100 UNITS/ML 3 ML PEN SC SCH (20:23)
[2020-03-08] MEDS: ATORVASTATIN 40 MG TAB PO SCH (20:25)
[2020-03-08] MEDS: HEPARIN SOD (PORCINE) 1000 UNIT/ML 10 ML VIAL IV SCH ×2 (20:25→20:26)
[2020-03-09 07:37] LABS: Hematocrit (blood only) 38.7 % (37-47); Hemoglobin 12.3 g/dL (12.0-16.0); Mean Corpuscular Hemoglobin 30.7 pg (25-34); Mean Corpuscular Hgb Conc 31.8 g/dL (32-36); Mean Corpuscular Volume 96.5 fL (80-100); Mean Platelet Volume 11.5 fL (7.4-10.4); Nucleated RBC # (auto) 0.05 K/uL (0-0); Nucleated RBC % (auto) 0.7 %; Platelet Count 126 K/uL (130-400); Red Blood Count 4.01 M/uL (4.2-5.4); White Blood Count 6.86 K/uL (4.8-10.8)
[2020-03-09] MEDS: LIDOCAINE 5% 1 PATCH TD SCH (07:55)
[2020-03-09] MEDS: CLOPIDOGREL BISULFATE 75 MG TAB PO SCH (07:55)
[2020-03-09] MEDS: FLUTICASONE FUROATE 200MCG 14 PUFFS/INHALER INH SCH (07:55)
[2020-03-09] MEDS: DOXYCYCLINE HYCLATE 100 MG CAP PO SCH ×2 (07:55→20:47)
[2020-03-09 07:56] LABS: INR 1.3 (0.9-1.1); Prothrombin Time 13.8 Seconds (9.0-12.0)
[2020-03-09] MEDS: NEPHROCAPS PO SCH (07:56)
[2020-03-09] MEDS: PANTOprazole 40 MG TAB PO SCH (07:56)
[2020-03-09] MEDS: LIDOCAINE/PRILOCAINE 2.5% EA CRM EXT SCH (07:57)
[2020-03-09] MEDS: INSULIN ASPART 100 UNITS/ML 3 ML PEN SC SCH ×4 (07:59→20:45)
[2020-03-09] MEDS: OXYCODONE HCL IR 5 MG TAB (IMMEDIATE RELEASE) PO PRN ×3 (08:04→19:15)
[2020-03-09 08:17] LABS: BUN Creatinine Ratio 10.9 (10-20); Calcium 9.2 mg/dl (8.5-10.1); Creatinine Clr Calc Pharmacy 14.9 ml/min; Magnesium 2.1 mg/dl (1.8-2.4)
[2020-03-09] MEDS ORDERED: TEMAZEPAM 15 MG CAPSULE PO PRN (12:05)
--- NOTE | 2020-03-09 12:11 | Hospitalist Progress Note ---
Date of Service March 09, 2020 Assessment & Plan (1) Arm pain, left: Multifactorial : LUE cellulitis rule out elbow effusion, no sepsis (history of MRSA/Pseudomonas as per records) (No response to recent outpatient amoxicillin and doxycycline course for multiple wounds.) Left shoulder joint abnormality contributory (possibly from EMS transport to hospital after fall at home 2 months ago as per patient) ? Neuropathy component given burning description Continue Cefepime Left elbow x-ray RE pain rule out effusion Orthopedics consult [facility] pain RE abnormal imaging - per ortho nonoperative Analgesia, Lidoderm patch trial given possible concomitant neuropathy Doppler obtained - no DVT in E Nephrology on case HD Chronic diastolic heart failure (EF 55 to 60%, TTE 2018), euvolemic SSS sp PPM on Coumadin, paced rhythm, INR supratherapeutic on admission, follow INR CAD/PVD as per records hypertension, stable Troponin elevation in the setting of ESRD, patient without chest pain/S OB complaints Medical telemetry given asymptomatic troponin elevation Follow troponin DM 2 diet-controlled, well-controlled as of hemoglobin A1c of 6.14 December 2019 ISS BG goal [id number] Chronic ulcers as per records, Wound care nurse follow-up visit for chronic wounds Past tobacco abuse DVT prophylaxis with Coumadin INR goal between 2 and 3 Full code labs reviewed ROS-Pain all over, No Headache, No Visual Changes, No Nausea, No Vomiting, No Fever, No Chills, No Neck Pain or Stiffness, No Chest Pain, No Palpitations, No SOB, No JENNINGS, No Cough, No Sputum, No Wheezing, No Abdominal Pain, No Diarrhea, No Hematemesis, No Hemoptysis, No Unexpected Weight Loss, No Flank pain, No Melena, No Hematochezia, No Frequency, No Urgency, No Burning, No Hematuria, No Rashes, No Diaphoresis. Appetite is Normal Physical Exam Gen-AAO x 3, NAD, Afebrile Head-NCAT, EOMI, PERRLA, Anicteric Sclera, No Posterior Pharyngeal Erythema Neck-Supple, No JVD, No Thyromegaly, No Masses, No LAD, No Bruits Lungs-Clear to Auscultation Bilaterally, No Rales, No Rhonchi, No Wheezing, No Crepitus Chest-No S4, +S1, +S2, No S3, No Murmurs, No Rubs, No Gallops, No Ectopy Abdomen-Soft, Bowel Sounds Present, Non Tender, Non Distended, No Hepatomegaly, No Splenomegaly, No Palpable Masses, No Rebound, No Rigidity, No Guarding Musculoskeletal-Full Range of Motion Bilaterally, No CVAT Extremities-Bilateral LE swelling with gauze wrapping, minimal LE tenderness;B/L UE edema Nuero-Cranial Nerves II-XII grossly intact, Motor WNL, DTRs WNL, Strength WNL, Non Focal Psych-Normal Mood Admission and Anticipated Discharge Date Admission Date: March 07, 2020 Results & Data Results & Data ([facility]) Vital Signs (Past 12 Hours) Vital Signs Temp Pulse Pulse Resp BP Pulse Ox 03/09/20 07:00 36.7 C 69 18 112/65 93 03/09/20 04:00 36.7 C 71 18 115/72 97 03/09/20 00:13 73
[2020-03-09] MEDS: CEFEPIME 500 MG in SYRINGE 0 ML IV SCH (13:17)
[2020-03-09] MEDS: MIDODRINE HCL 10 MG TAB PO SCH (17:17)
[2020-03-09] MEDS: INSULIN GLARGINE SOLOSTAR 100 UNITS/ML 3 ML PEN SC SCH (20:45)
[2020-03-09] MEDS: ATORVASTATIN 40 MG TAB PO SCH (20:46)
[2020-03-10 07:26] LABS: Hematocrit (blood only) 42.2 % (37-47); Hemoglobin 13.4 g/dL (12.0-16.0); Mean Corpuscular Hemoglobin 30.7 pg (25-34); Mean Corpuscular Hgb Conc 31.8 g/dL (32-36); Mean Corpuscular Volume 96.8 fL (80-100); Mean Platelet Volume 11.6 fL (7.4-10.4); Nucleated RBC # (auto) 0.03 K/uL (0-0); Nucleated RBC % (auto) 0.3 %; Platelet Count 127 K/uL (130-400); RDW Standard Deviation 72.9 fL (36.4-46.3); Red Blood Count 4.36 M/uL (4.2-5.4); White Blood Count 8.83 K/uL (4.8-10.8)
[2020-03-10 08:08] LABS: BUN Creatinine Ratio 11.7 (10-20); Calcium 9.7 mg/dl (8.5-10.1); Creatinine Clr Calc Pharmacy 12.2 ml/min; Est GFR (African American) 11.9; Est GFR (Non-African American) 10.3; Potassium 4.6 mmol/L (3.5-5.1)
[2020-03-10] MEDS: INSULIN ASPART 100 UNITS/ML 3 ML PEN SC SCH ×4 (08:34→21:08)
[2020-03-10] MEDS: LIDOCAINE 5% 1 PATCH TD SCH (08:35)
[2020-03-10] MEDS: FLUTICASONE FUROATE 200MCG 14 PUFFS/INHALER INH SCH (08:35)
[2020-03-10] MEDS: PANTOprazole 40 MG TAB PO SCH (08:37)
[2020-03-10] MEDS: NEPHROCAPS PO SCH (08:37)
[2020-03-10] MEDS: CLOPIDOGREL BISULFATE 75 MG TAB PO SCH (08:38)
[2020-03-10] MEDS: DOXYCYCLINE HYCLATE 100 MG CAP PO SCH ×2 (08:38→21:06)
[2020-03-10] MEDS: OXYCODONE HCL IR 5 MG TAB (IMMEDIATE RELEASE) PO PRN ×3 (08:46→21:05)
--- NOTE | 2020-03-10 11:13 | Hospitalist Progress Note ---
Date of Service March 10, 2020 Assessment & Plan (1) Arm pain, left: Multifactorial : LUE cellulitis rule out elbow effusion, no sepsis (history of MRSA/Pseudomonas as per records) (No response to recent outpatient amoxicillin and doxycycline course for multiple wounds.) Left shoulder joint abnormality contributory (possibly from EMS transport to hospital after fall at home 2 months ago as per patient) ? Neuropathy component given burning description Continue Cefepime Heel Ulcer-unstageable Left elbow x-ray RE pain rule out effusion Orthopedics consult LUE pain RE abnormal imaging - per ortho nonoperative Analgesia, Lidoderm patch trial given possible concomitant neuropathy Doppler obtained - no DVT in E Nephrology on case HD Chronic diastolic heart failure (EF 55 to 60%, TTE 2018), euvolemic SSS sp PPM on Coumadin, paced rhythm, INR supratherapeutic on admission, follow INR CAD/PVD as per records hypertension, stable Troponin elevation in the setting of ESRD, patient without chest pain/S OB co mplaints Medical telemetry given asymptomatic troponin elevation Follow troponin DM 2 diet-controlled, well-controlled as of hemoglobin A1c of 6.14 December 2019 ISS BG goal [id number] Chronic ulcers as per records, Wound care nurse follow-up visit for chronic wounds Past tobacco abuse. not sure of end point on this case DVT prophylaxis with Coumadin INR goal between 2 and 3 Full code labs reviewed ROS-Pain all over, No Headache, No Visual Changes, No Nausea, No Vomiting, No Fever, No Chills, No Neck Pain or Stiffness, No Chest Pain, No Palpitations, No SOB, No JENNINGS, No Cough, No Sputum, No Wheezing, No Abdominal Pain, No Diarrhea, No Hematemesis, No Hemoptysis, No Unexpected Weight Loss, No Flank pain, No Melena, No Hematochezia, No Frequency, No Urgency, No Burning, No Hematuria, No Rashes, No Diaphoresis. Appetite is Normal Physical Exam Gen-AAO x 3, NAD, Afebrile Head-NCAT, EOMI, PERRLA, Anicteric Sclera, No Posterior Pharyngeal Erythema Neck-Supple, No JVD, No Thyromegaly, No Masses, No LAD, No Bruits Lungs-Clear to Auscultation Bilaterally, No Rales, No Rhonchi, No Wheezing, No Crepitus Chest-No S4, +S1, +S2, No S3, No Murmurs, No Rubs, No Gallops, No Ectopy Abdomen-Soft, Bowel Sounds Present, Non Tender, Non Distended, No Hepatomegaly, No Splenomegaly, No Palpable Masses, No Rebound, No Rigidity, No Guarding Musculoskeletal-Full Range of Motion Bilaterally, No CVAT Extremities-Bilateral LE swelling with gauze wrapping, minimal LE tenderness;B/L UE edema, +Heel ulcer Nuero-Cranial Nerves II-XII grossly intact, Motor WNL, DTRs WNL, Strength WNL, Non Focal Psych-Normal Mood Admission and Anticipated Discharge Date Admission Date: March 07, 2020 Results & Data Results & Data ([facility]) Vital Signs (Past 12 Hours) Vital Signs Temp Pulse Pulse Resp BP Pulse Ox 03/10/20 07:42 72 03/10/20 07:00 36.7 C 71 20 139/79 96 03/10/20 03:00 36.6 C 70 20 116/74 97 03/10/20 00:32 70 03/09/20 23:18 36.7 C 70 20 96/56 L 98
--- NOTE | 2020-03-10 13:13 | Progress Notes ---
DATE: 03/10/2020 SUBJECTIVE: No new issues overnight. She is due for dialysis later today. OBJECTIVE: VITAL SIGNS: Blood pressure 135/79, pulse rate 77, temperature 36.5, 97% on room air. HEENT: Mucous membranes moist. NECK: Supple. No jugular venous distention. CHEST: Bilateral decreased breath sounds. CARDIOVASCULAR: S1, S2 regular. ABDOMEN: Soft, nontender. EXTREMITIES: Shows some edema bilaterally wrapped with bandages. LABORATORY TESTS: From this morning was reviewed in detail. ASSESSMENT AND PLAN: A 74-year-old female with ESRD, on chronic hemodialysis Saturday, Saturday, Saturday; admitted because of concern about left upper extremity elbow effusion. ESRD: She will be getting dialysis later today. for 3 hours and we will take 2 kilo off. She does not have any major fluid or electrolyte imbalance. MTDD
[2020-03-10] MEDS: CEFEPIME 500 MG in SYRINGE 0 ML IV SCH (13:15)
[2020-03-10] MEDS: LIDOCAINE/PRILOCAINE 2.5% EA CRM EXT SCH (13:57)
[2020-03-10] MEDS: ATORVASTATIN 40 MG TAB PO SCH (21:06)
[2020-03-10] MEDS: INSULIN GLARGINE SOLOSTAR 100 UNITS/ML 3 ML PEN SC SCH (21:08)
[2020-03-11] MEDS: OXYCODONE HCL IR 5 MG TAB (IMMEDIATE RELEASE) PO PRN ×3 (01:52→16:50)
[2020-03-11 05:59] LABS: Hematocrit (blood only) 41.9 % (37-47); Mean Corpuscular Hemoglobin 30.4 pg (25-34); Mean Corpuscular Volume 98.1 fL (80-100); Mean Platelet Volume 11.7 fL (7.4-10.4); Nucleated RBC # (auto) 0.04 K/uL (0-0); Nucleated RBC % (auto) 0.5 %; Platelet Count 114 K/uL (130-400); RDW Coefficient of Variation 21.2 % (11.5-14.5); RDW Standard Deviation 73.9 fL (36.4-46.3); Red Blood Count 4.27 M/uL (4.2-5.4); White Blood Count 8.19 K/uL (4.8-10.8)
[2020-03-11 06:31] LABS: Albumin Level 2.4 gm/dl (3.4-5.0); BUN Creatinine Ratio 9.6 (10-20); Calcium 8.9 mg/dl (8.5-10.1); Creatinine Clr Calc Pharmacy 15.4 ml/min; Est GFR (African American) 16.1; Est GFR (Non-African American) 13.9
[2020-03-11 06:35] LABS: Albumin Globulin Ratio 0.6 (0.9-2); Bilirubin,Total 1.1 mg/dl (0.2-1); Globulin 4.3 gm/dl (2.5-4.0); Total Protein 6.7 gm/dl (6.4-8.2)
[2020-03-11] MEDS: LIDOCAINE 5% 1 PATCH TD SCH (08:03)
[2020-03-11] MEDS: PANTOprazole 40 MG TAB PO SCH (08:03)
[2020-03-11] MEDS: NEPHROCAPS PO SCH (08:03)
[2020-03-11] MEDS: CLOPIDOGREL BISULFATE 75 MG TAB PO SCH (08:03)
[2020-03-11] MEDS: DOXYCYCLINE HYCLATE 100 MG CAP PO SCH (08:06)
[2020-03-11] MEDS: FLUTICASONE FUROATE 200MCG 14 PUFFS/INHALER INH SCH (08:06)
[2020-03-11] MEDS: INSULIN ASPART 100 UNITS/ML 3 ML PEN SC SCH ×3 (08:10→17:26)
--- NOTE | 2020-03-11 08:11 | Discharge Summary ---
Date of Service March 11, 2020 Admission HPI Per Admitting Provider History obtained from patient, family, and records. Medical history significant for chronic diastolic heart failure (EF 55 to 60%, TTE 2018), SSS sp PPM on Coumadin, CAD status post stent/PVD as per records, hypertension, ESRD on HD, DM 2 diet-controlled, chronic ulcers as per records, past tobacco abuse, history of MRSA/Pseudomonas as per records. Last confinement December 2019 foe acute weakness following mechanical fall at home. Patient found to have Pseudomonas bacteremia attributed to multiple skin wounds. Patient Discharged [facility] for rehab on Levaquin course. Patient noted worsening pain on the left arm/shoulder especially with motion more the last month. Patient attributes discomfort to having been pulled after fall incident at home from 2 months ago. No fever, no chills. No issues with dialysis access. 2 weeks ago, patient noted to have redness on left elbow and incision site. No drainage or redness as per outpatient note. Patient seen at [facility] wound care center around that time for chronic wounds. Some debridement procedures done during visit. A week later patient started on doxycycline and amoxicillin course presumably for wound infections. The last few days, patient complaining of worsening left arm swelling. Left elbow felt to be warm as per note. Patient also complaining of worsening left shoulder pain. Pain described as achy and burning as per patient. Patient denies chest pain and S OB. At the ER, patient received Zosyn for LUE cellulitis. 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 Admission Exam Per Admitting Provider GENERAL: uncomfortable, anxious, obese, no respiratory distress SKIN: Normal color, warm, multiple ecchymoses noted on patient trunk and extremities HEENT: [place] palpebral conjunctivae, no ptosis, dry buccal mucosa NECK : Supple, short neck, no tenderness CHEST : Decreased breath sounds , no tenderness HEART : RRR, no obvious murmurs ABDOMEN: Some distention, nontender EXTREMITIES : Bilateral LE swelling with wraps noted, minimal LE tenderness; tender violaceous LUE swelling without induration noted, anterior left shoulder pain with some limitation in motion NEUROLOGIC : Coherent, no facial asymmetry, no other gross focality Principal Diagnosis Arm pain, left: L elbow effusion Heel Ulcer-unstageable ESRD Chronic diastolic heart failure SSS sp PPM CAD/PVD Hypertension Troponin elevation in the setting of ESRD DM 2 diet-controlled Chronic ulcers Discharge Exam Physical Exam Gen-AAO x 3, NAD, Afebrile Head-NCAT, EOMI, PERRLA, Anicteric Sclera, No Posterior Pharyngeal Erythema Neck-Supple, No JVD, No Thyromegaly, No Masses, No LAD, No Bruits Lungs-Clear to Auscultation Bilaterally, No Rales, No Rhonchi, No Wheezing, No Crepitus Chest-No S4, +S1, +S2, No S3, No Murmurs, No Rubs, No Gallops, No Ectopy Abdomen-Soft, Bowel Sounds Present, Non Tender, Non Distended, No Hepatomegaly, No Splenomegaly, No Palpable Masses, No Rebound, No Rigidity, No Guarding Musculoskeletal-Full Range of Motion Bilaterally, No CVAT Extremities-Bilateral LE swelling with gauze wrapping, minimal LE tenderness;B/L UE edema, +Heel ulcer Nuero-Cranial Nerves II-XII grossly intact, Motor WNL, DTRs WNL, Strength WNL, Non Focal Psych-Normal Mood Discharge Data Allergies Allergy/AdvReac Type Severity Reaction Status Date / Time No Known Allergies Allergy Verified 03/06/20 20:42 Consultations 03/06/20 23:22 ED Decision to Admit Stat 03/07/20 07:27 Consult Nephrology Routine Consult Orthopedic Surgery Routine Ordered Studies 03/06/20 20:26 US hemodialysis access Stat 03/06/20 22:13 CT forearm LT wo con Stat CT humerus LT wo con Stat 03/07/20 12:27 US venous doppler UE LT Routine 03/11/20 03/11/20 03/11/20 Range/Units 07:32 05:23 05:23 WBC 8.19 (4.8-10.8) K/uL RBC 4.27 (4.2-5.4) M/uL Hgb 13.0 (12.0-16.0) g/dL Hct 41.9 (37-47) % MCV 98.1 (80-100) fL MCH 30.4 (25-34) pg MCHC 31.0 L (32-36) g/dL RDW Std Deviation 73.9 H (36.4-46.3) fL RDW Coeff of Oleksandr 21.2 H (11.5-14.5) % Plt Count 114 L (130-400) K/uL MPV 11.7 H (7.4-10.4) fL Absolute Nucleated RBC 0.04 H (0-0) K/uL Nucleated RBC % (auto) 0.5 % Sodium 133 L (136-145) mmol/L Potassium 4.0 (3.5-5.1) mmol/L Chloride 97 L (98-107) mmol/L Carbon Dioxide 27 (21-32) mmol/L Anion Gap 9.0 (3-11) BUN 30 H (7-18) mg/dl Creatinine 3.13 H D (0.6-1.2) mg/dl Est Cr Clr Drug Dosing 15.4 ml/min Est GFR ( Amer) 16.1 Est GFR (Non-Af Amer) 13.9 BUN/Creatinine Ratio 9.6 L (10-20) Glucose 144 H (70-99) mg/dl POC Glucose 181 H (70-99) mg/dl Calcium 8.9 (8.5-10.1) mg/dl Total Bilirubin 1.1 H (0.2-1) mg/dl AST 97 H (15-37) U/L ALT 69 (12-78) U/L Alkaline Phosphatase 484 H (45-117) U/L Total Protein 6.7 (6.4-8.2) gm/dl Albumin 2.4 L (3.4-5.0) gm/dl Globulin 4.3 H (2.5-4.0) gm/dl Albumin/Globulin Ratio 0.6 L (0.9-2) 03/10/20 03/10/20 03/10/20 Range/Units 20:34 18:31 11:47 WBC (4.8-10.8) K/uL RBC (4.2-5.4) M/uL Hgb (12.0-16.0) g/dL Hct (37-47) % MCV (80-100) fL MCH (25-34) pg MCHC (32-36) g/dL RDW Std Deviation (36.4-46.3) fL RDW Coeff of Oleksandr (11.5-14.5) % Plt Count (130-400) K/uL MPV (7.4-10.4) fL Absolute Nucleated RBC (0-0) K/uL Nucleated RBC % (auto) % Sodium (136-145) mmol/L Potassium (3.5-5.1) mmol/L Chloride (98-107) mmol/L Carbon Dioxide (21-32) mmol/L Anion Gap (3-11) BUN (7-18) mg/dl Creatinine (0.6-1.2) mg/dl Est Cr Clr Drug Dosing ml/min Est GFR ( Amer) Est GFR (Non-Af Amer) BUN/Creatinine Ratio (10-20) Glucose (70-99) mg/dl POC Glucose 186 H 125 H 167 H (70-99) mg/dl Calcium (8.5-10.1) mg/dl Total Bilirubin (0.2-1) mg/dl AST (15-37) U/L ALT (12-78) U/L Alkaline Phosphatase (45-117) U/L Total Protein (6.4-8.2) gm/dl Albumin (3.4-5.0) gm/dl Globulin (2.5-4.0) gm/dl Albumin/Globulin Ratio (0.9-2) Hospital Course (1) Arm pain, left: Multifactorial : LUE cellulitis rule out elbow effusion, no sepsis (history of MRSA/Pseudomonas as per records) (No response to recent outpatient amoxicillin and doxycycline course for multiple wounds.) Left shoulder joint abnormality contributory (possibly from EMS transport to hospital after fall at home 2 months ago as per patient) ? Neuropathy component given burning description DC Abx Heel Ulcer-unstageable, wound care Left elbow x-ray RE pain rule out effusion Orthopedics consult LUE pain RE abnormal imaging - per ortho nonoperative Analgesia, Lidoderm patch trial given possible concomitant neuropathy Doppler obtained - no DVT in LUE Nephrology on case HD Chronic diastolic heart failure (EF 55 to 60%, TTE 2018), euvolemic SSS sp PPM on Coumadin, paced rhythm, INR supratherapeutic on admission, follow INR CAD/PVD as per records hypertension, stable Troponin elevation in the setting of ESRD, patient without chest pain/S OB complaints Medical telemetry given asymptomatic troponin elevation Follow troponin DM 2 diet-controlled, well-controlled as of hemoglobin A1c of 6.14 December 2019 ISS BG goal [id number] Chronic ulcers as per records, Wound care nurse follow-up visit for chronic wounds Past tobacco abuse. not sure of end point on this case Total Time Total Time Spent Total Time Spent (In Minutes): 45 mins Total Time Includes: Examination of the Patient, Discharge Planning, Medication Reconciliation and Communication With Other Providers Discharge Plan Discharge Items Patient Disposition: Transfer [facility] Reason For Visit: LUE PAIN, TROP ELEV Discharge Diagnosis: Arm pain, left: L elbow effusion Heel Ulcer-unstageable ESRD Chronic diastolic heart failure SSS sp PPM CAD/PVD Hypertension Troponin elevation in the setting of ESRD DM 2 diet-controlled Chronic ulcers Condition on Discharge: Fair Health Concerns: Heel Ulcer and other chronic wounds Activity: Resume your previous activity Lifting: None Bathing Comment: Per SNF protocol Non-emergency contact: Primary Care Provider and Specialist Call non-emergency contact if: you have any medication questions Follow-up/Referrals: Sigifredo Moya [Primary Care Provider] - Diet: Dialysis Renal Fluids: 1500ml (6 cups) Addtl Attending Provider Instructions: Wound eval at [facility], F/U in wound care center Pending Studies at Discharge: No Stand-Alone Forms: My [facility] Skilled Items Patient informed of condition?: Yes DNR: No Discharge Level of Care: Skilled Communicable Disease: Yes Discharge Prognosis: Stable Lines: None Urinary Catheter: No Medications and DC Order Prescriptions: New acetaminophen [Mapap (acetaminophen)] 325 mg Tablet 650 mg PO Q4H PRN (Reason: fever or pain) Qty: 30 RF: 0 oxycodone 5 mg Tablet 5 mg PO Q4H PRN (Reason: pain) Qty: 30 RF: 0 Continued clopidogrel 75 mg tablet 75 mg PO QAM RF: 0 nitroglycerin 0.4 mg tablet, sublingual 0.4 mg Sublingual Q5M PRN (Reason: Chest Pain) RF: 0 Renal Caps 1 mg capsule 1 mg PO QAM RF: 0 Flovent HFA 110 mcg/actuation HFA aerosol inhaler 2 puff Inhalation BID RF: 0 atorvastatin 40 mg tablet 40 mg PO HS RF: 0 albuterol sulfate 90 mcg/actuation HFA aerosol inhaler 2 puff inhalation Q6H PRN (Reason: Shortness Of Breath Or Wheezing) RF: 0 desvenlafaxine succinate [Pristiq] 25 mg Tablet Extended Release 24 Hr 25 mg PO QAM RF: 0 pantoprazole 40 mg tablet,delayed release (DR/EC) 40 mg PO DAILY RF: 0 lidocaine-prilocaine 2.5-2.5 % cream 1 applic topical .PRE DIALYSIS RF: 0 acetaminophen [Tylenol] 325 mg Tablet 650 mg PO Q4H MDD 3 GRAMS/24 HOURS PRN (Reason: Fever Or Pain) RF: 0 Santyl 250 unit/gram Ointment 1 applic TOPICAL DAILY PRN (Reason: SKIN TEAR ON MID BACK) RF: 0 Med Pass 120 ml PO TID RF: 0 midodrine 10 mg tablet 10 mg PO DIRECTED RF: 0 Discontinued oxycodone-acetaminophen 5-325 mg tablet 1 tab PO Q6H MDD APAP MAX 3 GRAMS/24 HOURS PRN (Reason: Pain) RF: 0 oxycodone-acetaminophen 5-325 mg Tablet 1 tab PO TID MDD APAP 3 GRAMS/24 HOURS RF: 0 amoxicillin 500 mg capsule 500 mg PO TID RF: 0 doxycycline hyclate 100 mg tablet 100 mg PO BID RF: 0 Discharge Orders: Discharge Order (Routine); Ordered 03/11/20 Ordered By: Tyrel Kulkarni Admission Data Admit Date/Time: 03/07/20 13:11 Attending Provider: Tyrel Kulkarni Admit Provider: Cole Flood Primary Care Provider: [facility] Other Providers: Cole Flood ; Moon Guajardo ; Jadon Cherry ; Stephenie Mccallum ; Annika Beach ; Mana Philippe ; Eliot Soriano ; Croey Leung ; Juancho Garcia ; Janeth Flowers ; Fidel Arguelles ; Nati Hewitt ; Jimenez Draper ; Davi Story ; Manuel Pérez ; Davi Montero ; Keenan Martínez. ; Manuel Mendoza ; Junito Leigh ; Varun Schafer ; Shant Ingram ; Javier Lovett ; Stevo Jean Baptiste ; Nati Conte ; Corwin Oglesby ; Shelton Chaudhry ; Nubia Kennedy ; Nickolas Holliday ; Yakelin Colbert ; Psychiatric
[2020-03-11] MEDS: MIDODRINE HCL 10 MG TAB PO SCH (10:38)
[2020-03-11] MEDS: LIDOCAINE/PRILOCAINE 2.5% EA CRM EXT SCH (10:43)
--- NOTE | 2020-03-11 11:52 | Progress Notes ---
DATE: 03/11/2020 DIALYSIS NOTE SUBJECTIVE: The patient was seen during dialysis, so far she is tolerating it well. Vital signs are stable. No cramping. AV fistula worked fine. OBJECTIVE: VITAL SIGNS: Blood pressure 116/65, pulse rate 70, temperature 36.5, 97% on room air. HEENT: Mucous membranes moist. NECK: Supple. CHEST: Bilateral decreased breath sounds. CARDIOVASCULAR: S1, S2 regular. ABDOMEN: Soft, nontender. EXTREMITIES: Show 1+ edema in the dependent part of the thigh, both legs wrapped with bandage. LABORATORY TESTS: From this morning are reviewed. ASSESSMENT AND PLAN: A 74-year-old female with end-stage renal disease, on chronic hemodialysis [id number], admitted because of concern about left upper extremity elbow effusion. End-stage renal disease: She is getting dialysis as I speak. Given that she has had dialysis yesterday also, we will only do for 2 hours 30 minutes and try to take about 2 kilos off. She does not have any major fluid or electrolyte imbalance at this time. So after dialysis, she is back on her regular schedule of [id number] and can have the next dialysis on Saturday. FABRICE
[2020-03-11] MEDS: CEFEPIME 500 MG in SYRINGE 0 ML IV SCH (14:11)
== END 2020-03-11 17:45 | DRG 602 ==
LOC: ED 19:35 → 2W 19:35 → SUATTDRO 03-07 13:11